=== PATIENT | male | born 1940 | race Caucasian/White ===

== ENCOUNTER 2017-05-04 14:00 | Inpatient (IN) | payer BC, MEDICARE ==
[2017-05-04] MEDS ORDERED: CLOPIDOGREL 75 MG TAB PO STA (14:04)
[2017-05-04] MEDS ORDERED: SODIUM CHLORIDE 0.9% 500 ML IV STA (14:04)
[2017-05-04] MEDS ORDERED: SODIUM CHLORIDE 0.9% 1,000 ML IV STA (14:04)
[2017-05-04] MEDS ORDERED: HYDROmorphone 0.5 MG/0.5 ML SYRINGE IVP STA (14:04)
--- NOTE | 2017-05-04 14:08 | ED ---
Chest Pain HPI - General Chief Complaint: Chest Pain Stated Complaint: STEMI Time Seen by Provider: 05/04/17 14:00 Source: EMS, RN notes reviewed Mode of arrival: EMS Limitations: no limitations - History of Present Illness Initial Comments: This is a 76-year-old male with a history of type 2 diabetes no prior history of heart disease who states he started developing chest pain about an hour ago prior to this. Been snowblowing for about 20 minutes at which time he had no chest pain shortness of breath. He did call 911 EMS responded he did get a full dose of aspirin his blood pressure however was marginally he did not receive nitroglycerin. Pain initially was very severe with time he arrived here was 8/10 in severity. He described it as heavy pressure-like pain. Reports his diaphoresis nausea vomiting. MD Complaint: chest pain - Related Data Allergies Allergy/AdvReac Type Severity Reaction Status Date / Time No Known Allergies Allergy Verified 05/04/17 14:05 Review of Systems ROS Statement: Those systems with pertinent positive or pertinent negative responses have been documented in the HPI. ROS Other: All systems not noted in ROS Statement are negative. EKG Findings - EKG Results: EKG: interpreted by [facility], sinus rhythm (Sinus rhythm rate 88 [place] interval 282 QRS 94 QT since QTC 336/[address] elevation in leads II, III, and F aVF with reciprocal depressions in aVL also elevations in leads V4 V5 V6.) Past Medical History Past Medical History: Unable to Obtain History of Any Multi-Drug Resistant Organisms: None Reported Past Surgical History: Unable to Obtain Past Psychological History: No Psychological Hx Reported Smoking Status: Never smoker Past Alcohol Use History: None Reported Past Drug Use History: None Reported General Exam - General Exam Comments Initial Comments: This is a well-developed well-nourished awake alert oriented 3 male Limitations: no limitations General appearance: alert, anxious, in distress Head exam: Present: atraumatic, normocephalic, normal inspection Eye exam: Present: normal appearance, PERRL, EOMI. Absent: scleral icterus, conjunctival injection, periorbital swelling ENT exam: Present: normal exam, mucous membranes moist Neck exam: Present: normal inspection. Absent: tenderness, meningismus, lymphadenopathy Respiratory exam: Present: normal lung sounds bilaterally. Absent: respiratory distress, wheezes, rales, rhonchi, stridor Cardiovascular Exam: Present: regular rate, normal rhythm, normal heart sounds. Absent: systolic murmur, diastolic murmur, rubs, gallop, clicks GI/Abdominal exam: Present: soft, normal bowel sounds. Absent: distended, tenderness, guarding, rebound, rigid Extremities exam: Present: normal inspection, full ROM, normal capillary refill. Absent: tenderness, pedal edema, joint swelling, calf tenderness Back exam: Present: normal inspection Neurological exam: Present: alert, oriented X3, CN II-XII intact Psychiatric exam: Present: normal affect, normal mood Skin exam: Present: warm, dry, intact, normal color. Absent: rash Course Vital Signs 05/04/17 05/04/17 05/04/17 14:01 14:11 14:12 Temperature 98.0 F Pulse Rate 86 75 Pulse Rate [ 75 [employer] ] Respiratory 20 20 Rate Blood Pressure 101/64 96/63 O2 Sat by Pulse 100 96 Oximetry 05/04/17 14:16 Temperature Pulse Rate 67 Pulse Rate [ [employer] Head ] Respiratory 20 Rate Blood Pressure 102/63 O2 Sat by Pulse 98 Oximetry - Reevaluation(s) Reevaluation #1: 05/04/17 14:09 Prior to the EMS arrival and did contact Dr. Georges who did refer me to Dr. Swann. I did discuss the initial findings with Dr. Swann was coming in to see the patient. A STEMI alert has been initiated Reevaluation #2: 05/04/17 14:20 Patient still had severe chest pain his blood pressure was marginal he was getting IV fluids. No change after 0.5 mg of Dilaudid IV push. [facility] is open patient is transported there. Dr. Rivera will be notified of the admission Chest Pain MDM - MDM I did review the x-ray no acute findings. Patient does continue to have chest pain. He will be going to the [facility]. I did discuss this with the patient's and some family members or present. Critical Care Time Critical Care Time: Yes Critical Care Time: 36 minutes of critical care time which includes monitoring the initial EMS report and discussed with paramedics upon arrival. Activation of the [facility] was discussed with Drs. Georges and Dr. Swann. Later discussed with Dr. Rivera. History physical lab orders and x-rays. Several reevaluation the patient to responsive therapy. Documentation and some initial orders. Disposition Clinical Impression: ST elevation myocardial infarction (STEMI), Chest pain, Hypotensive episode Disposition: ADMITTED IP TO THIS HOSP Condition: Critical Referrals: Oleksandr Rivera MD [Primary Care Provider] - 1-2 days
[2017-05-04] MEDS ORDERED: ATORVASTATIN 80 MG TAB PO STA (14:15)
[2017-05-04 14:17] LABS: Basophils # (A) 0.1 k/uL (0-0.2); Basophils % (A) 1 %; Eosinophils # (A) 0.1 k/uL (0-0.7); Eosinophils % (A) 1 %; HCT 46.9 % (39.0-53.0); HGB 15.7 gm/dL (13.0-17.5); Lymphocytes # (A) 2.3 k/uL (1.0-4.8); Lymphocytes % (A) 18 %; MCH 31.2 pg (25.0-35.0); MCHC 33.5 g/dL (31.0-37.0); MCV 93.3 fL (80.0-100.0); Mean Platelet Volume 7.3; Monocytes # (A) 0.6 k/uL (0-1.0); Monocytes % (A) 5 %; Neutrophils # (A) 9.5 k/uL (1.3-7.7); Neutrophils % (A) 73 %; Platelet Count 239 k/uL (150-450); RBC 5.02 m/uL (4.30-5.90); RDW 12.8 % (11.5-15.5)
[2017-05-04 14:31] LABS: Partial Thromboplastin Time 24.8 sec (22.0-30.0); Prothrombin Time 10.2 sec (9.0-12.0)
[2017-05-04] MEDS ORDERED: LIDOCAINE 2% INJ 20 MG/ML (20 ML MDV) ONE (14:32)
[2017-05-04] MEDS ORDERED: MIDAZOLAM 2 MG/2 ML VIAL ONE (14:32)
[2017-05-04] MEDS ORDERED: MIDAZOLAM 2 MG/2 ML VIAL IVP ONE (14:40)
[2017-05-04 14:42] LABS: ALT 22 U/L (21-72); AST 26 U/L (17-59); Albumin 4.4 g/dL (3.5-5.0); Alkaline Phosphatase 67 U/L (38-126); Anion Gap 18 mmol/L; Blood Urea Nitrogen 19 mg/dL (9-20); Calcium 10.2 mg/dL (8.4-10.2); Carbon Dioxide 18 mmol/L (22-30); Chloride 107 mmol/L (98-107); Glucose 143 mg/dL (74-99); Sodium 143 mmol/L (137-145); Total Bilirubin 0.6 mg/dL (0.2-1.3)
[2017-05-04] MEDS ORDERED: IV FLUID CONTINUATION 400 ML IV ONE (14:43)
[2017-05-04] MEDS ORDERED: LIDOCAINE 2% INJ 20 MG/ML SQ ONE (14:43)
[2017-05-04] MEDS ORDERED: IV FLUID CONTINUATION 900 ML IV ONE (14:43)
--- NOTE | 2017-05-04 14:43 | XR ---
EXAMINATION TYPE: XR chest 1V portable DATE OF EXAM: 05/04/2017 COMPARISON: NONE INDICATION: Chest pain TECHNIQUE: Single frontal view of the chest is obtained. FINDINGS: The heart size is normal. The pulmonary vasculature is normal. The lungs are clear. Some minimal scarring may be at the right apex on previous could be artifact. N o pneumothorax is evident. IMPRESSION: 1. No acute pulmonary process.
[2017-05-04 14:58] LABS: Creatine Kinase MB 3.4 ng/mL (0.0-2.4)
[2017-05-04 15:03] LABS: Troponin I 0.461 ng/mL (0.000-0.034)
[2017-05-04] MEDS ORDERED: BIVALIRUDIN BOLUS 250 MG/50 ML IV ONE (15:08)
[2017-05-04] MEDS ORDERED: BIVALIRUDIN 250 MG in SODIUM CHLORIDE 0.9% 35 ML IV ONE (15:11)
[2017-05-04] MEDS ORDERED: CLOPIDOGREL 75 MG TAB PO ONE (15:11)
[2017-05-04] MEDS: NITROGLYCERIN 1000MCG/10ML SYRINGE INTRACORON ONE ×2 (15:13→15:20)
[2017-05-04] MEDS ORDERED: IOHEXOL 350 MG/ML 125ML BOTTLE INJ ONE (15:29)
[2017-05-04] MEDS ORDERED: RX INFO: IV CONTRAST WAS GIVEN 1 EACH MISC MISCELLANE PRN (15:36)
[2017-05-04] MEDS ORDERED: NITROGLYCERIN SL TABS 0.4 MG TAB SUBLINGUAL PRN (15:36)
[2017-05-04] MEDS ORDERED: ATROPINE SULFATE 0.1 MG/ML 10ML SYRINGE IV PRN (15:36)
[2017-05-04] MEDS ORDERED: MAG HYDROX/AL HYDROX/SIMETH 30 ML CUP PO PRN (15:36)
[2017-05-04] MEDS ORDERED: ZOLPIDEM 5 MG TAB PO PRN (15:36)
--- NOTE | 2017-05-04 15:43 | P.CRDCN ---
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 The patient does have diabetes, hypertension, and dyslipidemia. He was in his usual state of health until earlier today when he started experiencing chest discomfort as a pressure across the chest without any radiation to the arm or neck or shoulders. He was having some shortness of breath. On the way to the emergency room the patient was found to be in acute inferior ST elevation myocardial infarction. He was taken emergently to the cardiac lab support tech where he underwent a heart catheterization and that revealed critical disease involving the mid right coronary artery with thrombus burden. The patient underwent successful stenting of the mid RCA using a drug-eluting stent with a good angiographic results and without any complication. The procedure was performed from the right groin. Beside that he was found to have mild to moderate disease involving the left circumflex and severe disease involving the proximal LAD. Beside that he underwent left ventriculography and that revealed mildly impaired left ventricular systolic function with EF between 45-50% was mid inferior wall hypokinesia. The patient is not aware of any prior cardiac history but he does have diabetes , hypertension, dyslipidemia. He does not smoke or drink alcohol. By the end of the procedure, the chest pain was decreased from 8/10-2/10 in intensity. Past Medical History Past Medical History: Unable to Obtain History of Any Multi-Drug Resistant Organisms: None Reported Past Surgical History: Unable to Obtain Past Psychological History: No Psychological Hx Reported Smoking Status: Never smoker Past Alcohol Use History: None Reported Past Drug Use History: None Reported Medications and Allergies Allergies Allergy/AdvReac Type Severity Reaction Status Date / Time No Known Allergies Allergy Verified 05/04/17 14:05 Physical Exam Vitals: Vital Signs Temp Pulse Pulse Resp BP Pulse Ox 05/04/17 14:29 97.7 F 69 20 99/60 96 05/04/17 14:16 67 20 102/63 98 05/04/17 14:12 75 20 96/63 96 05/04/17 14:11 75 05/04/17 14:01 98.0 F 86 20 101/64 100 Intake and Output 05/04/17 05/04/17 05/04/17 06:59 14:59 22:59 Intake Total 300 Balance 300 Intake: IV 300 Other: Weight 83.007 kg Patient Weight 05/05/17 06:59 Weight 83.007 kg - Constitutional General appearance: no acute distress - Respiratory Respiratory: bilateral: rales - Cardiovascular Rhythm: regular Heart sounds: normal: S1, S2 Results 05/04/17 14:09 05/04/17 14:09 Cardiac Enzymes 05/04/17 05/04/17 Range/Units 14:09 14:09 AST 26 (17-59) U/L CK-MB (CK-2) 3.4 H* (0.0-2.4) ng/mL Troponin I 0.461 H* (0.000-0.034) ng/mL Coagulation 05/04/17 Range/Units 14:09 PT 10.2 (9.0-12.0) sec APTT 24.8 (22.0-30.0) sec CBC 05/04/17 Range/Units 14:09 WBC 13.0 H (3.8-10.6) k/uL RBC 5.02 (4.30-5.90) m/uL Hgb 15.7 (13.0-17.5) gm/dL Hct 46.9 (39.0-53.0) % Plt Count 239 (150-450) k/uL Comprehensive Metabolic Panel 05/04/17 Range/Units 14:09 Sodium 143 (137-145) mmol/L Potassium 5.0 (3.5-5.1) mmol/L Chloride 107 (98-107) mmol/L Carbon Dioxide 18 L (22-30) mmol/L BUN 19 (9-20) mg/dL Creatinine 0.94 (0.66-1.25) mg/dL Glucose 143 H (74-99) mg/dL Calcium 10.2 (8.4-10.2) mg/dL AST 26 (17-59) U/L ALT 22 (21-72) U/L Alkaline Phosphatase 67 (38-126) U/L Total Protein 7.0 (6.3-8.2) g/dL Albumin 4.4 (3.5-5.0) g/dL Current Medications Generic Name Dose Route Start Last Admin Trade Name Freq PRN Reason Stop Dose Admin Sodium Chloride 1,000 mls @ 100 mls/hr 05/04/17 14:04 05/04/17 14:07 Saline 0.9% IV 05/05/17 00:03 100 mls/hr .Q10H STA Administration Intake and Output 05/04/17 05/04/17 05/04/17 06:59 14:59 22:59 Intake Total 300 Balance 300 Intake: IV 300 Other: Weight 83.007 kg Patient Weight 05/05/17 06:59 Weight 83.007 kg 05/04/17 14:09 05/04/17 14:09 Assessment and Plan Assessment: Assessment #[address] elevation myocardial infarction #2 status post stenting of the mid RCA using a drug-eluting stent #3 severe disease involving the proximal LAD #4 mildly impaired LV function #5 multiple risk factors for CAD including diabetes, hypertension, dyslipidemia Plan #1 dual antiplatelet therapy along with a statin #2 the patient was started also on metoprolol as well as lisinopril #3 obtain an echocardiogram was Doppler to assess the LV function #4 PCI of the LAD in the next few days to next few weeks #5 follow-up with the patient. Thank you for allowing us participate in his care and we'll continue following up with the patient.
[2017-05-04] MEDS ORDERED: SODIUM CHLORIDE 0.9% 1,000 ML IV SCH (15:45)
[2017-05-04] MEDS ORDERED: PNEUMOCOCCAL VACC-PNEUMOVAX 23 25 MCG/0.5 ML VIAL IM ONE (16:29)
[2017-05-04 17:08] LABS: Glucose,Whole Blood 137 mg/dL (75-99)
[2017-05-04] MEDS: INSULIN ASPART 100 UNIT/ML 1 ML 10 ML VIAL SQ SCH ×2 (17:32→21:00)
[2017-05-04] MEDS ORDERED: ACETAMINOPHEN TAB 500 MG TAB PO PRN (20:03)
[2017-05-04 20:59] LABS: Glucose,Whole Blood 112 mg/dL (75-99)
[2017-05-04] MEDS: METOPROLOL TARTRATE 25 MG TAB PO SCH (21:00)
--- NOTE | 2017-05-04 21:39 | CC ---
CARDIAC CATHETERIZATION REPORT DATE OF SERVICE: May 04, 2017 PERFORMING PHYSICIAN: Wilder Swann MD, english language arts teacher. PROCEDURE PERFORMED: 1. Selective right and left coronary angiogram. 2. Successful stenting of the mid RCA using 4.0 x 15 mm Xience ANDREIA with good angiographic results. 3. Left heart catheterization. 4. Left ventriculography. INDICATION: This is a pleasant 76-year-old gentleman who is known to have diabetes, hypertension, dyslipidemia, presented to the hospital complaining of chest discomfort. He was found to be in acute inferior ST-elevation myocardial infarction. An emergent heart catheterization was recommended. APPROACH: Right common femoral artery. COMPLICATION: None. LEVEL OF SEDATION: Moderate with sedation length of 50 minutes. PROCEDURE DESCRIPTION: After obtaining informed consent, the patient was brought to cardiac microbiology lab analyst. The right common femoral artery was cannulated using micropuncture technique and a micropuncture wire passed easily. Then I placed a 6-Luxembourgish sheath in the right common femoral artery. After that, I did selective right coronary angiogram using JR4 catheter which revealed a critical disease involving the mid RCA with thrombus burden. I did intervene on the RCA at that point. Subsequently I did selective left coronary angiogram using JL4 catheter. After that I did left heart catheterization and left ventriculography using 6-Luxembourgish pigtail catheter. The procedure was completed without any complication. SELECTIVE CORONARY ANGIOGRAM: 1. The RCA is a large caliber vessel. It is a dominant vessel. The proximal RCA is angiographically normal. The mid RCA just distal to the bifurcation of the acute marginal branch has a critical lesion in the range of 90% to 95% with thrombus burden and slow flow in the RCA. The RCA distally appeared to be angiographically normal. 2. The left main is a long left main and seems to be angiographically normal. It bifurcates into the left circumflex and left anterior descending artery. 3. The left circumflex is a large caliber vessel. It is a nondominant vessel. The proximal circ has mild disease only. The mid circ appeared to be angiographically normal and gives rise into an obtuse marginal branch which is a moderate caliber vessel with mild to moderate disease. The left circumflex continues after that as a small to medium caliber vessel in the AV groove. 4. The proximal LAD just distal to the bifurcation of a large diagonal branch has a long tubular lesion in the range of 70% to 80%. The first diagonal branch appeared to have mild disease only. The mid LAD and distal LAD appears to be angiographically normal. PCI OF THE RCA: Anticoagulation initiated using Angiomax. Subsequently I took JR4 guide and the RCA was engaged. A whisper wire was used to wire the RCA. Subsequently I did PTCA ballooning using two 5 mm balloon and then deployed I did deploy 4.0 x 15 mm Xience ANDREIA where the stent was positioned under fluoroscopy guidance and deployed under 14 atmospheres for 20 seconds with the following angiogram showing excellent angiographic results. The procedure was completed without any complication. HEMODYNAMICS: The left ventricular end-diastolic pressure was 12 to 16 mmHg. No gradient was identified across the aortic valve. LEFT VENTRICULOGRAPHY: Left ventriculography was performed in the MCNEILL projection using a power injection. The left ventricular systolic function is mildly impaired with EF between 45-50% with mid inferior hypokinesia. CONCLUSION: 1. Acute inferior ST-elevation myocardial infarction. 2. Critical disease involving the mid RCA with plaque rupture and thrombus formation. 3. Successful stenting of the mid RCA as described above. 4. Mild to moderate disease involving the left circumflex. 5. Severe disease involving the proximal LAD. POSTPROCEDURE MANAGEMENT: 1. Dual anti-platelet therapy. 2. High-dose statin. 3. HOWIE inhibitor and beta lamberto. 4. Obtain an echocardiogram with Doppler. 5. PCI of the LAD later on. MMODL / IJN: [id number] /
--- NOTE | 2017-05-04 21:42 | LTR ---
DATE OF SERVICE: May 04, 2017. Dear Yao: Mr. Martha German presented to the emergency room with chest discomfort and was found to be in acute inferior ST-elevation myocardial infarction. He subsequently underwent an emergent heart catheterization and was found to have a plaque rupture involving the mid RCA with a lesion about 99%. He underwent successful stenting of the RCA with good angiographic results and without any complication. Also, he was found to have severe disease involving the LAD which needed to be stented as well. I want to thank you for allowing me to participate in his care and please do not hesitate to call if you have any questions or concerns. Sincerely, MMFRENCHL / IJN: [id number] /
[2017-05-05 07:42] LABS: Glucose,Whole Blood 130 mg/dL (75-99)
[2017-05-05 07:55] LABS: Anion Gap 10 mmol/L; Blood Urea Nitrogen 14 mg/dL (9-20); Calcium 9.5 mg/dL (8.4-10.2); Carbon Dioxide 24 mmol/L (22-30); Chloride 107 mmol/L (98-107); Glucose 111 mg/dL (74-99); Magnesium 1.9 mg/dL (1.6-2.3); Phosphorus 3.3 mg/dL (2.5-4.5); Potassium 4.4 mmol/L (3.5-5.1); Sodium 141 mmol/L (137-145)
[2017-05-05] MEDS: ASPIRIN 325 MG TAB PO SCH (08:17)
[2017-05-05] MEDS: LISINOPRIL 10 MG TAB PO SCH (08:17)
[2017-05-05] MEDS: METOPROLOL TARTRATE 25 MG TAB PO SCH ×2 (08:18→22:16)
[2017-05-05] MEDS: INSULIN ASPART 100 UNIT/ML 1 ML 10 ML VIAL SQ SCH ×4 (08:19→22:14)
[2017-05-05 08:50] LABS: Basophils # (A) 0.1 k/uL (0-0.2); Basophils % (A) 1 %; Eosinophils # (A) 0.1 k/uL (0-0.7); Eosinophils % (A) 1 %; HCT 43.5 % (39.0-53.0); HGB 14.5 gm/dL (13.0-17.5); Lymphocytes # (A) 2.1 k/uL (1.0-4.8); Lymphocytes % (A) 16 %; MCH 31.6 pg (25.0-35.0); MCHC 33.4 g/dL (31.0-37.0); MCV 94.6 fL (80.0-100.0); Mean Platelet Volume 7.8; Monocytes % (A) 7 %; Neutrophils # (A) 9.8 k/uL (1.3-7.7); Neutrophils % (A) 74 %; Platelet Count 198 k/uL (150-450); RBC 4.59 m/uL (4.30-5.90); RDW 12.8 % (11.5-15.5); WBC 13.3 k/uL (3.8-10.6)
--- NOTE | 2017-05-05 10:02 | P.PN ---
Subjective Progress Note Date: 05/05/17 This is a 76-year-old gentleman with a history of hypertension who was admitted to the hospital with acute inferior wall HI. Patient had a cardiac catheterization and stent placement to the RCA by Dr. Mera. He is also found to have significant disease in the left anterior descending. He is feeling much better today. Denies any chest pain or shortness of breath. His groin is soft without any hematoma. Pedal pulses are preserved. Lungs are clear. Heart is regular. Patient is being moved to stepdown unit and increase activity as tolerated. Patient is on beta lamberto, HOWIE inhibitor R's and dual antiplatelet agents. His CBC looks normal. He is going to be having an echocardiogram today. We'll also get a couple of troponin values. Objective - Vital Signs Vital signs: Vital Signs Temp 97.8 F 05/05/17 08:00 Pulse 85 05/05/17 08:00 Resp 18 05/05/17 08:00 BP 140/82 05/05/17 08:00 Pulse Ox 96 05/05/17 08:00 Intake & Output 05/04/17 05/05/17 05/05/17 18:59 06:59 18:59 Intake Total 635 680 60 Output Total 400 575 80 Balance 235 105 -20 Weight 83 kg 84.2 kg Intake: IV 335 400 Sodium Chloride 0.9% 1, 400 000 ml @ 100 mls/hr IV . Q10H NICOLASA Rx#:[id number] Intake, IV Titration 300 100 Amount Sodium Chloride 0.9% 1, 300 100 000 ml @ 100 mls/hr IV . Q10H NIC[facility]ASA Rx#:[id number] Oral 180 60 Output: Urine 400 575 80 Other: Voiding Method Urinal Urinal # Voids 1 0 ABP, PAP, CO, CI - Last Documented Arterial Blood Pressure 144/71 - Exam GENERAL EXAM: Patient is alert and oriented and doesn't appear to be in any acute distress HEENT: Normocephalic. Normal reaction of pupils, equal size, normal range of extraocular motion. No erythema or exudates in the throat. NECK: No masses, no nuchal rigidity. CHEST: No chest wall deformity. LUNGS: Equal air entry with no crackles or wheeze. HEART: S1 and S2 normal with no audible mumurs or gallops. Regular rhythm, femorals equal on both sides.. ABDOMEN: No hepatosplenomegaly, normal bowel sounds, no guarding or rigidity. SKIN: No rashes CENTRAL NERVOUS SYSTEM: No focal deficits. EXTREMITIES: No cyanosis, clubbing or edema. PUNCTURE SITE: It is soft without any hematoma. - Labs CBC & Chem 7: 05/05/17 03:52 05/05/17 03:52 Labs: Abnormal Lab Results - Last 24 Hours (Table) 05/04/17 05/04/17 05/04/17 Range/Units 14:09 14:09 14:09 WBC 13.0 H (3.8-10.6) k/uL Neutrophils # 9.5 H (1.3-7.7) k/uL Carbon Dioxide 18 L (22-30) mmol/L Glucose 143 H (74-99) mg/dL POC Glucose (mg/dL) (75-99) mg/dL CK-MB (CK-2) 3.4 H* (0.0-2.4) ng/mL Troponin I 0.461 H* (0.000-0.034) ng/mL 05/04/17 05/04/17 05/05/17 Range/Units 17:07 20:57 03:52 WBC 13.3 H (3.8-10.6) k/uL Neutrophils # 9.8 H (1.3-7.7) k/uL Carbon Dioxide (22-30) mmol/L Glucose (74-99) mg/dL POC Glucose (mg/dL) 137 H 112 H (75-99) mg/dL CK-MB (CK-2) (0.0-2.4) ng/mL Troponin I (0.000-0.034) ng/mL 05/05/17 05/05/17 Range/Units 03:52 07:30 WBC (3.8-10.6) k/uL Neutrophils # (1.3-7.7) k/uL Carbon Dioxide (22-30) mmol/L Glucose 111 H (74-99) mg/dL POC Glucose (mg/dL) 130 H (75-99) mg/dL CK-MB (CK-2) (0.0-2.4) ng/mL Troponin I (0.000-0.034) ng/mL Assessment and Plan (1) Hypertension Current Visit: Yes Status: Acute Code(s): I10 - ESSENTIAL (PRIMARY) HYPERTENSION SNOMED Code(s): 90532408 (2) Hypotensive episode Current Visit: Yes Status: Acute Code(s): I95.9 - HYPOTENSION, UNSPECIFIED SNOMED Code(s): 12097764 (3) ST elevation myocardial infarction (STEMI) Current Visit: Yes Status: Acute Code(s): I21.3 - ST ELEVATION (STEMI) MYOCARDIAL INFARCTION OF [facility] SITE SNOMED Code(s): 336897262 Plan: Patient is critically stable. Denies any chest pain. Patient is being moved to telemetry unit. His activity as tolerated. Echo Cardigan today. Possible stenting of the LAD either before or after discharge
--- NOTE | 2017-05-05 10:04 | ECHOF ---
Referral Reason:ACS MEASUREMENTS -------- HEIGHT: 182.9 cm WEIGHT: 83.9 kg BP: 140/82 IVSd: 1.2 cm (0.6 - 1.1) LVIDd: 2.9 cm (3.9 - 5.3) LVPWd: 1.2 cm (0.6 - 1.1) IVSs: 1.9 cm LVIDs: 1.4 cm LVPWs: 1.6 cm Ao Diam: 3.3 cm (2.0 - 3.7) AV Cusp: 1.3 cm (1.5 - 2.6) LA Diam: 3.6 cm (2.7 - 3.8) MV EXCURSION: 18.742 mm (> 18.000) MV EF SLOPE: 80 mm/s (70 - 150) EPSS: 0.9 cm MV E Dontrell: 0.69 m/s MV DecT: 208 ms MV A Dontrell: 0.93 m/s MV E/A Ratio: 0.74 RAP: 5.00 mmHg RVSP: 25.25 mmHg FINDINGS -------- Sinus rhythm. This was a technically good study. The left ventricular size is normal. There is mild concentric left ventricular hypertrophy. Overa ll left ventricular systolic function is low-normal with, an EF between 50 - 55 %. Basal posterior LV wall motion is hypokinetic. Basal inferior LV wall motion is hypokinetic. Basal inferoseptal LV wall motion is hypokinetic. Mid inferior LV wall motion is hypokinetic. The right ventricle is normal in size and function. The left atrium is normal in size. The right atrium is normal in size. The aortic valve is trileaflet, and appears structurally normal. No aortic stenosis or regurgitation. The mitral valve leaflets are mildly thickened. Mild mitral regurgitation is present. Mild tricuspid regurgitation present. There is no evidence of pulmonary hypertension. The right v entricular systolic pressure, as measured by Doppler, is 25.25mmHg. There is no pulmonic regurgitation present. The aortic root size is normal. Normal inferior vena cava with normal inspiratory collapse consistent with estimated right atrial pre ssure of 5 mmHg. There is no pericardial effusion. CONCLUSIONS -------- 1. Sinus rhythm. 2. This was a technically good study. 3. The left ventricular size is normal. 4. There is mild concentric left ventricular hypertrophy. 5. Overall left ventricular systolic function is low-normal with, an EF between 50 - 55 %. 6. Basal posterior LV wall motion is hypokinetic. 7. Basal inferior LV wall motion is hypokinetic. 8. Basal inferoseptal LV wall motion is hypokinetic. 9. Mid inferior LV wall motion is hypokinetic. 10. The left atrium is normal in size. 11. The aortic valve is trileaflet, and appears structurally normal. No aortic stenosis or regurgitat ion. 12. The mitral valve leaflets are mildly thickened. 13. Mild mitral regurgitation is present. 14. Mild tricuspid regurgitation present. 15. There is no evidence of pulmonary hypertension. 16. There is no pulmonic regurgitation present. 17. The aortic root size is normal. 18. Normal inferior vena cava with normal inspiratory collapse consistent with estimated right atrial pressure of 5 mmHg. 19. There is no pericardial effusion. PRESS SETTER: Loretta Ellis RDCS
--- NOTE | 2017-05-05 12:17 | P.HPIM ---
History of Present Illness H&P Date: 05/05/17 Chief Complaint: Chest pain 76-year-old male who presented to the emergency room with a chief complaint of chest pain. 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 He states he went inside and sat down to rest for a little while and began to develop chest pressure. He denied shortness of breath. Denied nausea or vomiting. Denies dizziness or lightheadedness. He called EMS and was transported to the hospital for further evaluation. He did receive aspirin per EMS. He did not receive nitroglycerin per EMS secondary to borderline hypotension. The patient has a history of diabetes mellitus, hypertension, and hyperlipidemia. He is a nonsmoker. Chest x-ray: Negative for acute process. EKG: Sinus mechanism with ST elevation in leads II, III, and aVF. Elevation in V4, V5, and V6. Laboratory data: WBC 13.0. Hemoglobin 15.7. Platelet count 239. Sodium 143. Potassium 5.0. BUN 19. Creatinine 0.94. Glucose 143. Magnesium 2.0. Troponins 0.461 and 3.660 The patient was admitted to the hospital under the care of Dr. Rivera. Consultations were placed to cardiology. The patient underwent cardiac cath and a stent was placed to the RCA. The patient will require stenting to LAD in the near future. Echocardiogram was completed revealing mild concentric left ventricular hypertrophy, ejection fraction of 50-55%, hypokinesis of LV, mild mitral regurgitation, and mild tricuspid regurgitation. Review of Systems GENERAL: Patient denies fever. Denies chills. EYES: Denies blurred vision. Denies vision changes. Denies eye pain. EARS, NOSE, MOUTH, & THROAT: Denies headache. Denies sore throat. Denies ear pain. RESPIRATORY: Denies cough. Denies shortness of breath. Denies sputum production. Denies hemoptysis. CARDIOVASCULAR: Positive for chest pain and pressure, which has resolved. Denies palpitations. Denies arrhythmias. GASTROINTESTINAL: Denies abdominal pain. Denies diarrhea. Denies constipation. Denies nausea. Denies vomiting. Denies heartburn. Denies blood in the stool. GENITOURINARY: Denies urinary frequency. Denies burning. Denies dysuria. Denies cloudy urine. Denies blood in the urine. MUSCULOSKELETAL: Denies myalgias. Denies joint swelling. Denies decreased range of motion beyond patients baseline. INTEGUMENTARY: Denies pruitis. Denies rash. PSYCHIATRIC: Denies suicidal or homicial ideations. ENDOCRINE: Denies weight change. Denies polydipsia. Denies polyuria. HEMATOLOGIC: Denies bleeding disorders. Past Medical History Past Medical History: Diabetes Mellitus, Hypertension, Musculoskeletal Disorder Additional Past Medical History / Comment(s): Gout History of Any Multi-Drug Resistant Organisms: None Reported Past Surgical History: Adenoidectomy, Joint Replacement, Orthopedic Surgery Past Anesthesia/Blood Transfusion Reactions: No Reported Reaction Past Psychological History: No Psychological Hx Reported Smoking Status: Never smoker Past Alcohol Use History: None Reported Past Drug Use History: None Reported - Past Family History Father Family Medical History: Coronary Artery Disease (CAD) Medications and Allergies Home Medications Medication Instructions Recorded Confirmed Type Aspirin 325 mg PO DAILY PRN 05/04/17 05/04/17 History Colchicine [Colcrys] 0.6 mg PO DAILY 05/04/17 05/04/17 History amLODIPine BESYLATE/BENAZEPRIL 1 cap PO DAILY 05/04/17 05/04/17 History [amLODIPine BESYLATE/BENAZEPRIL 10-40 mg] metFORMIN HCL [Glucophage] 1,000 mg PO BID 05/04/17 05/04/17 History Allergies Allergy/AdvReac Type Severity Reaction Status Date / Time No Known Allergies Allergy Verified 05/04/17 14:05 Physical Exam Vitals: Vital Signs Temp Pulse Pulse Resp BP BP Pulse Ox 05/05/17 11:00 61 14 124/76 05/05/17 10:00 76 18 124/76 05/05/17 09:00 74 15 107/67 96 05/05/17 08:00 97.8 F 85 18 140/82 96 05/05/17 07:00 67 15 125/71 95 05/05/17 06:00 91 20 119/69 96 05/05/17 05:00 97.9 F 66 14 134/79 95 05/05/17 04:00 73 15 130/82 97 05/05/17 03:00 69 14 117/80 94 L 05/05/17 02:00 78 20 147/91 94 L 05/05/17 01:00 97.4 F L 74 12 128/79 97 05/05/17 00:00 84 21 129/81 96 05/04/17 23:00 80 16 129/81 96 05/04/17 22:00 68 18 112/69 98 05/04/17 21:00 96 18 145/76 97 05/04/17 20:00 97.8 F 96 16 122/68 96 05/04/17 18:55 91 18 116/70 96 05/04/17 18:52 89 17 116/70 95 05/04/17 18:00 92 17 114/66 96 05/04/17 17:45 97 20 123/77 97 05/04/17 17:30 93 17 129/83 98 05/04/17 17:15 72 18 123/70 98 05/04/17 17:00 93 20 115/68 98 05/04/17 16:45 97.9 F 82 19 119/78 98 05/04/17 14:29 97.7 F 69 20 99/60 96 05/04/17 14:16 67 20 102/63 98 05/04/17 14:12 75 20 96/63 96 05/04/17 14:11 75 05/04/17 14:01 98.0 F 86 20 101/64 100 Intake and Output 05/04/17 05/05/17 05/05/17 22:59 06:59 14:59 Intake Total 855 160 60 Output Total 975 80 Balance -120 160 -20 Intake: IV 335 100 Sodium Chloride 0.9% 1, 300 100 000 ml @ 100 mls/hr IV . Q10H NICOLASA Rx#:[id number] Intake, IV Titration 400 Amount Sodium Chloride 0.9% 1, 400 000 ml @ 100 mls/hr IV . Q10H NICOLASA Rx#:[id number] Oral 120 60 60 Output: Urine 975 80 Other: Voiding Method Urinal Urinal # Voids 1 1 # Bowel Movements 1 Weight 83 kg 84.2 kg GENERAL: This is a 76-year-old male in no apparent distress at the time of examination. Pleasant and cooperative. HEENT: Head is atraumatic, normocephalic. Pupils are equal, round, and reactive to light. Sclerae anicteric. Conjunctivae are clear. Mucus membranes of the mouth are moist. Neck is supple. RESPIRATORY: Clear to ausculation. No wheezes, rales, or rhonchi. No use of accessory muscles. Patient maintaining oxygen saturation greater than 92%. No chest wall tenderness is noted on palpation or with deep breathing. CARDIOVASCULAR: Regular rate and rhythm. S1 and S2 noted. No systolic or diastolic murmur auscultated. No JVD noted. No S3 or S4 noted. GASTROINTESTINAL: No distention noted. Abdomen soft and round. Normal active bowel sounds auscultated x 4 quadrants. No pain or tenderness noted upon palpation. INTEGUMENTARY: No cyanosis. No jaundice. No rashes noted. No cellulitis noted. EXTREMITIES: 2+ peripheral pulses. No evidence of peripheral edema. No calf tenderness noted. NEUROLOGIC: Cranial nerves II-XII intact. PSYCHIATRIC: Awake, alert, and oriented X 3. Appropriate affect. Intact judgement and insight. Results CBC & Chem 7: 05/05/17 03:52 05/05/17 03:52 Labs: Abnormal Lab Results - Last 24 Hours (Table) 05/04/17 05/04/17 05/04/17 Range/Units 14:09 14:09 14:09 WBC 13.0 H (3.8-10.6) k/uL Neutrophils # 9.5 H (1.3-7.7) k/uL Carbon Dioxide 18 L (22-30) mmol/L Glucose 143 H (74-99) mg/dL POC Glucose (mg/dL) (75-99) mg/dL CK-MB (CK-2) 3.4 H* (0.0-2.4) ng/mL Troponin I 0.461 H* (0.000-0.034) ng/mL 05/04/17 05/04/17 05/05/17 Range/Units 17:07 20:57 03:52 WBC 13.3 H (3.8-10.6) k/uL Neutrophils # 9.8 H (1.3-7.7) k/uL Carbon Dioxide (22-30) mmol/L Glucose (74-99) mg/dL POC Glucose (mg/dL) 137 H 112 H (75-99) mg/dL CK-MB (CK-2) (0.0-2.4) ng/mL Troponin I (0.000-0.034) ng/mL 05/05/17 05/05/17 05/05/17 Range/Units 03:52 07:30 10:15 WBC (3.8-10.6) k/uL Neutrophils # (1.3-7.7) k/uL Carbon Dioxide (22-30) mmol/L Glucose 111 H (74-99) mg/dL POC Glucose (mg/dL) 130 H (75-99) mg/dL CK-MB (CK-2) (0.0-2.4) ng/mL Troponin I 3.660 H* (0.000-0.034) ng/mL Thrombosis Risk Factor Assmnt - Choose All That Apply Any of the Below Risk Factors Present?: No Other Risk Factors: Yes Each Risk Factor Represents 3 Points: Age 75 years or older Other congenital or acquired thrombophilia - If yes, enter type in comment: No Thrombosis Risk Factor Assessment Total Risk Factor Score: 3 Thrombosis Risk Factor Assessment Level: Moderate Risk Assessment and Plan Plan: ASSESSMENT: ST-elevated myocardial infarction, present on admission, s/p cardiac catherization with stent placement to RCA with drug-eluting stent Severe disease involving the proximal LAD, will require stent placement Essential hypertension Diabetes mellitus, type II, hemoglobin A1c pending Dyslipidemia PLAN: Patient may transfer to selective care unit Cardiology on consult. Appreciate recommendations and input Await further input from cardiology regarding when stenting of LAD will be performed Continue aspirin, plavix, lisinopril, lopressor, and lipitor Await results of hemoglobin A1c Capillary blood glucose accu-checks AC/HS NovoLog sliding scale insulin coverage AC/HS Will hold metformin secondary to cardiac cath Monitor labs GI prophylaxis: Protonix 40 mg PO Daily DVT prophylaxis: ERVIN hose to bilateral lower extremities Monitor vital signs and address as appropriate Discharge planning: Patient to return home when stable Further recommendations pending patient's course Nurse practitioner note has been reviewed by physician. Signing provider agrees with the documented findings, assessment, and plan of care.
[2017-05-05 12:36] LABS: Glucose,Whole Blood 112 mg/dL (75-99)
[2017-05-05] MEDS: CLOPIDOGREL 75 MG TAB PO SCH (13:44)
[2017-05-05 14:58] VITALS: BMI 26.6
[2017-05-05 17:26] LABS: Hemoglobin A1C 5.4 % (4.0-6.0)
[2017-05-05 17:37] LABS: Glucose,Whole Blood 101 mg/dL (75-99)
[2017-05-05 22:12] LABS: Glucose,Whole Blood 127 mg/dL (75-99)
[2017-05-05] MEDS: ATORVASTATIN 80 MG TAB PO SCH (22:17)
[2017-05-06 06:31] LABS: Basophils # (A) 0.1 k/uL (0-0.2); Basophils % (A) 1 %; Eosinophils # (A) 0.2 k/uL (0-0.7); Eosinophils % (A) 2 %; HCT 48.2 % (39.0-53.0); Lymphocytes % (A) 15 %; MCH 30.6 pg (25.0-35.0); MCHC 31.2 g/dL (31.0-37.0); MCV 98.2 fL (80.0-100.0); Mean Platelet Volume 7.4; Monocytes # (A) 0.8 k/uL (0-1.0); Monocytes % (A) 6 %; Neutrophils # (A) 9.8 k/uL (1.3-7.7); Neutrophils % (A) 76 %; Platelet Count 203 k/uL (150-450); RBC 4.91 m/uL (4.30-5.90); RDW 12.8 % (11.5-15.5)
[2017-05-06] MEDS: INSULIN ASPART 100 UNIT/ML 1 ML 10 ML VIAL SQ SCH ×4 (06:31→20:51)
[2017-05-06 06:33] LABS: Glucose,Whole Blood 122 mg/dL (75-99)
[2017-05-06] MEDS: PANTOPRAZOLE 40 MG TABLET PO SCH (06:33)
[2017-05-06 06:51] LABS: ALT 34 U/L (21-72); AST 26 U/L (17-59); Albumin 4.4 g/dL (3.5-5.0); Alkaline Phosphatase 71 U/L (38-126); Anion Gap 14 mmol/L; Blood Urea Nitrogen 15 mg/dL (9-20); Calcium 10.2 mg/dL (8.4-10.2); Carbon Dioxide 24 mmol/L (22-30); Chloride 106 mmol/L (98-107); Glucose 123 mg/dL (74-99); Potassium 5.2 mmol/L (3.5-5.1); Sodium 144 mmol/L (137-145); Total Bilirubin 0.8 mg/dL (0.2-1.3); Total Protein 6.9 g/dL (6.3-8.2)
[2017-05-06] MEDS: METOPROLOL TARTRATE 25 MG TAB PO SCH ×2 (10:10→20:31)
[2017-05-06] MEDS: ASPIRIN 325 MG TAB PO SCH (10:10)
[2017-05-06] MEDS: LISINOPRIL 10 MG TAB PO SCH (10:10)
[2017-05-06] MEDS: CLOPIDOGREL 75 MG TAB PO SCH (10:10)
[2017-05-06 11:56] LABS: Glucose,Whole Blood 101 mg/dL (75-99)
--- NOTE | 2017-05-06 12:12 | P.PN ---
Subjective Progress Note Date: 05/06/17 76-year-old male who presented to the emergency room with a chief complaint of chest pain. Patient states he was [facility] and did not experience chest pain or pressure at that time. He states he went inside and sat down to rest for a little while and began to develop chest pressure. He denied shortness of breath. Denied nausea or vomiting. Denies dizziness or lightheadedness. He called EMS and was transported to the hospital for further evaluation. He did receive aspirin per EMS. He did not receive nitroglycerin per EMS secondary to borderline hypotension. The patient has a history of diabetes mellitus, hypertension, and hyperlipidemia. He is a nonsmoker. Chest x-ray: Negative for acute process. EKG: Sinus mechanism with ST elevation in leads II, III, and aVF. Elevation in V4, V5, and V6. Laboratory data: WBC 13.0. Hemoglobin 15.7. Platelet count 239. Sodium 143. Potassium 5.0. BUN 19. Creatinine 0.94. Glucose 143. Magnesium 2.0. Troponins 0.461 and 3.660 The patient was admitted to the hospital under the care of Dr. Rivera. Consultations were placed to cardiology. The patient underwent cardiac cath and a stent was placed to the RCA. The patient will require stenting to LAD in the near future. Echocardiogram was completed revealing mild concentric left ventricular hypertrophy, ejection fraction of 50-55%, hypokinesis of LV, mild mitral regurgitation, and mild tricuspid regurgitation. 05/06/2017 Patient awake and alert. Denies chest pain or pressure. Denies shortness of breath. Vital signs remain stable. K this morning is 5.2. Spoke with Dr. Georges who states he will speak with Dr. Swann regarding when the patient will require stenting of the LAD and determine if it will be completed this hospital admission or if patient will schedule it as an outpatient procedure. Objective - Vital Signs Vital signs: Vital Signs Temp 97.2 F L 05/06/17 07:58 Pulse 84 05/06/17 07:58 Resp 18 05/06/17 07:58 BP 136/74 05/06/17 07:58 Pulse Ox 98 05/06/17 07:58 Intake & Output 05/05/17 05/06/17 05/06/17 18:59 06:59 18:59 Intake Total 60 180 Output Total 80 Balance -20 180 Weight 84.2 kg 83.1 kg Intake: Oral 60 180 Output: Urine 80 Other: Voiding Method Urinal Toilet Urinal # Voids 1 2 1 # Bowel Movements 1 ABP, PAP, CO, CI - Last Documented Arterial Blood Pressure 144/71 - Exam GENERAL: This is a 76-year-old male in no apparent distress at the time of examination. Pleasant and cooperative. HEENT: Head is atraumatic, normocephalic. Pupils are equal, round, and reactive to light. Sclerae anicteric. Conjunctivae are clear. Mucus membranes of the mouth are moist. Neck is supple. RESPIRATORY: Clear to ausculation. No wheezes, rales, or rhonchi. No use of accessory muscles. Patient maintaining oxygen saturation greater than 92%. No chest wall tenderness is noted on palpation or with deep breathing. CARDIOVASCULAR: Regular rate and rhythm. S1 and S2 noted. No systolic or diastolic murmur auscultated. No JVD noted. No S3 or S4 noted. GASTROINTESTINAL: No distention noted. Abdomen soft and round. Normal active bowel sounds auscultated x 4 quadrants. No pain or tenderness noted upon palpation. INTEGUMENTARY: No cyanosis. No jaundice. No rashes noted. No cellulitis noted. EXTREMITIES: 2+ peripheral pulses. No evidence of peripheral edema. No calf tenderness noted. NEUROLOGIC: Cranial nerves II-XII intact. PSYCHIATRIC: Awake, alert, and oriented X 3. Appropriate affect. Intact judgement and insight. - Labs CBC & Chem 7: 05/06/17 06:01 05/06/17 06:01 Labs: Abnormal Lab Results - Last 24 Hours (Table) 05/05/17 05/05/17 05/05/17 Range/Units 10:15 12:35 17:02 WBC (3.8-10.6) k/uL Neutrophils # (1.3-7.7) k/uL Potassium (3.5-5.1) mmol/L Glucose (74-99) mg/dL POC Glucose (mg/dL) 112 H (75-99) mg/dL Troponin I 3.660 H* 2.700 H* (0.000-0.034) ng/mL 05/05/17 05/05/17 05/06/17 Range/Units 17:34 22:00 06:01 WBC 13.0 H (3.8-10.6) k/uL Neutrophils # 9.8 H (1.3-7.7) k/uL Potassium (3.5-5.1) mmol/L Glucose (74-99) mg/dL POC Glucose (mg/dL) 101 H 127 H (75-99) mg/dL Troponin I (0.000-0.034) ng/mL 05/06/17 05/06/17 Range/Units 06:01 06:31 WBC (3.8-10.6) k/uL Neutrophils # (1.3-7.7) k/uL Potassium 5.2 H (3.5-5.1) mmol/L Glucose 123 H (74-99) mg/dL POC Glucose (mg/dL) 122 H (75-99) mg/dL Troponin I (0.000-0.034) ng/mL Assessment and Plan Plan: ASSESSMENT: ST-elevated myocardial infarction, present on admission, s/p cardiac catherization with stent placement to RCA with drug-eluting stent Severe disease involving the proximal LAD, will require stent placement Essential hypertension Diabetes mellitus, type II, hemoglobin A1c 5.4% Dyslipidemia PLAN: Cardiology on consult. Appreciate recommendations and input Await further input from cardiology regarding when stenting of LAD will be performed Monitor potassium. Will repeat in AM. Continue aspirin, plavix, lisinopril, lopressor, and lipitor Capillary blood glucose accu-checks AC/HS NovoLog sliding scale insulin coverage AC/HS Will hold metformin secondary to cardiac cath Monitor labs GI prophylaxis: Protonix 40 mg PO Daily DVT prophylaxis: ERVIN hose to bilateral lower extremities Monitor vital signs and address as appropriate Discharge planning: Patient to return home when stable Further recommendations pending patient's course Nurse practitioner note has been reviewed by physician. Signing provider agrees with the documented findings, assessment, and plan of care.
--- NOTE | 2017-05-06 15:15 | P.PN ---
Subjective Progress Note Date: 05/06/17 Principal diagnosis: Inferior ST elevation [place] This is a pleasant 76-year-old gentleman with history of diabetes, hypertension, hyperlipidemia who presented to the hospital with an inferior ST elevation myocardial infarction. He was taken emergently to the cardiac catheterization lab where he underwent a cardiac catheterization which revealed critical disease involving the mid RCA with thrombus burden. He underwent successful stenting of the mid RCA using a drug-eluting stent. Procedure was performed in the right groin. Patient was also found to have mild to moderate disease involving the left circumflex and severe disease in the proximal LAD. Left ventriculography revealed mildly impaired left ventricular systolic function with an ejection fraction of 45-50%. Patient was seen and examined this morning, denies any chest pain, he's been up ambulating without any difficulty. No arrhythmias noted on the monitor. Objective - Vital Signs Vital signs: Vital Signs Temp 98.0 F 05/06/17 11:34 Pulse 90 05/06/17 12:00 Resp 16 05/06/17 12:00 BP 133/77 05/06/17 11:34 Pulse Ox 98 05/06/17 11:34 Intake & Output 05/05/17 05/06/17 05/06/17 18:59 06:59 18:59 Intake Total 60 420 Output Total 80 Balance -20 420 Weight 84.2 kg 83.1 kg Intake: Oral 60 420 Output: Urine 80 Other: Voiding Method Urinal Toilet Toilet Urinal # Voids 1 2 1 # Bowel Movements 1 ABP, PAP, CO, CI - Last Documented Arterial Blood Pressure 144/71 - Exam PHYSICAL EXAMINATION: HEENT: Head is atraumatic, normocephalic. Pupils equal, round. Neck is supple. There is no elevated jugular venous pressure. HEART EXAMINATION: Heart S1, S2 normal. No murmur or gallop heard. CHEST EXAMINATION: Lungs are clear to auscultation and precussion. No chest wall tenderness is noted on palpation or with deep breathing. ABDOMEN: Soft, nontender. Bowel sounds are heard. No organomegaly noted. EXTREMITIES: 2+ peripheral pulses with no evidence of peripheral edema and no calf tenderness noted. NEUROLOGIC patient is awake, alert and oriented -3. . - Labs CBC & Chem 7: 05/06/17 06:01 05/06/17 06:01 Labs: Abnormal Lab Results - Last 24 Hours (Table) 05/05/17 05/05/17 05/05/17 Range/Units 17:02 17:34 22:00 WBC (3.8-10.6) k/uL Neutrophils # (1.3-7.7) k/uL Potassium (3.5-5.1) mmol/L Glucose (74-99) mg/dL POC Glucose (mg/dL) 101 H 127 H (75-99) mg/dL Troponin I 2.700 H* (0.000-0.034) ng/mL 05/06/17 05/06/17 05/06/17 Range/Units 06:01 06:01 06:31 WBC 13.0 H (3.8-10.6) k/uL Neutrophils # 9.8 H (1.3-7.7) k/uL Potassium 5.2 H (3.5-5.1) mmol/L Glucose 123 H (74-99) mg/dL POC Glucose (mg/dL) 122 H (75-99) mg/dL Troponin I (0.000-0.034) ng/mL 05/06/17 Range/Units 11:52 WBC (3.8-10.6) k/uL Neutrophils # (1.3-7.7) k/uL Potassium (3.5-5.1) mmol/L Glucose (74-99) mg/dL POC Glucose (mg/dL) 101 H (75-99) mg/dL Troponin I (0.000-0.034) ng/mL Assessment and Plan Plan: Assessment and plan #[address] elevation myocardial infarction status post stenting of the RCA. Patient was also found to have a moderate disease in the circumflex and severe disease in the LAD #2 hypertension #3 diabetes #4 hyperlipidemia Plan Patient has been encouraged to be up ambulating in the hallway today. Plan for possible discharge home in 24 hours if stable. Patient will be brought back electively for intervention of the LAD. DNP note has been reviewed, I agree with a documented findings and plan of care. Patient was seen and examined.
[2017-05-06 16:54] LABS: Glucose,Whole Blood 140 mg/dL (75-99)
[2017-05-06] MEDS: ATORVASTATIN 80 MG TAB PO SCH (20:31)
[2017-05-06 20:46] LABS: Glucose,Whole Blood 146 mg/dL (75-99)
[2017-05-07 05:57] VITALS: RESP 16
[2017-05-07 05:57] LABS: Glucose,Whole Blood 109 mg/dL (75-99)
[2017-05-07] MEDS: PANTOPRAZOLE 40 MG TABLET PO SCH (05:59)
[2017-05-07] MEDS: INSULIN ASPART 100 UNIT/ML 1 ML 10 ML VIAL SQ SCH (06:08)
[2017-05-07 06:31] LABS: Basophils # (A) 0.1 k/uL (0-0.2); Basophils % (A) 1 %; Eosinophils # (A) 0.2 k/uL (0-0.7); Eosinophils % (A) 2 %; HCT 45.2 % (39.0-53.0); HGB 15.1 gm/dL (13.0-17.5); Lymphocytes % (A) 18 %; MCH 31.2 pg (25.0-35.0); MCHC 33.4 g/dL (31.0-37.0); MCV 93.6 fL (80.0-100.0); Mean Platelet Volume 7.6; Monocytes # (A) 0.8 k/uL (0-1.0); Monocytes % (A) 7 %; Neutrophils # (A) 7.9 k/uL (1.3-7.7); Neutrophils % (A) 71 %; Platelet Count 202 k/uL (150-450); RBC 4.83 m/uL (4.30-5.90); RDW 12.8 % (11.5-15.5); WBC 11.2 k/uL (3.8-10.6)
[2017-05-07 06:54] LABS: ALT 30 U/L (21-72); AST 18 U/L (17-59); Alkaline Phosphatase 74 U/L (38-126); Anion Gap 12 mmol/L; Blood Urea Nitrogen 15 mg/dL (9-20); Calcium 9.8 mg/dL (8.4-10.2); Carbon Dioxide 25 mmol/L (22-30); Chloride 104 mmol/L (98-107); Glucose 111 mg/dL (74-99); Potassium 4.4 mmol/L (3.5-5.1); Sodium 141 mmol/L (137-145); Total Bilirubin 1.1 mg/dL (0.2-1.3); Total Protein 6.6 g/dL (6.3-8.2)
[2017-05-07 07:41] VITALS: TEMP 98.2
[2017-05-07] MEDS: LISINOPRIL 10 MG TAB PO SCH (08:24)
[2017-05-07] MEDS: CLOPIDOGREL 75 MG TAB PO SCH (08:24)
[2017-05-07] MEDS: ASPIRIN 325 MG TAB PO SCH (08:25)
[2017-05-07] MEDS: METOPROLOL TARTRATE 25 MG TAB PO SCH (08:25)
--- NOTE | 2017-05-07 08:57 | P.PN ---
Subjective Progress Note Date: 05/07/17 Principal diagnosis: Inferior ST elevation [place] This is a pleasant 76-year-old gentleman with history of diabetes, hypertension, hyperlipidemia who presented to the hospital with an inferior ST elevation myocardial infarction. He was taken emergently to the cardiac catheterization lab where he underwent a cardiac catheterization which revealed critical disease involving the mid RCA with thrombus burden. He underwent successful stenting of the mid RCA using a drug-eluting stent. Procedure was performed in the right groin. Patient was also found to have mild to moderate disease involving the left circumflex and severe disease in the proximal LAD. Left ventriculography revealed mildly impaired left ventricular systolic function with an ejection fraction of 45-50%. Patient was seen and examined this morning, denies any chest pain, he's been up ambulating without any difficulty. No arrhythmias noted on the monitor. 05/07/2017 Patient seen and examined this morning, denies any chest pain or difficulty in breathing, he's been up ambulating without any difficulty. Hemodynamically stable. Objective - Vital Signs Vital signs: Vital Signs Temp 98.2 F 05/07/17 07:39 Pulse 78 05/07/17 07:39 Resp 16 05/07/17 07:39 BP 139/75 05/07/17 07:39 Pulse Ox 97 05/07/17 07:39 Intake & Output 05/06/17 05/07/17 05/07/17 18:59 06:59 18:59 Intake Total 656 40 240 Balance 656 40 240 Weight 83.6 kg Intake: IV 40 0.9 40 Oral 656 240 Other: Voiding Method Toilet # Voids 1 1 ABP, PAP, CO, CI - Last Documented Arterial Blood Pressure 144/71 - Exam PHYSICAL EXAMINATION: HEENT: Head is atraumatic, normocephalic. Pupils equal, round. Neck is supple. There is no elevated jugular venous pressure. HEART EXAMINATION: Heart S1, S2 normal. No murmur or gallop heard. CHEST EXAMINATION: Lungs are clear to auscultation and precussion. No chest wall tenderness is noted on palpation or with deep breathing. ABDOMEN: Soft, nontender. Bowel sounds are heard. No organomegaly noted. EXTREMITIES: 2+ peripheral pulses with no evidence of peripheral edema and no calf tenderness noted. NEUROLOGIC patient is awake, alert and oriented -3. . - Labs CBC & Chem 7: 05/07/17 06:08 05/07/17 06:08 Labs: Abnormal Lab Results - Last 24 Hours (Table) 05/06/17 05/06/17 05/06/17 Range/Units 11:52 16:38 20:44 WBC (3.8-10.6) k/uL Neutrophils # (1.3-7.7) k/uL Glucose (74-99) mg/dL POC Glucose (mg/dL) 101 H 140 H 146 H (75-99) mg/dL 05/07/17 05/07/17 05/07/17 Range/Units 05:56 06:08 06:08 WBC 11.2 H (3.8-10.6) k/uL Neutrophils # 7.9 H (1.3-7.7) k/uL Glucose 111 H (74-99) mg/dL POC Glucose (mg/dL) 109 H (75-99) mg/dL Assessment and Plan Plan: Assessment and plan #[address] elevation myocardial infarction status post stenting of the RCA. Patient was also found to have a moderate disease in the circumflex and severe disease in the LAD #2 hypertension #3 diabetes #4 hyperlipidemia Plan Patient has been encouraged to be up ambulating in the hallway today. He may be discharged home today. Follow-up with Dr. Mera in one week. Patient will be brought back electively for intervention of the LAD. DNP note has been reviewed, I agree with a documented findings and plan of care. Patient was seen and examined.
[2017-05-07 09:29] VITALS: BP 145/85; PULSE 97
--- NOTE | 2017-05-07 11:59 | P.DS ---
Providers Date of admission: 05/04/17 14:20 Expected date of discharge: 05/07/17 Attending physician: Oleksandr Rivera Consults: 05/04/17 15:36 Consult Physician Routine Consulting Provider: [facility] Consult Reason/Comments: Post Interventional patient Do you want consulting provider notified?: Already Contacted Primary care physician: Oleksandr [facility] Course: 76-year-old male who presented to the emergency room with a chief complaint of chest pain. Patient states he was outside [facility] and did not experience chest pain or pressure at that time. He states he went inside and sat down to rest for a little while and began to develop chest pressure. He denied shortness of breath. Denied nausea or vomiting. Denies dizziness or lightheadedness. He called EMS and was transported to the hospital for further evaluation. He did receive aspirin per EMS. He did not receive nitroglycerin per EMS secondary to borderline hypotension. The patient has a history of diabetes mellitus, hypertension, and hyperlipidemia. He is a nonsmoker. Chest x-ray: Negative for acute process. EKG: Sinus mechanism with ST elevation in leads II, III, and aVF. Elevation in V4, V5, and V6. Laboratory data: WBC 13.0. Hemoglobin 15.7. Platelet count 239. Sodium 143. Potassium 5.0. BUN 19. Creatinine 0.94. Glucose 143. Magnesium 2.0. Troponins 0.461 and 3.660 The patient was admitted to the hospital under the care of Dr. Rivera. Consultations were placed to cardiology. Echocardiogram was completed revealing mild concentric left ventricular hypertrophy, ejection fraction of 50-55%, hypokinesis of LV, mild mitral regurgitation, and mild tricuspid regurgitation. The patient underwent cardiac cath and a stent was placed to the RCA. Per cardiology, patient will be scheduled for outpatient cath for stent placement to the LAD. The patient was deemed stable for discharge. He is to follow up on an outpatient basis. DISCHARGE DIAGNOSIS: ST-elevated myocardial infarction, present on admission, s/p cardiac catherization with stent placement to RCA with drug-eluting stent Severe disease involving the proximal LAD, will require stent placement in the future on an outpatient basis Essential hypertension Diabetes mellitus, type II, hemoglobin A1c 5.4% Dyslipidemia Nurse practitioner note has been reviewed by physician. Signing provider agrees with the documented findings, assessment, and plan of care. Patient Condition at Discharge: Stable Plan - Discharge Summary Discharge Rx Participant: Yes New Discharge Prescriptions: New Atorvastatin [Lipitor] 80 mg PO HS #30 tab Clopidogrel [Plavix] 75 mg PO DAILY #30 tab Lisinopril [Zestril] 10 mg PO DAILY #30 tab Metoprolol Tartrate [Lopressor] 25 mg PO BID #60 tab Nitroglycerin Sl Tabs [Nitrostat] 0.4 mg SUBLINGUAL Q5M PRN #30 tab PRN Reason: Chest Pain Continue metFORMIN HCL [Glucophage] 1,000 mg PO BID Changed Aspirin 325 mg PO DAILY #30 tab Discontinued amLODIPine BESYLATE/BENAZEPRIL [amLODIPine BESYLATE/BENAZEPRIL 10-40 mg] 1 cap PO DAILY Colchicine [Colcrys] 0.6 mg PO DAILY Discharge Medication List metFORMIN HCL [Glucophage] 1,000 mg PO BID 05/04/17 [History] Aspirin 325 mg PO DAILY #30 tab 05/07/17 [Rx] Atorvastatin [Lipitor] 80 mg PO HS #30 tab 05/07/17 [Rx] Clopidogrel [Plavix] 75 mg PO DAILY #30 tab 05/07/17 [Rx] Lisinopril [Zestril] 10 mg PO DAILY #30 tab 05/07/17 [Rx] Metoprolol Tartrate [Lopressor] 25 mg PO BID #60 tab 05/07/17 [Rx] Nitroglycerin Sl Tabs [Nitrostat] 0.4 mg SUBLINGUAL Q5M PRN #30 tab 05/07/17 [Rx ] Follow up Appointment(s)/Referral(s): Wlider Swann MD [STAFF PHYSICIAN] - 05/13/17 3:45 pm (friday) Oleksandr Rivera MD [Primary Care Provider] - 05/14/17 9:00 am (friday) Patient Instructions/Handouts: *Surgery [facility] - After Heart Catheterization - Category Analyst Instructions, Left Heart Catheterization (DC) Discharge Disposition: HOME SELF-CARE
== END 2017-05-07 11:25 | disposition home or self-care (01) | DRG 247 ==
LOC: EC 14:00 → 6ICU 14:20 → 6SEL 05-05 22:14
PROVIDERS: ADMIT Family Medicine; ATTEND Family Medicine
PROC: B2111ZZ Fluoroscopy of Multiple Coronary Arteries using Low Osmolar Contrast (ICD-10-PCS; 2017-05-04)
PROC: B2151ZZ Fluoroscopy of Left Heart using Low Osmolar Contrast (ICD-10-PCS; 2017-05-04)
PROC: 3E0234Z Introduction of Serum, Toxoid and Vaccine into Muscle, Percutaneous Approach (ICD-10-PCS; 2017-05-04)
PROC: 027034Z Dilation of Coronary Artery, One Artery with Drug-eluting Intraluminal Device, Percutaneous Approach (ICD-10-PCS; principal; 2017-05-04 14:19)
PROC: 4A023N7 Measurement of Cardiac Sampling and Pressure, Left Heart, Percutaneous Approach (ICD-10-PCS; 2017-05-04 14:19)
DX: I21.19 ST elevation (STEMI) myocardial infarction involving other coronary artery of inferior wall (principal); I95.9 Hypotension, unspecified; I08.1 Rheumatic disorders of both mitral and tricuspid valves; E11.9 Type 2 diabetes mellitus without complications; E78.5 Hyperlipidemia, unspecified; I10 Essential (primary) hypertension; M10.9 Gout, unspecified; Z23 Encounter for immunization; Z79.82 Long term (current) use of aspirin; Z79.84 Long term (current) use of oral hypoglycemic drugs; Z79.899 Other long term (current) drug therapy; Z82.49 Family history of ischemic heart disease and other diseases of the circulatory system
CPT/HCPCS: 36415; 71045; 80048; 80053; 82550; 82553; 82565; 83036; 83735; 84100; 84484; 85025; 85610; 85730; 90732; 93005; 93306; 93458; 94760; 96374; 99291

== ENCOUNTER 2017-05-29 05:58 | Day surgery (SDC) | payer MEDICARE ==
[2017-05-27 11:14] VITALS: BMI 26.2
[2017-05-29] MEDS ORDERED: ASPIRIN 325 MG TAB PO STA (06:30)
[2017-05-29] MEDS ORDERED: ALPRAZolam 0.5 MG TAB PO PRN (06:30)
[2017-05-29] MEDS ORDERED: ATORVASTATIN 80 MG TAB PO STA (06:30)
[2017-05-29] MEDS ORDERED: SODIUM CHLORIDE 0.9% 1,000 ML in EMPTY BAG 1 BAG IV ONE (06:30)
[2017-05-29] MEDS ORDERED: ALPRAZolam 0.25 MG TAB PO PRN (06:30)
[2017-05-29] MEDS ORDERED: NITROGLYCERIN SL TABS 0.4 MG TAB SUBLINGUAL PRN ×3 (06:30→08:53)
[2017-05-29 07:02] LABS: Glucose,Whole Blood 158 mg/dL (75-99)
[2017-05-29] MEDS ORDERED: MIDAZOLAM 2 MG/2 ML VIAL IV ONE ×2 (07:53→08:10)
[2017-05-29] MEDS ORDERED: LIDOCAINE 2% INJ 20 MG/ML SQ ONE (08:01)
[2017-05-29] MEDS ORDERED: BIVALIRUDIN BOLUS 250 MG/50 ML IV ONE (08:03)
[2017-05-29] MEDS ORDERED: BIVALIRUDIN 250 MG in SODIUM CHLORIDE 0.9% 50 ML IV ONE (08:03)
[2017-05-29] MEDS: NITROGLYCERIN 1000MCG/10ML SYRINGE INTRACORON ONE ×2 (08:23→08:43)
[2017-05-29] MEDS ORDERED: CLOPIDOGREL 75 MG TAB PO ONE (08:46)
[2017-05-29] MEDS ORDERED: RX INFO: IV CONTRAST WAS GIVEN 1 EACH MISC MISCELLANE PRN (08:53)
[2017-05-29] MEDS ORDERED: ZOLPIDEM 5 MG TAB PO PRN (08:53)
[2017-05-29] MEDS ORDERED: ATROPINE SULFATE 0.1 MG/ML 10ML SYRINGE IV PRN (08:53)
[2017-05-29] MEDS ORDERED: MAG HYDROX/AL HYDROX/SIMETH 30 ML CUP PO PRN (08:53)
[2017-05-29] MEDS ORDERED: IOHEXOL 350 MG/ML 125ML BOTTLE INJ ONE (08:57)
[2017-05-29] MEDS ORDERED: SODIUM CHLORIDE 0.9% 1,000 ML IV SCH (09:00)
--- NOTE | 2017-05-29 09:20 | CC ---
CARDIAC CATHETERIZATION REPORT DATE OF SERVICE: 05/29/2017 PERFORMING PHYSICIAN: Wilder Swann MD, import/export administrator. PROCEDURE PERFORMED: 1. Selective right and left coronary angiogram. 2. Successful stenting of the mid LAD using 2.75 x 33 mm EluNIR drug-eluting stent with good angiographic results. INDICATION: This is a pleasant 76-year-old gentleman who presented to the hospital a few weeks ago with acute inferior ST-elevation myocardial infarction and underwent stenting of the RCA. He was brought today to undergo PCI of the LAD, which was found to be severely diseased on the previous heart catheterization. APPROACH: Right common femoral artery. COMPLICATION: None. LEVEL OF SEDATION: Moderate with sedation length of 55 minutes. PROCEDURE DESCRIPTION: After obtaining an informed consent, the patient was brought to cardiac laborer driver. The right common femoral artery was cannulated using micropuncture technique, the micropuncture wire passed easily, then I placed a 6-Amharic sheath in the right common femoral artery. After that, I did start anticoagulation using Angiomax. Subsequently I did intervene on the LAD, please see a separate paragraph for that. I did after that checked the RCA using JR4 catheter. The procedure was completed without any complication. SELECTIVE CORONARY ANGIOGRAM: 1. The RCA is a large caliber vessel and it is a dominant vessel. The proximal RCA appeared to be angiographically normal. The mid RCA appeared to be normal as well. The mid to distal RCA is stented and the stent is patent. The RCA distally is normal. It bifurcates into PDA and PLV branches both are angiographically normal. 2. The left main is angiographically normal. It bifurcates into the left circumflex and left anterior descending artery. 3. The left circumflex is a medium caliber vessel. It is a nondominant vessel. The proximal circ appeared to have mild disease only. The mid circ appeared to be angiographically normal and distally appeared to be angiographically normal. 4. The LAD; the proximal LAD appeared to be angiographically normal. The mid LAD right after the bifurcation of a large diagonal branch has a long tubular lesion in the range of 80% to 90%. The LAD distally appeared to be angiographically normal. The LAD gives rise into a large diagonal branch, which has mild ostial disease only. PCI OF THE LAD: Anticoagulation was initiated using Angiomax. Subsequently I took JL4 guide and the left main was engaged. The whisper wire was used to wire the LAD. After that I did balloon angioplasty using 2.0 x x 20 mm balloon. I tried to advance 2.75 x 33 mm EluNIR drug-eluting stent but the stent will not cross the lesion, so I had to pre- dilated again using 2.5 mm balloon and using a marian wire with run-through wire. With the marian wire I was able to advance the stent to the mid LAD where the stent was positioned under fluoroscopy guidance and deployed under 10 atmospheres for 20 seconds with the following angiogram showed good angiographic results. There was some pinch on the diagonal, but the disease appeared to be in only in the range of 50% with DEANDRA-3 flow in that diagonal. The procedure was completed without any complication. CONCLUSION: 1. Successful stenting of the mid left anterior descending artery using 2.75 x 33 mm EluNIR drug-eluting stent with good angiographic results. 2. Patent stent in the mid to distal right coronary artery. POSTPROCEDURE MANAGEMENT: Maximize medical treatment and follow up with the patient. MMODL / IJN: [id number] /
--- NOTE | 2017-05-29 09:20 | LTR ---
May 29, 2017 Re: Martha Rileyvicenta Dear Dr. Rivera: Mr. Martha German underwent successful stenting of the LAD with good angiographic results and without any complication. Thank you for allowing me to participate in his care. Please do not hesitate to call for questions or concerns. Sincerely, Wilder Swann MD MMFRENCHL / LUISITON: [id number] /
[2017-05-29 16:52] LABS: Glucose,Whole Blood 101 mg/dL (75-99)
[2017-05-29] MEDS: metFORMIN 500 MG TAB PO SCH (20:42)
[2017-05-29] MEDS: METOPROLOL TARTRATE 25 MG TAB PO SCH (20:47)
[2017-05-29 20:56] LABS: Glucose,Whole Blood 128 mg/dL (75-99)
[2017-05-30 06:01] LABS: Glucose,Whole Blood 120 mg/dL (75-99)
[2017-05-30] MEDS ORDERED: LISINOPRIL 10 MG TAB PO SCH (09:00)
[2017-05-30] MEDS ORDERED: CLOPIDOGREL 75 MG TAB PO SCH (09:00)
[2017-05-30] MEDS ORDERED: ASPIRIN 81 MG PO SCH (09:00)
--- NOTE | 2017-05-30 09:12 | DS ---
DISCHARGE SUMMARY DATE OF ADMISSION: 05/29/2017. DATE OF DISCHARGE: 05/30/2017. BRIEF HISTORY: This is a pleasant 76-year-old gentleman who is known to have coronary artery disease and prior stenting of the RCA in the setting of acute inferior ST-elevation myocardial infarction where at that point, he was found to have critical disease involving the LAD. He was brought to the hospital yesterday and underwent successful stenting of the LAD with good angiographic results and without any complication from a procedure that was performed from the right groin. The patient is going to be discharged home today on dual anti-platelet therapy as well as a statin. His vital signs are stable. He is asymptomatic. I will follow up with the patient in a week in the office. MMODL / IJN: [id number] /
[2017-05-30] MEDS: metFORMIN 500 MG TAB PO SCH (09:13)
[2017-05-30] MEDS: METOPROLOL TARTRATE 25 MG TAB PO SCH (09:13)
[2017-05-30 09:36] VITALS: BP 124/74; PULSE 94; RESP 16; TEMP 98.2
[2017-05-30] MEDS ORDERED: ATORVASTATIN 80 MG TAB PO SCH (21:00)
== END 2017-05-30 09:21 | disposition home or self-care (01) ==
LOC: CATHCVL 05:58 → 6SEL 08:50 → CATHCVL 05-30 09:21
PROVIDERS: ATTEND Internal Medicine Interventional Cardiology
DX: I25.110 Atherosclerotic heart disease of native coronary artery with unstable angina pectoris (principal); I10 Essential (primary) hypertension; E11.9 Type 2 diabetes mellitus without complications; E78.00 Pure hypercholesterolemia, unspecified; I25.2 Old myocardial infarction; Z95.5 Presence of coronary angioplasty implant and graft; Z79.02 Long term (current) use of antithrombotics/antiplatelets; Z79.899 Other long term (current) drug therapy; Z79.82 Long term (current) use of aspirin; Z79.84 Long term (current) use of oral hypoglycemic drugs
CPT/HCPCS: 93454; 82565; C9600; C1769 ×4; C1887 ×2; C1725 ×2; C1894; C1874; J2001; J2250; J0583; Q9967

== ENCOUNTER 2017-06-15 08:11 | Emergency (ER) | payer MEDICARE ==
[2017-06-15] MEDS ORDERED: SODIUM CHLORIDE 0.9% 500 ML IV STA (08:24)
--- NOTE | 2017-06-15 08:53 | ED ---
Weakness HPI - General Chief complaint: Weakness Stated complaint: Weakness, post heart cath month ago Time Seen by Provider: 06/15/17 08:24 Source: patient, RN notes reviewed Mode of arrival: ambulatory Limitations: no limitations - History of Present Illness Initial comments: This is a 76 show male presents emergency Department chief complaint of bilateral upper extremity weakness. Patient states she started having pain and weakness the right arm on Friday and now has progressed to both arms. Patient is concerned has he had a heart attack on 05/04/2017 had one stent placed then and then states that he has seconds stent placed on 05/29/2017. Patient denies any current chest pain or shortness of breath. He states he just has pain and weakness of the muscles to his arms. He states it stems from his shoulders and radiates down. Denies any discoloration denies any trauma. Patient denies headache, dizziness, lower extremity weakness. Denies nausea vomiting diarrhea constipation. Patient believes that this is related to his statin though he's been taken it for 6 weeks. - Related Data Home Medications Medication Instructions Recorded Confirmed metFORMIN HCL [Glucophage] 1,000 mg PO BID 05/04/17 06/15/17 Aspirin EC [Ecotrin Low Dose] 81 mg PO DAILY 06/15/17 06/15/17 Previous Rx's Medication Instructions Recorded Atorvastatin [Lipitor] 80 mg PO HS #30 tab 05/07/17 Clopidogrel [Plavix] 75 mg PO DAILY #30 tab 05/07/17 Lisinopril [Zestril] 10 mg PO DAILY #30 tab 05/07/17 Metoprolol Tartrate [Lopressor] 25 mg PO BID #60 tab 05/07/17 Nitroglycerin Sl Tabs [Nitrostat] 0.4 mg SUBLINGUAL Q5M PRN #30 tab 05/07/17 Allergies Allergy/AdvReac Type Severity Reaction Status Date / Time No Known Allergies Allergy Verified 06/15/17 08:58 Review of Systems ROS Statement: Those systems with pertinent positive or pertinent negative responses have been documented in the HPI. ROS Other: All systems not noted in ROS Statement are negative. Past Medical History Past Medical History: Diabetes Mellitus, Hypertension, Myocardial Infarction ([place] ), Musculoskeletal Disorder Additional Past Medical History / Comment(s): Gout, History of Any Multi-Drug Resistant Organisms: None Reported Past Surgical History: Adenoidectomy, Heart Catheterization With Stent, Joint Replacement, Orthopedic Surgery Additional Past Surgical History / Comment(s): Coronary stent placement. Past Anesthesia/Blood Transfusion Reactions: No Reported Reaction Past Psychological History: No Psychological Hx Reported Smoking Status: Never smoker Past Alcohol Use History: None Reported Past Drug Use History: None Reported - Past Family History Father Family Medical History: Coronary Artery Disease (CAD) General Exam Limitations: no limitations General appearance: alert, in no apparent distress Head exam: Present: atraumatic, normocephalic, normal inspection Eye exam: Present: normal appearance, PERRL, EOMI. Absent: scleral icterus, conjunctival injection, periorbital swelling ENT exam: Present: normal exam, normal oropharynx, mucous membranes moist Neck exam: Present: normal inspection, full ROM. Absent: tenderness, meningismus, lymphadenopathy Respiratory exam: Present: normal lung sounds bilaterally. Absent: respiratory distress, wheezes, rales, rhonchi, stridor Cardiovascular Exam: Present: regular rate, normal rhythm, normal heart sounds. Absent: systolic murmur, diastolic murmur, rubs, gallop, clicks GI/Abdominal exam: Present: soft, normal bowel sounds. Absent: distended, tenderness, guarding, rebound, rigid Extremities exam: Present: other (Bilateral upper extremities decreased range of motion secondary to pain equal medical record librarian strength equal radial pulses Refill less than 2 seconds lower extremity strength equal bilaterally full range of motion) Neurological exam: Present: alert, oriented X3, CN II-XII intact, reflexes normal, other (Finger to nose intact bilaterally without over shooting). Absent : motor sensory deficit Skin exam: Present: warm, dry, intact, normal color. Absent: rash Course Vital Signs 06/15/17 06/15/17 06/15/17 08:15 08:42 10:28 Temperature 97.2 F L 97.6 F 97.3 F L Pulse Rate 107 H 91 83 Respiratory 20 16 18 Rate Blood Pressure 147/82 147/93 134/81 O2 Sat by Pulse 97 96 95 Oximetry Medical Decision Making - Medical Decision Making 76-year-old male presented from chief complaint of bilateral arm pain, weakness the muscles. Patient did have mild lactic acidosis that he was hydrated. No signs of infection. There is no evidence of sepsis. Patient was evaluated by Dr. Valencia felt that he has possible bursitis. Patient will stop the Lipitor at this time will follow-up tomorrow in office with Dr. Rivera. Case was discussed with Dr. Rivera. - Lab Data Result diagrams: 06/15/17 09:04 06/15/17 09:04 Lab Results 06/15/17 06/15/17 06/15/17 Range/Units 09:04 09:04 09:04 WBC 13.7 H (3.8-10.6) k/uL RBC 4.68 (4.30-5.90) m/uL Hgb 14.1 (13.0-17.5) gm/dL Hct 42.4 (39.0-53.0) % MCV 90.6 (80.0-100.0) fL MCH 30.1 (25.0-35.0) pg MCHC 33.2 (31.0-37.0) g/dL RDW 13.1 (11.5-15.5) % Plt Count 203 (150-450) k/uL Neutrophils % 85 % Lymphocytes % 7 % Monocytes % 6 % Eosinophils % 0 % Basophils % 0 % Neutrophils # 11.7 H (1.3-7.7) k/uL Lymphocytes # 0.9 L (1.0-4.8) k/uL Monocytes # 0.9 (0-1.0) k/uL Eosinophils # 0.0 (0-0.7) k/uL Basophils # 0.0 (0-0.2) k/uL PT (9.0-12.0) sec INR (<1.2) APTT (22.0-30.0) sec Sodium 143 (137-145) mmol/L Potassium 4.2 (3.5-5.1) mmol/L Chloride 107 (98-107) mmol/L Carbon Dioxide 20 L (22-30) mmol/L Anion Gap 16 mmol/L BUN 14 (9-20) mg/dL Creatinine 0.67 (0.66-1.25) mg/dL Est GFR (CKD-EPI)AfAm >90 (>60 ml/min/1.73 sqM) Est GFR (CKD-EPI)NonAf >90 (>60 ml/min/1.73 sqM) Glucose 140 H (74-99) mg/dL Lactic Ac Sepsis Rflx Plasma Lactic Acid Idris (0.7-2.0) mmol/L Calcium 9.6 (8.4-10.2) mg/dL Magnesium 1.8 (1.6-2.3) mg/dL Total Bilirubin 1.0 (0.2-1.3) mg/dL AST 17 (17-59) U/L ALT 30 (21-72) U/L Alkaline Phosphatase 74 (38-126) U/L Total Creatine Kinase 98 (55-170) U/L CK-MB (CK-2) 2.6 H* (0.0-2.4) ng/mL CK-MB (CK-2) Rel Index 2.7 Troponin I <0.012 (0.000-0.034) ng/mL Total Protein 6.5 (6.3-8.2) g/dL Albumin 4.0 (3.5-5.0) g/dL Urine Color Urine Appearance (Clear) Urine pH (5.0-8.0) Ur Specific [place] (1.001-1.035) Urine Protein (Negative) Urine Glucose (UA) (Negative) Urine Ketones (Negative) Urine Blood (Negative) Urine Nitrite (Negative) Urine Bilirubin (Negative) Urine Urobilinogen (<2.0) mg/dL Ur Leukocyte Esterase (Negative) 06/15/17 06/15/17 06/15/17 Range/Units 09:04 09:04 09:18 WBC (3.8-10.6) k/uL RBC (4.30-5.90) m/uL Hgb (13.0-17.5) gm/dL Hct (39.0-53.0) % MCV (80.0-100.0) fL MCH (25.0-35.0) pg MCHC (31.0-37.0) g/dL RDW (11.5-15.5) % Plt Count (150-450) k/uL Neutrophils % % Lymphocytes % % Monocytes % % Eosinophils % % Basophils % % Neutrophils # (1.3-7.7) k/uL Lymphocytes # (1.0-4.8) k/uL Monocytes # (0-1.0) k/uL Eosinophils # (0-0.7) k/uL Basophils # (0-0.2) k/uL PT 10.3 (9.0-12.0) sec INR 1.1 (<1.2) APTT 24.9 (22.0-30.0) sec Sodium (137-145) mmol/L Potassium (3.5-5.1) mmol/L Chloride (98-107) mmol/L Carbon Dioxide (22-30) mmol/L Anion Gap mmol/L BUN (9-20) mg/dL Creatinine (0.66-1.25) mg/dL Est GFR (CKD-EPI)AfAm (>60 ml/min/1.73 sqM) Est GFR (CKD-EPI)NonAf (>60 ml/min/1.73 sqM) Glucose (74-99) mg/dL Lactic Ac Sepsis Rflx Plasma Lactic Acid Idris 2.7 H* (0.7-2.0) mmol/L Calcium (8.4-10.2) mg/dL Magnesium (1.6-2.3) mg/dL Total Bilirubin (0.2-1.3) mg/dL AST (17-59) U/L ALT (21-72) U/L Alkaline Phosphatase (38-126) U/L Total Creatine Kinase (55-170) U/L CK-MB (CK-2) (0.0-2.4) ng/mL CK-MB (CK-2) Rel Index Troponin I (0.000-0.034) ng/mL Total Protein (6.3-8.2) g/dL Albumin (3.5-5.0) g/dL Urine Color Yellow Urine Appearance Clear (Clear) Urine pH 5.5 (5.0-8.0) Ur Specific [place] 1.019 (1.001-1.035) Urine Protein Trace H (Negative) Urine Glucose (UA) Negative (Negative) Urine Ketones Trace H (Negative) Urine Blood Negative (Negative) Urine Nitrite Negative (Negative) Urine Bilirubin Negative (Negative) Urine Urobilinogen <2.0 (<2.0) mg/dL Ur Leukocyte Esterase Negative (Negative) 06/15/17 Range/Units 09:30 WBC (3.8-10.6) k/uL RBC (4.30-5.90) m/uL Hgb (13.0-17.5) gm/dL Hct (39.0-53.0) % MCV (80.0-100.0) fL MCH (25.0-35.0) pg MCHC (31.0-37.0) g/dL RDW (11.5-15.5) % Plt Count (150-450) k/uL Neutrophils % % Lymphocytes % % Monocytes % % Eosinophils % % Basophils % % Neutrophils # (1.3-7.7) k/uL Lymphocytes # (1.0-4.8) k/uL Monocytes # (0-1.0) k/uL Eosinophils # (0-0.7) k/uL Basophils # (0-0.2) k/uL PT (9.0-12.0) sec INR (<1.2) APTT (22.0-30.0) sec Sodium (137-145) mmol/L Potassium (3.5-5.1) mmol/L Chloride (98-107) mmol/L Carbon Dioxide (22-30) mmol/L Anion Gap mmol/L BUN (9-20) mg/dL Creatinine (0.66-1.25) mg/dL Est GFR (CKD-EPI)AfAm (>60 ml/min/1.73 sqM) Est GFR (CKD-EPI)NonAf (>60 ml/min/1.73 sqM) Glucose (74-99) mg/dL Lactic Ac Sepsis Rflx Y Plasma Lactic Acid Idris (0.7-2.0) mmol/L Calcium (8.4-10.2) mg/dL Magnesium (1.6-2.3) mg/dL Total Bilirubin (0.2-1.3) mg/dL AST (17-59) U/L ALT (21-72) U/L Alkaline Phosphatase (38-126) U/L Total Creatine Kinase (55-170) U/L CK-MB (CK-2) (0.0-2.4) ng/mL CK-MB (CK-2) Rel Index Troponin I (0.000-0.034) ng/mL Total Protein (6.3-8.2) g/dL Albumin (3.5-5.0) g/dL Urine Color Urine Appearance (Clear) Urine pH (5.0-8.0) Ur Specific [place] (1.001-1.035) Urine Protein (Negative) Urine Glucose (UA) (Negative) Urine Ketones (Negative) Urine Blood (Negative) Urine Nitrite (Negative) Urine Bilirubin (Negative) Urine Urobilinogen (<2.0) mg/dL Ur Leukocyte Esterase (Negative) Disposition Clinical Impression: Bilateral arm pain, Bursitis Disposition: HOME SELF-CARE Condition: Stable Instructions: Musculoskeletal Pain (ED) Additional Instructions: Discontinue your Lipitor at this time.Please return to the Emergency Department if symptoms worsen or any other concerns. Referrals: Oleksandr Rivera MD [Primary Care Provider] - 1-2 days Time of Disposition: 13:08
[2017-06-15 09:29] LABS: ALT 30 U/L (21-72); AST 17 U/L (17-59); Alkaline Phosphatase 74 U/L (38-126); Anion Gap 16 mmol/L; Basophils % (A) 0 %; Blood Urea Nitrogen 14 mg/dL (9-20); Calcium 9.6 mg/dL (8.4-10.2); Carbon Dioxide 20 mmol/L (22-30); Chloride 107 mmol/L (98-107); Eosinophils % (A) 0 %; Glucose 140 mg/dL (74-99); HCT 42.4 % (39.0-53.0); HGB 14.1 gm/dL (13.0-17.5); INR 1.1 (<1.2); Lymphocytes # (A) 0.9 k/uL (1.0-4.8); Lymphocytes % (A) 7 %; MCH 30.1 pg (25.0-35.0); MCHC 33.2 g/dL (31.0-37.0); MCV 90.6 fL (80.0-100.0); Magnesium 1.8 mg/dL (1.6-2.3); Mean Platelet Volume 7.8; Monocytes # (A) 0.9 k/uL (0-1.0); Monocytes % (A) 6 %; Neutrophils # (A) 11.7 k/uL (1.3-7.7); Neutrophils % (A) 85 %; Partial Thromboplastin Time 24.9 sec (22.0-30.0); Platelet Count 203 k/uL (150-450); Potassium 4.2 mmol/L (3.5-5.1); Prothrombin Time 10.3 sec (9.0-12.0); RBC 4.68 m/uL (4.30-5.90); RDW 13.1 % (11.5-15.5); Sodium 143 mmol/L (137-145); Total Protein 6.5 g/dL (6.3-8.2); WBC 13.7 k/uL (3.8-10.6)
[2017-06-15] MEDS ORDERED: SODIUM CHLORIDE 0.9% 1,000 ML IV ONE (09:30)
[2017-06-15 09:32] LABS: Appearance,Urine Clear (Clear); Bilirubin,Urine Negative (Negative); Blood,Urine Negative (Negative); Color,Urine Yellow; Glucose,Urine (UA) Negative (Negative); Ketones,Urine Trace (Negative); Leukocyte Esterase,Urine Negative (Negative); Nitrite,Urine Negative (Negative); PH, Urine 5.5 (5.0-8.0); Protein,Urine Trace (Negative); Specific Gravity,Urine 1.019 (1.001-1.035); Urobilinogen,Urine <2.0 mg/dL (<2.0)
[2017-06-15 09:42] LABS: Creatine Kinase 98 U/L (55-170)
--- NOTE | 2017-06-15 09:43 | XR ---
EXAMINATION TYPE: XR chest 2V DATE OF EXAM: 06/15/2017 HISTORY: Weakness. REFERENCE: Previous study dated 05/04/2017. FINDINGS: the lungs appear clear. Pleural space are clear. The heart is not enlarged.. IMPRESSION: NO ACTIVE INTRATHORACIC DISEASE.
[2017-06-15 09:55] LABS: Troponin I <0.012 ng/mL (0.000-0.034)
[2017-06-15 09:56] LABS: Creatine Kinase MB 2.6 ng/mL (0.0-2.4)
[2017-06-15 10:29] VITALS: RESP 18; TEMP 97.3
[2017-06-15 13:39] VITALS: BP 139/79; PULSE 77
== END 2017-06-15 13:39 | disposition home or self-care (01) ==
LOC: EC 08:11
DX: M71.9 Bursopathy, unspecified (principal); M79.601 Pain in right arm; M79.602 Pain in left arm; E87.2 Acidosis; E11.9 Type 2 diabetes mellitus without complications; I25.2 Old myocardial infarction; Z95.5 Presence of coronary angioplasty implant and graft; Z79.82 Long term (current) use of aspirin; Z79.84 Long term (current) use of oral hypoglycemic drugs
CPT/HCPCS: 36415; 71046; 80053; 81003; 82550; 82553; 83605; 83735; 84484; 85025; 85610; 85730; 93005; 96360; 99285

== ENCOUNTER 2018-05-02 18:19 | Observation (INO) | payer MEDICARE ==
[2018-05-02] MEDS ORDERED: SODIUM CHLORIDE 0.9% 1,000 ML IV STA (18:27)
--- NOTE | 2018-05-02 19:09 | ED ---
Chest Pain HPI - General Chief Complaint: Chest Pain Stated Complaint: CHEST PAIN Time Seen by Provider: 05/02/18 18:27 Source: patient, RN notes reviewed, old records reviewed Mode of arrival: ambulatory Limitations: no limitations - History of Present Illness MD Complaint: chest pain -: hour(s) Onset: during rest Pain Location: left chest Pain Radiation: LUE Severity: moderate Severity scale (1-10): 5 Quality: tightness, heaviness Consistency: constant Improves With: nothing Worsens With: nothing Anginal Symptoms: diaphoresis, dyspnea Other Symptoms: other (none) Treatments Prior to Arrival: none - Related Data Home Medications Medication Instructions Recorded Confirmed metFORMIN HCL [Glucophage] 1,000 mg PO BID 05/04/17 05/02/18 Aspirin EC [Ecotrin Low Dose] 81 mg PO DAILY 06/15/17 05/02/18 Metoprolol Tartrate [Lopressor] 12.5 mg PO BID 05/02/18 05/02/18 amLODIPine BESYLATE/BENAZEPRIL 1 cap PO DAILY 05/02/18 05/02/18 [Lotrel 10-40 MG] Previous Rx's Medication Instructions Recorded Clopidogrel [Plavix] 75 mg PO DAILY #30 tab 05/07/17 Nitroglycerin Sl Tabs [Nitrostat] 0.4 mg SUBLINGUAL Q5M PRN #30 tab 05/07/17 Allergies Allergy/AdvReac Type Severity Reaction Status Date / Time atorvastatin [From Lipitor] AdvReac MUSCLE/JOINT Verified 05/02/18 18:34 PAIN Review of Systems ROS Statement: Those systems with pertinent positive or pertinent negative responses have been documented in the HPI. ROS Other: All systems not noted in ROS Statement are negative. EKG Findings - EKG Comments: EKG Findings:: EKG shows normal sinus rhythm rate of 95, DC 164, QRS 86, QTc 4: 30 Past Medical History Past Medical History: Diabetes Mellitus, Hypertension, Myocardial Infarction ([place] ), Musculoskeletal Disorder Additional Past Medical History / Comment(s): Gout, History of Any Multi-Drug Resistant Organisms: None Reported Past Surgical History: Adenoidectomy, Heart Catheterization With Stent, Joint Replacement, Orthopedic Surgery Additional Past Surgical History / Comment(s): Coronary stent placement. Past Anesthesia/Blood Transfusion Reactions: No Reported Reaction Past Psychological History: No Psychological Hx Reported Smoking Status: Never smoker Past Alcohol Use History: None Reported Past Drug Use History: None Reported - Past Family History Father Family Medical History: Coronary Artery Disease (CAD) General Exam Limitations: no limitations General appearance: alert, in no apparent distress Head exam: Present: atraumatic, normocephalic, normal inspection Eye exam: Present: normal appearance, PERRL, EOMI. Absent: scleral icterus, conjunctival injection, periorbital swelling ENT exam: Present: normal exam, mucous membranes moist Neck exam: Present: normal inspection. Absent: tenderness, meningismus, lymphadenopathy Respiratory exam: Present: normal lung sounds bilaterally. Absent: respiratory distress, wheezes, rales, rhonchi, stridor Cardiovascular Exam: Present: regular rate, normal rhythm, normal heart sounds. Absent: systolic murmur, diastolic murmur, rubs, gallop, clicks GI/Abdominal exam: Present: soft, normal bowel sounds. Absent: distended, tenderness, guarding, rebound, rigid Extremities exam: Present: normal inspection, full ROM, normal capillary refill. Absent: tenderness, pedal edema, joint swelling, calf tenderness Back exam: Present: normal inspection Neurological exam: Present: alert, oriented X3, CN II-XII intact Psychiatric exam: Present: normal affect, normal mood Skin exam: Present: warm, dry, intact, normal color. Absent: rash Course Vital Signs 05/02/18 18:23 Temperature 98.0 F Pulse Rate 112 H Respiratory 20 Rate Blood Pressure 143/82 O2 Sat by Pulse 99 Oximetry - Reevaluation(s) Reevaluation #1: 05/02/18 19:50 Medical record is reviewed Reevaluation #2: 05/02/18 19:50 Patient still remains a chest pain Reevaluation #3: 05/02/18 19:50 Study CXR is negative for acute disaease Chest Pain MDM - MDM 77 male the ER with left-sided chest pain typical chest pain will admit for cardiac observation Critical Care Time Critical Care Time: Yes Total Critical Care Time: 31 Disposition Clinical Impression: Chest pain Disposition: ADMITTED IP TO THIS [facility] Condition: Undetermined Instructions (If sedation given, give patient instructions): Chest Pain (ED) Is patient prescribed a controlled substance at d/c from ED?: No Referrals: Oleksandr Rivera MD [Primary Care Provider] - 1-2 days
[2018-05-02 19:10] LABS: Basophils # (A) 0.1 k/uL (0-0.2); Basophils % (A) 1 %; Eosinophils # (A) 0.4 k/uL (0-0.7); Eosinophils % (A) 4 %; HCT 46.3 % (39.0-53.0); HGB 15.6 gm/dL (13.0-17.5); Lymphocytes % (A) 19 %; MCHC 33.7 g/dL (31.0-37.0); MCV 91.9 fL (80.0-100.0); Mean Platelet Volume 7.5; Monocytes # (A) 0.7 k/uL (0-1.0); Monocytes % (A) 6 %; Neutrophils # (A) 7.2 k/uL (1.3-7.7); Neutrophils % (A) 67 %; Platelet Count 221 k/uL (150-450); RBC 5.03 m/uL (4.30-5.90); RDW 13.4 % (11.5-15.5); WBC 10.7 k/uL (3.8-10.6)
--- NOTE | 2018-05-02 19:15 | XR ---
EXAMINATION TYPE: XR chest 2V DATE OF EXAM: 05/02/2018 COMPARISON: 06/15/2017 HISTORY: Left-sided chest pain and pressure. History of myocardial infarct. TECHNIQUE: Frontal and lateral views of the chest are obtained. FINDINGS: There is no focal air space opacity, pleural effusion, or pneumothorax seen. The cardiac silhouette size is within normal limits. The osseous structures are intact. Moderate multilevel deg enerative change of the spine are again noted. IMPRESSION: No acute cardiopulmonary process.
[2018-05-02 19:20] LABS: Creatine Kinase 135 U/L (55-170)
[2018-05-02 19:23] LABS: ALT 28 U/L (21-72); AST 23 U/L (17-59); Albumin 4.7 g/dL (3.5-5.0); Alkaline Phosphatase 78 U/L (38-126); Anion Gap 12 mmol/L; Blood Urea Nitrogen 21 mg/dL (9-20); Calcium 10.4 mg/dL (8.4-10.2); Carbon Dioxide 20 mmol/L (22-30); Chloride 108 mmol/L (98-107); Glucose 126 mg/dL (74-99); Lipase 323 U/L (23-300); Magnesium 1.8 mg/dL (1.6-2.3); Potassium 4.8 mmol/L (3.5-5.1); Sodium 140 mmol/L (137-145); Total Bilirubin 0.8 mg/dL (0.2-1.3); Total Protein 7.3 g/dL (6.3-8.2)
[2018-05-02 19:26] LABS: Partial Thromboplastin Time 27.7 sec (22.0-30.0); Prothrombin Time 10.5 sec (9.0-12.0)
[2018-05-02 19:33] LABS: Creatine Kinase MB 4.6 ng/mL (0.0-2.4); Troponin I <0.012 ng/mL (0.000-0.034)
[2018-05-02] MEDS ORDERED: HEPARIN SODIUM,PORCINE 5,000 UNIT/ML 1 ML VIAL IV ONE (19:51)
[2018-05-02] MEDS ORDERED: NITROGLYCERIN SL TABS 0.4 MG TAB SUBLINGUAL PRN (19:51)
[2018-05-02] MEDS ORDERED: HEPARIN SODIUM,PORCINE 5,000 UNIT/ML 1 ML VIAL IV PRN (19:51)
[2018-05-02] MEDS ORDERED: HEPARIN SOD,PORK IN 0.45% NACL 25,000 UNIT in 0.45% NACL 1 250ML.BAG IV SCH (20:00)
[2018-05-02 22:12] LABS: Glucose,Whole Blood 142 mg/dL (75-99)
[2018-05-02] MEDS: metFORMIN 500 MG TAB PO SCH (23:11)
[2018-05-02] MEDS: METOPROLOL TARTRATE 12.5 MG TAB PO SCH (23:11)
[2018-05-03 00:24] LABS: Creatine Kinase 115 U/L (55-170)
[2018-05-03 00:37] LABS: Creatine Kinase MB 3.7 ng/mL (0.0-2.4); Troponin I <0.012 ng/mL (0.000-0.034)
[2018-05-03 03:25] VITALS: RESP 18
[2018-05-03 03:36] LABS: Glucose,Whole Blood 101 mg/dL (75-99)
[2018-05-03 06:41] LABS: Glucose,Whole Blood 106 mg/dL (75-99)
[2018-05-03 07:04] LABS: Mean Platelet Volume 6.7; Platelet Count 215 k/uL (150-450)
[2018-05-03 07:26] LABS: Cholesterol 152 mg/dL (<200); HDL Cholesterol 25 mg/dL (40-60); LDL Cholesterol,Calculated 73 mg/dL (0-99); Triglycerides 270 mg/dL (<150)
[2018-05-03 07:31] LABS: Creatine Kinase 107 U/L (55-170)
[2018-05-03 07:43] LABS: Creatine Kinase MB 2.9 ng/mL (0.0-2.4); Troponin I <0.012 ng/mL (0.000-0.034)
[2018-05-03] MEDS ORDERED: ASPIRIN 325 MG TAB PO SCH (09:00)
[2018-05-03] MEDS ORDERED: amLODIPine 10 MG TAB PO SCH (09:00)
[2018-05-03] MEDS ORDERED: ASPIRIN 81 MG PO SCH (09:00)
[2018-05-03] MEDS ORDERED: CLOPIDOGREL 75 MG TAB PO SCH (09:00)
[2018-05-03] MEDS ORDERED: LISINOPRIL 20 MG TAB PO SCH (09:00)
[2018-05-03] MEDS: METOPROLOL TARTRATE 12.5 MG TAB PO SCH (09:08)
[2018-05-03] MEDS: metFORMIN 500 MG TAB PO SCH (09:09)
--- NOTE | 2018-05-03 09:15 | CONS ---
CONSULTATION ATTENDING PHYSICIAN: Dr. Rivera. HISTORY OF PRESENT ILLNESS: Mr. German is a 77-year-old male who presented to the emergency room with symptoms of chest discomfort after coughing. He is followed by Dr. Swann on a regular basis, presented in April of 2017 with evidence of acute inferior myocardial infarction. At that time, underwent emergent cardiac catheterization and was found to have subtotally occluded right coronary artery. Underwent successful stenting of that vessel. At the same time, he was noted to have significant disease in the LAD and underwent stenting of that vessel in May. He has underwent stress test with Dr. Swann in March of this year and was told there was no evidence of significant abnormalities. Yesterday, he was coughing and had chest discomfort left-sided, worse with coughing. He is pain free at the time of my evaluation. His breathing is stable. He denies any palpitation. No syncope. No PND, orthopnea, or peripheral edema. Coronary risk factors are remarkable for hypertension, hyperlipidemia and diabetes mellitus. MEDICATION: At home include aspirin, Plavix 75 mg daily, Lipitor 12-1/2 mg twice a day, amlodipine, benazepril 10-40 mg daily, and metformin 1 gram twice a day. He is not on a statin. Apparently, he had significant myalgia. REVIEW OF SYSTEMS: Respiratory system: He has no recent fever. He has no wheezing. He had a cough. GI system: No recent GI bleed. No peptic ulcer disease. system: No dysuria or hematuria. Nervous system: No stroke or seizure. PHYSICAL EXAMINATION: 77-year-old male, alert, oriented, in no apparent distress. Blood pressure 124/70 with a heart rate in the 80s. HEAD: Normocephalic. Eyes: Sclerae anicteric. Neck: Good carotid upstroke. No bruit. No jugular venous distention. LUNGS: Clear to auscultation. HEART: Regular rate and rhythm, S1, S2. No S3. No rub. ABDOMEN: Soft, nontender. Positive bowel sounds. No organomegaly. EXTREMITIES: No edema. Intact distal pulses. LAB DATA: BUN and creatinine 21 and 0.89. Potassium 4.8. Hemoglobin 15.6. Troponin less than 0.012 for 3 samples. Cholesterol of 152, LDL of 73. EKG revealed a sinus mechanism. Normal axis and intervals. No acute changes. Chest x-ray shows no acute infiltrate. IMPRESSION: 1. Chest discomfort, musculoskeletal in etiology related to the cough. 2. History of coronary artery disease stable. 3. Hypertension. 4. Diabetes mellitus. RECOMMENDATION: From the cardiac standpoint, the patient should be able to be discharged home today and followed as an outpatient with Dr. Swann. He has underwent a myocardial perfusion imaging recently that showed no evidence of inducible ischemia. Thank you for this consult. We will follow with you. MMODL / IJN: [id number] /
[2018-05-03 11:38] LABS: Glucose,Whole Blood 105 mg/dL (75-99)
[2018-05-03 12:13] VITALS: BP 112/69; PULSE 75; TEMP 97.8
--- NOTE | 2018-05-03 12:31 | P.HPIM ---
History of Present Illness H&P Date: 05/03/18 Chief Complaint: Chest discomfort with cough Patient presented to emergency room with chest discomfort after coughing. He sees Dr. Rivera in the office, and follows with Dr. Mera at [facility] on a regular basis. April 2017 patient had evidence of acute MYOCARDIAL INFARCTION AT THAT TIME UNDERWENT EMERGENCY CARDIAC CATH AND FOUND TO HAVE SOME TOTALLY OCCLUDED RIGHT CORONARY ARTERY, AFTER SUCCESSFUL STENTING OF THE VESSEL HE ALSO UNDERWENT STENTING OF THE LAD IN MAY PATIENT RECENTLY UNDERWENT STRESS TEST WITH DR. MERA IN MARCH YESTERDAY PATIENT HAD A COUGH EPISODE WHICH RESULTED IN LEFT-SIDED PAIN WITH COUGHING, NO OTHER RADIATION OF THE PAIN DOWN THE ARMS NO OTHER PALPITATIONS NO SYNCOPE NOR ORTHOPNEA AND NO EDEMA Review of Systems Constitutional: Reports as per HPI Cardiovascular: Reports chest pain (Specifically with cough) Respiratory: Reports cough Gastrointestinal: Reports as per HPI Genitourinary: Reports as per HPI Musculoskeletal: Reports as per HPI Integumentary: Reports as per HPI Neurological: Reports as per HPI Psychiatric: Reports as per HPI (Patient specifically said to me emphatically that he wished to go home) Past Medical History Past Medical History: Diabetes Mellitus, Hypertension Additional Past Medical History / Comment(s): Gout, stents x2 2018. History of Any Multi-Drug Resistant Organisms: None Reported Past Surgical History: Adenoidectomy, Heart Catheterization With Stent, Joint Replacement, Orthopedic Surgery, Tonsillectomy Additional Past Surgical History / Comment(s): Coronary stent placement 2018. Past Anesthesia/Blood Transfusion Reactions: No Reported Reaction Date of Last Stent Placement:: 2017 Past Psychological History: No Psychological Hx Reported Smoking Status: Never smoker Past Alcohol Use History: None Reported Past Drug Use History: None Reported - Past Family History Father History Unknown: Yes Family Medical History: Coronary Artery Disease (CAD) Medications and Allergies Home Medications Medication Instructions Recorded Confirmed Type metFORMIN HCL [Glucophage] 1,000 mg PO BID 05/04/17 05/02/18 History Clopidogrel [Plavix] 75 mg PO DAILY #30 tab 05/07/17 05/02/18 Rx Nitroglycerin Sl Tabs [Nitrostat] 0.4 mg SUBLINGUAL Q5M PRN #30 tab 05/07/1712/10 Rx Aspirin EC [Ecotrin Low Dose] 81 mg PO DAILY 06/15/17 05/02/18 History Metoprolol Tartrate [Lopressor] 12.5 mg PO BID 05/02/18 05/02/18 History amLODIPine BESYLATE/BENAZEPRIL 1 cap PO DAILY 05/02/18 05/02/18 History [Lotrel 10-40 MG] Allergies Allergy/AdvReac Type Severity Reaction Status Date / Time atorvastatin [From Lipitor] AdvReac MUSCLE/JOINT Verified 05/02/18 21:49 PAIN Physical Exam Osteopathic Statement: *. No significant issues noted on an osteopathic structural exam other than those noted in the History and Physical/Consult. Vitals: Vital Signs Temp Pulse Pulse Resp BP BP Pulse Ox 05/03/18 12:00 97.8 F 75 18 112/69 98 05/03/18 08:00 98.1 F 90 18 125/75 96 05/03/18 03:43 98.2 F 83 18 141/83 96 05/03/18 03:19 18 05/03/18 03:18 84 16 05/02/18 23:53 98.5 F 84 16 117/72 98 05/02/18 22:30 88 05/02/18 21:24 97.5 F L 90 16 144/74 97 05/02/18 20:54 89 18 127/80 97 05/02/18 20:02 17 05/02/18 18:23 98.0 F 112 H 20 143/82 99 Intake and Output 05/02/18 05/03/18 05/03/18 22:59 06:59 14:59 Other: # Voids 1 1 Weight 90.718 kg General: [Patient awake, alert and oriented times 3. Patient in no acute distress.] HEENT: [PERRL. EOMI. No pharyngeal erythema or exudate.] Neck: [No adenopathy.] Cardiac: [Heart regular in rate and rhythm. No S3. No S4. No clicks, rubs. No murmur.] Lungs: [Clear to auscultation bilaterally.] Abdomen: [No mass. No organomegaly. Bowel sounds presnt and normoactive in all 4 quadrants.] Extremes: [No edema no cyanosis no claudication normal pulses] : Normal male genitalia Musculoskeletal: [No joint erythema, edema or tenderness.] Skin: [No rash.] Neurologic: [No lateralizing deficits. CN II - XII grossly intact.] Lymphatic: [No adenopathy.] Results CBC & Chem 7: 05/03/18 06:36 05/02/18 18:42 Labs: Abnormal Lab Results - Last 24 Hours (Table) 05/02/18 05/02/18 05/02/18 Range/Units 18:42 18:42 18:42 WBC 10.7 H (3.8-10.6) k/uL APTT (22.0-30.0) sec Chloride 108 H (98-107) mmol/L Carbon Dioxide 20 L (22-30) mmol/L BUN 21 H (9-20) mg/dL Glucose 126 H (74-99) mg/dL POC Glucose (mg/dL) (75-99) mg/dL Calcium 10.4 H (8.4-10.2) mg/dL CK-MB (CK-2) 4.6 H (0.0-2.4) ng/mL Triglycerides (<150) mg/dL HDL Cholesterol (40-60) mg/dL Lipase 323 H (23-300) U/L 05/02/18 05/02/18 05/03/18 Range/Units 22:05 23:41 03:01 WBC (3.8-10.6) k/uL APTT 46.2 H (22.0-30.0) sec Chloride (98-107) mmol/L Carbon Dioxide (22-30) mmol/L BUN (9-20) mg/dL Glucose (74-99) mg/dL POC Glucose (mg/dL) 142 H (75-99) mg/dL Calcium (8.4-10.2) mg/dL CK-MB (CK-2) 3.7 H (0.0-2.4) ng/mL Triglycerides (<150) mg/dL HDL Cholesterol (40-60) mg/dL Lipase (23-300) U/L 05/03/18 05/03/18 05/03/18 Range/Units 03:25 06:36 06:36 WBC (3.8-10.6) k/uL APTT (22.0-30.0) sec Chloride (98-107) mmol/L Carbon Dioxide (22-30) mmol/L BUN (9-20) mg/dL Glucose (74-99) mg/dL POC Glucose (mg/dL) 101 H (75-99) mg/dL Calcium (8.4-10.2) mg/dL CK-MB (CK-2) 2.9 H (0.0-2.4) ng/mL Triglycerides 270 H (<150) mg/dL HDL Cholesterol 25 L (40-60) mg/dL Lipase (23-300) U/L 05/03/18 05/03/18 Range/Units 06:40 11:36 WBC (3.8-10.6) k/uL APTT (22.0-30.0) sec Chloride (98-107) mmol/L Carbon Dioxide (22-30) mmol/L BUN (9-20) mg/dL Glucose (74-99) mg/dL POC Glucose (mg/dL) 106 H 105 H (75-99) mg/dL Calcium (8.4-10.2) mg/dL CK-MB (CK-2) (0.0-2.4) ng/mL Triglycerides (<150) mg/dL HDL Cholesterol (40-60) mg/dL Lipase (23-300) U/L Thrombosis Risk Factor Assmnt - Choose All That Apply Other Risk Factors: Yes Each Risk Factor Represents 3 Points: Age 75 years or older Other congenital or acquired thrombophilia - If yes, enter type in comment: No Thrombosis Risk Factor Assessment Total Risk Factor Score: 3 Thrombosis Risk Factor Assessment Level: Moderate Risk Assessment and Plan (1) Chest pain Current Visit: Yes Status: Acute Code(s): R07.9 - CHEST PAIN, UNSPECIFIED SNOMED Code(s): 43186682 Plan: Patient's first set of enzymes including troponins were completely normal Patient states chest pressure discomfort comes only with cough cardiology consult was asked for and performed, by Dr. Andrzej Og [facility] patient was determined to not have acute coronary syndrome at this time Labs chest x-ray were reviewed patient wished emphatically to go home will discharge patient home and have him follow-up in the morning with either Dr. Rivera or myself Time with Patient: Greater than 30
--- NOTE | 2018-05-03 12:35 | P.DS ---
Providers Date of admission: 05/02/18 19:51 Expected date of discharge: 05/03/18 Attending physician: Oleksandr Rivera Consults: 05/02/18 19:51 Consult Physician Urgent Consulting Provider: Wilder Swann Consult Reason/Comments: cp Do you want consulting provider notified?: Yes Primary care physician: Oleksandr Rivera - Discharge Diagnosis(es) (1) Chest pain General: Awake alert oriented 3 out moderate cough resolving HEENT: [PERRL. EOMI. No pharyngeal erythema or exudate.] Neck: [No adenopathy.] Cardiac: [Heart regular in rate and rhythm. No S3. No S4. No clicks, rubs. No murmur.] Lungs: [Clear to auscultation bilaterally.] Abdomen: [No mass. No organomegaly. Bowel sounds presnt and normoactive in all 4 quadrants.] Extremes: [No edema no cyanosis no claudication normal pulses] : [] Musculoskeletal: [No joint erythema, edema or tenderness.] Skin: [No rash.] Neurologic: [No lateralizing deficits. CN II - XII grossly intact.] Lymphatic: [No adenopathy.] Patient was evaluated by Dr. Og in the observation unit Labs were reviewed cardiac enzymes and troponins were unremarkable Patient was told by the headlight assembler after reviewing his stress test from March and examining patient that if determined by his primary care doctor that he go home today Patient wishes to emphatically go home and states that he will follow up on Friday with Dr. Rivera Current Visit: Yes Status: Acute Patient Condition at Discharge: Stable Plan - Discharge Summary Discharge Rx Participant: Yes New Discharge Prescriptions: No Action metFORMIN HCL [Glucophage] 1,000 mg PO BID Clopidogrel [Plavix] 75 mg PO DAILY #30 tab Nitroglycerin Sl Tabs [Nitrostat] 0.4 mg SUBLINGUAL Q5M PRN #30 tab PRN Reason: Chest Pain Aspirin EC [Ecotrin Low Dose] 81 mg PO DAILY Metoprolol Tartrate [Lopressor] 12.5 mg PO BID amLODIPine BESYLATE/BENAZEPRIL [Lotrel 10-40 MG] 1 cap PO DAILY Discharge Medication List metFORMIN HCL [Glucophage] 1,000 mg PO BID 05/04/17 [History] Clopidogrel [Plavix] 75 mg PO DAILY #30 tab 05/07/17 [Rx] Nitroglycerin Sl Tabs [Nitrostat] 0.4 mg SUBLINGUAL Q5M PRN #30 tab 05/07/17 [Rx ] Aspirin EC [Ecotrin Low Dose] 81 mg PO DAILY 06/15/17 [History] Metoprolol Tartrate [Lopressor] 12.5 mg PO BID 05/02/18 [History] amLODIPine BESYLATE/BENAZEPRIL [Lotrel 10-40 MG] 1 cap PO DAILY 05/02/18 [ History] Follow up Appointment(s)/Referral(s): Oleksandr Rivera MD [Primary Care Provider] - 1-2 days Patient Instructions/Handouts: Chest Pain (ED)
[2018-05-04 10:41] LABS: Hemoglobin A1C 5.6 % (4.0-6.0)
== END 2018-05-03 12:55 | disposition home or self-care (01) ==
LOC: EC 18:19 → 1SOBS 19:51
PROVIDERS: ADMIT Family Medicine; ATTEND Family Medicine
DX: R07.89 Other chest pain (principal); R05 Cough; R61 Generalized hyperhidrosis; R06.00 Dyspnea, unspecified; I25.10 Atherosclerotic heart disease of native coronary artery without angina pectoris; I10 Essential (primary) hypertension; E11.9 Type 2 diabetes mellitus without complications; M10.9 Gout, unspecified; E78.5 Hyperlipidemia, unspecified; M62.9 Disorder of muscle, unspecified; Z79.82 Long term (current) use of aspirin; Z79.84 Long term (current) use of oral hypoglycemic drugs; Z79.02 Long term (current) use of antithrombotics/antiplatelets; Z79.899 Other long term (current) drug therapy; Z88.8 Allergy status to other drugs, medicaments and biological substances; I25.2 Old myocardial infarction; Z95.5 Presence of coronary angioplasty implant and graft; Z96.60 Presence of unspecified orthopedic joint implant; Z82.49 Family history of ischemic heart disease and other diseases of the circulatory system
CPT/HCPCS: 96366 ×2; 96376; 96361; 96365; 99291; 36415; 93005; 83880; 80061; 80053; 82550 ×2; 82553 ×2; 83690; 83735; 84484 ×2; 85025; 85049; 85610; 85730 ×2; 83036; 71046; G0378 ×2; J1644 ×2

== ENCOUNTER → 2018-07-24 | Outpatient (CLI) | payer MEDICARE ==
[2018-07-24 09:41] LABS: Basophils # (A) 0.1 k/uL (0-0.2); Basophils % (A) 1 %; Eosinophils # (A) 0.2 k/uL (0-0.7); Eosinophils % (A) 2 %; HCT 45.5 % (39.0-53.0); Lymphocytes # (A) 1.4 k/uL (1.0-4.8); Lymphocytes % (A) 15 %; MCH 30.8 pg (25.0-35.0); MCV 93.4 fL (80.0-100.0); Mean Platelet Volume 7.1; Monocytes # (A) 0.4 k/uL (0-1.0); Monocytes % (A) 5 %; Neutrophils # (A) 6.8 k/uL (1.3-7.7); Neutrophils % (A) 76 %; Platelet Count 290 k/uL (150-450); RBC 4.87 m/uL (4.30-5.90); RDW 13.8 % (11.5-15.5)
[2018-07-24 16:23] LABS: Albumin 4.7 g/dL (3.80-4.90); Albumin/Globulin Ratio 2.61 (1.60-3.17); Anion Gap 9.7 mmol/L (4.00-12.00); Calcium 9.9 mg/dL (8.7-10.3); Carbon Dioxide 23.3 mmol/L (21.6-31.8); Globulin 1.8 g/dL (1.6-3.3); LDL Cholesterol,Calculated 109.8 mg/dL (0.0-131.0); Potassium 5.2 mmol/L (3.5-5.5); Total Bilirubin 0.6 mg/dL (0.3-1.2); Total Protein 6.5 g/dL (6.2-8.2); VLDL Calculation 43.2 mg/dL (5.00-40.00)
[2018-07-24 16:30] LABS: T4, Free (Free Thyroxine) 1.3 ng/dL (0.80-1.80)
[2018-07-24 18:27] LABS: Hemoglobin A1C 5.7 % (4.0-6.0)
== END ==
LOC: LABWHC1 08:34
PROVIDERS: ATTEND Family Medicine
DX: Z00.00 Encounter for general adult medical examination without abnormal findings (principal); E11.9 Type 2 diabetes mellitus without complications; E78.5 Hyperlipidemia, unspecified; I10 Essential (primary) hypertension; M10.9 Gout, unspecified; Z12.12 Encounter for screening for malignant neoplasm of rectum; Z12.5 Encounter for screening for malignant neoplasm of prostate
CPT/HCPCS: 36415; 80053; 80061; 83036; 84153; 84439; 84443; 85025

== ENCOUNTER 2019-03-30 14:53 | Emergency (ER) | payer MEDICARE ==
--- NOTE | 2019-03-30 15:15 | ED ---
General Adult HPI - General Source: patient Mode of arrival: ambulatory Limitations: no limitations <Alber Perry - Last Filed: 03/30/19 15:13> <Gladis Estrada - Last Filed: 03/31/19 18:51> - General Stated complaint: Coughing up stomach bile Time Seen by Provider: 03/30/19 15:13 - History of Present Illness Initial comments: This a 78-year-old male presents emergency Department chief complaint of intermittent upper abdominal pain, vomiting of bile. Patient states he gets coughing. Patient denies any current chest pain or shortness breath. Denies fevers or chills. Patient's current pain is 4/10. Patient denies any change in bowel habits. Patient states his symptoms seem to come and go they do worsen with eating. (Alber Perry) Patient is a 70-year-old male presenting to emergency Department with complaints of cough 1 week. Patient states he feels like he needs to cough up bile from his stomach. Patient denies any chest pain, shortness breath, stomach pain, nausea, vomiting, abdominal pain. He denies any fever, chills. Patient states he noticed that he feels like the coughing worsens about an hour after he eats something. He has no other complaints at this time. Has been having regular bowel movements. Upon arrival to the ER, his vital signs are stable. (Gladis Estrada) - Related Data Home Medications Medication Instructions Recorded Confirmed metFORMIN HCL [Glucophage] 1,000 mg PO BID 05/04/17 05/02/18 Aspirin EC [Ecotrin Low Dose] 81 mg PO DAILY 06/15/17 05/02/18 Metoprolol Tartrate [Lopressor] 12.5 mg PO BID 05/02/18 05/02/18 amLODIPine BESYLATE/BENAZEPRIL 1 cap PO DAILY 05/02/18 05/02/18 [Lotrel 10-40 MG] Previous Rx's Medication Instructions Recorded Clopidogrel [Plavix] 75 mg PO DAILY #30 tab 05/07/17 Nitroglycerin Sl Tabs [Nitrostat] 0.4 mg SUBLINGUAL Q5M PRN #30 tab 05/07/17 Allergies Allergy/AdvReac Type Severity Reaction Status Date / Time atorvastatin [From Lipitor] AdvReac MUSCLE/JOINT Verified 03/30/19 15:16 PAIN Review of Systems ROS Other: All systems not noted in ROS Statement are negative. <Alber Perry - Last Filed: 03/30/19 15:13> ROS Other: All systems not noted in ROS Statement are negative. <NatalieGladis L - Last Filed: 03/31/19 18:51> ROS Statement: Those systems with pertinent positive or pertinent negative responses have been documented in the HPI. Past Medical History Past Medical History: Diabetes Mellitus, Hypertension, Myocardial Infarction ([place]), Musculoskeletal Disorder Additional Past Medical History / Comment(s): Gout, History of Any Multi-Drug Resistant Organisms: None Reported Past Surgical History: Adenoidectomy, Heart Catheterization With Stent, Joint Replacement, Orthopedic Surgery Additional Past Surgical History / Comment(s): Coronary stent placement. Past Anesthesia/Blood Transfusion Reactions: No Reported Reaction Date of Last Stent Placement:: 2017 Past Psychological History: No Psychological Hx Reported Smoking Status: Never smoker Past Alcohol Use History: None Reported Past Drug Use History: None Reported - Past Family History Father History Unknown: Yes Family Medical History: Coronary Artery Disease (CAD) <Alber Perry - Last Filed: 03/30/19 15:13> General Exam <Regina Estradadeep Naik - Last Filed: 03/31/19 18:51> - General Exam Comments Initial Comments: GENERAL: Well-appearing, well-nourished and in no acute distress. HEAD: Atraumatic, normocephalic. EYES: Pupils equal round and reactive to light, extraocular movements intact, sclera anicteric, conjunctiva are normal. ENT: TMs normal, nares patent, oropharynx clear without exudates. Moist mucous membranes. NECK: Normal range of motion, supple without lymphadenopathy or JVD. LUNGS: Breath sounds clear to auscultation bilaterally and equal. No wheezes rales or rhonchi. No pain with palpation of the chest. HEART: Regular rate and rhythm without murmurs, rubs or gallops. ABDOMEN: Soft, nontender, normoactive bowel sounds. No guarding, no rebound. No masses appreciated. : Deferred EXTREMITIES: Normal range of motion, no pitting or edema. No clubbing or cyanosis. NEUROLOGICAL: Cranial nerves II through XII grossly intact. Normal speech, normal gait. PSYCH: Normal mood, normal affect. SKIN: Warm, Dry, normal turgor, no rashes or lesions noted. (Gladis Estrada) Course Vital Signs 03/30/19 03/30/19 03/30/19 15:13 15:53 18:10 Temperature 97.7 F 98.4 F Pulse Rate 118 H 94 76 Respiratory 16 18 18 Rate Blood Pressure 140/85 138/85 O2 Sat by Pulse 98 97 98 Oximetry Medical Decision Making - Lab Data Result diagrams: 03/30/19 15:50 03/30/19 15:50 <Gladis Estrada - Last Filed: 03/31/19 18:51> - Medical Decision Making Patient is a 78-year-old male presenting with coughing x 1 week. Vitals are normal today. Lab work shows no acute abnormalities. Urine is normal. Chest x-ray shows no acute abnormalities. Patient continues to be symptom free here. Vitals remained stable. I discussed these findings with the patient. I discussed with patient this could be viral in nature from the coughing and recommended a cough suppressant. I recommended further follow-up with his PCP. Patient is agreement with this plan of care. Patient stable for discharge at this time. Case discussed with Dr. Silva. (Gladis Estrada) - Lab Data Lab Results 03/30/19 03/30/19 03/30/19 Range/Units 15:30 15:50 15:50 WBC 11.0 H (3.8-10.6) k/uL RBC 4.80 (4.30-5.90) m/uL Hgb 15.2 (13.0-17.5) gm/dL Hct 45.2 (39.0-53.0) % MCV 94.0 (80.0-100.0) fL MCH 31.5 (25.0-35.0) pg MCHC 33.5 (31.0-37.0) g/dL RDW 12.7 (11.5-15.5) % Plt Count 294 (150-450) k/uL Neutrophils % 80 % Lymphocytes % 12 % Monocytes % 5 % Eosinophils % 1 % Basophils % 1 % Neutrophils # 8.8 H (1.3-7.7) k/uL Lymphocytes # 1.3 (1.0-4.8) k/uL Monocytes # 0.6 (0-1.0) k/uL Eosinophils # 0.1 (0-0.7) k/uL Basophils # 0.1 (0-0.2) k/uL Sodium 142 (137-145) mmol/L Potassium 5.1 (3.5-5.1) mmol/L Chloride 108 H (98-107) mmol/L Carbon Dioxide 21 L (22-30) mmol/L Anion Gap 13 mmol/L BUN 16 (9-20) mg/dL Creatinine 0.95 (0.66-1.25) mg/dL Est GFR (CKD-EPI)AfAm 89 (>60 ml/min/1.73 sqM) Est GFR (CKD-EPI)NonAf 77 (>60 ml/min/1.73 sqM) Glucose 134 H (74-99) mg/dL Calcium 10.2 (8.4-10.2) mg/dL Total Bilirubin 0.9 (0.2-1.3) mg/dL AST 30 (17-59) U/L ALT 16 (4-49) U/L Alkaline Phosphatase 93 (38-126) U/L Total Protein 7.8 (6.3-8.2) g/dL Albumin 4.8 (3.5-5.0) g/dL Urine Color Yellow Urine Appearance Clear (Clear) Urine pH 5.5 (5.0-8.0) Ur Specific [place] 1.027 (1.001-1.035) Urine Protein Trace H (Negative) Urine Glucose (UA) Negative (Negative) Urine Ketones 1+ H (Negative) Urine Blood Negative (Negative) Urine Nitrite Negative (Negative) Urine Bilirubin Negative (Negative) Urine Urobilinogen <2.0 (<2.0) mg/dL Ur Leukocyte Esterase Negative (Negative) Disposition <Alber Perry - Last Filed: 03/30/19 15:13> Is patient prescribed a controlled substance at d/c from ED?: No <Gladis Estrada - Last Filed: 03/31/19 18:51> Clinical Impression: Cough Disposition: HOME SELF-CARE Condition: Stable Instructions (If sedation given, give patient instructions): Acute Cough (ED) Additional Instructions: Please return to the Emergency Department if symptoms worsen or any other concerns. Follow-up with PCP if symptoms persist. Trial of Delsym for cough. Referrals: Oleksandr Rivera MD [Primary Care Provider] - 1-2 days
[2019-03-30 15:53] VITALS: RESP 18
[2019-03-30 16:18] LABS: Appearance,Urine Clear (Clear); Bilirubin,Urine Negative (Negative); Blood,Urine Negative (Negative); Color,Urine Yellow; Glucose,Urine (UA) Negative (Negative); Ketones,Urine 1+ (Negative); Leukocyte Esterase,Urine Negative (Negative); Nitrite,Urine Negative (Negative); PH, Urine 5.5 (5.0-8.0); Protein,Urine Trace (Negative); Specific Gravity,Urine 1.027 (1.001-1.035); Urobilinogen,Urine <2.0 mg/dL (<2.0)
--- NOTE | 2019-03-30 16:18 | XR ---
EXAMINATION TYPE: XR chest 2V DATE OF EXAM: 03/30/2019 COMPARISON: 05/02/2018 INDICATION: Cough TECHNIQUE: Frontal and lateral views of the chest are obtained. FINDINGS: The heart size is normal. The pulmonary vasculature is normal. The lungs are clear. IMPRESSION: 1. No acute pulmonary process.
[2019-03-30 16:24] LABS: Albumin 4.8 g/dL (3.5-5.0); Calcium 10.2 mg/dL (8.4-10.2); Potassium 5.1 mmol/L (3.5-5.1); Total Bilirubin 0.9 mg/dL (0.2-1.3); Total Protein 7.8 g/dL (6.3-8.2)
[2019-03-30 16:43] LABS: Basophils # (A) 0.1 k/uL (0-0.2); Basophils % (A) 1 %; Eosinophils # (A) 0.1 k/uL (0-0.7); Eosinophils % (A) 1 %; HCT 45.2 % (39.0-53.0); HGB 15.2 gm/dL (13.0-17.5); Lymphocytes # (A) 1.3 k/uL (1.0-4.8); Lymphocytes % (A) 12 %; MCH 31.5 pg (25.0-35.0); MCHC 33.5 g/dL (31.0-37.0); Mean Platelet Volume 8.4; Monocytes # (A) 0.6 k/uL (0-1.0); Monocytes % (A) 5 %; Neutrophils # (A) 8.8 k/uL (1.3-7.7); Neutrophils % (A) 80 %; Platelet Count 294 k/uL (150-450); RDW 12.7 % (11.5-15.5)
[2019-03-30 18:16] VITALS: BP 138/85; PULSE 76; TEMP 98.4
== END 2019-03-30 18:10 | disposition home or self-care (01) ==
LOC: EC 14:53
DX: R05 Cough (principal); R10.10 Upper abdominal pain, unspecified; R11.10 Vomiting, unspecified; E11.9 Type 2 diabetes mellitus without complications; I10 Essential (primary) hypertension; I25.2 Old myocardial infarction; Z79.84 Long term (current) use of oral hypoglycemic drugs; Z79.82 Long term (current) use of aspirin; Z79.899 Other long term (current) drug therapy; Z88.8 Allergy status to other drugs, medicaments and biological substances; Z95.5 Presence of coronary angioplasty implant and graft
CPT/HCPCS: 36415; 71046; 80053; 81003; 85025; 99284

== ENCOUNTER 2019-12-27 18:12 | Inpatient (IN) | payer MEDICARE ==
[2019-12-27] MEDS ORDERED: PANTOPRAZOLE 40 MG/10 ML VIAL IVP STA (18:47)
[2019-12-27] MEDS ORDERED: MORPHINE SULFATE 2 MG/ML SYRINGE IVP STA (18:47)
[2019-12-27] MEDS ORDERED: SODIUM CHLORIDE 0.9% 500 ML 500 ML IV STA (18:47)
--- NOTE | 2019-12-27 18:50 | ED ---
General Adult HPI - General Chief complaint: Abdominal Pain Stated complaint: Abd issues Time Seen by Provider: 12/27/19 18:42 Source: patient, RN notes reviewed, old records reviewed Mode of arrival: wheelchair Limitations: no limitations - History of Present Illness Initial comments: 79-year-old male presenting for evaluation of epigastric and left upper quadrant abdominal pain. Patient states this pain is worse after he eats. He has history of coronary artery disease with his 2 this pain is not similar to previous episodes of chest pain. He is denying any current chest pain. He does report some abdominal distention and bloating. He states he had a normal bowel movement followed by diarrhea yesterday. He has been passing gas. No vomiting. Denies melanotic stool. - Related Data Home Medications Medication Instructions Recorded Confirmed metFORMIN HCL [Glucophage] 1,000 mg PO BID 05/04/17 05/02/18 Aspirin EC [Ecotrin Low Dose] 81 mg PO DAILY 06/15/17 05/02/18 Metoprolol Tartrate [Lopressor] 12.5 mg PO BID 05/02/18 05/02/18 amLODIPine BESYLATE/BENAZEPRIL 1 cap PO DAILY 05/02/18 05/02/18 [Lotrel 10-40 MG] Previous Rx's Medication Instructions Recorded Clopidogrel [Plavix] 75 mg PO DAILY #30 tab 05/07/17 Nitroglycerin Sl Tabs [Nitrostat] 0.4 mg SUBLINGUAL Q5M PRN #30 tab 05/07/17 Allergies Allergy/AdvReac Type Severity Reaction Status Date / Time atorvastatin [From Lipitor] AdvReac MUSCLE/JOINT Verified 12/27/19 18:31 PAIN Review of Systems ROS Statement: Those systems with pertinent positive or pertinent negative responses have been documented in the HPI. ROS Other: All systems not noted in ROS Statement are negative. Past Medical History Past Medical History: Diabetes Mellitus, Hypertension, Myocardial Infarction ([place]), Musculoskeletal Disorder Additional Past Medical History / Comment(s): Gout, History of Any Multi-Drug Resistant Organisms: None Reported Past Surgical History: Adenoidectomy, Heart Catheterization With Stent, Joint Replacement, Orthopedic Surgery Additional Past Surgical History / Comment(s): Coronary stent placement. Past Anesthesia/Blood Transfusion Reactions: No Reported Reaction Date of Last Stent Placement:: 2017 Past Psychological History: No Psychological Hx Reported Smoking Status: Never smoker Past Alcohol Use History: None Reported Past Drug Use History: None Reported - Past Family History Father History Unknown: Yes Family Medical History: Coronary Artery Disease (CAD) General Exam Limitations: no limitations General appearance: alert, in no apparent distress Head exam: Present: atraumatic, normocephalic Eye exam: Present: normal appearance, PERRL ENT exam: Present: normal exam Neck exam: Present: normal inspection. Absent: tenderness, meningismus Respiratory exam: Present: normal lung sounds bilaterally. Absent: respiratory distress, wheezes, rales Cardiovascular Exam: Present: regular rate, normal rhythm GI/Abdominal exam: Present: soft, distended, tenderness (Epigastric and left upper quadrant tenderness to palpation). Absent: guarding, rebound Extremities exam: Present: normal inspection, normal capillary refill. Absent: pedal edema, calf tenderness Neurological exam: Present: alert, oriented X3, CN II-XII intact. Absent: motor sensory deficit Psychiatric exam: Present: normal affect, normal mood Skin exam: Present: warm, dry, intact. Absent: cyanosis, diaphoretic Course Vital Signs 12/27/19 18:28 Temperature 98.2 F Pulse Rate 95 Respiratory 20 Rate Blood Pressure 142/82 O2 Sat by Pulse 100 Oximetry EKG Findings - EKG Comments: EKG Findings:: EKG: Sinus rhythm with PAC, rate of 89, [place] interval 188, QRS duration 78, QTC 420, no ST segment elevation Medical Decision Making - Medical Decision Making 79-year-old male with epigastric and left upper quadrant abdominal pain. Patient does have focal tenderness, he is somewhat distended. He states he had a bowel movement with diarrhea yesterday and believes he has been passing gas today. His had some mild nausea, no significant vomiting. He was concerned also about his heart being the cause of his pain although this was different from previous episodes of chest pain. His EKG is sinus rhythm without ST segment elevation. Chest x-rays negative for acute cardiopulmonary disease. He has mild leukocytosis. He has a CO2 of 18 lactic acid of 3.2 which treated with IV hydration. Abdominal x-ray showing ileus versus enteritis. Given the distention and did perform CT which is currently pending. Case discussed with Dr. Oconnor who will admit for symptom control. General surgery will be placed o n consult Diagnosis: Abdominal pain, distention, ileus, dehydration and lactic acidosis. - Lab Data Result diagrams: 10/05/20 18:57 12/27/19 18:57 Lab Results 12/27/19 12/27/19 12/27/19 Range/Units 18:57 18:57 18:57 WBC 11.2 H (3.8-10.6) k/uL RBC 4.72 (4.30-5.90) m/uL Hgb 14.5 (13.0-17.5) gm/dL Hct 43.5 (39.0-53.0) % MCV 92.3 (80.0-100.0) fL MCH 30.7 (25.0-35.0) pg MCHC 33.3 (31.0-37.0) g/dL RDW 13.0 (11.5-15.5) % Plt Count 262 (150-450) k/uL Neutrophils % 78 % Lymphocytes % 13 % Monocytes % 6 % Eosinophils % 1 % Basophils % 0 % Neutrophils # 8.7 H (1.3-7.7) k/uL Lymphocytes # 1.5 (1.0-4.8) k/uL Monocytes # 0.6 (0-1.0) k/uL Eosinophils # 0.1 (0-0.7) k/uL Basophils # 0.1 (0-0.2) k/uL PT 9.9 (9.0-12.0) sec INR 1.0 (<1.2) APTT 26.6 (22.0-30.0) sec Sodium 139 (137-145) mmol/L Potassium 4.1 (3.5-5.1) mmol/L Chloride 109 H (98-107) mmol/L Carbon Dioxide 18 L (22-30) mmol/L Anion Gap 12 mmol/L BUN 15 (9-20) mg/dL Creatinine 0.96 (0.66-1.25) mg/dL Est GFR (CKD-EPI)AfAm 87 (>60 ml/min/1.73 sqM) Est GFR (CKD-EPI)NonAf 75 (>60 ml/min/1.73 sqM) Glucose 156 H (74-99) mg/dL Plasma Lactic Acid Idris (0.7-2.0) mmol/L Calcium 10.1 (8.4-10.2) mg/dL Total Bilirubin 0.5 (0.2-1.3) mg/dL AST 21 (17-59) U/L ALT 15 (4-49) U/L Alkaline Phosphatase 89 (38-126) U/L Troponin I (0.000-0.034) ng/mL Total Protein 6.7 (6.3-8.2) g/dL Albumin 4.3 (3.5-5.0) g/dL Amylase 113 H (30-110) U/L Lipase 226 (23-300) U/L 12/27/19 12/27/19 Range/Units 18:57 18:57 WBC (3.8-10.6) k/uL RBC (4.30-5.90) m/uL Hgb (13.0-17.5) gm/dL Hct (39.0-53.0) % MCV (80.0-100.0) fL MCH (25.0-35.0) pg MCHC (31.0-37.0) g/dL RDW (11.5-15.5) % Plt Count (150-450) k/uL Neutrophils % % Lymphocytes % % Monocytes % % Eosinophils % % Basophils % % Neutrophils # (1.3-7.7) k/uL Lymphocytes # (1.0-4.8) k/uL Monocytes # (0-1.0) k/uL Eosinophils # (0-0.7) k/uL Basophils # (0-0.2) k/uL PT (9.0-12.0) sec INR (<1.2) APTT (22.0-30.0) sec Sodium (137-145) mmol/L Potassium (3.5-5.1) mmol/L Chloride (98-107) mmol/L Carbon Dioxide (22-30) mmol/L Anion Gap mmol/L BUN (9-20) mg/dL Creatinine (0.66-1.25) mg/dL Est GFR (CKD-EPI)AfAm (>60 ml/min/1.73 sqM) Est GFR (CKD-EPI)NonAf (>60 ml/min/1.73 sqM) Glucose (74-99) mg/dL Plasma Lactic Acid Idris 3.2 H* (0.7-2.0) mmol/L Calcium (8.4-10.2) mg/dL Total Bilirubin (0.2-1.3) mg/dL AST (17-59) U/L ALT (4-49) U/L Alkaline Phosphatase (38-126) U/L Troponin I <0.012 (0.000-0.034) ng/mL Total Protein (6.3-8.2) g/dL Albumin (3.5-5.0) g/dL Amylase (30-110) U/L Lipase (23-300) U/L Disposition Clinical Impression: Abdominal pain, Ileus, Dehydration Disposition: ADMITTED IP TO THIS HOSP Condition: Stable Is patient prescribed a controlled substance at d/c from ED?: No Referrals: Oleksandr Rivera MD [Primary Care Provider] - 1-2 days Decision to Admit Reason: Admit from EC Decision Date: 12/27/19 Decision Time: 20:46
[2019-12-27 19:07] LABS: Basophils # (A) 0.1 k/uL (0-0.2); Basophils % (A) 0 %; Eosinophils # (A) 0.1 k/uL (0-0.7); Eosinophils % (A) 1 %; HCT 43.5 % (39.0-53.0); HGB 14.5 gm/dL (13.0-17.5); Lymphocytes # (A) 1.5 k/uL (1.0-4.8); Lymphocytes % (A) 13 %; MCH 30.7 pg (25.0-35.0); MCHC 33.3 g/dL (31.0-37.0); MCV 92.3 fL (80.0-100.0); Mean Platelet Volume 7.4; Monocytes # (A) 0.6 k/uL (0-1.0); Monocytes % (A) 6 %; Neutrophils # (A) 8.7 k/uL (1.3-7.7); Neutrophils % (A) 78 %; Platelet Count 262 k/uL (150-450); RBC 4.72 m/uL (4.30-5.90); WBC 11.2 k/uL (3.8-10.6)
[2019-12-27 19:18] LABS: Albumin 4.3 g/dL (3.5-5.0); Calcium 10.1 mg/dL (8.4-10.2); Partial Thromboplastin Time 26.6 sec (22.0-30.0); Potassium 4.1 mmol/L (3.5-5.1); Prothrombin Time 9.9 sec (9.0-12.0); Total Bilirubin 0.5 mg/dL (0.2-1.3); Total Protein 6.7 g/dL (6.3-8.2)
--- NOTE | 2019-12-27 19:55 | XR ---
EXAMINATION TYPE: XR chest 2V, XR KUB DATE OF EXAM: 12/27/2019 COMPARISON: Prior chest x-ray 03/30/2019 HISTORY: Shortness of breath and epigastric pain TECHNIQUE: Frontal and lateral views of the chest are obtained. Frontal KUB and 2 images FINDINGS: There is no focal air space opacity, pleural effusion, or pneumothorax seen. The cardiac silhouette size is within normal limits. The osseous structures are intact. Is increased AP diamete r of the chest with flattening the hemidiaphragms suggesting underlying COPD. KUB shows a spinal curvature. No pneumoperitoneum. Scattered air-fluid levels are present without bow el distention. Degenerative disc changes in the visualized spine. No evident pathologic calcification . IMPRESSION: No acute cardiopulmonary process. There may be an underlying enteritis, ileus, follow-up as indicated.
[2019-12-27] MEDS ORDERED: SODIUM CHLORIDE 0.9% 500 ML 500 ML IV ONE (20:05)
[2019-12-27] MEDS ORDERED: NALOXONE 0.4 MG/ML 1 ML VIAL IV PRN (20:41)
[2019-12-27] MEDS ORDERED: ONDANSETRON 4 MG/2 ML VIAL IVP PRN (20:41)
[2019-12-27] MEDS ORDERED: ACETAMINOPHEN TAB 325 MG TAB PO PRN (20:41)
[2019-12-27] MEDS: SODIUM CHLORIDE 0.9% 1,000 ML IV SCH (21:05)
--- NOTE | 2019-12-27 21:06 | CT ---
EXAMINATION TYPE: CT abdomen pelvis wo con DATE OF EXAM: 12/27/2019 COMPARISON: KUB same day HISTORY: Periumbilical pain and distention. CT DLP: 785 mGycm Automated exposure control for dose reduction was used. TECHNIQUE: Helical acquisition of images from the lung bases through the pelvis. FINDINGS: Lack of intravenous contrast could compromise sensitivity of the exam. LUNG BASES: No significant abnormality is appreciated. AORTA: No significant abnormality is appreciated. LIVER/GB: The liver is enlarged. There are some dependent high density foci within the gallbladder co nsistent with stones.There is low-attenuation of the liver. PANCREAS: No significant abnormality is seen. SPLEEN: No significant abnormality is seen. ADRENALS: No significant abnormality is seen. KIDNEYS: Bilateral nonobstructive renal calculi are present. There is a large exophytic cyst associat ed with the left kidney measuring 7 cm. Parapelvic cysts associated with the left kidney. REPRODUCTIVE ORGANS: Prostate is enlarged and shows associated calcification, there is an inferior i mpression on the urinary bladder. URINARY BLADDER: Some dependent high density foci consistent with bladder stones. BOWEL: No significant abnormality is seen. No evident appendicitis. FREE AIR: No Free Air is visible. ASCITES: None visible. PELVIC ADENOPATHY: None visualized. RETROPERITONEAL ADENOPATHY: No Retroperitoneal Adenopathy visible. OSSEOUS STRUCTURES: Degenerative disc change, facet arthropathy visualized spine. IMPRESSION: BILATERAL NEPHROLITHIASIS. BLADDER STONES. CHOLELITHIASIS. NONCONTRAST EXAM. HEPATOMEGALY. POSSIBLE H EPATIC STEATOSIS. ADDITIONAL FINDINGS ABOVE.
[2019-12-28 06:10] LABS: Basophils # (A) 0.1 k/uL (0-0.2); Basophils % (A) 1 %; Eosinophils # (A) 0.1 k/uL (0-0.7); Eosinophils % (A) 1 %; HCT 41.6 % (39.0-53.0); HGB 13.8 gm/dL (13.0-17.5); Lymphocytes # (A) 1.5 k/uL (1.0-4.8); Lymphocytes % (A) 18 %; MCH 31.9 pg (25.0-35.0); MCHC 33.3 g/dL (31.0-37.0); MCV 95.7 fL (80.0-100.0); Mean Platelet Volume 8.2; Monocytes # (A) 0.6 k/uL (0-1.0); Monocytes % (A) 7 %; Neutrophils # (A) 6.3 k/uL (1.3-7.7); Neutrophils % (A) 72 %; Platelet Count 195 k/uL (150-450); RBC 4.34 m/uL (4.30-5.90); RDW 12.6 % (11.5-15.5); WBC 8.8 k/uL (3.8-10.6)
[2019-12-28] MEDS: PANTOPRAZOLE 40 MG/10 ML VIAL IV SCH (07:44)
[2019-12-28 09:27] LABS: African American GFR (CKD) 93.8 (60.0-200.0); Albumin/Globulin Ratio 2.11 (1.60-3.17); Anion Gap 10.7 mmol/L (4.00-12.00); BUN/Creat Ratio 14.44 Ratio (12.00-20.00); Carbon Dioxide 21.3 mmol/L (21.6-31.8); Globulin 1.9 g/dL (1.6-3.3); Non-African American GFR(CKD) 80.9 (60.0-200.0); Potassium 4.2 mmol/L (3.5-5.5); Total Bilirubin 0.7 mg/dL (0.2-1.2); Total Protein 5.9 g/dL (6.2-8.2)
[2019-12-28 12:25] LABS: Glucose,Whole Blood 110 mg/dL (75-99)
--- NOTE | 2019-12-28 13:46 | P.HPIM ---
History of Present Illness H&P Date: 12/28/19 Chief Complaint: Abdominal pain This is a pleasant 79-year-old gentleman with history of diabetes mellitus, hypertension, CAD, CA, cardiac stents 2, gout, muscle skeletal disorder and multiple other medical issues presented to the ER with complaints of left upper quadrant abdominal pain worsens after eating with accompanying bloating, denies heartburn. Reports constipation 2 days with no nausea, no vomiting. Denies rectal bleeding. Denies chest pain, palpitations or increasing shortness of breath. Chest x-ray reporting no acute cardiopulmonary process, possible u nderlying enteritis, ileus. KUB reported no acute cardiopulmonary process, possible underlying enteritis, ileus. CT abdomen and pelvis reporting bilateral nephrolithiasis, bladder stones, cholelithiasis, hepatomegaly, possible hepatic steatosis. GI reporting sinus rhythm with PACs. Afebrile, vital signs stable, maintaining O2 sats in the high 90s on room air. Mildly elevated WBC of 11.2 on admission, resolved, otherwise hematology unremarkable. Coagulation within normal limits. Chemistry reporting chloride 109, carbon dioxide 21.3, BUN 15, creatinine 0.96, currently 13/0.9. Glucose 156 on admission. Lactic acid 3.2 on admission and received IV fluids, with lactic acid down to 1.1. T bili, LFTs within normal limits. Troponins negative 3. Amylase mildly elevated at 113, lipase normal 226. Surgery consulted. Review of Systems ROS Statement: Those systems with pertinent positive or pertinent negative responses have been documented in the HPI. ROS Other: All systems not noted in ROS Statement are negative. Past Medical History Past Medical History: Diabetes Mellitus, Hypertension, Myocardial Infarction ([place]), Musculoskeletal Disorder Additional Past Medical History / Comment(s): Gout with one flareup Last Myocardial Infarction Date:: 2017 History of Any Multi-Drug Resistant Organisms: None Reported Past Surgical History: Adenoidectomy, Heart Catheterization With Stent, Joint Replacement, Orthopedic Surgery Additional Past Surgical History / Comment(s): Coronary stent placement; knee replaced left side Past Anesthesia/Blood Transfusion Reactions: No Reported Reaction Date of Last Stent Placement:: 2017 Past Psychological History: No Psychological Hx Reported Smoking Status: Never smoker Past Alcohol Use History: None Reported Past Drug Use History: None Reported - Past Family History Father History Unknown: Yes Family Medical History: Coronary Artery Disease (CAD) Additional Family Medical History / Comment(s): of lung CA, was smoker Mother Family Medical History: Dementia Additional Family Medical History / Comment(s): lived to Medications and Allergies Home Medications Medication Instructions Recorded Confirmed Type metFORMIN HCL [Glucophage] 1,000 mg PO BID 05/04/17 12/27/19 History Aspirin EC [Ecotrin Low Dose] 81 mg PO DAILY 06/15/17 12/27/19 History amLODIPine BESYLATE/BENAZEPRIL 1 cap PO DAILY 05/02/18 12/27/19 History [Lotrel 10-40 MG] Allergies Allergy/AdvReac Type Severity Reaction Status Date / Time atorvastatin [From Lipitor] AdvReac MUSCLE/JOINT Verified 12/27/19 21:19 PAIN Physical Exam Vitals: Vital Signs Temp Pulse Pulse Resp BP BP Pulse Ox 12/28/19 05:09 97.9 F 65 18 135/83 95 12/28/19 00:00 18 12/27/19 23:00 97.6 F 78 16 157/83 98 12/27/19 21:49 97.5 F L 72 18 137/76 96 12/27/19 20:00 69 17 127/66 98 12/27/19 18:28 98.2 F 95 20 142/82 100 Intake and Output 12/27/19 12/28/19 12/28/19 22:59 06:59 14:59 Intake Total 75 Balance 75 Intake: Intake, IV Titration 75 Amount Sodium Chloride 0.9% 1, 75 000 ml @ 75 mls/hr IV . [id number] Rx[facility][id number] Other: Voiding Method Toilet # Voids 2 # Bowel Movements 0 Weight 82.1 kg PHYSICAL EXAM: VITAL SIGNS: As above GENERAL: Sitting up in bed, no acute distress HEENT: Conjunctivae normal. eyes normal. NECK: No JVD. No thyroid enlargement. No LNs CARDIOVASCULAR: S1, S2 regular.No murmur RESPIRATION: Breath sounds diminished in the bases. No rhonchi or crackles. No bronchial breathing. ABDOMEN: Soft, distended, yet. Diffuse midepigastric and right upper quadrant tenderness. No guarding. no masses palpable. No ascites, No hepatosplenomegaly.Bowel sounds heard. LEGS: No edema. no swelling PSYCHIATRY: Alert and oriented X3, mood and affect normal. NERVOUS SYSTEM: Cranial N 2-12 grossly normal. Moves all 4 limbs. No focal deficits. Strength and sensation grossly intact.. Skin: Warm and dry, no rash Lymphatic system. No LN neck axilla. Results CBC & Chem 7: 12/28/19 05:31 12/28/19 05:31 Labs: Abnormal Lab Results - Last 24 Hours (Table) 12/27/19 12/27/19 12/27/19 Range/Units 18:57 18:57 18:57 WBC 11.2 H (3.8-10.6) k/uL Neutrophils # 8.7 H (1.3-7.7) k/uL Chloride 109 H (98-107) mmol/L Carbon Dioxide 18 L (22-30) mmol/L Glucose 156 H (74-99) mg/dL Plasma Lactic Acid Idris 3.2 H* (0.7-2.0) mmol/L Amylase 113 H (30-110) U/L Thrombosis Risk Factor Assmnt - Choose All That Apply Any of the Below Risk Factors Present?: Yes Each Factor Represents 1 point: Obesity (BMI >25) Other Risk Factors: Yes Each Risk Factor Represents 3 Points: Age 75 years or older Thrombosis Risk Factor Assessment Total Risk Factor Score: 4 Thrombosis Risk Factor Assessment Level: Moderate Risk Assessment and Plan Assessment: Abdominal pain, ileus, possible enteritis, cholelithiasis Dehydration Lactic acidosis Bilateral nephrolithiasis, large exophytic cyst of left kidney measuring 7 cm. Bladder stones Enlarged prostate, PSA ordered cholelithiasis Hepatomegaly Possible hepatic steatosis Diabetes mellitus Hypertension CAD, history of CA with cardiac stents in 2017. Plan: Continue on current medication regime ,monitoring and symptomatic treatment. Gentle IV fluid hydration, PPI. CT reporting enlarged prostate ,PSA ordered. Home meds reviewed, currently placed on hold. Evaluated by surgery, recommending laparoscopic cholecystectomy. Cardiology consulted for surgical clearance given patient's significant cardiac history. The impression and plan of care has been dictated as directed. : I performed a history and examination of this patient, discussed the same with the dictator. I agree with the dictator's note ,documented as a scribe. Any additional findings or plans will be noted.
[2019-12-28] MEDS: INSULIN ASPART (NovoLOG) 100 UNIT/ML VIAL SQ SCH ×2 (13:53→18:21)
[2019-12-28] MEDS: SODIUM CHLORIDE 0.9% 1,000 ML IV SCH (14:09)
--- NOTE | 2019-12-28 14:14 | P.GSCN ---
History of Present Illness Consult date: 12/28/19 History of present illness: CHIEF COMPLAINT: Abdominal pain HISTORY OF PRESENT ILLNESS: This is a 79-year-old male with a known history of diabetes mellitus, hypertensi on, CAD with cardiac stents 2 and myocardial infarction. Patient presents to the emergency room with complaints of epigastric abdominal pain and right upper quadrant abdominal pain. He reports the pain is worse after eating and is accompanied with bloating. He denies any nausea or vomiting. He does report having bowel movements. Denies any fever, chills or sweats. He had computed tomography scan of the abdomen and pelvis showing bilateral nephrolithiasis. Bladder stones. Cholelithiasis. Surgical consult was placed for abdominal pain. Patient was seen and examined with Dr. Centeno PAST MEDICAL HISTORY: See list. PAST SURGICAL HISTORY: See list. MEDICATIONS: See list. ALLERGIES: See list. SOCIAL HISTORY: No illicit drug use. REVIEW OF SYSTEMS: CONSTITUTIONAL: Denies fever or chills. HEENT: Denies blurred vision, vision changes, or eye pain. Denies hemoptysis CARDIOVASCULAR: Denies chest pain or pressure. RESPIRATORY: No shortness of breath. GASTROINTESTINAL: See HPI for pertinent findings HEMATOLOGIC: Denies bleeding disorders. GENITOURINARY: Denies any blood in urine or increased urinary frequency. SKIN: Denies pruitis. Denies rash. PHYSICAL EXAM: VITAL SIGNS: Reviewed GENERAL: Well-developed in no acute distress. HEENT: No sclera icterus. Extraocular movements grossly intact. Moist buccal mucosa. Head is atraumatic, normocephalic. No nasal drainage. ABDOMEN: Soft. Nondistended evidence of umbilical hernia and tenderness with palpation of the right upper quadrant NEUROLOGIC: Alert and oriented. Cranial nerves II through XII grossly intact. LABORATORY DATA: WBC 11.2 down to 8.8 hemoglobin 13.8 Lactic acid 3.2 down to 1.1 Lipase 126 amylase 113 AST 16 and ALT 16 IMAGING: Computed tomography scan abdomen and pelvis bilateral nephrolithiasis. Bladder stones. Cholelithiasis. KUB x-ray showing no acute pulmonary process. There may be an underlying enteritis, ileus. ASSESSMENT: 1. Right upper quadrant abdominal pain and pain after eating. Computed tomography scan of the abdomen showing cholelithiasis 2. History of myocardial infarction with coronary artery disease and cardiac stents 3. History of diabetes mellitus type 2 PLAN: -Patient is scheduled for laparoscopic cholecystectomy with Dr. Centeno tomorrow -Nothing by mouth after midnight -Agree with cardiology consult for surgical clearance Thank you for this consultation Physician Accounting Officer note has been reviewed by physician. Signing provider agrees with the documented findings, assessment, and plan of care. Past Medical History Past Medical History: Diabetes Mellitus, Hypertension, Myocardial Infarction ([place]), Musculoskeletal Disorder Additional Past Medical History / Comment(s): Gout with one flareup Last Myocardial Infarction Date:: 2017 History of Any Multi-Drug Resistant Organisms: None Reported Past Surgical History: Adenoidectomy, Heart Catheterization With Stent, Joint Replacement, Orthopedic Surgery Additional Past Surgical History / Comment(s): Coronary stent placement; knee replaced left side Past Anesthesia/Blood Transfusion Reactions: No Reported Reaction Date of Last Stent Placement:: 2017 Past Psychological History: No Psychological Hx Reported Smoking Status: Never smoker Past Alcohol Use History: None Reported Past Drug Use History: None Reported - Past Family History Father History Unknown: Yes Family Medical History: Coronary Artery Disease (CAD) Additional Family Medical History / Comment(s): of lung CA, was smoker Mother Family Medical History: Dementia Additional Family Medical History / Comment(s): lived to Medications and Allergies Home Medications Medication Instructions Recorded Confirmed Type metFORMIN HCL [Glucophage] 1,000 mg PO BID 05/04/17 12/27/19 History Aspirin EC [Ecotrin Low Dose] 81 mg PO DAILY 06/15/17 12/27/19 History amLODIPine BESYLATE/BENAZEPRIL 1 cap PO DAILY 05/02/18 12/27/19 History [Lotrel 10-40 MG] Allergies Allergy/AdvReac Type Severity Reaction Status Date / Time atorvastatin [From Lipitor] AdvReac MUSCLE/JOINT Verified 12/27/19 21:19 PAIN Surgical - Exam Vital Signs Temp Pulse Resp BP Pulse Ox 98.2 F 95 20 142/82 100 12/27/19 18:28 12/27/19 18:28 12/27/19 18:28 12/27/19 18:28 12/27/19 18:28 Results - Labs 12/28/19 05:31 12/28/19 05:31 Abnormal Lab Results - Last 24 Hours (Table) 12/27/19 12/27/19 12/27/19 Range/Units 18:57 18:57 18:57 WBC 11.2 H (3.8-10.6) k/uL Neutrophils # 8.7 H (1.3-7.7) k/uL Chloride 109 H (98-107) mmol/L Carbon Dioxide 18 L (22-30) mmol/L Glucose 156 H (74-99) mg/dL POC Glucose (mg/dL) (75-99) mg/dL Plasma Lactic Acid Idris 3.2 H* (0.7-2.0) mmol/L Total Protein (6.2-8.2) g/dL Amylase 113 H (30-110) U/L 12/28/19 12/28/19 Range/Units 05:31 12:24 WBC (3.8-10.6) k/uL Neutrophils # (1.3-7.7) k/uL Chloride (98-107) mmol/L Carbon Dioxide 21.3 L (22-30) mmol/L Glucose (74-99) mg/dL POC Glucose (mg/dL) 110 H (75-99) mg/dL Plasma Lactic Acid Idris (0.7-2.0) mmol/L Total Protein 5.9 L (6.2-8.2) g/dL Amylase (30-110) U/L Diabetes panel 12/27/19 12/28/19 Range/Units 18:57 05:31 Sodium 139 141 (137-145) mmol/L Potassium 4.1 4.2 (3.5-5.1) mmol/L Chloride 109 H 109 (98-107) mmol/L Carbon Dioxide 18 L 21.3 L (22-30) mmol/L BUN 15 13.0 (9-20) mg/dL Creatinine 0.96 0.9 (0.66-1.25) mg/dL Glucose 156 H 103 (74-99) mg/dL Calcium 10.1 9.0 (8.4-10.2) mg/dL AST 21 16 (17-59) U/L ALT 15 16 (4-49) U/L Alkaline Phosphatase 89 78 (38-126) U/L Total Protein 6.7 5.9 L (6.3-8.2) g/dL Albumin 4.3 4.00 (3.5-5.0) g/dL Calcium panel 12/27/19 12/28/19 Range/Units 18:57 05:31 Calcium 10.1 9.0 (8.4-10.2) mg/dL Albumin 4.3 4.00 (3.5-5.0) g/dL Pituitary panel 12/27/19 12/28/19 Range/Units 18:57 05:31 Sodium 139 141 (137-145) mmol/L Potassium 4.1 4.2 (3.5-5.1) mmol/L Chloride 109 H 109 (98-107) mmol/L Carbon Dioxide 18 L 21.3 L (22-30) mmol/L BUN 15 13.0 (9-20) mg/dL Creatinine 0.96 0.9 (0.66-1.25) mg/dL Glucose 156 H 103 (74-99) mg/dL Calcium 10.1 9.0 (8.4-10.2) mg/dL Adrenal panel 12/27/19 12/28/19 Range/Units 18:57 05:31 Sodium 139 141 (137-145) mmol/L Potassium 4.1 4.2 (3.5-5.1) mmol/L Chloride 109 H 109 (98-107) mmol/L Carbon Dioxide 18 L 21.3 L (22-30) mmol/L BUN 15 13.0 (9-20) mg/dL Creatinine 0.96 0.9 (0.66-1.25) mg/dL Glucose 156 H 103 (74-99) mg/dL Calcium 10.1 9.0 (8.4-10.2) mg/dL Total Bilirubin 0.5 0.7 (0.2-1.3) mg/dL AST 21 16 (17-59) U/L ALT 15 16 (4-49) U/L Alkaline Phosphatase 89 78 (38-126) U/L Total Protein 6.7 5.9 L (6.3-8.2) g/dL Albumin 4.3 4.00 (3.5-5.0) g/dL
[2019-12-28] MEDS ORDERED: METOPROLOL SUCCINATE (ER) 25 MG TAB.ER.24H PO SCH (14:30)
--- NOTE | 2019-12-28 15:12 | P.CRDCN ---
History of Present Illness Consult date: 12/28/19 Reason for Consult (text): Preop clearance Chief complaint: Abdominal pain History of present illness: This is a pleasant 79-year-old gentleman with documented history of hypertension, diabetes, hyperlipidemia, coronary artery disease, he presented with a myocardial infarction in 2018, underwent RCA stenting with subsequent LAD stenting at that time. He follows with Dr. Mera in the office. [facility] well at [facility], he has not been experiencing any chest discomfort and is breathing overall has been stable. He presented to the hospital on this admission with symptoms of epigastric and left upper quadrant abdominal pain which seemed to be significantly worse after eating. His initial chest x-ray did not show any acute process, KUB showed possible underlying enteritis, ileus. He had a CT of the abdomen and pelvis performed which revealed cholelithiasis, he was seen by the surgeons and is scheduled to undergo laparoscopic cholecystectomy tomorrow. Cardiology consultation was requested for preop clearance. His EKG on presentation here showed normal sinus rhythm with occasional PAC, no acute changes noted. The patient is not currently on a statin as he had a severe anaphylactic reaction to statin in the past. It is also noted that the patient does not take a beta lamberto, he is unsure why but states that he had a severe rash from a medication that slowed his heart rate down. We will get the office records to review this, if the patient does not have any ALLERGIES to beta lamberto, we will start him on metoprolol sesame 25 mg daily. We will also obtain an echocardiogram with Doppler study, he did however have one done in August of this year which revealed a normal left ventricular systolic function most recent stress test was performed in March 2018, nondiagnostic electrocardiogram stress testing and response to Kisha scan, no evidence of any reversible ischemia at that time. Past Medical History Past Medical History: Diabetes Mellitus, Hypertension, Myocardial Infarction (NC), Musculoskeletal Disorder Additional Past Medical History / Comment(s): Gout with one flareup Last Myocardial Infarction Date:: 2017 History of Any Multi-Drug Resistant Organisms: None Reported Past Surgical History: Adenoidectomy, Heart Catheterization With Stent, Joint Replacement, Orthopedic Surgery Additional Past Surgical History / Comment(s): Coronary stent placement; knee replaced left side Past Anesthesia/Blood Transfusion Reactions: No Reported Reaction Date of Last Stent Placement:: 2017 Past Psychological History: No Psychological Hx Reported Smoking Status: Never smoker Past Alcohol Use History: None Reported Past Drug Use History: None Reported - Past Family History Father History Unknown: Yes Family Medical History: Coronary Artery Disease (CAD) Additional Family Medical History / Comment(s): of lung CA, was smoker Mother Family Medical History: Dementia Additional Family Medical History / Comment(s): lived to Medications and Allergies Home Medications Medication Instructions Recorded Confirmed Type metFORMIN HCL [Glucophage] 1,000 mg PO BID 05/04/17 12/27/19 History Aspirin EC [Ecotrin Low Dose] 81 mg PO DAILY 06/15/17 12/27/19 History amLODIPine BESYLATE/BENAZEPRIL 1 cap PO DAILY 05/02/18 12/27/19 History [Lotrel 10-40 MG] Allergies Allergy/AdvReac Type Severity Reaction Status Date / Time atorvastatin [From Lipitor] AdvReac MUSCLE/JOINT Verified 12/27/19 21:19 PAIN Physical Exam Vitals: Vital Signs Temp Pulse Pulse Resp BP BP Pulse Ox 12/28/19 11:15 97.6 F 73 20 145/83 99 12/28/19 05:09 97.9 F 65 18 135/83 95 12/28/19 00:00 18 12/27/19 23:00 97.6 F 78 16 157/83 98 12/27/19 21:49 97.5 F L 72 18 137/76 96 12/27/19 20:00 69 17 127/66 98 12/27/19 18:28 98.2 F 95 20 142/82 100 Intake and Output 12/28/19 12/28/19 12/28/19 06:59 14:59 22:59 Other: Voiding Method Toilet Toilet # Voids 2 2 # Bowel Movements 0 PHYSICAL EXAMINATION: GENERAL: 89-year-old gentleman in no acute distress at the time of my examination HEENT: Head is atraumatic, normocephalic. Pupils equal, round. Sclera anicteric. Conjunctiva are clear. Mucous membranes of the mouth are moist. Neck is supple. There is no elevated jugular venous pressure. No carotid bru it is heard. HEART EXAMINATION: Heart S1 and S2 normal, no murmur or gallop is heard CHEST EXAMINATION: Lungs are clear to auscultation and precussion. No chest wall tenderness is noted on palpation or with deep breathing. ABDOMEN: Soft, mild generalized tenderness nontender. Bowel sounds are heard. No organomegaly noted. EXTREMITIES: 2+ peripheral pulses with no evidence of peripheral edema and no calf tenderness noted. NEUROLOGIC patient is awake, alert and oriented 3 . Results 12/28/19 05:31 12/28/19 05:31 Cardiac Enzymes 12/27/19 12/27/19 12/28/19 Range/Units 18:57 18:57 00:48 AST 21 (17-59) U/L Troponin I <0.012 <0.012 (0.000-0.034) ng/mL 12/28/19 12/28/19 Range/Units 05:31 05:31 AST 16 (17-59) U/L Troponin I <0.012 (0.000-0.034) ng/mL Coagulation 12/27/19 Range/Units 18:57 PT 9.9 (9.0-12.0) sec APTT 26.6 (22.0-30.0) sec CBC 12/27/19 12/28/19 Range/Units 18:57 05:31 WBC 11.2 H 8.8 (3.8-10.6) k/uL RBC 4.72 4.34 (4.30-5.90) m/uL Hgb 14.5 13.8 (13.0-17.5) gm/dL Hct 43.5 41.6 (39.0-53.0) % Plt Count 262 195 (150-450) k/uL Comprehensive Metabolic Panel 12/27/19 12/28/19 Range/Units 18:57 05:31 Sodium 139 141 (137-145) mmol/L Potassium 4.1 4.2 (3.5-5.1) mmol/L Chloride 109 H 109 (98-107) mmol/L Carbon Dioxide 18 L 21.3 L (22-30) mmol/L BUN 15 13.0 (9-20) mg/dL Creatinine 0.96 0.9 (0.66-1.25) mg/dL Glucose 156 H 103 (74-99) mg/dL Calcium 10.1 9.0 (8.4-10.2) mg/dL AST 21 16 (17-59) U/L ALT 15 16 (4-49) U/L Alkaline Phosphatase 89 78 (38-126) U/L Total Protein 6.7 5.9 L (6.3-8.2) g/dL Albumin 4.3 4.00 (3.5-5.0) g/dL Current Medications Generic Name Dose Route Start Last Admin Trade Name Freq PRN Reason Stop Dose Admin Acetaminophen 650 mg 12/27/19 20:41 Acetaminophen Tab 325 Mg Tab PO Q6HR PRN Mild Pain or Fever > 100.5 Hydromorphone HCl 0.5 mg 12/27/19 20:41 Hydromorphone 0.5 Mg/0.5 Ml Syringe IVP Q3HR PRN Moderate Pain Sodium Chloride 1,000 mls @ 75 mls/hr 12/27/19 20:15 12/28/19 14:09 Saline 0.9% IV 75 mls/hr .[id number] NICOLASA Administration Insulin Aspart 0 unit 12/28/19 12:30 12/28/19 13:53 Insulin Aspart (Novolog) 100 Unit/Ml Vial SQ Not Given ACHS NICOLASA Protocol Metoprolol Succinate 25 mg 12/28/19 14:30 Metoprolol Succinate (Er) 25 Mg Tab.Er.24h PO DAILY NICOLASA Naloxone HCl 0.2 mg 12/27/19 20:41 Naloxone 0.4 Mg/Ml 1 Ml Vial IV Q2M PRN Opioid Reversal Ondansetron HCl 4 mg 12/27/19 20:41 Ondansetron 4 Mg/2 Ml Vial IVP Q8HR PRN Nausea And Vomiting Pantoprazole Sodium 40 mg 12/28/19 09:00 12/28/19 07:44 Pantoprazole 40 Mg/10 Ml Vial IV 40 mg DAILY NICOLASA Administration Intake and Output 12/28/19 12/28/19 12/28/19 06:59 14:59 22:59 Other: Voiding Method Toilet Toilet # Voids 2 2 # Bowel Movements 0 12/28/19 05:31 12/28/19 05:31 EKG Interpretations (text) EKG shows a normal sinus rhythm with occasional PACs, no acute changes noted. Assessment and Plan Plan: Assessment and plan #1 right upper quadrant abdominal pain, CT of the abdomen revealed cholelithiasis, patient is tentatively scheduled tomorrow to undergo laparoscopic cholecystectomy #2 history of myocardial infarction in 2018 with stenting of the RCA and subsequently LAD stenting #3 diabetes #4 hypertension #5 hyperlipidemia, patient had a severe anaphylactic reaction to Lipitor in the past Plan We will obtain an echocardiogram with Doppler study, his most recent echo in August showed a normal LV function. Patients most recent stress test was performed in March 2018 which was negative for any reversible ischemia. Patient denies any recent chest discomfort or difficulty in breathing. He does state that he had an ALLERGIC reaction to a medication used to slow the heart down, he is unsure if that was a beta lamberto. We will check with the office notes to see what medication that was, if patient does not have an ALLERGY we would recommend being put on metoprolol succinate 25 mg daily today and daily, we would also give the patient a dose before surgery. From cardiology's perspective, patient may undergo laparoscopic cholecystectomy tomorrow understanding that he is at moderate risk. We will continue to follow along with you. DNP note has been reviewed, I agree with a documented findings and plan of care. Patient was seen and examined.
[2019-12-28 16:52] LABS: Glucose,Whole Blood 90 mg/dL (75-99)
[2019-12-28 20:24] LABS: Glucose,Whole Blood 113 mg/dL (75-99)
[2019-12-29] MEDS: SODIUM CHLORIDE 0.9% 1,000 ML IV SCH ×2 (01:24→12:27)
[2019-12-29] MEDS: INSULIN ASPART (NovoLOG) 100 UNIT/ML VIAL SQ SCH ×5 (01:24→21:21)
[2019-12-29 07:20] LABS: Glucose,Whole Blood 103 mg/dL (75-99)
[2019-12-29] MEDS: PANTOPRAZOLE 40 MG/10 ML VIAL IV SCH (08:42)
--- NOTE | 2019-12-29 09:40 | P.PN ---
Subjective Progress Note Date: 12/29/19 Principal diagnosis: Coronary artery disease/preop cardiac assessment This is a pleasant 79-year-old gentleman with coronary artery disease as well as diabetes and hypertension and dyslipidemia who presented to the hospital with right upper quadrant discomfort and underwent computed tomography scan of the abdomen which revealed gallstone. The patient was seen by the surgical team He was seen today December 282019. He is asymptomatic from a cardiovascular standpoint of view. No chest pain or chest discomfort or shortness of breath. He is hemodynamically stable. From a cardiovascular standpoint of view, the patient can proceed with the wall bladder surgery. We'll continue following up with him. We'll continue the current medical regimen. Objective - Vital Signs Vital signs: Vital Signs Temp 97.8 F 12/29/19 05:00 Pulse 72 12/29/19 05:00 Resp 18 12/29/19 05:00 BP 156/75 12/29/19 05:00 Pulse Ox 98 12/29/19 05:00 Intake & Output 12/28/19 12/29/19 12/29/19 18:59 06:59 18:59 Intake Total 225 Output Total 4 Balance 221 Intake: Intake, IV Titration 225 Amount Sodium Chloride 0.9% 1, 225 000 ml @ 75 mls/hr IV . [id number] NICOLASA Rx#:[id number] Output: Urine 4 Other: Voiding Method Toilet Toilet # Voids 2 2 - Constitutional General appearance: Present: no acute distress - Respiratory Respiratory: bilateral: CTA - Cardiovascular Rhythm: regular Heart sounds: normal: S1, S2 - Labs CBC & Chem 7: 12/28/19 05:31 12/28/19 05:31 Labs: Abnormal Lab Results - Last 24 Hours (Table) 12/28/19 12/28/19 12/29/19 Range/Units 12:24 20:23 07:19 POC Glucose (mg/dL) 110 H 113 H 103 H (75-99) mg/dL Assessment and Plan Assessment: Assessment #1 gallbladder disease causing abdominal discomfort #2 coronary artery disease #3 multiple comorbid conditions Plan #1 continue the current medical regimen #2 the patient can proceed with the surgery #3 follow-up with the patient
[2019-12-29] MEDS ORDERED: IV FLUID CONTINUATION 900 ML IV ONE (11:04)
[2019-12-29 11:18] LABS: Glucose,Whole Blood 109 mg/dL (75-99)
[2019-12-29] MEDS ORDERED: HEPARIN SODIUM,PORCINE 5,000 UNIT/ML 1 ML VIAL ONE (11:40)
[2019-12-29] MEDS ORDERED: ONDANSETRON 4 MG/2 ML VIAL IVP ONE (11:46)
[2019-12-29] MEDS ORDERED: DEXAMETHASONE SOD PHOSPHATE 10 MG/ML 1 ML VIAL IV ONE (11:48)
--- NOTE | 2019-12-29 12:09 | P.PN ---
Subjective Progress Note Date: 12/29/19 This is a pleasant 79-year-old gentleman with history of diabetes mellitus, hypertension, CAD, PR, cardiac stents 2, gout, muscle skeletal disorder and multiple other medical issues presented to the ER with complaints of left upper quadrant abdominal pain worsens after eating with accompanying bloating, denies heartburn. Reports constipation 2 days with no nausea, no vomiting. Denies rectal bleeding. Denies chest pain, palpitations or increasing shortness of breath. Chest x-ray reporting no acute cardiopulmonary process, possible underlying enteritis, ileus. KUB reported no acute cardiopulmonary process, possible underlying enteritis, ileus. CT abdomen and pelvis reporting bilateral nephrolithiasis, bladder stones, cholelithiasis, hepatomegaly, possible hepatic steatosis. GI reporting sinus rhythm with PACs. Afebrile, vital signs stable, maintaining O2 sats in the high 90s on room air. Mildly elevated WBC of 11.2 on admission, resolved, otherwise hematology unremarkable. Coagulation within normal limits. Chemistry reporting chloride 109, carbon dioxide 21.3, BUN 15, creatinine 0.96, currently 13/0.9. Glucose 156 on admission. Lactic acid 3.2 on admission and received IV fluids, with lactic acid down to 1.1. T bili, LFTs within normal limits. Troponins negative 3. Amylase mildly elevated at 113, lipase normal 226. Surgery consulted. 12/29/2019 patient discussed being ALLERGIC to a rate slowing drug. Dr. Oconnor, PCP verified via office records, the patient indeed is ALLERGIC to beta blockers-added to"listed ALLERGY".NPO, scheduled for laparoscopic cholecystec loulou this morning. Denies chest pain, palpitations or shortness of breath. Afebrile. Objective - Vital Signs Vital signs: Vital Signs Temp 98.3 F 12/29/19 11:11 Pulse 71 12/29/19 11:11 Resp 18 12/29/19 11:11 BP 162/78 12/29/19 11:11 Pulse Ox 98 12/29/19 11:11 Intake & Output 12/28/19 12/29/19 12/29/19 18:59 06:59 18:59 Intake Total 225 Output Total 4 Balance 221 Intake: Intake, IV Titration 225 Amount Sodium Chloride 0.9% 1, 225 000 ml @ 75 mls/hr IV . [id number] [facility] Rx#:[id number] Output: Urine 4 Other: Voiding Method Toilet Toilet # Voids 2 2 - Exam PHYSICAL EXAM: VITAL SIGNS: As above GENERAL: Alert and oriented 3, Sitting up at side of bed, no acute distress HEENT: Conjunctivae normal. eyes normal. Oral mucosa dry NECK: No JVD. No thyroid enlargement. No LNs CARDIOVASCULAR: S1, S2 regular.No murmur RESPIRATION: Breath sounds diminished in the bases. No rhonchi , crackles or wheezing. ABDOMEN: Soft, nondistended, Diffuse midepigastric and right upper quadrant tenderness. No guarding. no masses palpable. Positive bowel sounds. LEGS: No edema. no swelling NERVOUS SYSTEM: Cranial N 2-12 grossly normal. Moves all 4 limbs. No focal deficits. Strength and sensation grossly intact.. Skin: Warm and dry, no rash - Labs CBC & Chem 7: 12/28/19 05:31 12/28/19 05:31 Labs: Abnormal Lab Results - Last 24 Hours (Table) 12/28/19 12/28/19 12/29/19 Range/Units 12:24 20:23 07:19 POC Glucose (mg/dL) 110 H 113 H 103 H (75-99) mg/dL 12/29/19 Range/Units 11:17 POC Glucose (mg/dL) 109 H (75-99) mg/dL Assessment and Plan Assessment: Abdominal pain, ileus, possible enteritis, cholelithiasis Dehydration Lactic acidosis Bilateral nephrolithiasis, large exophytic cyst of left kidney measuring 7 cm. Bladder stones Enlarged prostate, PSA ordered cholelithiasis Hepatomegaly Possible hepatic steatosis Diabetes mellitus Hypertension CAD, history of PR with cardiac stents in 2017. Plan: Continue on current medication regime ,monitoring and symptomatic treatment. Continue on gentle IV fluid hydration, PPI.NPO for upcoming cholecystectomy. Discharge planning in progress for potentially later today, more likely tomorrow, pending surgical clearance. The impression and plan of care has been dictated as directed. : I performed a history and examination of this patient, discussed the same with the dictator. I agree with the dictator's note ,documented as a scribe. Any additional findings or plans will be noted.
[2019-12-29] MEDS ORDERED: GLYCOPYRROLATE 0.2 MG/ML 2 ML VIAL ONE (12:19)
[2019-12-29] MEDS ORDERED: ROCURONIUM 10 MG/ML (10 ML VIAL) IV ONE (12:19)
[2019-12-29] MEDS ORDERED: SUCCINYLCHOLINE CHLORIDE 100 MG/5 ML SYR IV ONE (12:19)
[2019-12-29] MEDS ORDERED: HYDROmorphone (PF) 1 MG/ML ONE (12:19)
[2019-12-29] MEDS ORDERED: fentaNYL (PF) 50 MCG/ML 2 ML AMP ONE (12:19)
[2019-12-29] MEDS ORDERED: NEOSTIGMINE 1 MG/ML 10 ML VIAL ONE (12:19)
[2019-12-29] MEDS ORDERED: LIDOCAINE 1% INJ 10MG/ML (20 ML MDV) ONE (12:19)
[2019-12-29] MEDS ORDERED: PROPOFOL 10 MG/ML 20 ML VIAL IV ONE (12:19)
[2019-12-29] MEDS ORDERED: HEPARIN SODIUM,PORCINE 5,000 UNIT/ML 1 ML VIAL SQ ONE (12:22)
[2019-12-29] MEDS ORDERED: SODIUM CHLORIDE 0.9% 50 ML with ceFAZolin 2,000 MG IV ONE ×2 (12:24)
[2019-12-29] MEDS ORDERED: BUPIVACAINE (PF) 0.25% 30 ML VIAL SQ ONE (12:56)
--- NOTE | 2019-12-29 13:16 | P.OP ---
Date of Procedure: 12/29/19 Preoperative Diagnosis: Cholelithiasis Cholecystitis Postoperative Diagnosis: Cholelithiasis Cholecystitis Procedure(s) Performed: Laparoscopic cholecystectomy Anesthesia: PAT Surgeon: Neeraj Centeno Estimated Blood Loss (ml): 5 Pathology: other (Gallbladder) Condition: stable Disposition: PACU Description of Procedure: The patient was placed on the operating table. The patient received a general endotracheal tube anesthesia. The patients abdomen was prepped and draped in the usual sterile fashion. Through an infraumbilical stab incision, the fascia of the anterior abdominal wall was grasped with a pair of Kochers and then the Veress needle was placed in the peritoneal cavity. Position of the Veress needle was confirmed with positive drop test. The abdomen was then insufflated. After adequate insufflation, the 10 mm trocar was placed in the peritoneal cavity. Following this the laparoscope was placed in the peritoneal cavity. The patient was placed in the head-up, right side up position and then a 5 mm trocar was placed in the right lateral and right subcostal position under direct visualization. A 8 mm trocar was placed in the epigastric position. The gallbladder was grasped in the fundus and infundibulum. Traction on the gallbladder was placed in the lateral and the cephalad positions. The triangle of Calot was visualized.. The cystic duct was bluntly dissected until the union of the cystic duct and common bile duct wa s seen. A critical view of safety was achieved. The cystic duct was then divided and sealed with the Harmonic scissors. A PDS Endoloop was then placed throughout the cystic duct stump. The cystic artery divided and sealed with the Harmonic scissors. The gallbladder was then removed from the liver bed using Harmonic scissors. The gallbladder was then extracted through the epigastric port site. Operative field was checked for any bleeding spots and Harmonic scissors was used to coagulate the liver bed. The abdomen was irrigated. The trocars were removed. The skin was closed using interrupted 3-0 Vicryl suture. Dermabond dressing were applied. The patient tolerated the procedure well.
[2019-12-29] MEDS: HYDROmorphone 0.5 MG/0.5 ML SYRINGE IVP PRN ×2 (13:30→13:36)
[2019-12-29] MEDS ORDERED: LACTATED RINGERS 1,000 ML IV ONE ×2 (13:43)
[2019-12-29 13:46] LABS: Glucose,Whole Blood 115 mg/dL (75-99)
[2019-12-29] MEDS: TAMSULOSIN 0.4 MG CAP.ER.24H PO SCH (16:16)
[2019-12-29 17:21] LABS: Glucose,Whole Blood 145 mg/dL (75-99)
--- NOTE | 2019-12-29 19:08 | ECHOF ---
Referral Reason:preop clearance MEASUREMENTS -------- HEIGHT: 177.8 cm WEIGHT: 82.1 kg BP: 145/83 RVIDd: 3.6 cm (< 3.3) IVSd: 1.2 cm (0.6 - 1.1) LVIDd: 3.2 cm (3.9 - 5.3) LVPWd: 1.2 cm (0.6 - 1.1) IVSs: 1.4 cm LVIDs: 2.3 cm LVPWs: 1.8 cm LA Diam: 2.7 cm (2.7 - 3.8) LAESV Index (A-L): 29.60 ml/m Ao Diam: 3.2 cm (2.0 - 3.7) AV Cusp: 2.0 cm (1.5 - 2.6) MV EXCURSION: 10.072 mm (> 18.000) MV EF SLOPE: 88 mm/s (70 - 150) EPSS: 1.0 cm MV E Dontrell: 0.89 m/s MV DecT: 251 ms MV A Dontrell: 1.04 m/s MV E/A Ratio: 0.86 FINDINGS -------- Sinus rhythm. This was a technically good study. The left ventricular size is normal. There is borderline concentric left ventricular hypertrophy. Overall left ventricular systolic function is normal with, an EF between 60 - 65 %. The right ventricle is mildly enlarged. LA is midly dilated 29-33ml/m2. The right atrium is normal in size. Interatrial and interventricular septum intact. The aortic valve is trileaflet and appears structurally normal. The mitral valve is normal. Mild tricuspid regurgitation present. Right ventricular systolic pressure is normal at < 35 mmHg. The pulmonic valve was not well visualized. The aortic root size is normal. IVC Not well visulized. There is no pericardial effusion. CONCLUSIONS -------- 1. The left ventricular size is normal. 2. There is borderline concentric left ventricular hypertrophy. 3. Overall left ventricular systolic function is normal with, an EF between 60 - 65 %. 4. The right ventricle is mildly enlarged. 5. LA is midly dilated 29-33ml/m2. 6. Mild tricuspid regurgitation present. 7. There is no pericardial effusion. [employer]: JETT Jamil
[2019-12-29 20:51] LABS: Glucose,Whole Blood 198 mg/dL (75-99)
[2019-12-30] MEDS ORDERED: TAMSULOSIN 0.4 MG CAP.ER.24H PO STA (00:15)
[2019-12-30] MEDS: SODIUM CHLORIDE 0.9% 1,000 ML IV SCH ×2 (03:24→16:05)
[2019-12-30 06:07] LABS: Basophils % (A) 0 %; Eosinophils % (A) 0 %; HCT 43.9 % (39.0-53.0); HGB 14.3 gm/dL (13.0-17.5); Lymphocytes # (A) 0.8 k/uL (1.0-4.8); Lymphocytes % (A) 6 %; MCH 30.6 pg (25.0-35.0); MCHC 32.6 g/dL (31.0-37.0); MCV 93.9 fL (80.0-100.0); Mean Platelet Volume 7.6; Monocytes # (A) 0.7 k/uL (0-1.0); Monocytes % (A) 5 %; Neutrophils % (A) 88 %; Platelet Count 228 k/uL (150-450); RBC 4.67 m/uL (4.30-5.90); RDW 12.7 % (11.5-15.5); WBC 13.6 k/uL (3.8-10.6)
[2019-12-30 07:09] LABS: Glucose,Whole Blood 131 mg/dL (75-99)
[2019-12-30] MEDS: INSULIN ASPART (NovoLOG) 100 UNIT/ML VIAL SQ SCH ×2 (07:34→12:08)
[2019-12-30] MEDS: TAMSULOSIN 0.4 MG CAP.ER.24H PO SCH (08:35)
[2019-12-30] MEDS: PANTOPRAZOLE 40 MG/10 ML VIAL IV SCH (08:36)
[2019-12-30] MEDS ORDERED: lisinopriL 20 MG TAB PO SCH (09:00)
[2019-12-30] MEDS ORDERED: amLODIPine 10 MG TAB PO SCH (09:00)
[2019-12-30 09:47] LABS: African American GFR (CKD) 82.6 (60.0-200.0); Albumin 4.1 g/dL (3.80-4.90); Albumin/Globulin Ratio 2.41 (1.60-3.17); Calcium 9.2 mg/dL (8.7-10.3); Globulin 1.7 g/dL (1.6-3.3); Non-African American GFR(CKD) 71.3 (60.0-200.0); Potassium 4.4 mmol/L (3.5-5.5); Total Bilirubin 0.6 mg/dL (0.3-1.2); Total Protein 5.8 g/dL (6.2-8.2)
[2019-12-30 11:26] LABS: Glucose,Whole Blood 117 mg/dL (75-99)
[2019-12-30 12:22] VITALS: BP 134/79; PULSE 82; RESP 16; TEMP 97.7
--- NOTE | 2019-12-30 13:01 | P.PN ---
Subjective Progress Note Date: 12/30/19 Principal diagnosis: Coronary artery disease/preop cardiac assessment This is a pleasant 79-year-old gentleman with coronary artery disease as well as diabetes and hypertension and dyslipidemia who presented to the hospital with right upper quadrant discomfort and underwent computed tomography scan of the abdomen which revealed gallstone. The patient was seen by the surgical team the patient was seen today December 292019. He underwent cholecystectomy yesterday. Otherwise clinically and from a cardiovascular standpoint of view, he is stable. On examination he is slightly tachycardicbut he is ALLERGIC to beta lamberto. Objective - Vital Signs Vital signs: Vital Signs Temp 97.7 F 12/30/19 12:22 Pulse 82 12/30/19 12:22 Resp 16 12/30/19 12:22 BP 134/79 12/30/19 12:22 Pulse Ox 100 12/30/19 12:22 Intake & Output 12/29/19 12/30/19 12/30/19 18:59 06:59 18:59 Intake Total 1000 360 Output Total 10 2702 Balance 990 -2702 360 Weight 82.1 kg Intake: IV 1000 Oral 360 Output: Urine 2050 Straight 2050 Post Void Residual 652 Estimated Blood Loss 10 Other: Voiding Method Urinal Indwelling Catheter # Voids 3 - Constitutional General appearance: Present: no acute distress - Respiratory Respiratory: bilateral: CTA - Cardiovascular Rhythm: regular Heart sounds: normal: S1, S2 - Labs CBC & Chem 7: 12/30/19 05:21 12/30/19 05:21 Labs: Abnormal Lab Results - Last 24 Hours (Table) 12/27/19 12/29/19 12/29/19 Range/Units 18:57 13:45 17:20 WBC (3.8-10.6) k/uL Neutrophils # (1.3-7.7) k/uL Lymphocytes # (1.0-4.8) k/uL Glucose (70-110) mg/dL POC Glucose (mg/dL) 115 H 145 H (75-99) mg/dL Total Protein (6.2-8.2) g/dL Total PSA 5.4 H (<=4.0) ng/mL 12/29/19 12/30/19 12/30/19 Range/Units 20:49 05:21 05:21 WBC 13.6 H (3.8-10.6) k/uL Neutrophils # 12.0 H (1.3-7.7) k/uL Lymphocytes # 0.8 L (1.0-4.8) k/uL Glucose 124 H (70-110) mg/dL POC Glucose (mg/dL) 198 H (75-99) mg/dL Total Protein 5.8 L (6.2-8.2) g/dL Total PSA (<=4.0) ng/mL 12/30/19 12/30/19 Range/Units 07:08 11:24 WBC (3.8-10.6) k/uL Neutrophils # (1.3-7.7) k/uL Lymphocytes # (1.0-4.8) k/uL Glucose (70-110) mg/dL POC Glucose (mg/dL) 131 H 117 H (75-99) mg/dL Total Protein (6.2-8.2) g/dL Total PSA (<=4.0) ng/mL Assessment and Plan Assessment: Assessment #1 gallbladder disease causing abdominal discomfort #2 coronary artery disease #3 multiple comorbid conditions Plan #1 Continue the current medical regimen #2 possible discharge in the next 12-24 hour
--- NOTE | 2019-12-30 13:43 | P.DS ---
Providers Date of admission: 12/27/19 20:41 Expected date of discharge: 12/30/19 Attending physician: Tristan Oconnor Consults: 12/27/19 20:41 Consult Physician Routine Consulting Provider: Neeraj Centeno Consult Reason/Comments: Ab pain, ileus Do you want consulting provider notified?: Yes 12/28/19 13:32 Consult Physician Routine Consulting Provider: Wilder Swann Consult Reason/Comments: cardiology clearance Do you want consulting provider notified?: Yes Primary care physician: [facility] Course: Patient was admitted to the emergency room with mid epigastric abdominal pain, constipation, known past history of coronary artery disease Troponins were negative, patient also complained of nausea, and pain specifically after eating he was cleared from a Cardiologic point of view, consultation with general surgery Computed tomography scan of abdomen and pelvis demonstrated bilateral nonobstructing renal calculi as well as multiple gallstones Patient also had incidentally large prostate Decision was made to clear patient medically from a Cardiologic point of view and then to proceed forward with laparoscopic cholecystectomy per Dr. Neeraj Centeno Patient did undergo laparoscopic cholecystectomy However in the postoperative phase he did develop obstruction of the prostatic urethra secondary to prostatic enlargement and inflammation probably secondary to the introduction of the Newton catheter during the operative phase General: [Patient awake, alert and oriented times 3. Patient in no acute distress.] HEENT: [PERRL. EOMI. No pharyngeal erythema or exudate.] Neck: [No adenopathy.] Cardiac: [Heart regular in rate and rhythm. No S3. No S4. No clicks, rubs. No murmur.] Lungs: [Clear to auscultation bilaterally.] Abdomen: [No mass. No organomegaly. Bowel sounds presnt and normoactive in all 4 quadrants.] Extremes: [No edema no cyanosis no claudication normal pulses] : [] Musculoskeletal: [No joint erythema, edema or tenderness.] Skin: [No rash.] Neurologic: [No lateralizing deficits. CN II - XII grossly intact.] Lymphatic: [No adenopathy.] Patient Condition at Discharge: Stable Plan - Discharge Summary New Discharge Prescriptions: New Tamsulosin HCl [Flomax] 0.4 mg PO AC-SUPPER #20 capsule No Action metFORMIN HCL [Glucophage] 1,000 mg PO BID Aspirin EC [Ecotrin Low Dose] 81 mg PO DAILY amLODIPine BESYLATE/BENAZEPRIL [Lotrel 10-40 MG] 1 cap PO DAILY Discharge Medication List metFORMIN HCL [Glucophage] 1,000 mg PO BID 05/04/17 [History] Aspirin EC [Ecotrin Low Dose] 81 mg PO DAILY 06/15/17 [History] amLODIPine BESYLATE/BENAZEPRIL [Lotrel 10-40 MG] 1 cap PO DAILY 05/02/18 [History] Tamsulosin HCl [Flomax] 0.4 mg PO AC-SUPPER #20 capsule 12/30/19 [Rx] Follow up Appointment(s)/Referral(s): Oleksandr Rivera MD [Primary Care Provider] - 1-2 days Patient Instructions/Handouts: *Surgery [facility] - ([facility]) Laparoscopic Cholecystectomy, Type 2 Diabetes in Adults: New Diagnosis (DC) Activity/Diet/Wound Care/Special Instructions: Being discharged home with Newton catheter will remove an outpatient setting Discharge Disposition: HOME SELF-CARE
--- NOTE | 2019-12-30 13:55 | P.PN ---
Subjective Progress Note Date: 12/30/19 CHIEF COMPLAINT: Right upper quadrant abdominal pain HISTORY OF PRESENT ILLNESS: Patient is status post lap scopic cholecystectomy. He is tolerating diet. Denies any nausea or vomiting. Denies any abdominal pain. He is passing gas. He had urinary retention and required Newton catheter to be placed. He is afebrile PHYSICAL EXAM: VITAL SIGNS: Reviewed. GENERAL: Well-developed in no acute distress. HEENT: No sclera icterus. Extraocular movements grossly intact. Moist buccal mucosa. Head is atraumatic, normocephalic. ABDOMEN: Soft. Nondistended. Nontender. Incision sites clean dry and intact NEUROLOGIC: Alert and oriented. Cranial nerves II through XII grossly intact. ASSESSMENT: 1. Cholecystitis and cholelithiasis status post laparoscopic cholecystectomy PLAN: -Patient is surgical stable for discharge -Patient to follow-up with Dr. 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 Signing provider agrees with the documented findings, assessment, and plan of care. Objective - Vital Signs Vital signs: Vital Signs Temp 97.7 F 12/30/19 12:22 Pulse 82 12/30/19 12:22 Resp 16 12/30/19 12:22 BP 134/79 12/30/19 12:22 Pulse Ox 100 12/30/19 12:22 Intake & Output 12/29/19 12/30/19 12/30/19 18:59 06:59 18:59 Intake Total 1000 360 Output Total 10 2702 Balance 990 -2702 360 Weight 82.1 kg Intake: IV 1000 Oral 360 Output: Urine 2050 Straight 2050 Post Void Residual 652 Estimated Blood Loss 10 Other: Voiding Method Urinal Indwelling Catheter # Voids 3 - Labs CBC & Chem 7: 12/30/19 05:21 12/30/19 05:21 Labs: Abnormal Lab Results - Last 24 Hours (Table) 12/27/19 12/29/19 12/29/19 Range/Units 18:57 17:20 20:49 WBC (3.8-10.6) k/uL Neutrophils # (1.3-7.7) k/uL Lymphocytes # (1.0-4.8) k/uL Glucose (70-110) mg/dL POC Glucose (mg/dL) 145 H 198 H (75-99) mg/dL Total Protein (6.2-8.2) g/dL Total PSA 5.4 H (<=4.0) ng/mL 12/30/19 12/30/19 12/30/19 Range/Units 05:21 05:21 07:08 WBC 13.6 H (3.8-10.6) k/uL Neutrophils # 12.0 H (1.3-7.7) k/uL Lymphocytes # 0.8 L (1.0-4.8) k/uL Glucose 124 H (70-110) mg/dL POC Glucose (mg/dL) 131 H (75-99) mg/dL Total Protein 5.8 L (6.2-8.2) g/dL Total PSA (<=4.0) ng/mL 12/30/19 Range/Units 11:24 WBC (3.8-10.6) k/uL Neutrophils # (1.3-7.7) k/uL Lymphocytes # (1.0-4.8) k/uL Glucose (70-110) mg/dL POC Glucose (mg/dL) 117 H (75-99) mg/dL Total Protein (6.2-8.2) g/dL Total PSA (<=4.0) ng/mL
[2019-12-31] MEDS ORDERED: PANTOPRAZOLE 40 MG TABLET PO SCH (07:30)
== END 2019-12-30 16:53 | disposition home or self-care (01) | DRG 418 ==
LOC: EC 18:12 → 6NMEDSUR 20:41
PROVIDERS: ADMIT Family Medicine; ATTEND Family Medicine
PROC: 0FT44ZZ Resection of Gallbladder, Percutaneous Endoscopic Approach (ICD-10-PCS; principal; 2019-12-29 12:41)
DX: K80.10 Calculus of gallbladder with chronic cholecystitis without obstruction (principal); E87.2 Acidosis; K56.7 Ileus, unspecified; E78.5 Hyperlipidemia, unspecified; E86.0 Dehydration; I10 Essential (primary) hypertension; I25.10 Atherosclerotic heart disease of native coronary artery without angina pectoris; R33.8 Other retention of urine; N40.1 Benign prostatic hyperplasia with lower urinary tract symptoms; M10.9 Gout, unspecified; E11.9 Type 2 diabetes mellitus without complications; N20.0 Calculus of kidney; N21.0 Calculus in bladder; R16.0 Hepatomegaly, not elsewhere classified; N28.1 Cyst of kidney, acquired; Z96.652 Presence of left artificial knee joint; Z79.84 Long term (current) use of oral hypoglycemic drugs; Z79.82 Long term (current) use of aspirin; Z79.02 Long term (current) use of antithrombotics/antiplatelets; Z88.8 Allergy status to other drugs, medicaments and biological substances; I25.2 Old myocardial infarction; Z95.5 Presence of coronary angioplasty implant and graft; Z90.89 Acquired absence of other organs; Z98.890 Other specified postprocedural states; Z82.49 Family history of ischemic heart disease and other diseases of the circulatory system; Z80.1 Family history of malignant neoplasm of trachea, bronchus and lung; Z81.8 Family history of other mental and behavioral disorders; Z87.892 Personal history of anaphylaxis
CPT/HCPCS: 36415; 71046; 74018; 74176; 80053; 82150; 83605; 83690; 84153; 84154; 84484; 85025; 85610; 85730; 88304; 93005; 93306; 96361; 96374; 99285

== ENCOUNTER 2020-05-31 10:23 | Emergency (ER) | payer MEDICARE ==
[2020-05-31 10:30] VITALS: RESP 18
--- NOTE | 2020-05-31 12:16 | ED ---
Weakness HPI - General Chief complaint: Weakness Stated complaint: weakness Time Seen by Provider: 05/31/20 10:25 Source: patient, family Mode of arrival: wheelchair Limitations: no limitations - History of Present Illness Initial comments: is a 79-year-old male with past history of diabetes, hypertension, MS who presents emergency Department with reported weakness. Patient states he's had weakness for the past week and a half. Admits to a nonproductive cough. No shortness of breath or chest pain. He admits that his has not been feeling well. No additional sick contacts. Denies fevers. Admits to decreased appetite. No diarrhea. No black or tarry stools. Denies change in his urination. Admits that on Friday he fell in the shower when he was attempting to dry himself off because he felt so weak. Denies unilateral weakness. Patient did sustain a skin tear to the left elbow. Denies any painful range of motion. No abdominal pain. 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 - Related Data Home Medications Medication Instructions Recorded Confirmed metFORMIN HCL [Glucophage] 1,000 mg PO BID 05/04/17 05/31/20 Aspirin EC [Ecotrin Low Dose] 81 mg PO DAILY 06/15/17 05/31/20 Acetaminophen Tab [Tylenol] 325 mg PO Q4H PRN 05/31/20 05/31/20 Tamsulosin HCl [Flomax] 0.4 mg PO DAILY 05/31/20 05/31/20 Previous Rx's Medication Instructions Recorded Ascorbic Acid [Vitamin C] 1,000 mg PO DAILY tab 06/06/20 Benzocaine/Menthol Lozeng [Cepacol 1 each MUCOUS MEM Q4HR PRN lozenge 06/06/20 lozenge] Cholecalciferol [Vitamin D3 (25 50 mcg PO DAILY tablet 06/06/20 Mcg = 1000 Iu)] INSULIN LISPRO (HumaLOG) [humaLOG] 0 unit SQ ACHS #1 vial 06/06/20 Pantoprazole [Protonix] 40 mg PO AC-BRKFST tablet. 06/06/20 Sodium Bicarbonate Tab 650 mg PO BID tab 06/06/20 Zinc Sulfate [Orazinc] 220 mg PO DAILY cap 06/06/20 amLODIPine [Norvasc] 10 mg PO DAILY tab 06/06/20 dexAMETHasone [Hexadrol] 6 mg PO DAILY 4 Days #4 tab 06/06/20 lisinopriL [Zestril] 10 mg PO DAILY tab 06/06/20 Allergies Allergy/AdvReac Type Severity Reaction Status Date / Time Beta-Blockers Allergy Rash/Hives Verified 05/31/20 13:21 (Beta-Adrenergic Bloc atorvastatin [From Lipitor] AdvReac MUSCLE/JOINT Verified 05/31/20 13:21 PAIN Review of Systems ROS Statement: Those systems with pertinent positive or pertinent negative responses have been documented in the HPI. ROS Other: All systems not noted in ROS Statement are negative. Past Medical History Past Medical History: Diabetes Mellitus, Hypertension, Myocardial Infarction (MS), Musculoskeletal Disorder, Prostate Disorder Additional Past Medical History / Comment(s): Gout with one flareup, enlarged prostate Last Myocardial Infarction Date:: 2017 History of Any Multi-Drug Resistant Organisms: None Reported Past Surgical History: Adenoidectomy, Cholecystectomy, Heart Catheterization With Stent, Joint Replacement, Orthopedic Surgery Additional Past Surgical History / Comment(s): Coronary stent placement; knee replaced left side Past Anesthesia/Blood Transfusion Reactions: No Reported Reaction Date of Last Stent Placement:: 2017 Past Psychological History: No Psychological Hx Reported Smoking Status: Never smoker Past Alcohol Use History: None Reported Past Drug Use History: None Reported - Past Family History Father History Unknown: Yes Family Medical History: Coronary Artery Disease (CAD) Additional Family Medical History / Comment(s): of lung CA, was smoker Mother Family Medical History: Dementia Additional Family Medical History / Comment(s): lived to General Exam Limitations: no limitations General appearance: alert, in no apparent distress Head exam: Present: atraumatic, normocephalic, normal inspection Eye exam: Present: normal appearance, PERRL, EOMI. Absent: scleral icterus, conjunctival injection, periorbital swelling ENT exam: Present: normal exam, mucous membranes moist Neck exam: Present: normal inspection. Absent: tenderness, meningismus, lymphadenopathy Respiratory exam: Present: normal lung sounds bilaterally. Absent: respiratory distress, wheezes, rales, rhonchi, stridor Cardiovascular Exam: Present: regular rate, normal rhythm, normal heart sounds. Absent: systolic murmur, diastolic murmur, rubs, gallop, clicks GI/Abdominal exam: Present: soft, normal bowel sounds. Absent: distended, tenderness, guarding, rebound, rigid Extremities exam: Present: normal inspection, full ROM, normal capillary refill. Absent: tenderness, pedal edema, joint swelling, calf tenderness Back exam: Present: normal inspection Neurological exam: Present: alert, oriented X3, CN II-XII intact Psychiatric exam: Present: normal affect, normal mood Skin exam: Present: warm, dry, normal color, other (partially healing skin tear left elbow). Absent: rash Course Vital Signs 05/31/20 05/31/20 05/31/20 10:24 13:42 15:00 Temperature 98.7 F 100.8 F H Pulse Rate 101 H 92 92 Respiratory 18 18 18 Rate Blood Pressure 120/70 126/76 137/70 O2 Sat by Pulse 93 L 98 94 L Oximetry EKG Findings - EKG Comments: EKG Findings:: EKG demonstrates normal sinus rhythm with a ventricular rate of 92. [place] interval 178. QRS 78. QTC 403. Baseline artifact. No acute ST segment elevations Medical Decision Making - Medical Decision Making Upon arrival patient is placed into room 2. A thorough history and physical exam was performed. 12-lead EKG is performed. IV is established. Patient was given a liter bolus of normal saline. Laboratory studies are conducted and patient went for chest x-ray. Laboratory studies reviewed demonstrate a d-dimer of 0.66. Age-adjusted this is appropriate. CK elevated at 1127. Covid detected. Chest x-ray does demonstrate new bilateral multifocal mid to lower lung opacity is strongly suspicious for Covid. X-ray of the left elbow fails to demonstrate any acute fractures. I did discuss the results with the patient. I recommended admission due to patients visible weakness however patient adament he wants to go home. at bedside okay with his decision. I did instruct him to quarentine. No signs of respiratory distress from the patient. No hypoxia. I did instruct him that he may benefit from Bamlanivimab. Risks and benefits also patient he does agree to infusion. Patient will be observed for one hour and then discharged home. Instructed to follow up with his primary care doctor in 2-4 days. Return to the emergency room for any worsening symptoms - Lab Data Result diagrams: 05/31/20 12:44 05/31/20 12:44 Lab Results 05/31/20 05/31/20 05/31/20 Range/Units 12:20 12:34 12:44 WBC 6.6 (3.8-10.6) k/uL RBC 4.63 (4.30-5.90) m/uL Hgb 14.5 (13.0-17.5) gm/dL Hct 42.6 (39.0-53.0) % MCV 92.0 (80.0-100.0) fL MCH 31.3 (25.0-35.0) pg MCHC 34.1 (31.0-37.0) g/dL RDW 13.3 (11.5-15.5) % Plt Count 140 L (150-450) k/uL MPV 8.1 Neutrophils % 80 % Lymphocytes % 13 % Monocytes % 5 % Eosinophils % 0 % Basophils % 0 % Neutrophils # 5.3 (1.3-7.7) k/uL Lymphocytes # 0.8 L (1.0-4.8) k/uL Monocytes # 0.3 (0-1.0) k/uL Eosinophils # 0.0 (0-0.7) k/uL Basophils # 0.0 (0-0.2) k/uL PT (9.0-12.0) sec INR (<1.2) APTT (22.0-30.0) sec D-Dimer (<0.60) mg/L FEU Sodium (137-145) mmol/L Potassium (3.5-5.1) mmol/L Chloride (98-107) mmol/L Carbon Dioxide (22-30) mmol/L Anion Gap mmol/L BUN (9-20) mg/dL Creatinine (0.66-1.25) mg/dL Est GFR (CKD-EPI)AfAm (>60 ml/min/1.73 sqM) Est GFR (CKD-EPI)NonAf (>60 ml/min/1.73 sqM) Glucose (74-99) mg/dL Plasma Lactic Acid Idris (0.7-2.0) mmol/L Calcium (8.4-10.2) mg/dL Magnesium (1.6-2.3) mg/dL Total Bilirubin (0.2-1.3) mg/dL AST (17-59) U/L ALT (4-49) U/L Alkaline Phosphatase (38-126) U/L Creatine Kinase (55-170) U/L Troponin I (0.000-0.034) ng/mL NT-Pro-B Natriuret Pep pg/mL Total Protein (6.3-8.2) g/dL Albumin (3.5-5.0) g/dL TSH (0.465-4.680) mIU/L Urine Color Yellow Urine Appearance Clear (Clear) Urine pH 5.5 (5.0-8.0) Ur Specific [place] 1.024 (1.001-1.035) Urine Protein 1+ H (Negative) Urine Glucose (UA) Negative (Negative) Urine Ketones 1+ H (Negative) Urine Blood Trace H (Negative) Urine Nitrite Negative (Negative) Urine Bilirubin Negative (Negative) Urine Urobilinogen <2.0 (<2.0) mg/dL Ur Leukocyte Esterase Negative (Negative) Urine RBC 1 (0-5) /hpf Urine WBC 2 (0-5) /hpf Ur Squamous Epith Cells <1 (0-4) /hpf Urine Mucus Occasional H (None) /hpf Coronavirus (PCR) Detected A (Not Detectd) 05/31/20 05/31/20 05/31/20 Range/Units 12:44 12:44 12:44 WBC (3.8-10.6) k/uL RBC (4.30-5.90) m/uL Hgb (13.0-17.5) gm/dL Hct (39.0-53.0) % MCV (80.0-100.0) fL MCH (25.0-35.0) pg MCHC (31.0-37.0) g/dL RDW (11.5-15.5) % Plt Count (150-450) k/uL MPV Neutrophils % % Lymphocytes % % Monocytes % % Eosinophils % % Basophils % % Neutrophils # (1.3-7.7) k/uL Lymphocytes # (1.0-4.8) k/uL Monocytes # (0-1.0) k/uL Eosinophils # (0-0.7) k/uL Basophils # (0-0.2) k/uL PT 10.0 (9.0-12.0) sec INR 0.9 (<1.2) APTT 27.6 (22.0-30.0) sec D-Dimer 0.66 H (<0.60) mg/L FEU Sodium 138 (137-145) mmol/L Potassium 4.5 (3.5-5.1) mmol/L Chloride 104 (98-107) mmol/L Carbon Dioxide 19 L (22-30) mmol/L Anion Gap 15 mmol/L BUN 33 H (9-20) mg/dL Creatinine 1.04 (0.66-1.25) mg/dL Est GFR (CKD-EPI)AfAm 79 (>60 ml/min/1.73 sqM) Est GFR (CKD-EPI)NonAf 68 (>60 ml/min/1.73 sqM) Glucose 107 H (74-99) mg/dL Plasma Lactic Acid Idris 2.0 (0.7-2.0) mmol/L Calcium 9.3 (8.4-10.2) mg/dL Magnesium 2.2 (1.6-2.3) mg/dL Total Bilirubin 0.7 (0.2-1.3) mg/dL AST 63 H (17-59) U/L ALT 36 (4-49) U/L Alkaline Phosphatase 79 (38-126) U/L Creatine Kinase 1127 H* (55-170) U/L Troponin I (0.000-0.034) ng/mL NT-Pro-B Natriuret Pep pg/mL Total Protein 7.0 (6.3-8.2) g/dL Albumin 4.2 (3.5-5.0) g/dL TSH 1.050 (0.465-4.680) mIU/L Urine Color Urine Appearance (Clear) Urine pH (5.0-8.0) Ur Specific [place] (1.001-1.035) Urine Protein (Negative) Urine Glucose (UA) (Negative) Urine Ketones (Negative) Urine Blood (Negative) Urine Nitrite (Negative) Urine Bilirubin (Negative) Urine Urobilinogen (<2.0) mg/dL Ur Leukocyte Esterase (Negative) Urine RBC (0-5) /hpf Urine WBC (0-5) /hpf Ur Squamous Epith Cells (0-4) /hpf Urine Mucus (None) /hpf Coronavirus (PCR) (Not Detectd) 05/31/20 05/31/20 Range/Units 12:44 12:44 WBC (3.8-10.6) k/uL RBC (4.30-5.90) m/uL Hgb (13.0-17.5) gm/dL Hct (39.0-53.0) % MCV (80.0-100.0) fL MCH (25.0-35.0) pg MCHC (31.0-37.0) g/dL RDW (11.5-15.5) % Plt Count (150-450) k/uL MPV Neutrophils % % Lymphocytes % % Monocytes % % Eosinophils % % Basophils % % Neutrophils # (1.3-7.7) k/uL Lymphocytes # (1.0-4.8) k/uL Monocytes # (0-1.0) k/uL Eosinophils # (0-0.7) k/uL Basophils # (0-0.2) k/uL PT (9.0-12.0) sec INR (<1.2) APTT (22.0-30.0) sec D-Dimer (<0.60) mg/L FEU Sodium (137-145) mmol/L Potassium (3.5-5.1) mmol/L Chloride (98-107) mmol/L Carbon Dioxide (22-30) mmol/L Anion Gap mmol/L BUN (9-20) mg/dL Creatinine (0.66-1.25) mg/dL Est GFR (CKD-EPI)AfAm (>60 ml/min/1.73 sqM) Est GFR (CKD-EPI)NonAf (>60 ml/min/1.73 sqM) Glucose (74-99) mg/dL Plasma Lactic Acid Idris (0.7-2.0) mmol/L Calcium (8.4-10.2) mg/dL Magnesium (1.6-2.3) mg/dL Total Bilirubin (0.2-1.3) mg/dL AST (17-59) U/L ALT (4-49) U/L Alkaline Phosphatase (38-126) U/L Creatine Kinase (55-170) U/L Troponin I 0.015 (0.000-0.034) ng/mL NT-Pro-B Natriuret Pep 76 pg/mL Total Protein (6.3-8.2) g/dL Albumin (3.5-5.0) g/dL TSH (0.465-4.680) mIU/L Urine Color Urine Appearance (Clear) Urine pH (5.0-8.0) Ur Specific [place] (1.001-1.035) Urine Protein (Negative) Urine Glucose (UA) (Negative) Urine Ketones (Negative) Urine Blood (Negative) Urine Nitrite (Negative) Urine Bilirubin (Negative) Urine Urobilinogen (<2.0) mg/dL Ur Leukocyte Esterase (Negative) Urine RBC (0-5) /hpf Urine WBC (0-5) /hpf Ur Squamous Epith Cells (0-4) /hpf Urine Mucus (None) /hpf Coronavirus (PCR) (Not Detectd) Disposition Clinical Impression: Generalized weakness, COVID-19, Fall, Dehydration Disposition: HOME SELF-CARE Condition: Stable Instructions (If sedation given, give patient instructions): Coronavirus Disease 2019 (COVID-19) Additional Instructions: Please follow up with your PCP in 2-4 days. Return to the ED for any new or worsening symptoms. Is patient prescribed a controlled substance at d/c from ED?: No Referrals: Oleksandr Rivera MD [Primary Care Provider] - 1-2 days Time of Disposition: 14:15
[2020-05-31 13:02] LABS: Basophils % (A) 0 %; Eosinophils % (A) 0 %; HCT 42.6 % (39.0-53.0); HGB 14.5 gm/dL (13.0-17.5); Lymphocytes # (A) 0.8 k/uL (1.0-4.8); Lymphocytes % (A) 13 %; MCH 31.3 pg (25.0-35.0); MCHC 34.1 g/dL (31.0-37.0); Mean Platelet Volume 8.1; Monocytes # (A) 0.3 k/uL (0-1.0); Monocytes % (A) 5 %; Neutrophils # (A) 5.3 k/uL (1.3-7.7); Neutrophils % (A) 80 %; Platelet Count 140 k/uL (150-450); RBC 4.63 m/uL (4.30-5.90); RDW 13.3 % (11.5-15.5); WBC 6.6 k/uL (3.8-10.6)
[2020-05-31 13:06] LABS: Appearance,Urine Clear (Clear); Bilirubin,Urine Negative (Negative); Blood,Urine Trace (Negative); Color,Urine Yellow; Glucose,Urine (UA) Negative (Negative); Ketones,Urine 1+ (Negative); Leukocyte Esterase,Urine Negative (Negative); Mucus,Urine Occasional /hpf; Nitrite,Urine Negative (Negative); PH, Urine 5.5 (5.0-8.0); Protein,Urine 1+ (Negative); RBC,Urine 1 /hpf (0-5); Specific Gravity,Urine 1.024 (1.001-1.035); Squamous Epithelial Cell,Urine <1 /hpf (0-4); Urobilinogen,Urine <2.0 mg/dL (<2.0); WBC,Urine 2 /hpf (0-5)
[2020-05-31 13:12] LABS: Albumin 4.2 g/dL (3.5-5.0); Calcium 9.3 mg/dL (8.4-10.2); Magnesium 2.2 mg/dL (1.6-2.3); Potassium 4.5 mmol/L (3.5-5.1); Total Bilirubin 0.7 mg/dL (0.2-1.3)
[2020-05-31 13:22] LABS: INR 0.9 (<1.2); Partial Thromboplastin Time 27.6 sec (22.0-30.0)
[2020-05-31 13:44] VITALS: PULSE 92
[2020-05-31 13:46] LABS: D-Dimer 0.66 mg/L FEU (<0.60)
--- NOTE | 2020-05-31 13:54 | XR ---
EXAMINATION TYPE: XR elbow complete LT DATE OF EXAM: 05/31/2020 CLINICAL HISTORY: Fall injury with pain TECHNIQUE: Frontal, lateral and oblique images of the left elbow are obtained. COMPARISON: None FINDINGS: Suboptimal lateral positioning There is no acute fracture/dislocation evident in the left e lbow. [id number] spur from the medial epicondyle distal humerus . [id number] spur from the anterior and posterior lip of the olecranon. No abnormal fat pad signs are clearly seen. The ove rlying soft tissue appears unremarkable. IMPRESSION: There is no acute fracture or dislocation in the t elbow.
--- NOTE | 2020-05-31 13:56 | XR ---
EXAMINATION TYPE: XR chest 2V DATE OF EXAM: 05/31/2020 COMPARISON: Chest x-ray December 27, 2019 HISTORY: Weakness and cough. TECHNIQUE: Frontal and lateral views of the chest are obtained. FINDINGS: There aren't new multifocal opacities in the mid to lower lungs greatest in the periphery. No pleural effusion or pneumothorax seen bilaterally. The cardiac silhouette size is stable and wit hin normal limits. Multilevel spurring in the spine redemonstrated. IMPRESSION: New Bilateral multifocal mid to lower lung predominantly peripheral acute opacities stro ngly suspicious for covid-19 infection.
[2020-05-31] MEDS ORDERED: SODIUM CHLORIDE 0.9% 1,000 ML IV ONE (14:02)
[2020-05-31] MEDS ORDERED: BAMLANIVIMAB 700 MG in SODIUM CHLORIDE 0.9% 50 ML IVPB ONE (15:00)
[2020-05-31 15:19] VITALS: BP 137/70; TEMP 100.8
[2020-05-31] MEDS ORDERED: ACETAMINOPHEN TAB 325 MG TAB PO STA (15:28)
== END 2020-05-31 17:03 | disposition home or self-care (01) ==
LOC: EC 10:23
DX: U07.1 COVID-19 (principal); S51.012A Laceration without foreign body of left elbow, initial encounter; E86.0 Dehydration; E11.9 Type 2 diabetes mellitus without complications; N40.0 Benign prostatic hyperplasia without lower urinary tract symptoms; R91.8 Other nonspecific abnormal finding of lung field; R74.8 Abnormal levels of other serum enzymes; I25.2 Old myocardial infarction; Z79.84 Long term (current) use of oral hypoglycemic drugs; Z79.899 Other long term (current) drug therapy; Z79.82 Long term (current) use of aspirin; Z88.8 Allergy status to other drugs, medicaments and biological substances; Z96.652 Presence of left artificial knee joint; W18.2XXA Fall in (into) shower or empty bathtub, initial encounter; Y93.E1 Activity, personal bathing and showering
CPT/HCPCS: 36415; 93005; 85379; 83880; 80053; 84443; 82550; 83605; 83735; 84484; 85025; 85610; 85730; 81001; 87635; 73080; 71046; 99285; 96365; Q0239

== ENCOUNTER 2020-05-31 20:24 | Inpatient (IN) | payer MEDICARE ==
[2020-05-31] MEDS ORDERED: ACETAMINOPHEN TAB 500 MG TAB PO STA (20:36)
[2020-05-31] MEDS: SODIUM CHLORIDE 0.9% 1,000 ML IV SCH (20:59)
[2020-05-31 21:07] LABS: ALT 36 U/L (4-49); AST 86 U/L (17-59); African American GFR (CKD) >90 (>60 ml/min/1.73 sqM); Albumin 3.2 g/dL (3.5-5.0); Alkaline Phosphatase 47 U/L (38-126); Anion Gap 12 mmol/L; Blood Urea Nitrogen 30 mg/dL (9-20); Calcium 8.4 mg/dL (8.4-10.2); Carbon Dioxide 15 mmol/L (22-30); Chloride 110 mmol/L (98-107); Glucose 116 mg/dL (74-99); Non-African American GFR(CKD) 83 (>60 ml/min/1.73 sqM); Potassium 4.7 mmol/L (3.5-5.1); Sodium 137 mmol/L (137-145); Total Bilirubin 0.9 mg/dL (0.2-1.3); Total Protein 5.8 g/dL (6.3-8.2)
[2020-05-31 21:09] LABS: Appearance,Urine Clear (Clear); Bilirubin,Urine Negative (Negative); Blood,Urine Moderate (Negative); Color,Urine Yellow; Glucose,Urine (UA) Negative (Negative); Ketones,Urine 1+ (Negative); Leukocyte Esterase,Urine Negative (Negative); Mucus,Urine Rare /hpf; Nitrite,Urine Negative (Negative); PH, Urine 5.5 (5.0-8.0); Protein,Urine 1+ (Negative); RBC,Urine 1 /hpf (0-5); Specific Gravity,Urine 1.022 (1.001-1.035); Squamous Epithelial Cell,Urine <1 /hpf (0-4); Urobilinogen,Urine <2.0 mg/dL (<2.0); WBC,Urine 2 /hpf (0-5)
[2020-05-31 21:11] LABS: Partial Thromboplastin Time 26.8 sec (22.0-30.0); Prothrombin Time 10.3 sec (9.0-12.0)
[2020-05-31 21:17] LABS: Creatine Kinase 2695 U/L (55-170)
[2020-05-31 21:19] LABS: Basophils % (A) 0 %; Eosinophils % (A) 0 %; HCT 38.5 % (39.0-53.0); HGB 13.3 gm/dL (13.0-17.5); Lymphocytes # (A) 0.4 k/uL (1.0-4.8); Lymphocytes % (A) 5 %; MCH 31.5 pg (25.0-35.0); MCHC 34.6 g/dL (31.0-37.0); MCV 91.1 fL (80.0-100.0); Mean Platelet Volume 7.9; Monocytes # (A) 0.2 k/uL (0-1.0); Monocytes % (A) 3 %; Neutrophils # (A) 6.8 k/uL (1.3-7.7); Neutrophils % (A) 91 %; Platelet Count 115 k/uL (150-450); RBC 4.22 m/uL (4.30-5.90); RDW 12.5 % (11.5-15.5); WBC 7.5 k/uL (3.8-10.6)
[2020-05-31] MEDS ORDERED: SODIUM CHLORIDE 0.9% 1,000 ML IV ONE (21:21)
--- NOTE | 2020-05-31 21:22 | ED ---
General Adult HPI - General Chief complaint: Recheck/Abnormal Lab/Rx Stated complaint: SOB/Covid+ Time Seen by Provider: 05/31/20 20:27 Source: patient, EMS, RN notes reviewed Mode of arrival: EMS Limitations: no limitations - History of Present Illness Initial comments: This a 79-year-old male presents emergency Department with chief complaint of increased weakness. Patient was seen here earlier today diagnosed with CoVID. Patient states she's been sick for proximal 9 or 10 days. Patient states that he feels increasingly weak. He states he's had some mild shortness of breath. Patient's had multiple recent falls he had a fall is morning felt again when he went home. EMS and fire department arrived found to have a pulse ox in the 70s. Patient was given 2 L of oxygen symptoms greatly improved. Patient has no new injuries from this fall. No head injury no loss conscious. - Related Data Home Medications Medication Instructions Recorded Confirmed metFORMIN HCL [Glucophage] 1,000 mg PO BID 05/04/17 05/31/20 Aspirin EC [Ecotrin Low Dose] 81 mg PO DAILY 06/15/17 05/31/20 amLODIPine BESYLATE/BENAZEPRIL 1 cap PO DAILY 05/02/18 05/31/20 [Lotrel 10-40 MG] Acetaminophen Tab [Tylenol] 325 mg PO Q4H PRN 05/31/20 05/31/20 Tamsulosin HCl [Flomax] 0.4 mg PO DAILY 05/31/20 05/31/20 Allergies Allergy/AdvReac Type Severity Reaction Status Date / Time Beta-Blockers Allergy Rash/Hives Verified 05/31/20 13:21 (Beta-Adrenergic Bloc atorvastatin [From Lipitor] AdvReac MUSCLE/JOINT Verified 05/31/20 13:21 PAIN Review of Systems ROS Statement: Those systems with pertinent positive or pertinent negative responses have been documented in the HPI. ROS Other: All systems not noted in ROS Statement are negative. Past Medical History Past Medical History: Diabetes Mellitus, Hypertension, Myocardial Infarction (MD), Musculoskeletal Disorder, Prostate Disorder Additional Past Medical History / Comment(s): Gout with one flareup, enlarged prostate Last Myocardial Infarction Date:: 2017 History of Any Multi-Drug Resistant Organisms: None Reported Past Surgical History: Adenoidectomy, Cholecystectomy, Heart Catheterization With Stent, Joint Replacement, Orthopedic Surgery Additional Past Surgical History / Comment(s): Coronary stent placement; knee replaced left side Past Anesthesia/Blood Transfusion Reactions: No Reported Reaction Date of Last Stent Placement:: 2017 Past Psychological History: No Psychological Hx Reported Smoking Status: Never smoker Past Alcohol Use History: None Reported Past Drug Use History: None Reported - Past Family History Father History Unknown: Yes Family Medical History: Coronary Artery Disease (CAD) Additional Family Medical History / Comment(s): of lung CA, was smoker Mother Family Medical History: Dementia Additional Family Medical History / Comment(s): lived to General Exam Limitations: no limitations General appearance: alert, in no apparent distress Head exam: Present: atraumatic, normocephalic, normal inspection Eye exam: Present: normal appearance, PERRL, EOMI. Absent: scleral icterus, conjunctival injection, periorbital swelling ENT exam: Present: normal exam, normal oropharynx, mucous membranes moist, TM's normal bilaterally Neck exam: Present: normal inspection. Absent: tenderness, meningismus, lymphadenopathy Respiratory exam: Present: decreased breath sounds. Absent: normal lung sounds bilaterally, respiratory distress, wheezes, rales, rhonchi, stridor Cardiovascular Exam: Present: normal rhythm, tachycardia, normal heart sounds. Absent: regular rate, systolic murmur, diastolic murmur, rubs, gallop, clicks GI/Abdominal exam: Present: soft, normal bowel sounds. Absent: distended, tenderness, guarding, rebound, rigid Extremities exam: Present: normal inspection, full ROM, normal capillary refill. Absent: tenderness, pedal edema, joint swelling, calf tenderness Neurological exam: Present: alert, oriented X3 Skin exam: Present: warm, dry, intact, normal color. Absent: rash Course Vital Signs 05/31/20 20:28 Temperature 100.5 F H Pulse Rate 109 H Respiratory 24 Rate Blood Pressure 136/76 O2 Sat by Pulse 91 L Oximetry Medical Decision Making - Medical Decision Making 79-year-old male presents emergency from for increased weakness multiple falls. Patient was found have covid earlier today. Patient's home and worsen. Patient has hypoxia, elevating CK for multiple falls. Patient will be admitted for IV fluid hydration for rhabdomyolysis, infection treatment for Covid - Lab Data Result diagrams: 05/31/20 20:43 05/31/20 20:43 Lab Results 05/31/20 05/31/20 05/31/20 Range/Units 20:43 20:43 20:43 WBC 7.5 (3.8-10.6) k/uL RBC 4.22 L (4.30-5.90) m/uL Hgb 13.3 (13.0-17.5) gm/dL Hct 38.5 L (39.0-53.0) % MCV 91.1 (80.0-100.0) fL MCH 31.5 (25.0-35.0) pg MCHC 34.6 (31.0-37.0) g/dL RDW 12.5 (11.5-15.5) % Plt Count 115 L (150-450) k/uL MPV 7.9 Neutrophils % 91 % Lymphocytes % 5 % Monocytes % 3 % Eosinophils % 0 % Basophils % 0 % Neutrophils # 6.8 (1.3-7.7) k/uL Lymphocytes # 0.4 L (1.0-4.8) k/uL Monocytes # 0.2 (0-1.0) k/uL Eosinophils # 0.0 (0-0.7) k/uL Basophils # 0.0 (0-0.2) k/uL PT 10.3 (9.0-12.0) sec INR 1.0 (<1.2) APTT 26.8 (22.0-30.0) sec Sodium 137 (137-145) mmol/L Potassium 4.7 (3.5-5.1) mmol/L Chloride 110 H (98-107) mmol/L Carbon Dioxide 15 L (22-30) mmol/L Anion Gap 12 mmol/L BUN 30 H (9-20) mg/dL Creatinine 0.86 (0.66-1.25) mg/dL Est GFR (CKD-EPI)AfAm >90 (>60 ml/min/1.73 sqM) Est GFR (CKD-EPI)NonAf 83 (>60 ml/min/1.73 sqM) Glucose 116 H (74-99) mg/dL Calcium 8.4 (8.4-10.2) mg/dL Magnesium 2.0 (1.6-2.3) mg/dL Total Bilirubin 0.9 (0.2-1.3) mg/dL AST 86 H (17-59) U/L ALT 36 (4-49) U/L Alkaline Phosphatase 47 (38-126) U/L Creatine Kinase 2695 H* (55-170) U/L Total Protein 5.8 L (6.3-8.2) g/dL Albumin 3.2 L (3.5-5.0) g/dL Urine Color Urine Appearance (Clear) Urine pH (5.0-8.0) Ur Specific [place] (1.001-1.035) Urine Protein (Negative) Urine Glucose (UA) (Negative) Urine Ketones (Negative) Urine Blood (Negative) Urine Nitrite (Negative) Urine Bilirubin (Negative) Urine Urobilinogen (<2.0) mg/dL Ur Leukocyte Esterase (Negative) Urine RBC (0-5) /hpf Urine WBC (0-5) /hpf Ur Squamous Epith Cells (0-4) /hpf Urine Mucus (None) /hpf 05/31/20 Range/Units 20:43 WBC (3.8-10.6) k/uL RBC (4.30-5.90) m/uL Hgb (13.0-17.5) gm/dL Hct (39.0-53.0) % MCV (80.0-100.0) fL MCH (25.0-35.0) pg MCHC (31.0-37.0) g/dL RDW (11.5-15.5) % Plt Count (150-450) k/uL MPV Neutrophils % % Lymphocytes % % Monocytes % % Eosinophils % % Basophils % % Neutrophils # (1.3-7.7) k/uL Lymphocytes # (1.0-4.8) k/uL Monocytes # (0-1.0) k/uL Eosinophils # (0-0.7) k/uL Basophils # (0-0.2) k/uL PT (9.0-12.0) sec INR (<1.2) APTT (22.0-30.0) sec Sodium (137-145) mmol/L Potassium (3.5-5.1) mmol/L Chloride (98-107) mmol/L Carbon Dioxide (22-30) mmol/L Anion Gap mmol/L BUN (9-20) mg/dL Creatinine (0.66-1.25) mg/dL Est GFR (CKD-EPI)AfAm (>60 ml/min/1.73 sqM) Est GFR (CKD-EPI)NonAf (>60 ml/min/1.73 sqM) Glucose (74-99) mg/dL Calcium (8.4-10.2) mg/dL Magnesium (1.6-2.3) mg/dL Total Bilirubin (0.2-1.3) mg/dL AST (17-59) U/L ALT (4-49) U/L Alkaline Phosphatase (38-126) U/L Creatine Kinase (55-170) U/L Total Protein (6.3-8.2) g/dL Albumin (3.5-5.0) g/dL Urine Color Yellow Urine Appearance Clear (Clear) Urine pH 5.5 (5.0-8.0) Ur Specific [place] 1.022 (1.001-1.035) Urine Protein 1+ H (Negative) Urine Glucose (UA) Negative (Negative) Urine Ketones 1+ H (Negative) Urine Blood Moderate H (Negative) Urine Nitrite Negative (Negative) Urine Bilirubin Negative (Negative) Urine Urobilinogen <2.0 (<2.0) mg/dL Ur Leukocyte Esterase Negative (Negative) Urine RBC 1 (0-5) /hpf Urine WBC 2 (0-5) /hpf Ur Squamous Epith Cells <1 (0-4) /hpf Urine Mucus Rare H (None) /hpf Disposition Clinical Impression: COVID-19, Multiple falls, Generalized weakness, Dehydration, Rhabdomyolysis Disposition: ADMITTED IP TO THIS [facility] Condition: Fair Referrals: Oleksandr Rivera MD [Primary Care Provider] - 1-2 days
[2020-05-31] MEDS ORDERED: DEXAMETHASONE SOD PHOSPHATE 10 MG/ML 1 ML VIAL IV STA (21:53)
[2020-05-31] MEDS ORDERED: ONDANSETRON 4 MG/2 ML VIAL IVP PRN (21:54)
[2020-05-31] MEDS ORDERED: NALOXONE 0.4 MG/ML 1 ML VIAL IV PRN (21:54)
[2020-05-31] MEDS ORDERED: ACETAMINOPHEN TAB 325 MG TAB PO PRN (21:54)
[2020-05-31] MEDS: ZINC SULFATE 220 MG CAP PO SCH (23:45)
[2020-06-01 08:21] LABS: Glucose,Whole Blood 161 mg/dL (75-99)
[2020-06-01] MEDS: ASPIRIN 81 MG PO SCH (08:52)
[2020-06-01] MEDS: metFORMIN 500 MG TAB PO SCH ×2 (08:52→20:58)
[2020-06-01] MEDS: ZINC SULFATE 220 MG CAP PO SCH (08:53)
[2020-06-01] MEDS: TAMSULOSIN 0.4 MG CAP.ER.24H PO SCH (08:53)
[2020-06-01] MEDS: INSULIN ASPART (NovoLOG) 100 UNIT/ML VIAL SQ SCH ×4 (08:53→20:58)
[2020-06-01] MEDS: amLODIPine 10 MG TAB PO SCH (08:53)
[2020-06-01] MEDS: lisinopriL 20 MG TAB PO SCH (08:53)
[2020-06-01] MEDS: SODIUM CHLORIDE 0.9% 1,000 ML IV SCH ×2 (08:54→20:58)
[2020-06-01] MEDS ORDERED: PANTOPRAZOLE 40 MG/10 ML VIAL IVP SCH (10:30)
[2020-06-01 11:08] LABS: HCT 39.7 % (39.0-53.0); HGB 13.3 gm/dL (13.0-17.5); MCH 30.9 pg (25.0-35.0); MCHC 33.6 g/dL (31.0-37.0); Mean Platelet Volume 7.9; Platelet Count 127 k/uL (150-450); RBC 4.31 m/uL (4.30-5.90); RDW 13.1 % (11.5-15.5); WBC 11.2 k/uL (3.8-10.6)
[2020-06-01 11:16] LABS: African American GFR (CKD) >90 (>60 ml/min/1.73 sqM); Anion Gap 12 mmol/L; Blood Urea Nitrogen 20 mg/dL (9-20); Calcium 8.5 mg/dL (8.4-10.2); Carbon Dioxide 17 mmol/L (22-30); Chloride 111 mmol/L (98-107); Glucose 108 mg/dL (74-99); LDH 1722 U/L (313-618); Non-African American GFR(CKD) 84 (>60 ml/min/1.73 sqM); Potassium 4.3 mmol/L (3.5-5.1); Sodium 140 mmol/L (137-145)
[2020-06-01] MEDS: ENOXAPARIN 40 MG/0.4 ML SYRINGE SQ SCH (11:27)
[2020-06-01] MEDS: ASCORBIC ACID 500 MG TAB PO SCH (11:28)
[2020-06-01] MEDS: dexAMETHasone 2 MG TAB PO SCH (11:28)
[2020-06-01] MEDS: CHOLECALCIFEROL 25 MCG (1000 IU) TABLET PO SCH (11:28)
[2020-06-01 11:47] LABS: Glucose,Whole Blood 94 mg/dL (75-99)
[2020-06-01 11:53] LABS: Creatine Kinase 5359 U/L (55-170)
[2020-06-01 11:54] LABS: C Reactive Protein 161.6 mg/L (<10.0)
--- NOTE | 2020-06-01 12:01 | XR ---
EXAMINATION TYPE: XR chest 1V portable DATE OF EXAM: 06/01/2020 COMPARISON: 05/31/2020 HISTORY: Shortness of breath TECHNIQUE: Single frontal view of the chest is obtained. FINDINGS: There is patchy perihilar and right upper lobe area of infiltrate with more subsegmental c onsolidation signal in the medial margin the right lower lobe. Soft tissue fullness in the left parat enmanuel region could be related to patient rotation. Adenopathy excluded. No pneumothorax. Underlying COPD suspected. Heart size normal. IMPRESSION: 1. Persistent patchy bilateral areas of infiltrate. 2. Soft tissue fullness in the left paratracheal region for which follow-up chest x-ray is recommende d as discussed above.
--- NOTE | 2020-06-01 14:56 | P.CNPUL ---
History of Present Illness Consult date: 06/01/20 Reason for consult: dyspnea, pneumonia Chief complaint: Weakness. History of present illness: This is a 79-year-old white male with history of multiple medical problems including hypertension, diabetes, patient presented yesterday to the ER twice. The first time he presented earlier and he was complaining of weakness, his weakness has been going on for about a week and a half. And he also complained of nonproductive cough. He had no shortness of breath, no chest pain, patient had decreased appetite, no diarrhea, no nausea, no vomiting. Patient had positive PCR for abreu virus. Hence he received monoclonal antibody in the ER, and he was discharged home. Patient came back later complaining of worsening symptoms. And his PCR was repeated again, came back positive. Patient was found to have abnormal chest x-ray suggestive of bilateral infiltrates. He was also noted to have elevated CPK at 5359, slightly elevated d-dimer of 0.97, elevated inflammatory markers with LDH of 1722, and C-reactive protein of 162. Considering the worsening status, and considering the patient required now oxygen at 5 L/m to maintain O2 saturation of 91%, patient was admitted, and this consult was initiated. We saw the patient on consultation, and I recommended that we continue Decadron, Lovenox, and recommended the usual cold mid 19 cocktails. Also recommended hydration of the patient, for his elevated CPK, considering the patient has been sick for over a week and a half, patient does not qualify for remdesivir Review of Systems Constitutional: Weakness fatigue and low-grade fever. HEENT: Negative. Pulmonary: Cough, nonproductive, and some shortness of breath. Cardiac: Negative. GI: Negative except for poor appetite and poor oral intake. No diarrhea. Genitourinary: Negative. Musculoskeletal: Weakness and fatigue. Neurologic: No headache or blurred vision or dizziness. Psychiatric: Negative. Skin: Negative. Hematologic: Negative. Past Medical History Past Medical History: Diabetes Mellitus, Hypertension, Myocardial Infarction (CA), Musculoskeletal Disorder, Prostate Disorder Additional Past Medical History / Comment(s): Gout with one flareup, enlarged prostate Last Myocardial Infarction Date:: 2017 History of Any Multi-Drug Resistant Organisms: None Reported Past Surgical History: Adenoidectomy, Cholecystectomy, Heart Catheterization With Stent, Joint Replacement, Orthopedic Surgery Additional Past Surgical History / Comment(s): Coronary stent placement; knee replaced left side Past Anesthesia/Blood Transfusion Reactions: No Reported Reaction Date of Last Stent Placement:: 2017 Past Psychological History: No Psychological Hx Reported Smoking Status: Never smoker Past Alcohol Use History: None Reported Past Drug Use History: None Reported - Past Family History Father History Unknown: Yes Family Medical History: Coronary Artery Disease (CAD) Additional Family Medical History / Comment(s): of lung CA, was smoker Mother Family Medical History: Dementia Additional Family Medical History / Comment(s): lived to Medications and Allergies Home Medications Medication Instructions Recorded Confirmed Type metFORMIN HCL [Glucophage] 1,000 mg PO BID 05/04/17 05/31/20 History Aspirin EC [Ecotrin Low Dose] 81 mg PO DAILY 06/15/17 05/31/20 History amLODIPine BESYLATE/BENAZEPRIL 1 cap PO DAILY 05/02/18 05/31/20 History [Lotrel 10-40 MG] Acetaminophen Tab [Tylenol] 325 mg PO Q4H PRN 05/31/20 05/31/20 History Tamsulosin HCl [Flomax] 0.4 mg PO DAILY 05/31/20 05/31/20 History Allergies Allergy/AdvReac Type Severity Reaction Status Date / Time Beta-Blockers Allergy Rash/Hives Verified 05/31/20 13:21 (Beta-Adrenergic Bloc atorvastatin [From Lipitor] AdvReac MUSCLE/JOINT Verified 05/31/20 13:21 PAIN Physical Exam Vitals: Vital Signs Temp Pulse Pulse Resp BP BP Pulse Ox 06/01/20 08:13 97.6 F 90 18 130/76 91 L 06/01/20 07:07 99.2 F 75 24 132/81 90 L 06/01/20 06:00 81 24 120/69 91 L 06/01/20 03:00 75 22 116/59 91 L 06/01/20 02:00 79 22 106/62 88 L 06/01/20 01:00 78 22 127/68 89 L 06/01/20 00:00 76 22 112/60 90 L 05/31/20 23:00 77 22 123/64 90 L 05/31/20 20:28 100.5 F H 109 H 24 136/76 91 L Intake and Output 05/31/20 06/01/20 06/01/20 22:59 06:59 14:59 Intake Total 800 Balance 800 Intake: IV 800 Sodium Chloride 0.9% 1, 800 000 ml @ 100 mls/hr IV . Q10H [facility] Rx#:[id number] Other: Weight 83.915 kg 83.915 kg Physical Exam: Revealed 79-year-old white male not in great historian, on 5 L nasal cannula, in no distress. Head: Atraumatic, normocephalic. HEENT:[Neck is supple.] [No neck masses.] [No thyromegaly.] [No JVD.] Chest: [Clear throughout, records and rhonchi at the bases.] Cardiac Exam: [Normal S1 and S2, no S3 gallop, 2/6 systolic murmur thought the precordium. Abdomen: [Soft, nontender, no megaly, no rebound, no guarding, normal bowel sounds.] Extremities: [No clubbing, no edema, no cyanosis.] Neurological Exam: Alert and oriented 2, no gross focal neurologic deficits. Psychiatric: Normal mood affect, slightly confused mental status and not a great historian. Results - Laboratory Findings CBC and BMP: 06/01/20 10:45 06/01/20 10:45 PT/INR, D-dimer PT 10.3 sec (9.0-12.0) 05/31/20 20:43 INR 1.0 (<1.2) 05/31/20 20:43 D-Dimer 0.97 mg/L FEU (<0.60) H 06/01/20 10:45 Abnormal lab findings: Abnormal Labs 05/31/20 05/31/20 05/31/20 20:43 20:43 20:43 WBC RBC 4.22 L Hct 38.5 L Plt Count 115 L Lymphocytes # 0.4 L D-Dimer Chloride 110 H Carbon Dioxide 15 L BUN 30 H Glucose 116 H POC Glucose (mg/dL) AST 86 H Lactate Dehydrogenase Creatine Kinase 2695 H* C-Reactive Protein Total Protein 5.8 L Albumin 3.2 L Urine Protein 1+ H Urine Ketones 1+ H Urine Blood Moderate H Urine Mucus Rare H Coronavirus (PCR) 06/01/20 06/01/20 06/01/20 08:19 10:45 10:45 WBC 11.2 H RBC Hct Plt Count 127 L Lymphocytes # D-Dimer Chloride 111 H Carbon Dioxide 17 L BUN Glucose 108 H POC Glucose (mg/dL) 161 H AST Lactate Dehydrogenase 1722 H Creatine Kinase 5359 H* C-Reactive Protein 161.6 H Total Protein Albumin Urine Protein Urine Ketones Urine Blood Urine Mucus Coronavirus (PCR) 06/01/20 06/01/20 10:45 12:40 WBC RBC Hct Plt Count Lymphocytes # D-Dimer 0.97 H Chloride Carbon Dioxide BUN Glucose POC Glucose (mg/dL) AST Lactate Dehydrogenase Creatine Kinase C-Reactive Protein Total Protein Albumin Urine Protein Urine Ketones Urine Blood Urine Mucus Coronavirus (PCR) Detected A - Diagnostic Findings Chest x-ray: image reviewed (Chest x-ray showed patchy bilateral areas of infiltrate, and slight fullness in the left hilum) Assessment and Plan Assessment: Impression: Acute hypoxic respiratory failure secondary to covid 19 pneumonitis. Acute rhabdomyolysis most likely secondary to frequent falls Type 2 diabetes Benign essential hypertension History of enlarged prostate/benign prostatic hypertrophy History of coronary artery disease and previous myocardial infarction, previous stenting of RCA and subsequently LAD stenting. History of degenerative joint disease. Recommendation: Continue the Covid 19 cocktail. Patient is out of the window for remdesivir treatment. Continue hydration for his acute rhabdomyolysis Neurology to see for frequent falls. Monitor inflammatory markers and CPK on a daily basis. Resume home meds. We'll continue to follow closely. Time with Patient: Greater than 30
[2020-06-01 16:54] LABS: Glucose,Whole Blood 151 mg/dL (75-99)
--- NOTE | 2020-06-01 18:24 | P.HPIM ---
History of Present Illness H&P Date: 06/01/20 Chief Complaint: Increased weakness, falls, shortness of breath This is a pleasant 79-year-old gentleman with history of diabetes mellitus, hypertension, CAD, [place], cardiac stents 2, gout, muscle skeletal disorder and multiple other medical issues presented to the ER with complaints of Increased weakness, multiple falls, mild shortness of breath and multiple other medical issues. Most recent fall yesterday morning, required assistance from EMS/Fire Department. Patient initially presented to the ER twice, tested positive for coronal virus, received monoclonal antibody and discharged home. Returned with worsening symptoms . Denies syncope or head trauma. Denies chest pain, palpitations. Denies nausea vomiting or diarrhea. Febrile on admission, 100.5, WBC WNL, hemoglobin 13.3, platelets 1:15, INR 1 .sodium 137, potassium 4.7, chloride 110, CO2 15, BUN 30, creatinine 0.86, glucose 116, magnesium 2 . T bili and LFTs normal with the exception of mildly elevated AST at 86 .creatinine kinase elevated, 2695, albumin low 3.2 .UA reporting when up, 1+ ketones 1+ protein, specific gravity 1.022. Chest x-ray reporting persistent patchy bilateral areas of infiltrate, soft tissue fullness in the left paratracheal region, possible adenopathy. On admission patient was 91% on room air, now requiring 5 L nasal cannula and maintaining O2 sats in the low 90s. Received Decadron IV push in the ER and pulmonary consulted. Review of Systems ROS Statement: Those systems with pertinent positive or pertinent negative responses have been documented in the HPI. ROS Other: All systems not noted in ROS Statement are negative. Past Medical History Past Medical History: Diabetes Mellitus, Hypertension, Myocardial Infarction ([place]), Musculoskeletal Disorder, Prostate Disorder Additional Past Medical History / Comment(s): Gout with one flareup, enlarged prostate Last Myocardial Infarction Date:: 2017 History of Any Multi-Drug Resistant Organisms: None Reported Past Surgical History: Adenoidectomy, Cholecystectomy, Heart Catheterization With Stent, Joint Replacement, Orthopedic Surgery Additional Past Surgical History / Comment(s): Coronary stent placement; knee replaced left side Past Anesthesia/Blood Transfusion Reactions: No Reported Reaction Date of Last Stent Placement:: 2017 Past Psychological History: No Psychological Hx Reported Smoking Status: Never smoker Past Alcohol Use History: None Reported Past Drug Use History: None Reported - Past Family History Father History Unknown: Yes Family Medical History: Coronary Artery Disease (CAD) Additional Family Medical History / Comment(s): of lung CA, was smoker Mother Family Medical History: Dementia Additional Family Medical History / Comment(s): lived to Medications and Allergies Home Medications Medication Instructions Recorded Confirmed Type metFORMIN HCL [Glucophage] 1,000 mg PO BID 05/04/17 05/31/20 History Aspirin EC [Ecotrin Low Dose] 81 mg PO DAILY 06/15/17 05/31/20 History amLODIPine BESYLATE/BENAZEPRIL 1 cap PO DAILY 05/02/18 05/31/20 History [Lotrel 10-40 MG] Acetaminophen Tab [Tylenol] 325 mg PO Q4H PRN 05/31/20 05/31/20 History Tamsulosin HCl [Flomax] 0.4 mg PO DAILY 05/31/20 05/31/20 History Allergies Allergy/AdvReac Type Severity Reaction Status Date / Time Beta-Blockers Allergy Rash/Hives Verified 05/31/20 13:21 (Beta-Adrenergic Bloc atorvastatin [From Lipitor] AdvReac MUSCLE/JOINT Verified 05/31/20 13:21 PAIN Physical Exam Vitals: Vital Signs Temp Pulse Pulse Resp BP BP Pulse Ox 06/01/20 08:13 97.6 F 90 18 130/76 91 L 06/01/20 07:07 99.2 F 75 24 132/81 90 L 06/01/20 06:00 81 24 120/69 91 L 06/01/20 03:00 75 22 116/59 91 L 06/01/20 02:00 79 22 106/62 88 L 06/01/20 01:00 78 22 127/68 89 L 06/01/20 00:00 76 22 112/60 90 L 05/31/20 23:00 77 22 123/64 90 L 05/31/20 20:28 100.5 F H 109 H 24 136/76 91 L Intake and Output 05/31/20 06/01/20 06/01/20 22:59 06:59 14:59 Other: Weight 83.915 kg PHYSICAL EXAM: VITAL SIGNS: As above GENERAL: Sitting up in bed, no acute distress, mild confusion HEENT: Conjunctivae normal. eyes normal. NECK: No JVD. No thyroid enlargement. No LNs CARDIOVASCULAR: S1, S2 regular. Systolic murmur RESPIRATION: Breath sounds diminished in the bases. rhonchi or crackles. No bronchial breathing. ABDOMEN: Obese,Soft,distended, nontender. No guarding. no masses palpable. No ascites, No hepatosplenomegaly.Bowel sounds heard. LEGS: No edema. no swelling PSYCHIATRY: Alert and oriented X2, mood and affect normal. NERVOUS SYSTEM: Cranial N 2-12 grossly normal. Moves all 4 limbs. No gross focal deficits. Strength and sensation grossly intact.. Skin: Warm and dry, no rash Lymphatic system. No LN neck axilla. Results CBC & Chem 7: 06/01/20 10:45 06/01/20 10:45 Labs: Abnormal Lab Results - Last 24 Hours (Table) 05/31/20 05/31/20 05/31/20 Range/Units 20:43 20:43 20:43 RBC 4.22 L (4.30-5.90) m/uL Hct 38.5 L (39.0-53.0) % Plt Count 115 L (150-450) k/uL Lymphocytes # 0.4 L (1.0-4.8) k/uL Chloride 110 H (98-107) mmol/L Carbon Dioxide 15 L (22-30) mmol/L BUN 30 H (9-20) mg/dL Glucose 116 H (74-99) mg/dL POC Glucose (mg/dL) (75-99) mg/dL AST 86 H (17-59) U/L Creatine Kinase 2695 H* (55-170) U/L Total Protein 5.8 L (6.3-8.2) g/dL Albumin 3.2 L (3.5-5.0) g/dL Urine Protein 1+ H (Negative) Urine Ketones 1+ H (Negative) Urine Blood Moderate H (Negative) Urine Mucus Rare H (None) /hpf 06/01/20 Range/Units 08:19 RBC (4.30-5.90) m/uL Hct (39.0-53.0) % Plt Count (150-450) k/uL Lymphocytes # (1.0-4.8) k/uL Chloride (98-107) mmol/L Carbon Dioxide (22-30) mmol/L BUN (9-20) mg/dL Glucose (74-99) mg/dL POC Glucose (mg/dL) 161 H (75-99) mg/dL AST (17-59) U/L Creatine Kinase (55-170) U/L Total Protein (6.3-8.2) g/dL Albumin (3.5-5.0) g/dL Urine Protein (Negative) Urine Ketones (Negative) Urine Blood (Negative) Urine Mucus (None) /hpf Assessment and Plan Assessment: Acute Covid 19 pneumonitis Acute hypoxic respiratory failure secondary to the above Acute Rhabdomyolysis probably secondary to multiple falls, stat EKG and troponins ordered. Generalized weakness secondary to the above Dehydration Degenerative joint disease History of Bilateral nephrolithiasis, large exophytic cyst of left kidney measuring 7 cm. History of Bladder stones History of Enlarged prostate History of Hepatomegaly with possible hepatic steatosis Diabetes mellitus II Hypertension CAD, history of [place] with cardiac stents in 2017. Plan: Continue on current medication regime ,monitoring and symptomatic treatment. IV fluid hydration, Decadron, zinc, vitamin C, vitamin D ordered. Protonix for GI prophylaxis. Pulmonary consult in place, recommendations pending. Close monitoring of renal function, CK with repeat labs ordered for a.m. PT/OT consulted secondary to reported multiple falls, weakness. Possible subacute rehab at discharge. Worsening CK up to 5359, nephrology consulted. 24-hour urine for CPK and myoglobin ordered. EKG/troponins ordered. Neurology consulted regarding multiple falls. The impression and plan of care has been dictated as directed. : I performed a history and examination of this patient, discussed the same with the dictator. I agree with the dictator's note ,documented as a scribe. Any additional findings or plans will be noted.
[2020-06-01 20:46] LABS: Glucose,Whole Blood 174 mg/dL (75-99)
[2020-06-02 06:52] LABS: Basophils % (A) 0 %; Eosinophils % (A) 0 %; HCT 41.5 % (39.0-53.0); HGB 14.1 gm/dL (13.0-17.5); Lymphocytes # (A) 0.7 k/uL (1.0-4.8); Lymphocytes % (A) 9 %; MCH 31.3 pg (25.0-35.0); MCHC 33.9 g/dL (31.0-37.0); MCV 92.4 fL (80.0-100.0); Mean Platelet Volume 8.1; Monocytes # (A) 0.4 k/uL (0-1.0); Monocytes % (A) 5 %; Neutrophils # (A) 6.9 k/uL (1.3-7.7); Neutrophils % (A) 85 %; Platelet Count 147 k/uL (150-450); RBC 4.49 m/uL (4.30-5.90); RDW 12.6 % (11.5-15.5); WBC 8.1 k/uL (3.8-10.6)
[2020-06-02 06:52] LABS: Glucose,Whole Blood 130 mg/dL (75-99)
[2020-06-02] MEDS: INSULIN ASPART (NovoLOG) 100 UNIT/ML VIAL SQ SCH ×4 (07:03→20:45)
[2020-06-02 07:13] LABS: African American GFR (CKD) >90 (>60 ml/min/1.73 sqM); Anion Gap 9 mmol/L; Blood Urea Nitrogen 19 mg/dL (9-20); Calcium 8.3 mg/dL (8.4-10.2); Carbon Dioxide 18 mmol/L (22-30); Chloride 111 mmol/L (98-107); Glucose 117 mg/dL (74-99); Non-African American GFR(CKD) 83 (>60 ml/min/1.73 sqM); Potassium 4.4 mmol/L (3.5-5.1); Sodium 138 mmol/L (137-145)
[2020-06-02] MEDS: PANTOPRAZOLE 40 MG TABLET PO SCH (07:35)
[2020-06-02] MEDS: TAMSULOSIN 0.4 MG CAP.ER.24H PO SCH (07:35)
[2020-06-02] MEDS: lisinopriL 20 MG TAB PO SCH (07:35)
[2020-06-02] MEDS: dexAMETHasone 2 MG TAB PO SCH (07:35)
[2020-06-02] MEDS: metFORMIN 500 MG TAB PO SCH ×2 (07:35→20:45)
[2020-06-02] MEDS: ZINC SULFATE 220 MG CAP PO SCH (07:35)
[2020-06-02] MEDS: amLODIPine 10 MG TAB PO SCH (07:35)
[2020-06-02] MEDS: ASPIRIN 81 MG PO SCH (07:35)
[2020-06-02] MEDS: CHOLECALCIFEROL 25 MCG (1000 IU) TABLET PO SCH (07:35)
[2020-06-02] MEDS: ASCORBIC ACID 500 MG TAB PO SCH (07:36)
[2020-06-02] MEDS: SODIUM CHLORIDE 0.9% 1,000 ML IV SCH (07:36)
[2020-06-02] MEDS: ENOXAPARIN 40 MG/0.4 ML SYRINGE SQ SCH (07:36)
[2020-06-02 07:39] LABS: Creatine Kinase 3137 U/L (55-170)
[2020-06-02 11:31] LABS: Glucose,Whole Blood 124 mg/dL (75-99)
--- NOTE | 2020-06-02 12:19 | P.CNNES ---
History of Present Illness Consult date: 06/02/20 Requesting physician: Mariah Garza Reason for Consult: Multiple falls History of Present Illness: Patient is a 79-year-old male came to the hospital on 05/31/2020 at 10:24 PM by ambulance for increased weakness. Patient has been feeling sick for about 9-10 days prior to arrival. Patient has mentioned that he feels increasingly weak in the legs. Patient had mild shortness of breath. Patient had multiple recent f alls. When EMS arrived, his pulse ox was 70s. Patient was given 2 L of oxygen and the symptoms greatly improved. Patient states that he fell 2 days in a row. Each time same situation, that he went to the bathroom, got up, lost balance and dropped down to the floor. He did not bump his head. He did not pass out. Patient states that he does not use any assistive device, but for last few days he has been using his mother's walker. He denies any numbness or tingling in the legs, denies any neck or back pain. He just feels legs are weak. Patient denies any history of falls prior to these 2 falls. He has diabetes or last 4-5 years. He lives with his , for 55 years. Patient denies any tobacco or alcohol use. Denies any focal symptoms, denies any diplopia. Vital signs on arrival blood pressure 136/76, pulse rate 109, temperature 100.5. Blood test shows normal CBC, PT/PTT, Chem-7, CPK was elevated 2695, AST 86, ALT normal 36. UA negative. Ellsworth virus positive. Patient CPK went up to 5359, where his most recent level is 3137. Troponin negative. Patient's last hemoglobin A1c 5.7 on 07/24/2018. TSH is normal 1.050 patient's last 2-D echo from 12/28/2019 shows normal left ventricular size, borderline concentric LVH, EF is 60-65%. Left atrium is mildly dilated. Review of Systems As mentioned above in HPI. Denies any loss of vision, double vision, hoarseness, sore throat, dysphagia. He does have some shortness of breath. Pat ient is hard of hearing. Denies any abdominal pain nausea vomiting diarrhea. Denies any chest pain. Patient has some fever only on arrival, but now is afebrile. No rash. Past Medical History Past Medical History: Diabetes Mellitus, Hypertension, Myocardial Infarction (MS), Musculoskeletal Disorder, Prostate Disorder Additional Past Medical History / Comment(s): Gout with one flareup, enlarged prostate Last Myocardial Infarction Date:: 2017 History of Any Multi-Drug Resistant Organisms: None Reported Past Surgical History: Adenoidectomy, Cholecystectomy, Heart Catheterization With Stent, Joint Replacement, Orthopedic Surgery Additional Past Surgical History / Comment(s): Coronary stent placement; knee replaced left side Past Anesthesia/Blood Transfusion Reactions: No Reported Reaction Date of Last Stent Placement:: 2017 Past Psychological History: No Psychological Hx Reported Smoking Status: Never smoker Past Alcohol Use History: None Reported Past Drug Use History: None Reported - Past Family History Father History Unknown: Yes Family Medical History: Coronary Artery Disease (CAD) Additional Family Medical History / Comment(s): of lung CA, was smoker Mother Family Medical History: Dementia Additional Family Medical History / Comment(s): lived to Medications and Allergies Home Medications Medication Instructions Recorded Confirmed Type metFORMIN HCL [Glucophage] 1,000 mg PO BID 05/04/17 05/31/20 History Aspirin EC [Ecotrin Low Dose] 81 mg PO DAILY 06/15/17 05/31/20 History Acetaminophen Tab [Tylenol] 325 mg PO Q4H PRN 05/31/20 05/31/20 History Tamsulosin HCl [Flomax] 0.4 mg PO DAILY 05/31/20 05/31/20 History Ascorbic Acid [Vitamin C] 1,000 mg PO DAILY tab 06/06/20 Rx Benzocaine/Menthol Lozeng [Cepacol 1 each MUCOUS MEM Q4HR PRN lozenge 06/06/20 Rx lozenge] Cholecalciferol [Vitamin D3 (25 50 mcg PO DAILY tablet 06/06/20 Rx Mcg = 1000 Iu)] INSULIN LISPRO (HumaLOG) [humaLOG] 0 unit SQ ACHS #1 vial 06/06/20 Rx Pantoprazole [Protonix] 40 mg PO AC-BRKFST tablet.dr 06/06/20 Rx Sodium Bicarbonate Tab 650 mg PO BID tab 06/06/20 Rx Zinc Sulfate [Orazinc] 220 mg PO DAILY cap 06/06/20 Rx amLODIPine [Norvasc] 10 mg PO DAILY tab 06/06/20 Rx dexAMETHasone [Hexadrol] 6 mg PO DAILY 4 Days #4 tab 06/06/20 Rx lisinopriL [Zestril] 10 mg PO DAILY tab 06/06/20 Rx Allergies Allergy/AdvReac Type Severity Reaction Status Date / Time Beta-Blockers Allergy Rash/Hives Verified 05/31/20 13:21 (Beta-Adrenergic Bloc atorvastatin [From Lipitor] AdvReac MUSCLE/JOINT Verified 05/31/20 13:21 PAIN Physical Examination - Vital Signs Vital Signs: Vital Signs Temp Pulse Resp BP Pulse Ox 06/02/20 05:25 97.7 F 76 123/71 92 L 06/02/20 02:41 97.7 F 80 128/67 92 L 06/01/20 22:39 98.0 F 72 119/71 90 L 06/01/20 17:55 99 F 79 18 122/73 90 L 06/01/20 14:33 97.7 F 78 17 113/69 91 L Intake and Output 06/01/20 06/02/20 06/02/20 22:59 06:59 14:59 Output Total 300 Balance -300 Output: Urine 300 Other: Voiding Method Urinal Urinal # Bowel Movements 1 On examination patient is an elderly male, very pleasant, in no acute distress. Patient is alert and awake, fairly well oriented. Speech and language functions are normal. Attention, concentration and fund of knowledge is adequate. On cranial nerve examination pupils are round and reacting to light, visual worrell are full, extraocular muscles are intact with no nystagmus. Face is symmetric, tongue protrudes the midline. Palatal elevation and sensation normal, hearing is moderately decreased, shoulder shrug normal, facial sensation is normal. On muscle strength testing the strength is completely normal in both arms and legs distally and proximally except hip flexion which is 4 to 4- on the right and 5-on the left. He has slight atrophy of the right more than left contraceptives. However his knee extension are normal. Patient is very high arched feet and slight hammertoes. Reflexes are 1 in the upper limbs, 2+ at the knees, 1+ ankles and plantars are upgoing bilaterally. Sensory to t ouch is equal. No ataxia for [id number] testing, tone and bulk of muscles normal. Gait deferred. On general exam she there is no obvious bruit S1 is audible, prominence of nontender. Peripheral pulses present. No edema. No rash. Results - Laboratory Findings CBC and BMP: 06/06/20 05:39 06/06/20 05:39 Abnormal Lab Findings: Abnormal Labs 05/31/20 05/31/20 05/31/20 20:43 20:43 20:43 WBC RBC 4.22 L Hct 38.5 L Plt Count 115 L Lymphocytes # 0.4 L D-Dimer Chloride 110 H Carbon Dioxide 15 L BUN 30 H Glucose 116 H POC Glucose (mg/dL) Calcium AST 86 H Lactate Dehydrogenase Creatine Kinase 2695 H* C-Reactive Protein Total Protein 5.8 L Albumin 3.2 L Procalcitonin Urine Protein 1+ H Urine Ketones 1+ H Urine Blood Moderate H Urine Mucus Rare H Coronavirus (PCR) 06/01/20 06/01/20 06/01/20 08:19 10:45 10:45 WBC 11.2 H RBC Hct Plt Count 127 L Lymphocytes # D-Dimer Chloride 111 H Carbon Dioxide 17 L BUN Glucose 108 H POC Glucose (mg/dL) 161 H Calcium AST Lactate Dehydrogenase 1722 H Creatine Kinase 5359 H* C-Reactive Protein 161.6 H Total Protein Albumin Procalcitonin Urine Protein Urine Ketones Urine Blood Urine Mucus Coronavirus (PCR) 06/01/20 06/01/20 06/01/20 10:45 10:45 12:40 WBC RBC Hct Plt Count Lymphocytes # D-Dimer 0.97 H Chloride Carbon Dioxide BUN Glucose POC Glucose (mg/dL) Calcium AST Lactate Dehydrogenase Creatine Kinase C-Reactive Protein Total Protein Albumin Procalcitonin 3.66 H Urine Protein Urine Ketones Urine Blood Urine Mucus Coronavirus (PCR) Detected A 06/01/20 06/01/20 06/02/20 16:51 20:44 06:07 WBC RBC Hct Plt Count 147 L Lymphocytes # 0.7 L D-Dimer Chloride Carbon Dioxide BUN Glucose POC Glucose (mg/dL) 151 H 174 H Calcium AST Lactate Dehydrogenase Creatine Kinase C-Reactive Protein Total Protein Albumin Procalcitonin Urine Protein Urine Ketones Urine Blood Urine Mucus Coronavirus (PCR) 06/02/20 06/02/20 06:07 06:49 WBC RBC Hct Plt Count Lymphocytes # D-Dimer Chloride 111 H Carbon Dioxide 18 L BUN Glucose 117 H POC Glucose (mg/dL) 130 H Calcium 8.3 L AST Lactate Dehydrogenase Creatine Kinase 3137 H* C-Reactive Protein Total Protein Albumin Procalcitonin Urine Protein Urine Ketones Urine Blood Urine Mucus Coronavirus (PCR) Assessment and Plan Assessment: * 79-year-old male, recently has Covid infection, has been feeling generalized weakness particularly in the legs, with couple falls in the last few days. Otherwise he has not had any falls prior to these. Patient's examination revealed mild weakness of the right hip flexion, which could be mechanical. Otherwise the strength is normal elsewhere including knees and ankles. Suspect generalized weakness from recent acute Covid infection leading to falls. * High arched feet and hammertoes, which also runs in the family. Possible some hereditary component. * Rhabdomyolysis, possibly from fall. Right hip weakness, which could be mechanical. * Diabetes, controlled Plan: * We will check blood tests including B12, folate, MMA, B6, RPR, and follow-up on hemoglobin A1c to assess for diabetes. * Follow CPK trend. * May need EMG and nerve conduction study of right (and left) lower extremity as outpatient, but patient completely declined. * Hopefully his strength will improve after he gets over the Covid infection. May need PT OT. May need short-term rehab. Addendum 06/15/2020: Patient's blood tests reviewed. B12 is normal 486, methylmalonic acid is normal 0.24. Folic acid > 24.0, vitamin B6 is low 4 (5-50). RPR nonreactive. Hemoglobin A1c 6.3. CPK is further coming down, 1415. Called patient's home, and spoke to his about low B6. She states that patient has an appointment with his primary doctor this afternoon. She will relay information to his physician for prescription of B6 50 mg.
--- NOTE | 2020-06-02 14:09 | P.PN ---
Subjective Progress Note Date: 06/02/20 This is a pleasant 79-year-old gentleman with history of diabetes mellitus, hypertension, CAD, ND, cardiac stents 2, gout, muscle skeletal disorder and multiple other medical issues presented to the ER with complaints of Increased weakness, multiple falls, mild shortness of breath and multiple other medical issues. Most recent fall yesterday morning, required assistance from EMS/Fire Department. Patient initially presented to the ER twice, tested positive for coronal virus, received monoclonal antibody and discharged home. Returned with worsening symptoms . Denies syncope or head trauma. Denies chest pain, palpitations. Denies nausea vomiting or diarrhea. Febrile on admission, 100.5, WBC WNL, hemoglobin 13.3, platelets 1:15, INR 1 .sodium 137, potassium 4.7, chloride 110, CO2 15, BUN 30, creatinine 0.86, glucose 116, magnesium 2 . T bili and LFTs normal with the exception of mildly elevated AST at 86 .creatinine kinase elevated, 2695, albumin low 3.2 .UA reporting when up, 1+ ketones 1+ protein, specific gravity 1.022. Chest x-ray reporting persistent patchy bilateral areas of infiltrate, soft tissue fullness in the left paratracheal region, possible adenopathy. On admission patient was 91% on room air, now requiring 5 L nasal cannula and maintaining O2 sats in the low 90s. Received Decadron IV push in the ER and pulmonary consulted. 06/02/2020 maintained on Covid 19 cocktail, status post BAM. Blood sugars controlled. Feels better today. Denies lightheadedness dizziness or focal deficits. Denies headache. Denies chest pain, palpitations or shortness of breath. Denies diarrhea. Continues on IV fluid hydration with improvement in CK, 3137. Creatinine remaines stable at 0.84. 24-hour urine in progress for both CPK and myoglobin. Troponin is negative 2.Afebrile, normal WBC. Evaluated by PT, recommending home with home care at discharge. Evaluated by e urology with recommendations noted and appreciated. Objective - Vital Signs Vital signs: Vital Signs Temp 97.7 F 06/02/20 09:59 Pulse 87 06/02/20 09:59 Resp 18 06/02/20 09:59 BP 116/65 06/02/20 09:59 Pulse Ox 96 06/02/20 09:59 Intake & Output 06/01/20 06/02/20 06/02/20 18:59 06:59 18:59 Intake Total 800 Output Total 300 Balance 800 -300 Weight 83.915 kg Intake: IV 800 Sodium Chloride 0.9% 1, 800 000 ml @ 100 mls/hr IV . Q10H [facility] Rx#:[id number] Output: Urine 300 Other: Voiding Method Urinal Urinal # Bowel Movements 1 - Exam PHYSICAL EXAM: VITAL SIGNS: As above GENERAL:Alert and oriented 3, Sitting up in chair, no acute distress. HEENT: Conjunctivae normal. eyes normal. Oral mucosa moist NECK: No JVD. No thyroid enlargement. CARDIOVASCULAR: S1, S2 regular. Systolic murmur. RESPIRATION: Breath sounds diminished in the bases. rhonchi or crackles. ABDOMEN: Obese,Soft,distended, nontender. No guarding. no masses palpable. Positive Bowel sounds. LEGS: No edema. no swelling. NERVOUS SYSTEM: Cranial N 2-12 grossly normal.No gross focal deficits. Moves all 4 extremities with generalized weakness. Strength and sensation grossly intact. Skin: Warm and dry, no rash. - Labs CBC & Chem 7: 06/02/20 06:07 06/02/20 06:07 Labs: Abnormal Lab Results - Last 24 Hours (Table) 06/01/20 06/01/20 06/01/20 Range/Units 10:45 10:45 10:45 WBC 11.2 H (3.8-10.6) k/uL Plt Count 127 L (150-450) k/uL Lymphocytes # (1.0-4.8) k/uL D-Dimer 0.97 H (<0.60) mg/L FEU Chloride 111 H (98-107) mmol/L Carbon Dioxide 17 L (22-30) mmol/L Glucose 108 H (74-99) mg/dL POC Glucose (mg/dL) (75-99) mg/dL Calcium (8.4-10.2) mg/dL Lactate Dehydrogenase 1722 H (313-618) U/L Creatine Kinase 5359 H* (55-170) U/L C-Reactive Protein 161.6 H (<10.0) mg/L Procalcitonin (0.02-0.09) ng/mL Coronavirus (PCR) (Not Detectd) 06/01/20 06/01/20 06/01/20 Range/Units 10:45 12:40 16:51 WBC (3.8-10.6) k/uL Plt Count (150-450) k/uL Lymphocytes # (1.0-4.8) k/uL D-Dimer (<0.60) mg/L FEU Chloride (98-107) mmol/L Carbon Dioxide (22-30) mmol/L Glucose (74-99) mg/dL POC Glucose (mg/dL) 151 H (75-99) mg/dL Calcium (8.4-10.2) mg/dL Lactate Dehydrogenase (313-618) U/L Creatine Kinase (55-170) U/L C-Reactive Protein (<10.0) mg/L Procalcitonin 3.66 H (0.02-0.09) ng/mL Coronavirus (PCR) Detected A (Not Detectd) 06/01/20 06/02/20 06/02/20 Range/Units 20:44 06:07 06:07 WBC (3.8-10.6) k/uL Plt Count 147 L (150-450) k/uL Lymphocytes # 0.7 L (1.0-4.8) k/uL D-Dimer (<0.60) mg/L FEU Chloride 111 H (98-107) mmol/L Carbon Dioxide 18 L (22-30) mmol/L Glucose 117 H (74-99) mg/dL POC Glucose (mg/dL) 174 H (75-99) mg/dL Calcium 8.3 L (8.4-10.2) mg/dL Lactate Dehydrogenase (313-618) U/L Creatine Kinase 3137 H* (55-170) U/L C-Reactive Protein (<10.0) mg/L Procalcitonin (0.02-0.09) ng/mL Coronavirus (PCR) (Not Detectd) 06/02/20 Range/Units 06:49 WBC (3.8-10.6) k/uL Plt Count (150-450) k/uL Lymphocytes # (1.0-4.8) k/uL D-Dimer (<0.60) mg/L FEU Chloride (98-107) mmol/L Carbon Dioxide (22-30) mmol/L Glucose (74-99) mg/dL POC Glucose (mg/dL) 130 H (75-99) mg/dL Calcium (8.4-10.2) mg/dL Lactate Dehydrogenase (313-618) U/L Creatine Kinase (55-170) U/L C-Reactive Protein (<10.0) mg/L Procalcitonin (0.02-0.09) ng/mL Coronavirus (PCR) (Not Detectd) Assessment and Plan Assessment: Acute Covid 19 pneumonitis Acute hypoxic respiratory failure secondary to the above Acute Rhabdomyolysis probably secondary to multiple falls, stat EKG and troponins ordered. Generalized weakness secondary to the above Dehydration Degenerative joint disease History of Bilateral nephrolithiasis, large exophytic cyst of left kidney measuring 7 cm. History of Bladder stones History of Enlarged prostate History of Hepatomegaly with possible hepatic steatosis Diabetes mellitus II Hypertension CAD, history of ND with cardiac stents in 2017. Plan: Continue on current medication regime ,monitoring and symptomatic luis atment. Continue with IV fluid hydration, Covid cocktail. 24-hour urine in progress for CPK and myoglobin .Close monitoring of renal function, CK with repeat labs ordered for a.m. The impression and plan of care has been dictated as directed. .: I performed a history and examination of this patient, discussed the same with the dictator. I agree with the dictator's note ,documented as a scribe. Any additional findings or plans will be noted.
--- NOTE | 2020-06-02 14:38 | P.PN ---
Subjective Progress Note Date: 06/02/20 Principal diagnosis: Acute hypoxic respiratory failure secondary to color 19 pneumonitis This is a 79-year-old white male with history of multiple medical problems including hypertension, diabetes, patient presented yesterday to the ER twice. The first time he presented earlier and he was complaining of weakness, his weakness has been going on for about a week and a half. And he also complained of nonproductive cough. He had no shortness of breath, no chest pain, patient had decreased appetite, no diarrhea, no nausea, no vomiting. Patient had positive PCR for abreu virus. Hence he received monoclonal antibody in the ER, and he was discharged home. Patient came back later complaining of worsening symptoms. And his PCR was repeated again, came back positive. Patient was found to have abnormal chest x-ray suggestive of bilateral infiltrates. He was also noted to have elevated CPK at 5359, slightly elevated d-dimer of 0.97, elevated inflammatory markers with LDH of 1722, and C-reactive protein of 162. Considering the worsening status, and considering the patient required now oxygen at 5 L/m to maintain O2 saturation of 91%, patient was admitted, and this consult was initiated. We saw the patient on consultation, and I recommended that we continue Decadron, Lovenox, and recommended the usual cold mid 19 cocktails. Also recommended hydration of the patient, for his elevated CPK, considering the patient has been sick for over a week and a half, patient does not qualify for remdesivir The patient is seen today 06/02/2020 in follow-up on the regular medical floor. He is currently resting comfortably in bed. Awake and alert in no acute distress. He is on 6 L nasal cannula maintaining O2 saturation in the 90s. He is still dyspneic on minimal exertion. Nonproductive cough. White count 8.1. Hemoglobin 14.1. Platelet count 147. Lymphocytes 0.7. Sodium 138. Potassium 4.4. Creatinine 0.84. Creatinine kinase 2137. Objective - Vital Signs Vital signs: Vital Signs Temp 97.5 F L 06/02/20 13:25 Pulse 83 06/02/20 13:25 Resp 20 06/02/20 13:25 BP 118/71 06/02/20 13:25 Pulse Ox 96 06/02/20 13:25 Intake & Output 06/01/20 06/02/2021 18:59 06:59 18:59 Intake Total 800 Output Total 300 200 Balance 800 -300 -200 Weight 83.915 kg Intake: IV 800 Sodium Chloride 0.9% 1, 800 000 ml @ 100 mls/hr IV . Q10H [facility] Rx#:[id number] Output: Urine 300 200 Other: Voiding Method Urinal Urinal # Bowel Movements 1 - Exam GENERAL EXAM: Alert, pleasant 79-year-old gentleman, on 6 L nasal cannula, comfortable in no apparent distress. HEAD: Normocephalic. EYES: Normal reaction of pupils, equal size. NOSE: Clear with pink turbinates. THROAT: No erythema or exudates. NECK: No masses, no JVD. CHEST: No chest wall deformity. LUNGS: Equal air entry with wheezing or crackles, scattered rhonchi. CVS: S1 and S2 normal with no audible murmur, regular rhythm. ABDOMEN: No hepatosplenomegaly, normal bowel sounds, no guarding or rigidity. SPINE: No scoliosis or deformity SKIN: No rashes CENTRAL NERVOUS SYSTEM: No focal deficits, tone is normal in all 4 extremities. EXTREMITIES: There is no peripheral edema. No clubbing, no cyanosis. Peripheral pulses are intact. - Labs CBC & Chem 7: 06/02/20 06:07 06/02/20 06:07 Labs: Abnormal Lab Results - Last 24 Hours (Table) 06/01/20 06/01/20 06/01/20 Range/Units 10:45 16:51 20:44 Plt Count (150-450) k/uL Lymphocytes # (1.0-4.8) k/uL Chloride (98-107) mmol/L Carbon Dioxide (22-30) mmol/L Glucose (74-99) mg/dL POC Glucose (mg/dL) 151 H 174 H (75-99) mg/dL Calcium (8.4-10.2) mg/dL Creatine Kinase (55-170) U/L Procalcitonin 3.66 H (0.02-0.09) ng/mL 06/02/20 06/02/20 06/02/20 Range/Units 06:07 06:07 06:49 Plt Count 147 L (150-450) k/uL Lymphocytes # 0.7 L (1.0-4.8) k/uL Chloride 111 H (98-107) mmol/L Carbon Dioxide 18 L (22-30) mmol/L Glucose 117 H (74-99) mg/dL POC Glucose (mg/dL) 130 H (75-99) mg/dL Calcium 8.3 L (8.4-10.2) mg/dL Creatine Kinase 3137 H* (55-170) U/L Procalcitonin (0.02-0.09) ng/mL 06/02/20 Range/Units 11:28 Plt Count (150-450) k/uL Lymphocytes # (1.0-4.8) k/uL Chloride (98-107) mmol/L Carbon Dioxide (22-30) mmol/L Glucose (74-99) mg/dL POC Glucose (mg/dL) 124 H (75-99) mg/dL Calcium (8.4-10.2) mg/dL Creatine Kinase (55-170) U/L Procalcitonin (0.02-0.09) ng/mL Assessment and Plan Assessment: 1 Acute hypoxic respiratory failure secondary to covid 19 pneumonitis. Outside the window for Remdesivir 2 Acute rhabdomyolysis most likely secondary to frequent falls 3 Type 2 diabetes 4 Benign essential hypertension 5 History of enlarged prostate/benign prostatic hypertrophy 6 History of coronary artery disease and previous myocardial infarction, previous stenting of RCA and subsequently LAD stenting. 7 History of degenerative joint disease. Plan: The patient was seen and evaluated by Dr. Mcclendon We will continue the current treatment plan Continue dexamethasone, Lovenox, vitamin supplement Follow up chest x-ray in a.m. We will continue to follow and make further recommendations based on her clinical status I, the cosigning physician, performed a history & physical examination of the patient. Lungs sounds basilar crackles, scattered rhonchi. Maintaining good O2 saturations in the 90s on the chest liters per minute per nasal cannula. I discussed the assessment and plan of care with my nurse practitioner, Angelina Rocha. I attest to the above note as dictated by her.
[2020-06-02] MEDS: LACTATED RINGERS 1,000 ML IV SCH (16:53)
[2020-06-02 17:06] LABS: Glucose,Whole Blood 151 mg/dL (75-99)
[2020-06-02] MEDS: BENZOCAINE/MENTHOL LOZENG 1 EACH LOZENGE MUCOUS MEM PRN (17:24)
[2020-06-02 18:25] LABS: Creatinine 24 Hour,Urine 1007.1 mg/24hr (1000.0-2000.0)
[2020-06-02 18:33] LABS: Folate, Serum >24.0 ng/mL
--- NOTE | 2020-06-02 18:37 | CONS ---
CONSULTATION REASON FOR CONSULT: Rhabdomyolysis. HISTORY OF PRESENT ILLNESS: Patient is a 79-year-old male who was admitted to the hospital with complaints of increased weakness. He was also short of breath. He was found to have COVID-19 pneumonia. Chest x-ray shows persistent bilateral patchy infiltrates. Patient's PCR for coronavirus was positive and his creatine kinase was 2695 on admission. It did go up to 5359 and now down to 3137. Patient was not on statins at home prior to admission. TSH level done this admission was not elevated. It is difficult to obtain detailed history from the patient. I am not sure if he had a history of fall prior to admission. Serum creatinine is 0.8 mg/dL, and it has been at 0.8 since admission. PAST MEDICAL HISTORY: Significant for type 2 diabetes, hypertension, [place], BPH, gout. PAST SURGICAL HISTORY: Adenoidectomy, cholecystectomy, cardiac catheterization, coronary stent placement, left knee arthroplasty. SOCIAL HISTORY: Negative for smoking, drug abuse or alcohol abuse. MEDICATIONS: Medications prior to admission included Glucophage, aspirin, Lotrel, Tylenol, Flomax. ALLERGIES: ALLERGIES include BETA BLOCKERS, which cause rash and hives, and LIPITOR, which causes muscle and joint pains. REVIEW OF SYSTEMS: As per HPI. Other systems negative. PHYSICAL EXAMINATION: Patient is comfortable, awake. He is not in any acute distress. Blood pressure is 116/65, heart rate 87 per minute. He is afebrile. Examination shows no evidence of edema, lower extremities. [employer] exam grossly intact. Patient is moving all 4 extremities. LABS: Sodium 138, potassium 4.4, chloride 111. CO2 is 18, BUN 19, creatinine 0.8. CK 3137. ASSESSMENT: 1. Rhabdomyolysis, currently improving. It is mild. No obvious history of fall, and patient was not on any statins prior to admission. I will continue with IV fluids. TSH was also not elevated. Currently his GFR is fairly well preserved. 2. COVID-19 pneumonia, maintained on steroids. 3. Benign prostatic hypertrophy, currently on Flomax. 4. Type 2 diabetes, maintained on Glucophage. 5. Hypertension, currently maintained on HOWIE inhibitors. Blood pressure is slightly on the lower side. 6. Mild metabolic acidosis, currently improving. PLAN: Add oral sodium bicarb. May continue with the IV fluids. Change to Ringer lactate. I will decrease the dose of lisinopril, as blood pressure is on the lower side and there is increased risk of ATN with underlying COVID-19 infection. Thank you for this consultation. Will continue to follow the patient with you during his hospitalization. KASI / IJN: [id number] /
[2020-06-02 20:36] LABS: Glucose,Whole Blood 197 mg/dL (75-99)
[2020-06-02] MEDS: SODIUM BICARBONATE TAB 650 MG TAB PO SCH (20:41)
[2020-06-03] MEDS: BENZOCAINE/MENTHOL LOZENG 1 EACH LOZENGE MUCOUS MEM PRN ×3 (01:29→20:32)
[2020-06-03] MEDS: LACTATED RINGERS 1,000 ML IV SCH ×2 (05:11→20:32)
[2020-06-03 07:16] LABS: Basophils % (A) 0 %; Eosinophils % (A) 0 %; HCT 40.1 % (39.0-53.0); HGB 13.5 gm/dL (13.0-17.5); Lymphocytes # (A) 0.7 k/uL (1.0-4.8); Lymphocytes % (A) 8 %; MCH 30.8 pg (25.0-35.0); MCHC 33.6 g/dL (31.0-37.0); MCV 91.6 fL (80.0-100.0); Mean Platelet Volume 8.1; Monocytes # (A) 0.5 k/uL (0-1.0); Monocytes % (A) 5 %; Neutrophils % (A) 86 %; Platelet Count 184 k/uL (150-450); RBC 4.37 m/uL (4.30-5.90); RDW 13.2 % (11.5-15.5); WBC 9.3 k/uL (3.8-10.6)
[2020-06-03 07:20] LABS: Glucose,Whole Blood 111 mg/dL (75-99)
--- NOTE | 2020-06-03 07:25 | XR ---
EXAMINATION TYPE: XR chest 1V portable DATE OF EXAM: 06/03/2020 COMPARISON: 06/02/2020 HISTORY: Covid TECHNIQUE: Single frontal view of the chest is obtained. FINDINGS: There is a moderate partially consolidative opacity in the right mid and upper lung zone wh ich was seen previously and is stable. The left lung remains essentially clear. There is no pneumothorax or pleural effusion. Heart size is normal and the pulmonary vasculature is n ot congested. The osseous structures are intact. IMPRESSION: Right lung infiltrate essentially unchanged compared to the prior study. The left lung remains clear.
[2020-06-03 07:30] LABS: Potassium 4.3 mmol/L (3.5-5.1)
[2020-06-03 07:34] LABS: African American GFR (CKD) >90 (>60 ml/min/1.73 sqM); Anion Gap 8 mmol/L; Blood Urea Nitrogen 23 mg/dL (9-20); C Reactive Protein 26.1 mg/L (<10.0); Calcium 8.9 mg/dL (8.4-10.2); Carbon Dioxide 21 mmol/L (22-30); Chloride 111 mmol/L (98-107); Glucose 107 mg/dL (74-99); LDH 1161 U/L (313-618); Non-African American GFR(CKD) 87 (>60 ml/min/1.73 sqM); Sodium 140 mmol/L (137-145)
[2020-06-03 07:38] LABS: Creatine Kinase 1415 U/L (55-170)
[2020-06-03] MEDS: INSULIN ASPART (NovoLOG) 100 UNIT/ML VIAL SQ SCH ×4 (07:44→20:32)
[2020-06-03] MEDS: SODIUM BICARBONATE TAB 650 MG TAB PO SCH ×2 (08:34→20:32)
[2020-06-03] MEDS: PANTOPRAZOLE 40 MG TABLET PO SCH (08:35)
[2020-06-03] MEDS: ASCORBIC ACID 500 MG TAB PO SCH (08:35)
[2020-06-03] MEDS: amLODIPine 10 MG TAB PO SCH (08:35)
[2020-06-03] MEDS: ZINC SULFATE 220 MG CAP PO SCH (08:35)
[2020-06-03] MEDS: lisinopriL 10 MG TAB PO SCH (08:35)
[2020-06-03] MEDS: CHOLECALCIFEROL 25 MCG (1000 IU) TABLET PO SCH (08:35)
[2020-06-03] MEDS: metFORMIN 500 MG TAB PO SCH ×2 (08:35→20:34)
[2020-06-03] MEDS: dexAMETHasone 2 MG TAB PO SCH (08:35)
[2020-06-03] MEDS: TAMSULOSIN 0.4 MG CAP.ER.24H PO SCH (08:35)
[2020-06-03] MEDS: ASPIRIN 81 MG PO SCH (08:35)
[2020-06-03] MEDS: ENOXAPARIN 40 MG/0.4 ML SYRINGE SQ SCH (08:36)
--- NOTE | 2020-06-03 08:50 | P.PN ---
Subjective Progress Note Date: 06/03/20 Principal diagnosis: This 79-year-old male followed up because of elevated CK, on admission it was 1127, peaked at 5359 on 06/01/2020 the day after and now as of this morning is down to 1415 He was admitted with shortness of breath and has coded positive pneumonia. Initially he was in the ER twice and had been treated with monoclonal antibody and discharged home but came back because of worsening symptoms Although there is some history noted of musculoskeletal disorder and patient is denying any such. Denies any muscle weakness or tenderness but he says his generalized weakness from his age. Has had history of multiple falls. Patient says he has good appetite no nausea vomiting. He is on nasal cannula oxygen comfortable at rest. His past history significant for diabetes heart disease prostatism cardiac catheterization Objective - Vital Signs Vital signs: Vital Signs Temp 98 F 06/03/20 05:40 Pulse 91 06/03/20 05:40 Resp 22 06/03/20 05:40 BP 141/76 06/03/20 05:40 Pulse Ox 93 L 06/03/20 05:40 Intake & Output 06/02/20 06/03/20 06/03/20 18:59 06:59 18:59 Intake Total 200 Output Total 800 Balance -800 200 Intake: Oral 200 Output: Urine 800 Other: Voiding Method Urinal Urinal # Voids 4 # Bowel Movements 1 Patient was spoken to from the doorway as he has scored positive. Seems to be comfortable on nasal cannula - Labs CBC & Chem 7: 06/03/20 06:28 06/03/20 06:28 Labs: Abnormal Lab Results - Last 24 Hours (Table) 06/02/20 06/02/20 06/02/20 Range/Units 06:07 11:28 17:04 Neutrophils # (1.3-7.7) k/uL Lymphocytes # (1.0-4.8) k/uL D-Dimer (<0.60) mg/L FEU Chloride (98-107) mmol/L Carbon Dioxide (22-30) mmol/L BUN (9-20) mg/dL Glucose (74-99) mg/dL POC Glucose (mg/dL) 124 H 151 H (75-99) mg/dL Hemoglobin A1c 6.3 H (4.0-6.0) % Lactate Dehydrogenase (313-618) U/L Creatine Kinase (55-170) U/L C-Reactive Protein (<10.0) mg/L 06/02/20 06/03/20 06/03/20 Range/Units 20:29 06:28 06:28 Neutrophils # 8.0 H (1.3-7.7) k/uL Lymphocytes # 0.7 L (1.0-4.8) k/uL D-Dimer (<0.60) mg/L FEU Chloride 111 H (98-107) mmol/L Carbon Dioxide 21 L (22-30) mmol/L BUN 23 H (9-20) mg/dL Glucose 107 H (74-99) mg/dL POC Glucose (mg/dL) 197 H (75-99) mg/dL Hemoglobin A1c (4.0-6.0) % Lactate Dehydrogenase 1161 H (313-618) U/L Creatine Kinase 1415 H* (55-170) U/L C-Reactive Protein 26.1 H (<10.0) mg/L 06/03/20 06/03/20 Range/Units 06:28 07:15 Neutrophils # (1.3-7.7) k/uL Lymphocytes # (1.0-4.8) k/uL D-Dimer 0.68 H (<0.60) mg/L FEU Chloride (98-107) mmol/L Carbon Dioxide (22-30) mmol/L BUN (9-20) mg/dL Glucose (74-99) mg/dL POC Glucose (mg/dL) 111 H (75-99) mg/dL Hemoglobin A1c (4.0-6.0) % Lactate Dehydrogenase (313-618) U/L Creatine Kinase (55-170) U/L C-Reactive Protein (<10.0) mg/L Assessment and Plan Assessment: Impression 1. Rhabdomyolysis cause not very clear might have been from multiple falls that is in the history. Improving. 2. No evidence of acute kidney injury from the rhabdomyolysis. 3. Covid pneumonia stable on nasal cannula oxygen 4. History of being treated with monoclonal antibody for the covid19 pneumonia. 5. Mild degree of non-gap acidosis, bicarb is 21 gap is 8, etiology is possibly diarrhea Recommendation 1. Continue sodium bicarbonate. If his acidosis remains we will look for RTA. 2. We will check Ck again. Lab is reporting to [facility] as of CK 1 his total creatinine kinase which is normal at 107 and the creatinine kinase is reported as 1415 as discussed with lab and clarify this
--- NOTE | 2020-06-03 11:35 | P.PN ---
Subjective Progress Note Date: 06/03/20 Principal diagnosis: Covid 19 pneumonia diagnosed by PCR, rhabdomyolysis presumably caused by multiple falls secondary to weakness Patient is improving slowly, currently on 6 L nasal cannula, 24 hour urine completed nephrology consult was placed patient's CPK is improving slowly with judicious fluid resuscitation, patient is improving slowly condition still guarded we will reevaluate tomorrow consider rehab placement, this consideration can secondary to extreme weakness falls, patient's family has not been taking the pandemic virus problems seriously they are not social distancing nor are they following any PPE guidelines or using masks, placing Mr. Harvey at increased risk if he is sent home Objective - Vital Signs Vital signs: Vital Signs Temp 97.6 F 06/03/20 10:00 Pulse 93 06/03/20 10:00 Resp 22 06/03/20 10:00 BP 147/83 06/03/20 10:00 Pulse Ox 95 06/03/20 10:00 Intake & Output 06/02/20 06/03/20 06/03/20 18:59 06:59 18:59 Intake Total 200 Output Total 800 Balance -800 200 Intake: Oral 200 Output: Urine 800 Other: Voiding Method Urinal Urinal # Voids 4 # Bowel Movements 1 - Exam General: [Patient awake, alert and oriented times 3. Patient in no acute distress.] HEENT: [PERRL. EOMI. No pharyngeal erythema or exudate.] Neck: [No adenopathy.] Cardiac: [Heart regular in rate and rhythm. No S3. No S4. No clicks, rubs. No murmur.] Lungs: [Clear to auscultation bilaterally.] Abdomen: [No mass. No organomegaly. Bowel sounds presnt and normoactive in all 4 quadrants.] Extremes: [No edema no cyanosis no claudication normal pulses] : Normal male genitalia Musculoskeletal: [No joint erythema, edema or tenderness.] Skin: [No rash.] Neurologic: [No lateralizing deficits. CN II - XII grossly intact.] Lymphatic: [No adenopathy.] - Labs CBC & Chem 7: 06/03/20 06:28 06/03/20 06:28 Labs: Abnormal Lab Results - Last 24 Hours (Table) 06/02/20 06/02/20 06/02/20 Range/Units 06:07 11:28 17:04 Neutrophils # (1.3-7.7) k/uL Lymphocytes # (1.0-4.8) k/uL D-Dimer (<0.60) mg/L FEU Chloride (98-107) mmol/L Carbon Dioxide (22-30) mmol/L BUN (9-20) mg/dL Glucose (74-99) mg/dL POC Glucose (mg/dL) 124 H 151 H (75-99) mg/dL Hemoglobin A1c 6.3 H (4.0-6.0) % Lactate Dehydrogenase (313-618) U/L Creatine Kinase (55-170) U/L C-Reactive Protein (<10.0) mg/L 06/02/20 06/03/20 06/03/20 Range/Units 20:29 06:28 06:28 Neutrophils # 8.0 H (1.3-7.7) k/uL Lymphocytes # 0.7 L (1.0-4.8) k/uL D-Dimer (<0.60) mg/L FEU Chloride 111 H (98-107) mmol/L Carbon Dioxide 21 L (22-30) mmol/L BUN 23 H (9-20) mg/dL Glucose 107 H (74-99) mg/dL POC Glucose (mg/dL) 197 H (75-99) mg/dL Hemoglobin A1c (4.0-6.0) % Lactate Dehydrogenase 1161 H (313-618) U/L Creatine Kinase 1415 H* (55-170) U/L C-Reactive Protein 26.1 H (<10.0) mg/L 06/03/20 06/03/20 Range/Units 06:28 07:15 Neutrophils # (1.3-7.7) k/uL Lymphocytes # (1.0-4.8) k/uL D-Dimer 0.68 H (<0.60) mg/L FEU Chloride (98-107) mmol/L Carbon Dioxide (22-30) mmol/L BUN (9-20) mg/dL Glucose (74-99) mg/dL POC Glucose (mg/dL) 111 H (75-99) mg/dL Hemoglobin A1c (4.0-6.0) % Lactate Dehydrogenase (313-618) U/L Creatine Kinase (55-170) U/L C-Reactive Protein (<10.0) mg/L Assessment and Plan (1) COVID-19 Current Visit: Yes Status: Acute Code(s): U07.1 - COVID-19 SNOMED Code(s): 619479153 (2) Dehydration Current Visit: Yes Status: Acute Code(s): E86.0 - DEHYDRATION SNOMED Code(s): 10056971 (3) Generalized weakness Current Visit: Yes Status: Acute Code(s): R53.1 - WEAKNESS SNOMED Code(s): 26660605 (4) Multiple falls Current Visit: Yes Status: Acute Code(s): R29.6 - REPEATED FALLS SNOMED Code(s): 301065914 (5) Rhabdomyolysis Current Visit: Yes Status: Acute Code(s): M62.82 - RHABDOMYOLYSIS SNOMED Code(s): 403439842 (6) Hypertension Current Visit: No Status: Acute Code(s): I10 - ESSENTIAL (PRIMARY) HYPERTENSION SNOMED Code(s): 43837123 Plan: Continue aggressive supportive care Continue judicious fluid resuscitation for rhabdo Patient's respiratory status is stable Continue current supportive care for covid 19 Consider rehab placement for discharge Discussed with Atif yoo drug abuse social worker on 06/02/2020 Time with Patient: Greater than 30
[2020-06-03 11:55] LABS: Glucose,Whole Blood 166 mg/dL (75-99)
--- NOTE | 2020-06-03 12:45 | P.PN ---
Subjective Progress Note Date: 06/03/20 Principal diagnosis: Acute hypoxic respiratory failure secondary to color 19 pneumonitis This is a 79-year-old white male with history of multiple medical problems including hypertension, diabetes, patient presented yesterday to the ER twice. The first time he presented earlier and he was complaining of weakness, his weakness has been going on for about a week and a half. And he also complained of nonproductive cough. He had no shortness of breath, no chest pain, patient had decreased appetite, no diarrhea, no nausea, no vomiting. Patient had positive PCR for abreu virus. Hence he received monoclonal antibody in the ER, and he was discharged home. Patient came back later complaining of worsening symptoms. And his PCR was repeated again, came back positive. Patient was found to have abnormal chest x-ray suggestive of bilateral infiltrates. He was also noted to have elevated CPK at 5359, slightly elevated d-dimer of 0.97, elevated inflammatory markers with LDH of 1722, and C-reactive protein of 162. Considering the worsening status, and considering the patient required now oxygen at 5 L/m to maintain O2 saturation of 91%, patient was admitted, and this consult was initiated. We saw the patient on consultation, and I recommended that we continue Decadron, Lovenox, and recommended the usual cold mid 19 cocktails. Also recommended hydration of the patient, for his elevated CPK, considering the patient has been sick for over a week and a half, patient does not qualify for remdesivir The patient is seen today 06/02/2020 in follow-up on the regular medical floor. He is currently resting comfortably in bed. Awake and alert in no acute distress. He is on 6 L nasal cannula maintaining O2 saturation in the 90s. He is still dyspneic on minimal exertion. Nonproductive cough. White count 8.1. Hemoglobin 14.1. Platelet count 147. Lymphocytes 0.7. Sodium 138. Potassium 4.4. Creatinine 0.84. Creatinine kinase 2137. The patient is seen today 06/03/2020 up on the regular medical floor. He is currently sitting up in a chair at the bedside. Awake and alert in no acute distress. He is still on 6 L high flow nasal cannula to maintain O2 saturations in the mid 90s. Chest x-ray does show improvement. There is still some bilateral infiltrates right greater than left. Continues with crackles in the posterior bases. White count 9.3. Hemoglobin 13.5. Lymphocytes 0.7. D-dimer 0.68. Sodium 140. Potassium 4.3. Creatinine 0.77. LDH 1161. CK 1415. C- reactive protein 26.1. He remains on Lovenox, dexamethasone, vitamin supple ments. He was outside the window for Remdesivir. Objective - Vital Signs Vital signs: Vital Signs Temp 97.6 F 06/03/20 10:00 Pulse 93 06/03/20 10:00 Resp 22 06/03/20 10:00 BP 147/83 06/03/20 10:00 Pulse Ox 95 06/03/20 10:00 Intake & Output 06/02/20 06/03/20 06/03/20 18:59 06:59 18:59 Intake Total 200 Output Total 800 Balance -800 200 Intake: Oral 200 Output: Urine 800 Other: Voiding Method Urinal Urinal # Voids 4 # Bowel Movements 1 - Exam GENERAL EXAM: Alert, pleasant 79-year-old gentleman, on 6 L nasal cannula, comfortable in no apparent distress. HEAD: Normocephalic. EYES: Normal reaction of pupils, equal size. NOSE: Clear with pink turbinates. THROAT: No erythema or exudates. NECK: No masses, no JVD. CHEST: No chest wall deformity. LUNGS: Equal air entry with wheezing or crackles, scattered rhonchi. CVS: S1 and S2 normal with no audible murmur, regular rhythm. ABDOMEN: No hepatosplenomegaly, normal bowel sounds, no guarding or rigidity. SPINE: No scoliosis or deformity SKIN: No rashes CENTRAL NERVOUS SYSTEM: No focal deficits, tone is normal in all 4 extremities. EXTREMITIES: There is no peripheral edema. No clubbing, no cyanosis. Peripheral pulses are intact. - Labs CBC & Chem 7: 06/03/20 06:28 06/03/20 06:28 Labs: Abnormal Lab Results - Last 24 Hours (Table) 06/02/20 06/02/20 06/02/20 Range/Units 06:07 17:04 20:29 Neutrophils # (1.3-7.7) k/uL Lymphocytes # (1.0-4.8) k/uL D-Dimer (<0.60) mg/L FEU Chloride (98-107) mmol/L Carbon Dioxide (22-30) mmol/L BUN (9-20) mg/dL Glucose (74-99) mg/dL POC Glucose (mg/dL) 151 H 197 H (75-99) mg/dL Hemoglobin A1c 6.3 H (4.0-6.0) % Lactate Dehydrogenase (313-618) U/L Creatine Kinase (55-170) U/L C-Reactive Protein (<10.0) mg/L 06/03/20 06/03/20 06/03/20 Range/Units 06:28 06:28 06:28 Neutrophils # 8.0 H (1.3-7.7) k/uL Lymphocytes # 0.7 L (1.0-4.8) k/uL D-Dimer 0.68 H (<0.60) mg/L FEU Chloride 111 H (98-107) mmol/L Carbon Dioxide 21 L (22-30) mmol/L BUN 23 H (9-20) mg/dL Glucose 107 H (74-99) mg/dL POC Glucose (mg/dL) (75-99) mg/dL Hemoglobin A1c (4.0-6.0) % Lactate Dehydrogenase 1161 H (313-618) U/L Creatine Kinase 1415 H* (55-170) U/L C-Reactive Protein 26.1 H (<10.0) mg/L 06/03/20 06/03/20 Range/Units 07:15 11:50 Neutrophils # (1.3-7.7) k/uL Lymphocytes # (1.0-4.8) k/uL D-Dimer (<0.60) mg/L FEU Chloride (98-107) mmol/L Carbon Dioxide (22-30) mmol/L BUN (9-20) mg/dL Glucose (74-99) mg/dL POC Glucose (mg/dL) 111 H 166 H (75-99) mg/dL Hemoglobin A1c (4.0-6.0) % Lactate Dehydrogenase (313-618) U/L Creatine Kinase (55-170) U/L C-Reactive Protein (<10.0) mg/L Assessment and Plan Assessment: 1 Acute hypoxic respiratory failure secondary to covid 19 pneumonitis. Outside the window for Remdesivir 2 Acute rhabdomyolysis most likely secondary to frequent falls 3 Type 2 diabetes 4 Benign essential hypertension 5 History of enlarged prostate/benign prostatic hypertrophy 6 History of coronary artery disease and previous myocardial infarction, previous stenting of RCA and subsequently LAD stenting. 7 History of degenerative joint disease. Plan: The patient was seen and evaluated by Dr. Mcclendon Continue dexamethasone, Lovenox, vitamin supplement Titrate down the FiO2 as tolerated We will continue to follow I, the cosigning physician, performed a history & physical examination of the patient. Lungs sounds basilar crackles, scattered rhonchi. Maintaining good O2 saturations in the 90s on 6 liters per minute per nasal cannula. I discussed the assessment and plan of care with my nurse practitioner, Angelina Rocha. I attest to the above note as dictated by her.
[2020-06-03 17:08] LABS: Glucose,Whole Blood 214 mg/dL (75-99)
[2020-06-03 20:23] LABS: Glucose,Whole Blood 167 mg/dL (75-99)
[2020-06-04 07:00] LABS: Glucose,Whole Blood 101 mg/dL (75-99)
[2020-06-04] MEDS: INSULIN ASPART (NovoLOG) 100 UNIT/ML VIAL SQ SCH ×4 (07:22→20:22)
[2020-06-04] MEDS: dexAMETHasone 2 MG TAB PO SCH (07:53)
[2020-06-04] MEDS: SODIUM BICARBONATE TAB 650 MG TAB PO SCH ×2 (07:53→20:22)
[2020-06-04] MEDS: ASCORBIC ACID 500 MG TAB PO SCH (07:53)
[2020-06-04] MEDS: metFORMIN 500 MG TAB PO SCH ×2 (07:54→20:22)
[2020-06-04] MEDS: amLODIPine 10 MG TAB PO SCH (07:54)
[2020-06-04] MEDS: TAMSULOSIN 0.4 MG CAP.ER.24H PO SCH (07:54)
[2020-06-04] MEDS: LACTATED RINGERS 1,000 ML IV SCH ×2 (07:54→20:22)
[2020-06-04] MEDS: CHOLECALCIFEROL 25 MCG (1000 IU) TABLET PO SCH (07:54)
[2020-06-04] MEDS: ASPIRIN 81 MG PO SCH (07:54)
[2020-06-04] MEDS: lisinopriL 10 MG TAB PO SCH (07:54)
[2020-06-04] MEDS: PANTOPRAZOLE 40 MG TABLET PO SCH (07:54)
[2020-06-04] MEDS: ENOXAPARIN 40 MG/0.4 ML SYRINGE SQ SCH (07:55)
[2020-06-04] MEDS: ZINC SULFATE 220 MG CAP PO SCH (07:55)
[2020-06-04 11:27] LABS: Glucose,Whole Blood 135 mg/dL (75-99)
[2020-06-04 11:39] LABS: C Reactive Protein 1.2 mg/dL (0.0-0.8)
--- NOTE | 2020-06-04 11:49 | P.PN ---
Subjective Progress Note Date: 06/04/20 Principal diagnosis: Covid 19 infection, rhabdomyolysis, acute hypoxic respiratory failure secondary Covid Currently patient sitting up in in chair resting comfortably. He is on 4 L nasal cannula with oxygen saturations of 92% most recent set of vitals 97.7 oral temp pulse rate of 83, respiratory rate of 18, blood pressure 130/72. Patient remains on dexamethasone, Lovenox, Protonix and lactated Ringer's for IV fluid. Objective - Vital Signs Vital signs: Vital Signs Temp 97.7 F 06/04/20 10:00 Pulse 83 06/04/20 10:00 Resp 18 06/04/20 10:57 BP 130/72 06/04/20 10:00 Pulse Ox 92 L 06/04/20 10:57 Intake & Output 06/03/20 06/04/20 06/04/20 17:59 06:59 18:59 Intake Total Output Total Balance Intake: Oral Output: Urine Other: Voiding Method Urinal # Voids 4 # Bowel Movements 1 - Exam GENERAL: Well-appearing, well-nourished and in no acute distress on 4 L nasal cannula. HEAD: Atraumatic, normocephalic. EYES: Pupils equal round and reactive to light, extraocular movements intact, sclera anicteric, conjunctiva are normal. ENT:nares patent, oropharynx clear without exudates. Moist mucous membranes. NECK: Normal range of motion, supple without lymphadenopathy or JVD, no thyromeg marlena LUNGS: Breath sounds good air exchange bilaterally and no fine basilar crackles. No wheezes or rhonchi. HEART: Regular rate and rhythm without murmurs, rubs or gallops.S1S2 Normal ABDOMEN: Soft, nontender, normoactive bowel sounds. No guarding, no rebound. No masses appreciated. EXTREMITIES: Normal range of motion, no pitting or edema. No clubbing or cyanosis. NEUROLOGICAL: Cranial nerves II through XII grossly intact. Normal speech, normal gait. PSYCH: Normal mood, normal affect. SKIN: Warm, Dry, normal turgor, no rashes or lesions noted. - Labs CBC & Chem 7: 06/03/20 06:28 06/03/20 06:28 Labs: Abnormal Lab Results - Last 24 Hours (Table) 03/13/21 03/13/21 03/13/21 Range/Units 11:50 17:02 20:22 D-Dimer (<0.60) mg/L FEU POC Glucose (mg/dL) 166 H 214 H 167 H (75-99) mg/dL 06/04/20 06/04/20 Range/Units 05:44 06:58 D-Dimer 0.84 H (<0.60) mg/L FEU POC Glucose (mg/dL) 101 H (75-99) mg/dL Assessment and Plan (1) COVID-19 Current Visit: Yes Status: Acute Code(s): U07.1 - COVID-19 SNOMED Code(s): 325571492 (2) Dehydration Current Visit: Yes Status: Acute Code(s): E86.0 - DEHYDRATION SNOMED Code(s): 68034171 (3) Generalized weakness Current Visit: Yes Status: Acute Code(s): R53.1 - WEAKNESS SNOMED Code(s): 38114777 (4) Multiple falls Current Visit: Yes Status: Acute Code(s): R29.6 - REPEATED FALLS SNOMED Code(s): 554878059 (5) Rhabdomyolysis Current Visit: Yes Status: Acute Code(s): M62.82 - RHABDOMYOLYSIS SNOMED Code(s): 487625880 Plan: 1. Continue current medical regimen. 2. Continue on supportive supplemental oxygen maintain sats greater than 92%. 3. We'll consider possibility of rehab on discharge. 4. We'll continue to follow closely and reassess again tomorrow. Time with Patient: Greater than 30
--- NOTE | 2020-06-04 15:15 | P.PN ---
Subjective Progress Note Date: 06/04/20 Principal diagnosis: Acute hypoxic respiratory failure secondary to color 19 pneumonitis This is a 79-year-old white male with history of multiple medical problems including hypertension, diabetes, patient presented yesterday to the ER twice. The first time he presented earlier and he was complaining of weakness, his weakness has been going on for about a week and a half. And he also complained of nonproductive cough. He had no shortness of breath, no chest pain, patient had decreased appetite, no diarrhea, no nausea, no vomiting. Patient had positive PCR for abreu virus. Hence he received monoclonal antibody in the ER, and he was discharged home. Patient came back later complaining of worsening symptoms. And his PCR was repeated again, came back positive. Patient was found to have abnormal chest x-ray suggestive of bilateral infiltrates. He was also noted to have elevated CPK at 5359, slightly elevated d-dimer of 0.97, elevated inflammatory markers with LDH of 1722, and C-reactive protein of 162. Considering the worsening status, and considering the patient required now oxygen at 5 L/m to maintain O2 saturation of 91%, patient was admitted, and this consult was initiated. We saw the patient on consultation, and I recommended that we continue Decadron, Lovenox, and recommended the usual cold mid 19 cocktails. Also recommended hydration of the patient, for his elevated CPK, considering the patient has been sick for over a week and a half, patient does not qualify for remdesivir The patient is seen today 06/02/2020 in follow-up on the regular medical floor. He is currently resting comfortably in bed. Awake and alert in no acute distress. He is on 6 L nasal cannula maintaining O2 saturation in the 90s. He is still dyspneic on minimal exertion. Nonproductive cough. White count 8.1. Hemoglobin 14.1. Platelet count 147. Lymphocytes 0.7. Sodium 138. Potassium 4.4. Creatinine 0.84. Creatinine kinase 2137. The patient is seen today 06/03/2020 up on the regular medical floor. He is currently sitting up in a chair at the bedside. Awake and alert in no acute distress. He is still on 6 L high flow nasal cannula to maintain O2 saturations in the mid 90s. Chest x-ray does show improvement. There is still some bilateral infiltrates right greater than left. Continues with crackles in the posterior bases. White count 9.3. Hemoglobin 13.5. Lymphocytes 0.7. D-dimer 0.68. Sodium 140. Potassium 4.3. Creatinine 0.77. LDH 1161. CK 1415. C- reactive protein 26.1. He remains on Lovenox, dexamethasone, vitamin supple ments. He was outside the window for Remdesivir. The patient is seen today 06/04/2020 in follow-up on the regular medical floor. He is currently sitting in a chair at the bedside. Awake and alert in no acute distress. He is currently maintaining O2 saturations in the 90s on 4 L/m per nasal cannula. He is breathing better today compared to yesterday. A little more active. D-dimer 0.84. LDH 43. C-reactive protein 1.2. Blood glucose 135. He is continued on Lovenox, dexamethasone, vitamin supplements. He was outside the window for Remdesivir. Objective - Vital Signs Vital signs: Vital Signs Temp 97.6 F 06/04/20 13:57 Pulse 90 06/04/20 13:57 Resp 18 06/04/20 13:57 BP 116/72 06/04/20 13:57 Pulse Ox 97 06/04/20 13:57 Intake & Output 06/03/20 06/04/20 06/04/20 17:59 06:59 18:59 Intake Total Output Total Balance Intake: Oral Output: Urine Other: Voiding Method Urinal # Voids 4 # Bowel Movements 1 - Exam GENERAL EXAM: Alert, pleasant 79-year-old gentleman, on 4 L nasal cannula, comfortable in no apparent distress. HEAD: Normocephalic. EYES: Normal reaction of pupils, equal size. NOSE: Clear with pink turbinates. THROAT: No erythema or exudates. NECK: No masses, no JVD. CHEST: No chest wall deformity. LUNGS: Equal air entry with no wheezing or crackles, few scattered rhonchi. CVS: S1 and S2 normal with no audible murmur, regular rhythm. ABDOMEN: No hepatosplenomegaly, normal bowel sounds, no guarding or rigidity. SPINE: No scoliosis or deformity SKIN: No rashes CENTRAL NERVOUS SYSTEM: No focal deficits, tone is normal in all 4 extremities. EXTREMITIES: There is no peripheral edema. No clubbing, no cyanosis. Peripheral pulses are intact. - Labs CBC & Chem 7: 06/03/20 06:28 06/03/20 06:28 Labs: Abnormal Lab Results - Last 24 Hours (Table) 06/03/20 06/03/20 06/04/20 Range/Units 17:02 20:22 05:44 D-Dimer 0.84 H (<0.60) mg/L FEU POC Glucose (mg/dL) 214 H 167 H (75-99) mg/dL Lactate Dehydrogenase (120-246) U/L C-Reactive Protein (0.0-0.8) mg/dL 06/04/20 06/04/20 06/04/20 Range/Units 05:44 06:58 11:23 D-Dimer (<0.60) mg/L FEU POC Glucose (mg/dL) 101 H 135 H (75-99) mg/dL Lactate Dehydrogenase 403 H (120-246) U/L C-Reactive Protein 1.2 H (0.0-0.8) mg/dL Assessment and Plan Assessment: 1 Acute hypoxic respiratory failure secondary to covid 19 pneumonitis. Outside the window for Remdesivir 2 Acute rhabdomyolysis most likely secondary to frequent falls 3 Type 2 diabetes 4 Benign essential hypertension 5 History of enlarged prostate/benign prostatic hypertrophy 6 History of coronary artery disease and previous myocardial infarction, previous stenting of RCA and subsequently LAD stenting. 7 History of degenerative joint disease. Plan: The patient was seen and evaluated by Dr. Mcclendon Continue dexamethasone, Lovenox, vitamin supplement Titrate down the FiO2 as tolerated Follow-up chest x-ray in a.m. We will continue to follow I, the cosigning physician, performed a history & physical examination of the patient. Lungs sounds with few, scattered rhonchi. Maintaining good O2 saturations in the 90s on 4 liters per minute per nasal cannula. I discussed the assessment and plan of care with my nurse practitioner, Angelina Rocha. I attest to the above note as dictated by her.
[2020-06-04 16:24] LABS: Glucose,Whole Blood 223 mg/dL (75-99)
[2020-06-04] MEDS: BENZOCAINE/MENTHOL LOZENG 1 EACH LOZENGE MUCOUS MEM PRN (20:22)
[2020-06-04 20:38] LABS: Glucose,Whole Blood 202 mg/dL (75-99)
[2020-06-05] MEDS: BENZOCAINE/MENTHOL LOZENG 1 EACH LOZENGE MUCOUS MEM PRN ×2 (05:51→17:25)
[2020-06-05 06:48] LABS: Glucose,Whole Blood 120 mg/dL (75-99)
[2020-06-05] MEDS: INSULIN ASPART (NovoLOG) 100 UNIT/ML VIAL SQ SCH ×4 (07:48→20:11)
[2020-06-05] MEDS: ENOXAPARIN 40 MG/0.4 ML SYRINGE SQ SCH (07:54)
[2020-06-05] MEDS: SODIUM BICARBONATE TAB 650 MG TAB PO SCH ×2 (07:54→20:11)
[2020-06-05] MEDS: ASPIRIN 81 MG PO SCH (07:54)
[2020-06-05] MEDS: CHOLECALCIFEROL 25 MCG (1000 IU) TABLET PO SCH (07:54)
[2020-06-05] MEDS: lisinopriL 10 MG TAB PO SCH (07:54)
[2020-06-05] MEDS: PANTOPRAZOLE 40 MG TABLET PO SCH (07:54)
[2020-06-05] MEDS: TAMSULOSIN 0.4 MG CAP.ER.24H PO SCH (07:54)
[2020-06-05] MEDS: amLODIPine 10 MG TAB PO SCH (07:55)
[2020-06-05] MEDS: metFORMIN 500 MG TAB PO SCH ×2 (07:55→20:11)
[2020-06-05] MEDS: ZINC SULFATE 220 MG CAP PO SCH (07:55)
[2020-06-05] MEDS: dexAMETHasone 2 MG TAB PO SCH (07:55)
[2020-06-05] MEDS: ASCORBIC ACID 500 MG TAB PO SCH (07:55)
--- NOTE | 2020-06-05 08:30 | XR ---
EXAMINATION TYPE: XR chest 1V portable DATE OF EXAM: 06/05/2020 Comparison: 06/03/2020 Clinical History: 79-year-old male CoVID pneumonia Findings: Heart normal size. Mild elongation thoracic aorta. Patchy peripheral opacities persist, right greater than left. No pleural effusion. Impression: Patchy right greater than left peripheral opacities show no significant change.
[2020-06-05 10:43] LABS: Basophils # (A) 0.02 X 10*3/uL (0.00-0.10); Basophils % (A) 0.2 %; Eosinophils # (A) 0 X 10*3/uL (0.04-0.35); Eosinophils % (A) 0 %; HCT 39.4 % (39.6-50.0); HGB 13.5 g/dL (13.0-17.0); Lymphocytes # (A) 0.85 X 10*3/uL (0.90-5.00); Lymphocytes % (A) 7.2 %; MCH 31.2 pg (27.0-32.0); MCHC 34.3 g/dL (32.0-37.0); Mean Platelet Volume 11.1 fL (9.5-12.2); Monocytes # (A) 0.85 X 10*3/uL (0.20-1.00); Monocytes % (A) 7.2 %; Neutrophils % (A) 84.2 %; Platelet Count 236 X 10*3/uL (140-440); RBC 4.33 X 10*6/uL (4.40-5.60); RDW 12.7 % (11.5-14.5); WBC 11.86 X 10*3/uL (4.50-10.00)
[2020-06-05 11:31] LABS: Glucose,Whole Blood 168 mg/dL (75-99)
[2020-06-05] MEDS: LACTATED RINGERS 1,000 ML IV SCH ×2 (12:15→20:13)
--- NOTE | 2020-06-05 14:27 | P.PN ---
Subjective This is a pleasant 79-year-old gentleman with history of diabetes mellitus, hypertension, CAD, [place], cardiac stents 2, gout, muscle skeletal disorder and multiple other medical issues presented to the ER with complaints of Increased weakness, multiple falls, mild shortness of breath and multiple other medical issues. Most recent fall yesterday morning, required assistance from EMS/Fire Department. Patient initially presented to the ER twice, tested positive for coronal virus, received monoclonal antibody and discharged home. Returned with worsening symptoms . Denies syncope or head trauma. Denies chest pain, palpitations. Denies nausea vomiting or diarrhea. Febrile on admission, 100.5, WBC WNL, hemoglobin 13.3, platelets 1:15, INR 1 .sodium 137, potassium 4.7, chloride 110, CO2 15, BUN 30, creatinine 0.86, glucose 116, magnesium 2 . T bili and LFTs normal with the exception of mildly elevated AST at 86 .creatinine kinase elevated, 2695, albumin low 3.2 .UA reporting when up, 1+ ketones 1+ protein, specific gravity 1.022. Chest x-ray reporting persistent patchy bilateral areas of infiltrate, soft tissue fullness in the left paratracheal region, possible adenopathy. On admission patient was 91% on room air, now requiring 5 L nasal cannula and maintaining O2 sats in the low 90s. Received Decadron IV push in the ER and pulmonary consulted. 06/02/2020 maintained on Covid 19 cocktail, status post BAM. Blood sugars cont rolled. Feels better today. Denies lightheadedness dizziness or focal deficits. Denies headache. Denies chest pain, palpitations or shortness of breath. Denies diarrhea. Continues on IV fluid hydration with improvement in CK, 3137. Creatinine remaines stable at 0.84. 24-hour urine in progress for both CPK and myoglobin. Troponin is negative 2.Afebrile, normal WBC. Evaluated by PT, recommending home with home care at discharge. Evaluated by the urology with recommendations noted and appreciated. 06/05/2020: patient is doing better with his Covid infection. Samantha is afebrile. He is on Room air sio2 96%. DDIME is 1.07 glucose 168 this am. CXR shows patchy R> L opacities. HE states he feels beter and wasns to go home soon. He is usuing a walker to help ambulate. He denies any chest pain pressure or significant SOB. Objective - Vital Signs Vital signs: Vital Signs Temp 97.7 F 06/05/20 13:31 Pulse 85 06/05/20 13:31 Resp 18 06/05/20 13:31 BP 121/71 06/05/20 13:31 Pulse Ox 96 06/05/20 13:31 Intake & Output 06/04/20 06/05/20 06/05/20 18:59 06:59 18:59 Intake Total 100 Output Total 200 Balance -200 100 Intake: Oral 100 Output: Urine 200 Other: Voiding Method Urinal Urinal # Voids 4 # Bowel Movements 1 1 - Exam GENERAL: Well-appearing, well-nourished and in no acute distress on room iar now NECK: Normal range of motion, supple without lymphadenopathy or JVD, no thyromegaly LUNGS: Breath sounds good air exchange bilaterally and no fine basilar crackles. No wheezes or rhonchi. HEART: Regular rate and rhythm without murmurs, rubs or gallops.S1S2 Normal ABDOMEN: Soft, nontender, normoactive bowel sounds. No guarding, no rebound. No masses appreciated. EXTREMITIES: Normal range of motion, no pitting or edema. No clubbing or cyanosis. NEUROLOGICAL: Cranial nerves II through XII grossly intact. Normal speech, slow normal gait with walker. PSYCH: Normal mood, normal affect. SKIN: Warm, Dry, normal turgor, no rashes or lesions noted. - Labs CBC & Chem 7: 06/05/20 06:37 06/03/20 06:28 Labs: Abnormal Lab Results - Last 24 Hours (Table) 06/04/20 06/04/20 06/05/20 Range/Units 16:23 20:16 06:37 WBC (4.50-10.00) X 10*3/uL RBC (4.40-5.60) X 10*6/uL Hct (39.6-50.0) % Immature Gran # (0.00-0.04) X 10*3/uL Neutrophils # (1.80-7.70) X 10*3/uL Lymphocytes # (0.90-5.00) X 10*3/uL Eosinophils # (0.04-0.35) X 10*3/uL D-Dimer 1.07 H (<0.60) mg/L FEU POC Glucose (mg/dL) 223 H 202 H (75-99) mg/dL 06/05/20 06/05/20 06/05/20 Range/Units 06:37 06:47 11:29 WBC 11.86 H (4.50-10.00) X 10*3/uL RBC 4.33 L (4.40-5.60) X 10*6/uL Hct 39.4 L (39.6-50.0) % Immature Gran # 0.14 H (0.00-0.04) X 10*3/uL Neutrophils # 10.00 H (1.80-7.70) X 10*3/uL Lymphocytes # 0.85 L (0.90-5.00) X 10*3/uL Eosinophils # 0 L (0.04-0.35) X 10*3/uL D-Dimer (<0.60) mg/L FEU POC Glucose (mg/dL) 120 H 168 H (75-99) mg/dL Assessment and Plan (1) COVID-19 Current Visit: Yes Status: Acute Code(s): U07.1 - COVID-19 SNOMED Code(s): 513190110 (2) Dehydration Current Visit: Yes Status: Acute Code(s): E86.0 - DEHYDRATION SNOMED Code(s): 89432806 (3) Generalized weakness Current Visit: Yes Status: Acute Code(s): R53.1 - WEAKNESS SNOMED Code(s): 18027659 (4) Multiple falls Current Visit: Yes Status: Acute Code(s): R29.6 - REPEATED FALLS SNOMED Code(s): 712292799 (5) Rhabdomyolysis Current Visit: Yes Status: Acute Code(s): M62.82 - RHABDOMYOLYSIS SNOMED Code(s): 384016066 Plan: repeat labs in am continue Vitamins D,C, Zince, Dexamathasone reecheck in 24hrs for possible D/C to home, ECF
[2020-06-05 15:32] LABS: Albumin 3.9 g/dL (3.80-4.90); Albumin/Globulin Ratio 2.44 (1.60-3.17); Anion Gap 8.6 mmol/L (4.00-12.00); BUN/Creat Ratio 28.57 Ratio (12.00-20.00); C Reactive Protein 1.9 mg/dL (0.0-0.8); Calcium 9.3 mg/dL (8.7-10.3); Carbon Dioxide 27.4 mmol/L (21.6-31.8); Globulin 1.6 g/dL (1.6-3.3); Magnesium 1.4 mg/dL (1.5-2.4); Non-African American GFR(CKD) 89.8 (60.0-200.0); Potassium 4.3 mmol/L (3.5-5.5); Total Bilirubin 0.9 mg/dL (0.3-1.2); Total Protein 5.5 g/dL (6.2-8.2)
--- NOTE | 2020-06-05 16:07 | P.PN ---
Subjective Progress Note Date: 06/05/20 Principal diagnosis: Acute COVID 19 pneumonittis 81-year-old white female patient that came into the emergency department on 06/01/2020 with complaints of shortness of breath for 2 days prior to presentation. The patient's was positive for COVID 19. Patient denied any fever, denied any chest discomfort, no loss of taste or smell, no abdominal pain, nausea vomiting or diarrhea. Chronic medical conditions include history of A. fib on Xarelto, diabetes mellitus type 2, hypothyroidism, lifetime nonsmoker, permanent pacemaker implantation. Chest x-ray shows stable patchy interstitial infiltrates. On presentation patient was on room air however her oxygen demand has quickly increased up to 12 L of oxygen per minute, and subsequently up to 15 L less than 24 hours. She remains afebrile. Patient tested positive for COVID 19. White blood cell count is 11.6, hemoglobin is 14.5, d-dimer is 3.8, B1 is 29, creatinine is 1.16, ferritin is 1165, LDH is 1680, CRP is 165.5, pro calcitonin level is 0.42. Blood gas was completed yesterday showing pO2 59, pCO2 of 28, and pH of 7.44 and this was on 100% FiO2. CTA chest showed no evidence of pulmonary embolism, and fairly extensive bilateral confluent areas of groundglass opacities. There are some underlying changes that are chronic given bronchiectasis in the left upper lobe and to a lesser degree in the left lower lobe. There was some borderline sized mediastinal and right hilar lymph nodes that are possibly reactive. Patient was given a dose of IV Decadron in the emergency department, it has been switched over to IV Solu-Medrol 40 mg every 8 hours, she is on Xarelto, Pepcid, vitamins. This morning she was placed on BiPAP support with pressures of 12/5 and FiO2 of 60%. Her breathing is labored, today's chest x-ray shows multifocal patchy airspace disease. Patient was reevaluated today on 06/03/2020, patient remains in the ICU, she is feeling better, breathing a bit easier, although her chest x-ray continues to show bilateral interstitial infiltrates consistent with Covid 19 pneumonitis. Patient is now on airvo at 50 L and 80% FiO2, her O2 saturation is 92%. Patient is also on IV Solu-Medrol, she is on Xarelto, she did receive actemra yesterday, and she also received Lasix. Patient is out of the window for remdesivir, she also received 1 unit of convalescence plasma. Clinically the patient looks more comfortable today compared to yesterday, of course she is still requiring significant amount of oxygen, I feel we can potentially transfer the patient back to a regular medical floor with the same FiO2 settings. CBC is relatively normal. Renal profile is normal. LDH is 1543 and C-reactive protein is 64 The patient is seen today 06/04/2020 in follow-up on the regular medical floor. She is currently sitting up in a chair at the bedside. Awake and alert in no acute distress. She is still requiring airflow high flow oxygen at 60 L and 91% O2 saturation to maintain O2 saturations in the low 90s. She is breathing a bit easier today compared to yesterday. She denies any worsening shortness of breath, cough or congestion. She did receive Actemra. Received 1 unit of co nvalescence plasma. Remains on IV Solu-Medrol. Anticoagulated with Xarelto. Vitamin supplements. On 06/05/2020 patient seen in follow-up on the regular medical floor, he sitting up in a chair, he is breathing comfortably, he is on 6 L of oxygen pulse ox is 96%. No fever or chills, blood pressure is stable, looks comfortable, breathing comfortably, today's chest x-ray shows patchy right greater than left upper opacities with no significant change. Objective - Vital Signs Vital signs: Vital Signs Temp 97.7 F 06/05/20 13:31 Pulse 85 06/05/20 13:31 Resp 18 06/05/20 13:31 BP 121/71 06/05/20 13:31 Pulse Ox 96 06/05/20 13:31 Intake & Output 06/04/20 06/05/20 06/05/20 18:59 06:59 18:59 Intake Total 100 Output Total 200 Balance -200 100 Intake: Oral 100 Output: Urine 200 Other: Voiding Method Urinal Urinal # Voids 4 # Bowel Movements 1 1 - Exam GENERAL EXAM: Alert, very pleasant 79-year-old white female, on 6 L the pulse ox of 96% comfortable in no apparent distress. HEAD: Normocephalic/atraumatic. EYES: Normal reaction of pupils, equal size. Conjunctiva pink, sclera white. NOSE: Clear with pink turbinates. THROAT: No erythema or exudates. NECK: No masses, no JVD, no thyroid enlargement, no adenopathy. CHEST: No chest wall deformity. Symmetrical expansion. LUNGS: Equal air entry with no crackles, wheeze, rhonchi or dullness. CVS: Regular rate and rhythm, normal S1 and S2, no gallops, no murmurs, no rubs ABDOMEN: Soft, nontender. No hepatosplenomegaly, normal bowel sounds, no guarding or rigidity. EXTREMITIES: No clubbing, no edema, no cyanosis, 2+ pulses and upper and lower extremities. MUSCULOSKELETAL: Muscle strength and tone normal. SPINE: No scoliosis or deformity SKIN: No rashes CENTRAL NERVOUS SYSTEM: Alert and oriented -3. No focal deficits, tone is normal in all 4 extremities. PSYCHIATRIC: Alert and oriented -3. Appropriate affect. Intact judgment and insight. - Labs CBC & Chem 7: 06/05/20 06:37 06/05/20 06:37 Labs: Abnormal Lab Results - Last 24 Hours (Table) 06/04/20 06/04/20 06/05/20 Range/Units 16:23 20:16 06:37 WBC (4.50-10.00) X 10*3/uL RBC (4.40-5.60) X 10*6/uL Hct (39.6-50.0) % Immature Gran # (0.00-0.04) X 10*3/uL Neutrophils # (1.80-7.70) X 10*3/uL Lymphocytes # (0.90-5.00) X 10*3/uL Eosinophils # (0.04-0.35) X 10*3/uL D-Dimer 1.07 H (<0.60) mg/L FEU BUN/Creatinine Ratio (12.00-20.00) Ratio POC Glucose (mg/dL) 223 H 202 H (75-99) mg/dL Magnesium (1.5-2.4) mg/dL AST (14-35) U/L ALT (10-49) U/L Lactate Dehydrogenase (120-246) U/L C-Reactive Protein (0.0-0.8) mg/dL Total Protein (6.2-8.2) g/dL 06/05/20 06/05/20 06/05/20 Range/Units 06:37 06:37 06:47 WBC 11.86 H (4.50-10.00) X 10*3/uL RBC 4.33 L (4.40-5.60) X 10*6/uL Hct 39.4 L (39.6-50.0) % Immature Gran # 0.14 H (0.00-0.04) X 10*3/uL Neutrophils # 10.00 H (1.80-7.70) X 10*3/uL Lymphocytes # 0.85 L (0.90-5.00) X 10*3/uL Eosinophils # 0 L (0.04-0.35) X 10*3/uL D-Dimer (<0.60) mg/L FEU BUN/Creatinine Ratio 28.57 H (12.00-20.00) Ratio POC Glucose (mg/dL) 120 H (75-99) mg/dL Magnesium 1.4 L (1.5-2.4) mg/dL AST 46 H (14-35) U/L ALT 57 H (10-49) U/L Lactate Dehydrogenase 407 H (120-246) U/L C-Reactive Protein 1.9 H (0.0-0.8) mg/dL Total Protein 5.5 L (6.2-8.2) g/dL 06/05/20 Range/Units 11:29 WBC (4.50-10.00) X 10*3/uL RBC (4.40-5.60) X 10*6/uL Hct (39.6-50.0) % Immature Gran # (0.00-0.04) X 10*3/uL Neutrophils # (1.80-7.70) X 10*3/uL Lymphocytes # (0.90-5.00) X 10*3/uL Eosinophils # (0.04-0.35) X 10*3/uL D-Dimer (<0.60) mg/L FEU BUN/Creatinine Ratio (12.00-20.00) Ratio POC Glucose (mg/dL) 168 H (75-99) mg/dL Magnesium (1.5-2.4) mg/dL AST (14-35) U/L ALT (10-49) U/L Lactate Dehydrogenase (120-246) U/L C-Reactive Protein (0.0-0.8) mg/dL Total Protein (6.2-8.2) g/dL Assessment and Plan Plan: Assessment: #1. Acute hypoxic respiratory failure secondary to "19 pneumonitis, outside the window for undesignated #2. Acute rhabdomyolysis most likely secondary to frequent falls #3. Type 2 diabetes mellitus #4. Benign essential hypertension #5. History of enlarged prostate/benign prostatic hypertrophy #6. History of coronary artery disease and previous myocardial infarction, previous stenting of the RCA and subsequently LAD stenting #7. History of degenerative joint disease Plan: Continue Decadron continue Lovenox, continue vitamins, wean FiO2 to keep O2 sat at or above 90%, no fever or chills, inflammatory markers are improving, his d- dimer was noted, we'll continue to follow his clinical course and make further recommendations, still on too much oxygen to consider discharge, continue to follow I performed a history & physical examination of the patient and discussed their management with my nurse practitioner, Brenda Zuniga. I reviewed the nurse practitioner's note and agree with the documented findings and plan of care. Lung sounds are positive for diminished breath sounds.. The findings and the i mpression was discussed with the patient. I attest to the documentation by the nurse practitioner. Time with Patient: Less than 30
[2020-06-05 16:24] LABS: Glucose,Whole Blood 262 mg/dL (75-99)
[2020-06-05 20:10] LABS: Glucose,Whole Blood 216 mg/dL (75-99)
[2020-06-06 07:16] LABS: Glucose,Whole Blood 104 mg/dL (75-99)
[2020-06-06] MEDS: INSULIN ASPART (NovoLOG) 100 UNIT/ML VIAL SQ SCH ×2 (08:30→11:58)
[2020-06-06] MEDS: CHOLECALCIFEROL 25 MCG (1000 IU) TABLET PO SCH (08:43)
[2020-06-06] MEDS: amLODIPine 10 MG TAB PO SCH (08:43)
[2020-06-06] MEDS: lisinopriL 10 MG TAB PO SCH (08:43)
[2020-06-06] MEDS: ASPIRIN 81 MG PO SCH (08:43)
[2020-06-06] MEDS: ENOXAPARIN 40 MG/0.4 ML SYRINGE SQ SCH ×2 (08:43→08:44)
[2020-06-06] MEDS: ZINC SULFATE 220 MG CAP PO SCH (08:43)
[2020-06-06] MEDS: PANTOPRAZOLE 40 MG TABLET PO SCH (08:44)
[2020-06-06] MEDS: SODIUM BICARBONATE TAB 650 MG TAB PO SCH (08:44)
[2020-06-06] MEDS: dexAMETHasone 2 MG TAB PO SCH (08:44)
[2020-06-06] MEDS: metFORMIN 500 MG TAB PO SCH (08:44)
[2020-06-06] MEDS: ASCORBIC ACID 500 MG TAB PO SCH (08:44)
[2020-06-06] MEDS: TAMSULOSIN 0.4 MG CAP.ER.24H PO SCH (08:44)
[2020-06-06] MEDS: BENZOCAINE/MENTHOL LOZENG 1 EACH LOZENGE MUCOUS MEM PRN (10:22)
[2020-06-06 10:58] LABS: Basophils # (A) 0.04 X 10*3/uL (0.00-0.10); Basophils % (A) 0.3 %; Eosinophils # (A) 0.01 X 10*3/uL (0.04-0.35); Eosinophils % (A) 0.1 %; HCT 41.5 % (39.6-50.0); HGB 13.7 g/dL (13.0-17.0); Lymphocytes # (A) 1.25 X 10*3/uL (0.90-5.00); Lymphocytes % (A) 8.2 %; MCH 30.9 pg (27.0-32.0); MCV 93.7 fL (80.0-97.0); Mean Platelet Volume 11.5 fL (9.5-12.2); Monocytes # (A) 0.83 X 10*3/uL (0.20-1.00); Monocytes % (A) 5.4 %; Neutrophils # (A) 12.92 X 10*3/uL (1.80-7.70); Neutrophils % (A) 84.4 %; Platelet Count 302 X 10*3/uL (140-440); RBC 4.43 X 10*6/uL (4.40-5.60); RDW 12.9 % (11.5-14.5); WBC 15.29 X 10*3/uL (4.50-10.00)
[2020-06-06 11:17] LABS: Glucose,Whole Blood 134 mg/dL (75-99)
[2020-06-06 11:30] LABS: Anion Gap 12.2 mmol/L (4.00-12.00); BUN/Creat Ratio 28.57 Ratio (12.00-20.00); Calcium 9.6 mg/dL (8.7-10.3); Carbon Dioxide 24.8 mmol/L (21.6-31.8); Non-African American GFR(CKD) 89.8 (60.0-200.0); Potassium 4.4 mmol/L (3.5-5.5)
--- NOTE | 2020-06-06 11:52 | P.DS ---
Providers Date of admission: 05/31/20 21:59 Expected date of discharge: 06/06/20 Attending physician: Tristan Oconnor Consults: 05/31/20 21:54 Consult Physician Urgent Consulting Provider: Emilie Mcclendon Consult Reason/Comments: COVID Do you want consulting provider notified?: Yes 06/01/20 12:31 Consult Physician Routine Consulting Provider: Jama Artis Consult Reason/Comments: rhabdo Do you want consulting provider notified?: Yes 06/01/20 12:32 Consult Physician Routine Consulting Provider: Janet Benton Consult Reason/Comments: multiple falls Do you want consulting provider notified?: Yes Primary care physician: Oleksandr Rivera Hospital Course: Final Diagnoses: Acute Covid 19 pneumonitis Acute hypoxic respiratory failure secondary to the above Acute Rhabdomyolysis probably secondary to multiple falls, stat EKG and troponins ordered. Generalized weakness secondary to the above Dehydration Degenerative joint disease History of Bilateral nephrolithiasis, large exophytic cyst of left kidney measuring 7 cm. History of Bladder stones History of Enlarged prostate History of Hepatomegaly with possible hepatic steatosis Diabetes mellitus II Hypertension CAD, history of [place] with cardiac stents in 2017. Hospital course:This is a pleasant 79-year-old gentleman with history of diabetes mellitus, hypertension, CAD, [place], cardiac stents 2, gout, muscle skeletal disorder and multiple other medical issues presented to the ER with complaints of Increased weakness, multiple falls, mild shortness of breath and multiple other medical issues. Most recent fall yesterday morning, required assistance from EMS/Fire Department. Patient initially presented to the ER twice, tested positive for coronal virus, received monoclonal antibody and discharged home. Returned with worsening symptoms . Denies syncope or head trauma. Denies chest pain, palpitations. Denies nausea vomiting or diarrhea. Febrile on admission, 100.5, WBC WNL, hemoglobin 13.3, platelets 1:15, INR 1 .sodium 137, potassium 4.7, chloride 110, CO2 15, BUN 30, creatinine 0.86, glucose 116, magnesium 2 . T bili and LFTs normal with the exception of mildly elevated AST at 86 .creatinine kinase elevated, 2695, albumin low 3.2 .UA reporting when up, 1+ ketones 1+ protein, specific gravity 1.022. Chest x-ray reporting persistent patchy bilateral areas of infiltrate, soft tissue fullness in the left paratracheal region, possible adenopathy. On admission patient was 91% on room air, now requiring 5 L nasal cannula and maintaining O2 sats in the low 90s. Received Decadron IV push in the ER and pulmonary consulted. 06/02/2020 maintained on Covid 19 cocktail, status post BAM. Blood sugars controlled. Feels better today. Denies lightheadedness dizziness or focal deficits. Denies headache. Denies chest pain, palpitations or shortness of breath. Denies diarrhea. Continues on IV fluid hydration with improvement in CK, 3137. Creatinine remaines stable at 0.84. 24-hour urine in progress for both CPK and myoglobin. Troponin is negative 2.Afebrile, normal WBC. Evaluated by PT, recommending home with home care at discharge. Evaluated by the urology with recommendations noted and appreciated. 06/05/2020: patient is doing better with his Covid infection. HJe is afebrile. He is on Room air sio2 96%. DDIME is 1.07 glucose 168 this am. CXR shows patchy R> L opacities. HE states he feels beter and wasns to go home soon. He is usuing a walker to help ambulate. He denies any chest pain pressure or significant SOB. Significant clinical improvement. Cleared by pulmonary for discharge. Patient will be discharged today to [facility] subacute rehab. In a stable condition with guarded prognosis. The impression and plan of care has been dictated as directed. : I performed a history and examination of this patient, discussed the same with the dictator. I agree with the dictator's note ,documented as a scribe. Any additional findings or plans will be noted. Patient Condition at Discharge: Stable Plan - Discharge Summary Discharge Rx Participant: No New Discharge Prescriptions: New Benzocaine/Menthol Lozeng [Cepacol lozenge] 1 each MUCOUS MEM Q4HR PRN lozenge PRN Reason: Cough dexAMETHasone [Hexadrol] 6 mg PO DAILY 4 Days #4 tab INSULIN LISPRO (HumaLOG) [humaLOG] 0 unit SQ ACHS #1 vial amLODIPine [Norvasc] 10 mg PO DAILY tab Zinc Sulfate [Orazinc] 220 mg PO DAILY cap Pantoprazole [Protonix] 40 mg PO AC-BRKFST tablet. Sodium Bicarbonate Tab 650 mg PO BID tab Ascorbic Acid [Vitamin C] 1,000 mg PO DAILY tab Cholecalciferol [Vitamin D3 (25 Mcg = 1000 Iu)] 50 mcg PO DAILY tablet lisinopriL [Zestril] 10 mg PO DAILY tab Continue metFORMIN HCL [Glucophage] 1,000 mg PO BID Aspirin EC [Ecotrin Low Dose] 81 mg PO DAILY Tamsulosin HCl [Flomax] 0.4 mg PO DAILY Acetaminophen Tab [Tylenol] 325 mg PO Q4H PRN PRN Reason: Pain Discontinued amLODIPine BESYLATE/BENAZEPRIL [Lotrel 10-40 MG] 1 cap PO DAILY Discharge Medication List metFORMIN HCL [Glucophage] 1,000 mg PO BID 05/04/17 [History] Aspirin EC [Ecotrin Low Dose] 81 mg PO DAILY 06/15/17 [History] Acetaminophen Tab [Tylenol] 325 mg PO Q4H PRN 05/31/20 [History] Tamsulosin HCl [Flomax] 0.4 mg PO DAILY 05/31/20 [History] Ascorbic Acid [Vitamin C] 1,000 mg PO DAILY tab 06/06/20 [Rx] Benzocaine/Menthol Lozeng [Cepacol lozenge] 1 each MUCOUS MEM Q4HR PRN lozenge 06/06/20 [Rx] Cholecalciferol [Vitamin D3 (25 Mcg = 1000 Iu)] 50 mcg PO DAILY tablet 06/06/20 [Rx] INSULIN LISPRO (HumaLOG) [humaLOG] 0 unit SQ ACHS #1 vial 06/06/20 [Rx] Pantoprazole [Protonix] 40 mg PO AC-BRKFST tablet. 06/06/20 [Rx] Sodium Bicarbonate Tab 650 mg PO BID tab 06/06/20 [Rx] Zinc Sulfate [Orazinc] 220 mg PO DAILY cap 06/06/20 [Rx] amLODIPine [Norvasc] 10 mg PO DAILY tab 06/06/20 [Rx] dexAMETHasone [Hexadrol] 6 mg PO DAILY 4 Days #4 tab 06/06/20 [Rx] lisinopriL [Zestril] 10 mg PO DAILY tab 06/06/20 [Rx] Follow up Appointment(s)/Referral(s): [facility], [NON-STAFF] - As Needed Oleksandr Rivera MD [Primary Care Provider] - 3 Days Activity/Diet/Wound Care/Special Instructions: [place] CBC, BMP in 3 days 5 L nasal cannula O2
--- NOTE | 2020-06-06 13:27 | P.PN ---
Subjective Progress Note Date: 06/06/20 On seeing the patient for the first time and he was evaluated by Dr. Coy on 06/02/2020. Please review Dr. Coy's note for further neurological details. Since the patient has been the hospital he stated that he feeling much better strength is improving. Per the patient's nurse he's doing drastically better since he's been the hospital. Objective - Vital Signs Vital signs: Vital Signs Temp 97.8 F 06/06/20 10:00 Pulse 91 06/06/20 10:00 Resp 19 06/06/20 10:00 BP 128/76 06/06/20 10:00 Pulse Ox 91 L 06/06/20 10:00 Intake & Output 06/05/20 06/06/20 06/06/20 18:59 06:59 18:59 Intake Total 100 200 Output Total 7 Balance 100 -7 200 Intake: Oral 100 200 Output: Urine 7 Other: Voiding Method Urinal # Voids 3 # Bowel Movements 1 - Exam On examination patient is an elderly male, very pleasant, in no acute distress. Patient is alert and awake, fairly well oriented. Speech and language functions are normal. Attention, concentration and fund of knowledge is adequate. On cranial nerve examination pupils are round and reacting to light, visual worrell are full, extraocular muscles are intact with no nystagmus. Face is symmetric, tongue protrudes the midline. Palatal elevation and sensation normal, hearing is moderately decreased, shoulder shrug normal, facial sensation is normal. Gait deferred. On muscle strength testing the strength is completely normal in both arms and legs distally and proximally except hip flexion which is 4+ to 5- He has slight atrophy of the right more than left contraceptives. tone and bulk of muscles normal. However his knee extension are normal. Patient is very high arched feet and slight hammertoes. Sensory to touch is equal. No ataxia for [id number] testing Reflexes are 1 in the upper limbs, 2+ at the knees, 1+ ankles and plantars are upgoing bilaterally. - Labs CBC & Chem 7: 06/06/20 05:39 06/06/20 05:39 Labs: Abnormal Lab Results - Last 24 Hours (Table) 06/02/20 06/05/20 06/05/20 Range/Units 10:13 06:37 16:21 WBC (4.50-10.00) X 10*3/uL Immature Gran # (0.00-0.04) X 10*3/uL Neutrophils # (1.80-7.70) X 10*3/uL Eosinophils # (0.04-0.35) X 10*3/uL Anion Gap (4.00-12.00) mmol/L BUN/Creatinine Ratio 28.57 H (12.00-20.00) Ratio POC Glucose (mg/dL) 262 H (75-99) mg/dL Magnesium 1.4 L (1.5-2.4) mg/dL AST 46 H (14-35) U/L ALT 57 H (10-49) U/L Lactate Dehydrogenase 407 H (120-246) U/L C-Reactive Protein 1.9 H (0.0-0.8) mg/dL Total Protein 5.5 L (6.2-8.2) g/dL Vitamin B6 4 L (5-50) ug/L 06/05/20 06/06/20 06/06/20 Range/Units 20:07 05:39 05:39 WBC 15.29 H (4.50-10.00) X 10*3/uL Immature Gran # 0.24 H (0.00-0.04) X 10*3/uL Neutrophils # 12.92 H (1.80-7.70) X 10*3/uL Eosinophils # 0.01 L (0.04-0.35) X 10*3/uL Anion Gap 12.20 H (4.00-12.00) mmol/L BUN/Creatinine Ratio 28.57 H (12.00-20.00) Ratio POC Glucose (mg/dL) 216 H (75-99) mg/dL Magnesium (1.5-2.4) mg/dL AST (14-35) U/L ALT (10-49) U/L Lactate Dehydrogenase (120-246) U/L C-Reactive Protein (0.0-0.8) mg/dL Total Protein (6.2-8.2) g/dL Vitamin B6 (5-50) ug/L 06/06/20 06/06/20 Range/Units 07:15 11:15 WBC (4.50-10.00) X 10*3/uL Immature Gran # (0.00-0.04) X 10*3/uL Neutrophils # (1.80-7.70) X 10*3/uL Eosinophils # (0.04-0.35) X 10*3/uL Anion Gap (4.00-12.00) mmol/L BUN/Creatinine Ratio (12.00-20.00) Ratio POC Glucose (mg/dL) 104 H 134 H (75-99) mg/dL Magnesium (1.5-2.4) mg/dL AST (14-35) U/L ALT (10-49) U/L Lactate Dehydrogenase (120-246) U/L C-Reactive Protein (0.0-0.8) mg/dL Total Protein (6.2-8.2) g/dL Vitamin B6 (5-50) ug/L Assessment and Plan Assessment: 79-year-old male, recently has Covid infection, has been feeling generalized weakness particularly in the legs, with couple falls in the last few days. Otherwise he has not had any falls prior to these. Patient's examination revealed mild weakness of the right hip flexion, which could be mechanical. Otherwise the strength is normal elsewhere including knees and ankles. Suspect generalized weakness from recent acute Covid infection leading to falls. High arched feet and hammertoes, which also runs in the family. Possible some hereditary component. Rhabdomyolysis, possibly from fall. Right hip weakness, which could be mechanical. Plan: * Vitamin B12 is 486 which is normal, folate is more than 24 which is normal. Methylmalonic acid is 0.4 which is considered normal light. Hemoglobin A1c 6.63 which is abnormal and the conservator borderline diabetes. * Vitamin B6 is 4 which is considered borderline low (normal is 5-50). I started the patient on vitamin B6 50 mg daily. * CPK were trending down. * PT and OT are on board. * May need EMG and nerve conduction study of right (and left) lower extremity as outpatient, but patient completely declined. * I recommend the patient to follow-up with a neurologist within 2-3 weeks as an outpatient. No further neurological workup is needed at this time. Ayo Chairez MD Neuro-Hospitalist Time with Patient: Less than 30
[2020-06-06] MEDS ORDERED: PYRIDOXINE 50 MG TAB PO SCH (13:30)
--- NOTE | 2020-06-06 14:06 | P.PN ---
Subjective Progress Note Date: 06/06/20 Principal diagnosis: Acute COVID 19 pneumonittis 81-year-old white female patient that came into the emergency department on 06/01/2020 with complaints of shortness of breath for 2 days prior to presentation. The patient's was positive for COVID 19. Patient denied any fever, denied any chest discomfort, no loss of taste or smell, no abdominal pain, nausea vomiting or diarrhea. Chronic medical conditions include history of A. fib on Xarelto, diabetes mellitus type 2, hypothyroidism, lifetime nonsmoker, permanent pacemaker implantation. Chest x-ray shows stable patchy interstitial infiltrates. On presentation patient was on room air however her oxygen demand has quickly increased up to 12 L of oxygen per minute, and subsequently up to 15 L less than 24 hours. She remains afebrile. Patient tested positive for COVID 19. White blood cell count is 11.6, hemoglobin is 14.5, d-dimer is 3.8, B1 is 29, creatinine is 1.16, ferritin is 1165, LDH is 1680, CRP is 165.5, pro calcitonin level is 0.42. Blood gas was completed yesterday showing pO2 59, pCO2 of 28, and pH of 7.44 and this was on 100% FiO2. CTA chest showed no evidence of pulmonary embolism, and fairly extensive bilateral confluent areas of groundglass opacities. There are some underlying changes that are chronic given bronchiectasis in the left upper lobe and to a lesser degree in the left lower lobe. There was some borderline sized mediastinal and right hilar lymph nodes that are possibly reactive. Patient was given a dose of IV Decadron in the emergency department, it has been switched over to IV Solu-Medrol 40 mg every 8 hours, she is on Xarelto, Pepcid, vitamins. This morning she was placed on BiPAP support with pressures of 12/5 and FiO2 of 60%. Her breathing is labored, today's chest x-ray shows multifocal patchy airspace disease. Patient was reevaluated today on 06/03/2020, patient remains in the ICU, she is feeling better, breathing a bit easier, although her chest x-ray continues to show bilateral interstitial infiltrates consistent with Covid 19 pneumonitis. Patient is now on airvo at 50 L and 80% FiO2, her O2 saturation is 92%. Patient is also on IV Solu-Medrol, she is on Xarelto, she did receive actemra yesterday, and she also received Lasix. Patient is out of the window for remdesivir, she also received 1 unit of convalescence plasma. Clinically the patient looks more comfortable today compared to yesterday, of course she is still requiring significant amount of oxygen, I feel we can potentially transfer the patient back to a regular medical floor with the same FiO2 settings. CBC is relatively normal. Renal profile is normal. LDH is 1543 and C-reactive protein is 64 The patient is seen today 06/04/2020 in follow-up on the regular medical floor. She is currently sitting up in a chair at the bedside. Awake and alert in no acute distress. She is still requiring airflow high flow oxygen at 60 L and 91% O2 saturation to maintain O2 saturations in the low 90s. She is breathing a bit easier today compared to yesterday. She denies any worsening shortness of breath, cough or congestion. She did receive Actemra. Received 1 unit of co nvalescence plasma. Remains on IV Solu-Medrol. Anticoagulated with Xarelto. Vitamin supplements. On 06/05/2020 patient seen in follow-up on the regular medical floor, he sitting up in a chair, he is breathing comfortably, he is on 6 L of oxygen pulse ox is 96%. No fever or chills, blood pressure is stable, looks comfortable, breathing comfortably, today's chest x-ray shows patchy right greater than left upper opacities with no significant change. On 06/06/2000 patient seen in follow-up on medical floor, he remains on verapamil oxygen, currently down to 5 L, pulse ox is 91-94%, no worsening dyspnea, no fever or chills, blood pressure has been stable. No chest discomfort. No significant cough, last chest x-ray was done yesterday showing stable findings of bilateral opacities, right greater than left. Inflammatory markers have been improving. Today's labs have been noted. Objective - Vital Signs Vital signs: Vital Signs Temp 97.8 F 06/06/20 10:00 Pulse 91 06/06/20 10:00 Resp 19 06/06/20 10:00 BP 128/76 06/06/20 10:00 Pulse Ox 91 L 06/06/20 10:00 Intake & Output 0306/06/20 06/06/20 18:59 06:59 18:59 Intake Total 100 200 Output Total 7 Balance 100 -7 200 Intake: Oral 100 200 Output: Urine 7 Other: Voiding Method Urinal # Voids 3 # Bowel Movements 1 - Exam GENERAL EXAM: Alert, very pleasant 79-year-old white female, on 5 L the pulse ox of 94% comfortable in no apparent distress. HEAD: Normocephalic/atraumatic. EYES: Normal reaction of pupils, equal size. Conjunctiva pink, sclera white. NOSE: Clear with pink turbinates. THROAT: No erythema or exudates. NECK: No masses, no JVD, no thyroid enlargement, no adenopathy. CHEST: No chest wall deformity. Symmetrical expansion. LUNGS: Equal air entry with no crackles, wheeze, rhonchi or dullness. CVS: Regular rate and rhythm, normal S1 and S2, no gallops, no murmurs, no rubs ABDOMEN: Soft, nontender. No hepatosplenomegaly, normal bowel sounds, no guarding or rigidity. EXTREMITIES: No clubbing, no edema, no cyanosis, 2+ pulses and upper and lower extremities. MUSCULOSKELETAL: Muscle strength and tone normal. SPINE: No scoliosis or deformity SKIN: No rashes CENTRAL NERVOUS SYSTEM: Alert and oriented -3. No focal deficits, tone is normal in all 4 extremities. PSYCHIATRIC: Alert and oriented -3. Appropriate affect. Intact judgment and insight. - Labs CBC & Chem 7: 06/06/20 05:39 06/06/20 05:39 Labs: Abnormal Lab Results - Last 24 Hours (Table) 06/02/20 06/05/20 06/05/20 Range/Units 10:13 06:37 16:21 WBC (4.50-10.00) X 10*3/uL Immature Gran # (0.00-0.04) X 10*3/uL Neutrophils # (1.80-7.70) X 10*3/uL Eosinophils # (0.04-0.35) X 10*3/uL Anion Gap (4.00-12.00) mmol/L BUN/Creatinine Ratio 28.57 H (12.00-20.00) Ratio POC Glucose (mg/dL) 262 H (75-99) mg/dL Magnesium 1.4 L (1.5-2.4) mg/dL AST 46 H (14-35) U/L ALT 57 H (10-49) U/L Lactate Dehydrogenase 407 H (120-246) U/L C-Reactive Protein 1.9 H (0.0-0.8) mg/dL Total Protein 5.5 L (6.2-8.2) g/dL Vitamin B6 4 L (5-50) ug/L 06/05/20 06/06/20 06/06/20 Range/Units 20:07 05:39 05:39 WBC 15.29 H (4.50-10.00) X 10*3/uL Immature Gran # 0.24 H (0.00-0.04) X 10*3/uL Neutrophils # 12.92 H (1.80-7.70) X 10*3/uL Eosinophils # 0.01 L (0.04-0.35) X 10*3/uL Anion Gap 12.20 H (4.00-12.00) mmol/L BUN/Creatinine Ratio 28.57 H (12.00-20.00) Ratio POC Glucose (mg/dL) 216 H (75-99) mg/dL Magnesium (1.5-2.4) mg/dL AST (14-35) U/L ALT (10-49) U/L Lactate Dehydrogenase (120-246) U/L C-Reactive Protein (0.0-0.8) mg/dL Total Protein (6.2-8.2) g/dL Vitamin B6 (5-50) ug/L 06/06/20 06/06/20 Range/Units 07:15 11:15 WBC (4.50-10.00) X 10*3/uL Immature Gran # (0.00-0.04) X 10*3/uL Neutrophils # (1.80-7.70) X 10*3/uL Eosinophils # (0.04-0.35) X 10*3/uL Anion Gap (4.00-12.00) mmol/L BUN/Creatinine Ratio (12.00-20.00) Ratio POC Glucose (mg/dL) 104 H 134 H (75-99) mg/dL Magnesium (1.5-2.4) mg/dL AST (14-35) U/L ALT (10-49) U/L Lactate Dehydrogenase (120-246) U/L C-Reactive Protein (0.0-0.8) mg/dL Total Protein (6.2-8.2) g/dL Vitamin B6 (5-50) ug/L Assessment and Plan Plan: Assessment: #1. Acute hypoxic respiratory failure secondary to COVID 19 pneumonitis, outside the window for Remdesivir #2. Acute rhabdomyolysis most likely secondary to frequent falls, improved #3. Type 2 diabetes mellitus #4. Benign essential hypertension #5. History of enlarged prostate/benign prostatic hypertrophy #6. History of coronary artery disease and previous myocardial infarction, previous stenting of the RCA and subsequently LAD stenting #7. History of degenerative joint disease Plan: Continue current medical treatment, continue Decadron, vitamins, patient continues on IV fluids. Patient has been stable, no acute events, no worsening dyspnea. No fever or chills, discharge home is pending home oxygen, she can finish outpatient course of oral dexamethasone 6 mg daily I performed a history & physical examination of the patient and discussed their management with my nurse practitioner, Brenda Zuniga. I reviewed the nurse practitioner's note and agree with the documented findings and plan of care. Lung sounds are positive for diminished breath sounds.. The findings and the impression was discussed with the patient. I attest to the documentation by the nurse practitioner. Time with Patient: Less than 30
[2020-06-06 15:23] VITALS: BP 106/72; PULSE 95; RESP 16; TEMP 97.9
[2020-06-06 15:35] VITALS: BMI 26.5
[2020-06-06] MEDS: LACTATED RINGERS 1,000 ML IV SCH (15:43)
== END 2020-06-06 17:19 | DRG 177 ==
LOC: EC 20:24 → 4SSUR 21:59
PROVIDERS: ADMIT Family Medicine; ATTEND Family Medicine
DX: U07.1 COVID-19 (principal); J12.82 Pneumonia due to coronavirus disease 2019; J96.01 Acute respiratory failure with hypoxia; J47.0 Bronchiectasis with acute lower respiratory infection; E87.2 Acidosis; I48.91 Unspecified atrial fibrillation; M19.90 Unspecified osteoarthritis, unspecified site; T79.6XXA Traumatic ischemia of muscle, initial encounter; R29.6 Repeated falls; N40.0 Benign prostatic hyperplasia without lower urinary tract symptoms; E86.0 Dehydration; N28.1 Cyst of kidney, acquired; N20.0 Calculus of kidney; Z87.442 Personal history of urinary calculi; K76.0 Fatty (change of) liver, not elsewhere classified; M10.9 Gout, unspecified; I25.2 Old myocardial infarction; Q66.89 Other specified congenital deformities of feet; I25.10 Atherosclerotic heart disease of native coronary artery without angina pectoris; Z95.5 Presence of coronary angioplasty implant and graft; Z95.0 Presence of cardiac pacemaker; Z79.899 Other long term (current) drug therapy; E03.9 Hypothyroidism, unspecified; E11.9 Type 2 diabetes mellitus without complications; I10 Essential (primary) hypertension; Z79.01 Long term (current) use of anticoagulants; Z79.52 Long term (current) use of systemic steroids; Z79.82 Long term (current) use of aspirin; Z79.84 Long term (current) use of oral hypoglycemic drugs; Z80.1 Family history of malignant neoplasm of trachea, bronchus and lung; Z82.49 Family history of ischemic heart disease and other diseases of the circulatory system; Z91.81 History of falling; Z96.652 Presence of left artificial knee joint; Z90.49 Acquired absence of other specified parts of digestive tract
CPT/HCPCS: 36415; 71045; 71046; 80048; 80053; 81001; 81050; 82550; 82570; 82607; 82746; 83036; 83605; 83615; 83735; 83880; 83921; 84145; 84207; 84443; 84484; 85025; 85027; 85379; 85610; 85730; 86140; 86780; 87635; 93005; 94760; 96361; 96365; 96374; 99285

== ENCOUNTER 2020-06-21 17:45 | Inpatient (IN) | payer MEDICARE ==
[2020-06-21 18:58] LABS: Basophils # (A) 0.1 k/uL (0-0.2); Basophils % (A) 1 %; Eosinophils # (A) 0.1 k/uL (0-0.7); Eosinophils % (A) 1 %; HCT 42.9 % (39.0-53.0); HGB 14.6 gm/dL (13.0-17.5); Lymphocytes # (A) 0.6 k/uL (1.0-4.8); Lymphocytes % (A) 5 %; MCH 31.5 pg (25.0-35.0); MCHC 33.9 g/dL (31.0-37.0); MCV 92.8 fL (80.0-100.0); Mean Platelet Volume 7.7; Monocytes # (A) 0.6 k/uL (0-1.0); Monocytes % (A) 5 %; Neutrophils # (A) 10.2 k/uL (1.3-7.7); Neutrophils % (A) 87 %; Platelet Count 223 k/uL (150-450); RBC 4.62 m/uL (4.30-5.90); WBC 11.8 k/uL (3.8-10.6)
[2020-06-21 19:08] LABS: ALT 26 U/L (4-49); AST 25 U/L (17-59); African American GFR (CKD) >90 (>60 ml/min/1.73 sqM); Albumin 3.7 g/dL (3.5-5.0); Alkaline Phosphatase 122 U/L (38-126); Anion Gap 10 mmol/L; Blood Urea Nitrogen 13 mg/dL (9-20); Calcium 9.1 mg/dL (8.4-10.2); Carbon Dioxide 25 mmol/L (22-30); Chloride 101 mmol/L (98-107); Creatine Kinase 59 U/L (55-170); Glucose 178 mg/dL (74-99); Magnesium 1.8 mg/dL (1.6-2.3); Non-African American GFR(CKD) 78 (>60 ml/min/1.73 sqM); Potassium 4.9 mmol/L (3.5-5.1); Sodium 136 mmol/L (137-145); Total Bilirubin 0.8 mg/dL (0.2-1.3); Total Protein 6.9 g/dL (6.3-8.2)
[2020-06-21 19:20] LABS: D-Dimer 3.95 mg/L FEU (<0.60)
--- NOTE | 2020-06-21 19:24 | XR ---
EXAMINATION TYPE: XR chest 1V portable DATE OF EXAM: 06/21/2020 COMPARISON: 06/05/2020 HISTORY: Tachycardia. Weakness. TECHNIQUE: Tatianna view FINDINGS: There is airspace infiltrate and atelectasis right lower lobe. There is some elevation of t he right diaphragm. There is mild blunting right costophrenic angle. There is mild infiltrate left cindi ng base. No heart failure seen. There are chest leads. IMPRESSION: There is increasing bilateral pneumonia compared to old exam. No heart failure seen.
[2020-06-21] MEDS ORDERED: SODIUM CHLORIDE 0.9% 500 ML 500 ML IV ONE (19:56)
--- NOTE | 2020-06-21 21:03 | ED ---
Weakness HPI - General Chief complaint: Weakness Stated complaint: weakness Source: patient, EMS Mode of arrival: EMS Limitations: no limitations - History of Present Illness Initial comments: 79-year-old male with past nuchal history of diabetes, hypertension, [place] who presents emergency Department with generalized weakness. Patient was seen 2 weeks ago for similar complaints. He was diagnosed Covid discharged to rehab. Patient states he stated there 3 days before leaving stating that he hated it there. Patient reports that he has been home for approximately one week. He has not been doing any better at home. Reports to increased weakness. He did have a fall today. Reports to worsening shortness of breath. Denies chest pain. Reports increasing weaknesses his bilateral lower extremities. Denies any injuries from the fall. Denies any head trauma. No other alleviating, precipitating or modifying factors - Related Data Home Medications Medication Instructions Recorded Confirmed metFORMIN HCL [Glucophage] 1,000 mg PO BID 05/04/17 06/21/20 Aspirin EC [Ecotrin Low Dose] 81 mg PO DAILY 06/15/17 06/21/20 Multivitamins, Thera [Multivitamin 1 tab PO DAILY 06/21/20 06/21/20 (formulary)] amLODIPine BESYLATE/BENAZEPRIL 1 cap PO DAILY 06/21/20 06/21/20 [amLODIPine BESYLATE/BENAZEPRIL 10-40 MG] Allergies Allergy/AdvReac Type Severity Reaction Status Date / Time Beta-Blockers Allergy Rash/Hives Verified 05/31/20 13:21 (Beta-Adrenergic Bloc atorvastatin [From Lipitor] AdvReac MUSCLE/JOINT Verified 05/31/20 13:21 PAIN Review of Systems ROS Statement: Those systems with pertinent positive or pertinent negative responses have been documented in the HPI. ROS Other: All systems not noted in ROS Statement are negative. Past Medical History Past Medical History: Diabetes Mellitus, Hypertension, Myocardial Infarction ([place]), Musculoskeletal Disorder, Prostate Disorder Additional Past Medical History / Comment(s): Gout with one flareup, enlarged prostate Last Myocardial Infarction Date:: 2017 History of Any Multi-Drug Resistant Organisms: None Reported Past Surgical History: Adenoidectomy, Cholecystectomy, Heart Catheterization With Stent, Joint Replacement, Orthopedic Surgery Additional Past Surgical History / Comment(s): Coronary stent placement; knee replaced left side Past Anesthesia/Blood Transfusion Reactions: No Reported Reaction Date of Last Stent Placement:: 2018 Past Psychological History: No Psychological Hx Reported Smoking Status: Never smoker Past Alcohol Use History: None Reported Past Drug Use History: None Reported - Past Family History Father History Unknown: Yes Family Medical History: Coronary Artery Disease (CAD) Additional Family Medical History / Comment(s): of lung CA, was smoker Mother Family Medical History: Dementia Additional Family Medical History / Comment(s): lived to General Exam Limitations: no limitations General appearance: anxious, in distress Head exam: Present: atraumatic, normocephalic, normal inspection Eye exam: Present: normal appearance, PERRL, EOMI. Absent: scleral icterus, conjunctival injection, periorbital swelling ENT exam: Present: mucous membranes dry Respiratory exam: Present: accessory muscle use, decreased breath sounds Cardiovascular Exam: Present: normal rhythm, tachycardia GI/Abdominal exam: Present: soft, normal bowel sounds. Absent: distended, tenderness, guarding, rebound, rigid Neurological exam: Present: alert Psychiatric exam: Present: anxious Skin exam: Present: warm, dry, intact, normal color. Absent: rash Course Vital Signs 06/21/20 06/21/20 06/21/20 17:52 21:33 22:00 Temperature 99.4 F 99.0 F Pulse Rate 130 H 108 H Pulse Rate [ Right] Respiratory 20 18 20 Rate Blood Pressure 105/62 124/72 Blood Pressure [Left Arm] O2 Sat by Pulse 91 L 96 Oximetry 06/21/20 06/22/20 06/22/20 23:17 03:24 04:00 Temperature 99.0 F 99.3 F Pulse Rate 110 H 124 H 112 H Pulse Rate [ Right] Respiratory 18 20 18 Rate Blood Pressure 136/77 128/69 Blood Pressure [Left Arm] O2 Sat by Pulse 95 91 L Oximetry 06/22/20 06/22/20 06/22/20 07:52 16:30 18:15 Temperature 98.9 F 98.7 F Pulse Rate 93 84 103 H Pulse Rate [ Right] Respiratory 16 16 18 Rate Blood Pressure 122/69 127/83 117/70 Blood Pressure [Left Arm] O2 Sat by Pulse 98 96 98 Oximetry 06/22/20 06/22/20 06/22/20 19:00 22:00 23:06 Temperature 98.1 F Pulse Rate 87 Pulse Rate [ Right] Respiratory 17 20 Rate Blood Pressure 123/91 Blood Pressure [Left Arm] O2 Sat by Pulse 97 98 Oximetry 06/23/20 06/23/20 06/23/20 03:35 04:48 05:00 Temperature 99.2 F Pulse Rate 90 Pulse Rate [ Right] Respiratory 18 Rate Blood Pressure 138/74 Blood Pressure [Left Arm] O2 Sat by Pulse 90 L 92 L Oximetry 06/23/20 06/23/20 06/23/20 08:22 14:00 19:25 Temperature 98.9 F 100.7 F H 97.6 F Pulse Rate 94 Pulse Rate [ 98 105 H Right] Respiratory 18 20 19 Rate Blood Pressure 119/67 Blood Pressure 118/71 112/66 [Left Arm] O2 Sat by Pulse 98 95 92 L Oximetry 06/23/20 06/23/20 20:00 23:31 Temperature Pulse Rate Pulse Rate [ 103 H Right] Respiratory 18 Rate Blood Pressure Blood Pressure [Left Arm] O2 Sat by Pulse 93 L Oximetry EKG Findings - EKG Comments: EKG Findings:: EKG demonstrates sinus tachycardia with a ventricular rate of 127. MT interval is 182. QRS 74. QTC of 398. Some J-point elevation in inferior and lateral leads. No reciprocal depressions Medical Decision Making - Medical Decision Making Upon arrival patient is placed in room 22. There are history and physical exam is performed. 12-lead EKG demonstrates sinus tachycardia. Laboratory studies reveal a d-dimer 3.95. Lactic acid 3.2. Chest x-ray demonstrates increasing bilateral pneumonia compared to old. Because of the elevated d-dimer patient is sent for CT which demonstrates no evidence of PE. Discussed the patient's case with Dr. Oconnor who agreed to admit the patient. Patient will be covered for bacterial pneumonia. He is given a 500 bolus and started on 130 mL/h. Patient remained in stable condition awaiting a bed - Lab Data Result diagrams: 06/25/20 11:33 06/27/20 07:20 Lab Results 06/21/20 06/21/20 06/21/20 Range/Units 18:47 18:47 18:47 WBC 11.8 H (3.8-10.6) k/uL RBC 4.62 (4.30-5.90) m/uL Hgb 14.6 (13.0-17.5) gm/dL Hct 42.9 (39.0-53.0) % MCV 92.8 (80.0-100.0) fL MCH 31.5 (25.0-35.0) pg MCHC 33.9 (31.0-37.0) g/dL RDW 13.0 (11.5-15.5) % Plt Count 223 (150-450) k/uL MPV 7.7 Neutrophils % 87 % Lymphocytes % 5 % Monocytes % 5 % Eosinophils % 1 % Basophils % 1 % Neutrophils # 10.2 H (1.3-7.7) k/uL Lymphocytes # 0.6 L (1.0-4.8) k/uL Monocytes # 0.6 (0-1.0) k/uL Eosinophils # 0.1 (0-0.7) k/uL Basophils # 0.1 (0-0.2) k/uL PT 11.0 (9.0-12.0) sec INR 1.0 (<1.2) APTT 32.0 H (22.0-30.0) sec D-Dimer 3.95 H (<0.60) mg/L FEU Sodium 136 L (137-145) mmol/L Potassium 4.9 (3.5-5.1) mmol/L Chloride 101 (98-107) mmol/L Carbon Dioxide 25 (22-30) mmol/L Anion Gap 10 mmol/L BUN 13 (9-20) mg/dL Creatinine 0.93 (0.66-1.25) mg/dL Est GFR (CKD-EPI)AfAm >90 (>60 ml/min/1.73 sqM) Est GFR (CKD-EPI)NonAf 78 (>60 ml/min/1.73 sqM) Glucose 178 H (74-99) mg/dL Lactic Ac Sepsis Rflx Plasma Lactic Acid Idris (0.7-2.0) mmol/L Calcium 9.1 (8.4-10.2) mg/dL Magnesium 1.8 (1.6-2.3) mg/dL Total Bilirubin 0.8 (0.2-1.3) mg/dL AST 25 (17-59) U/L ALT 26 (4-49) U/L Alkaline Phosphatase 122 (38-126) U/L Creatine Kinase 59 (55-170) U/L Troponin I (0.000-0.034) ng/mL NT-Pro-B Natriuret Pep pg/mL Total Protein 6.9 (6.3-8.2) g/dL Albumin 3.7 (3.5-5.0) g/dL TSH 1.010 (0.465-4.680) mIU/L Urine Color Urine Appearance (Clear) Urine pH (5.0-8.0) Ur Specific Amity (1.001-1.035) Urine Protein (Negative) Urine Glucose (UA) (Negative) Urine Ketones (Negative) Urine Blood (Negative) Urine Nitrite (Negative) Urine Bilirubin (Negative) Urine Urobilinogen (<2.0) mg/dL Ur Leukocyte Esterase (Negative) 06/21/20 06/21/20 06/21/20 Range/Units 18:47 18:47 18:47 WBC (3.8-10.6) k/uL RBC (4.30-5.90) m/uL Hgb (13.0-17.5) gm/dL Hct (39.0-53.0) % MCV (80.0-100.0) fL MCH (25.0-35.0) pg MCHC (31.0-37.0) g/dL RDW (11.5-15.5) % Plt Count (150-450) k/uL MPV Neutrophils % % Lymphocytes % % Monocytes % % Eosinophils % % Basophils % % Neutrophils # (1.3-7.7) k/uL Lymphocytes # (1.0-4.8) k/uL Monocytes # (0-1.0) k/uL Eosinophils # (0-0.7) k/uL Basophils # (0-0.2) k/uL PT (9.0-12.0) sec INR (<1.2) APTT (22.0-30.0) sec D-Dimer (<0.60) mg/L FEU Sodium (137-145) mmol/L Potassium (3.5-5.1) mmol/L Chloride (98-107) mmol/L Carbon Dioxide (22-30) mmol/L Anion Gap mmol/L BUN (9-20) mg/dL Creatinine (0.66-1.25) mg/dL Est GFR (CKD-EPI)AfAm (>60 ml/min/1.73 sqM) Est GFR (CKD-EPI)NonAf (>60 ml/min/1.73 sqM) Glucose (74-99) mg/dL Lactic Ac Sepsis Rflx Plasma Lactic Acid Idris 3.2 H* (0.7-2.0) mmol/L Calcium (8.4-10.2) mg/dL Magnesium (1.6-2.3) mg/dL Total Bilirubin (0.2-1.3) mg/dL AST (17-59) U/L ALT (4-49) U/L Alkaline Phosphatase (38-126) U/L Creatine Kinase (55-170) U/L Troponin I <0.012 (0.000-0.034) ng/mL NT-Pro-B Natriuret Pep 251 pg/mL Total Protein (6.3-8.2) g/dL Albumin (3.5-5.0) g/dL TSH (0.465-4.680) mIU/L Urine Color Urine Appearance (Clear) Urine pH (5.0-8.0) Ur Specific Am[place] (1.001-1.035) Urine Protein (Negative) Urine Glucose (UA) (Negative) Urine Ketones (Negative) Urine Blood (Negative) Urine Nitrite (Negative) Urine Bilirubin (Negative) Urine Urobilinogen (<2.0) mg/dL Ur Leukocyte Esterase (Negative) 06/21/20 06/21/20 Range/Units 19:24 21:33 WBC (3.8-10.6) k/uL RBC (4.30-5.90) m/uL Hgb (13.0-17.5) gm/dL Hct (39.0-53.0) % MCV (80.0-100.0) fL MCH (25.0-35.0) pg MCHC (31.0-37.0) g/dL RDW (11.5-15.5) % Plt Count (150-450) k/uL MPV Neutrophils % % Lymphocytes % % Monocytes % % Eosinophils % % Basophils % % Neutrophils # (1.3-7.7) k/uL Lymphocytes # (1.0-4.8) k/uL Monocytes # (0-1.0) k/uL Eosinophils # (0-0.7) k/uL Basophils # (0-0.2) k/uL PT (9.0-12.0) sec INR (<1.2) APTT (22.0-30.0) sec D-Dimer (<0.60) mg/L FEU Sodium (137-145) mmol/L Potassium (3.5-5.1) mmol/L Chloride (98-107) mmol/L Carbon Dioxide (22-30) mmol/L Anion Gap mmol/L BUN (9-20) mg/dL Creatinine (0.66-1.25) mg/dL Est GFR (CKD-EPI)AfAm (>60 ml/min/1.73 sqM) Est GFR (CKD-EPI)NonAf (>60 ml/min/1.73 sqM) Glucose (74-99) mg/dL Lactic Ac Sepsis Rflx Y Plasma Lactic Acid Idris (0.7-2.0) mmol/L Calcium (8.4-10.2) mg/dL Magnesium (1.6-2.3) mg/dL Total Bilirubin (0.2-1.3) mg/dL AST (17-59) U/L ALT (4-49) U/L Alkaline Phosphatase (38-126) U/L Creatine Kinase (55-170) U/L Troponin I (0.000-0.034) ng/mL NT-Pro-B Natriuret Pep pg/mL Total Protein (6.3-8.2) g/dL Albumin (3.5-5.0) g/dL TSH (0.465-4.680) mIU/L Urine Color Yellow Urine Appearance Clear (Clear) Urine pH 7.5 (5.0-8.0) Ur Specific Amity 1.034 (1.001-1.035) Urine Protein Trace H (Negative) Urine Glucose (UA) Negative (Negative) Urine Ketones Negative (Negative) Urine Blood Negative (Negative) Urine Nitrite Negative (Negative) Urine Bilirubin Negative (Negative) Urine Urobilinogen 3.0 (<2.0) mg/dL Ur Leukocyte Esterase Negative (Negative) Disposition Clinical Impression: COVID-19, Generalized weakness, Dehydration, Multiple falls Disposition: ADMITTED IP TO [facility] Condition: Serious Is patient prescribed a controlled substance at d/c from ED?: No Decision to Admit Reason: Admit from EC Decision Date: 06/21/20 Decision Time: 22:00
--- NOTE | 2020-06-21 21:25 | CT ---
EXAMINATION TYPE: CT chest angio for PE DATE OF EXAM: 06/21/2020 COMPARISON: None HISTORY: Elevated d-dimer, Covid + CT DLP: 336.9 mGycm Automated exposure control for dose reduction was used. CONTRAST: Performed with IV Contrast, patient injected with 100 mL of Isovue 370. There are 3-D post processed images. There is patchy airspace infiltrate in both lungs and more severe on the right side. There is multipl e air bronchograms. Heart size is normal. There is no pericardial effusion. There is mild pleural thi ckening left posterior lung base. There are no hilar masses. There is no mediastinal adenopathy. Thoracic aorta is intact. There is no aneurysm or dissection. Ascending aorta measures 3.8 cm. There is normal contrast opacification of the pulmonary arteries. There are no filling defects. Thoracic spine is intact. There is no compression fracture. There is degenerative spurring throughout the thoracic spine. Sternum is intact. The upper abdominal soft tissues are intact. IMPRESSION: No evidence of pulmonary embolism. Bilateral airspace pneumonia that is worse on the right side.
[2020-06-21] MEDS ORDERED: cefTRIAXone IN SWFI 1,000 MG/10 ML SYRINGE IVP STA (21:34)
[2020-06-21 21:44] LABS: Appearance,Urine Clear (Clear); Bilirubin,Urine Negative (Negative); Blood,Urine Negative (Negative); Color,Urine Yellow; Glucose,Urine (UA) Negative (Negative); Ketones,Urine Negative (Negative); Leukocyte Esterase,Urine Negative (Negative); Nitrite,Urine Negative (Negative); PH, Urine 7.5 (5.0-8.0); Protein,Urine Trace (Negative); Specific Gravity,Urine 1.034 (1.001-1.035)
[2020-06-21] MEDS ORDERED: AZITHROMYCIN 500 MG in SODIUM CHLORIDE 0.9% 250 ML IVPB ONE (21:45)
[2020-06-21] MEDS ORDERED: NALOXONE 0.4 MG/ML 1 ML VIAL IV PRN (22:02)
[2020-06-21] MEDS: SODIUM CHLORIDE 0.9% 1,000 ML IV SCH (23:06)
[2020-06-22 08:22] LABS: Basophils # (A) 0.1 k/uL (0-0.2); Basophils % (A) 1 %; Eosinophils # (A) 0.1 k/uL (0-0.7); Eosinophils % (A) 1 %; HCT 37.8 % (39.0-53.0); HGB 12.5 gm/dL (13.0-17.5); Lymphocytes # (A) 0.8 k/uL (1.0-4.8); Lymphocytes % (A) 6 %; MCV 93.8 fL (80.0-100.0); Mean Platelet Volume 7.4; Monocytes # (A) 0.6 k/uL (0-1.0); Monocytes % (A) 5 %; Neutrophils % (A) 86 %; Platelet Count 175 k/uL (150-450); RBC 4.03 m/uL (4.30-5.90); WBC 12.9 k/uL (3.8-10.6)
[2020-06-22 08:34] LABS: African American GFR (CKD) >90 (>60 ml/min/1.73 sqM); Anion Gap 9 mmol/L; Blood Urea Nitrogen 11 mg/dL (9-20); Calcium 8.6 mg/dL (8.4-10.2); Carbon Dioxide 20 mmol/L (22-30); Chloride 103 mmol/L (98-107); Glucose 141 mg/dL (74-99); Non-African American GFR(CKD) 87 (>60 ml/min/1.73 sqM); Potassium 4.7 mmol/L (3.5-5.1); Sodium 132 mmol/L (137-145)
[2020-06-22] MEDS: MULTIVITAMINS, THERA 1 EACH TAB PO SCH (09:36)
[2020-06-22] MEDS: ASPIRIN 81 MG PO SCH (09:36)
[2020-06-22] MEDS: lisinopriL 20 MG TAB PO SCH (09:36)
[2020-06-22] MEDS: SODIUM CHLORIDE 0.9% 1,000 ML IV SCH ×2 (09:36→15:48)
[2020-06-22] MEDS: amLODIPine 10 MG TAB PO SCH (09:36)
[2020-06-22] MEDS ORDERED: ALBUTEROL HFA INHALER INHALATION PRN (11:43)
[2020-06-22] MEDS: ZINC SULFATE 220 MG CAP PO SCH (12:27)
[2020-06-22] MEDS: ASCORBIC ACID 500 MG TAB PO SCH (12:27)
[2020-06-22 12:28] LABS: Glucose,Whole Blood 159 mg/dL (75-99)
[2020-06-22] MEDS: PANTOPRAZOLE 40 MG/10 ML VIAL IVP SCH (12:28)
[2020-06-22] MEDS: CHOLECALCIFEROL 25 MCG (1000 IU) TABLET PO SCH (12:28)
[2020-06-22] MEDS: INSULIN ASPART (NovoLOG) 100 UNIT/ML VIAL SQ SCH ×3 (12:31→23:03)
--- NOTE | 2020-06-22 13:44 | P.CNPUL ---
History of Present Illness Consult date: 06/22/20 Requesting physician: Tristan Oconnor Jr Reason for consult: dyspnea, cough, hypoxemia, pneumonia, abnormal CXR/CT Chief complaint: Shortness of breath History of present illness: This is a 79-year-old male, who was seen in the emergency room, on June 21. The patient came in with complaints of weakness, and shortness of breath, and just not feeling well. He was in the hospital a couple weeks back, and seen in consultation by us right around June 01. At that time he was diagnosed as having COVID 19 pneumonia. The patient was apparently discharged on June 06 to rehabilitation. The patient apparently was home about a week or so prior to his most recent admission, and just has not been feeling well. He apparently fell because of weakness. He reports worsening shortness of breath. He does have a cough. Denies any phlegm production. No fever or chills. In the emergency department, he was getting saline at 130 mL an hour, and nasal cannula oxygen at 5 L. His most recent test here in the emergency room was negative. The patient has a history of diabetes mellitus, hypertension, myocardial infarction, BPH, and recent pneumonia secondary to coronavirus. His white count is 12.9, hemoglobin 12.5, hematocrit 37.8, platelet count 175,000. PT INR were normal. PTT was 32. D-dimer was 3.95. Sodium 132, potassium 4.7, chlorides 103, CO2 20, anion gap 9, BUN 11, creatinine 0.76. His urine testing was negative. His chest x-ray showed bilateral infiltrates, more right-sided than left-sided. Review of Systems REVIEW OF SYSTEMS: CONSTITUTIONAL: Weakness, fatigue, falling. NEUROLOGIC: Loss of balance. HEENT: [ Negative.] CARDIAC: [Negative.] PULMONARY: Shortness of breath with nonproductive cough. GI: Decreased oral intake. : [Negative.] RHEUMATOLOGIC: [ Negative.] IMMUNOLOGIC: [ Negative.] ENDOCRINE: [Negative. ] DERMATOLOGIC: [Negative.] Past Medical History Past Medical History: Diabetes Mellitus, Hypertension, Myocardial Infarction ([place]), Musculoskeletal Disorder, Prostate Disorder Additional Past Medical History / Comment(s): Gout with one flareup, enlarged prostate Last Myocardial Infarction Date:: 2017 History of Any Multi-Drug Resistant Organisms: None Reported Past Surgical History: Adenoidectomy, Cholecystectomy, Heart Catheterization With Stent, Joint Replacement, Orthopedic Surgery Additional Past Surgical History / Comment(s): Coronary stent placement; knee replaced left side Past Anesthesia/Blood Transfusion Reactions: No Reported Reaction Date of Last Stent Placement:: 2017 Past Psychological History: No Psychological Hx Reported Smoking Status: Never smoker Past Alcohol Use History: None Reported Past Drug Use History: None Reported - Past Family History Father History Unknown: Yes Family Medical History: Coronary Artery Disease (CAD) Additional Family Medical History / Comment(s): of lung CA, was smoker Mother Family Medical History: Dementia Additional Family Medical History / Comment(s): lived to Medications and Allergies Home Medications Medication Instructions Recorded Confirmed Type metFORMIN HCL [Glucophage] 1,000 mg PO BID 05/04/17 06/21/20 History Aspirin EC [Ecotrin Low Dose] 81 mg PO DAILY 06/15/17 06/21/20 History Multivitamins, Thera [Multivitamin 1 tab PO DAILY 06/21/20 06/21/20 History (formulary)] amLODIPine BESYLATE/BENAZEPRIL 1 cap PO DAILY 06/21/20 06/21/20 History [amLODIPine BESYLATE/BENAZEPRIL 10-40 MG] Allergies Allergy/AdvReac Type Severity Reaction Status Date / Time Beta-Blockers Allergy Rash/Hives Verified 05/31/20 13:21 (Beta-Adrenergic Bloc atorvastatin [From Lipitor] AdvReac MUSCLE/JOINT Verified 05/31/20 13:21 PAIN Physical Exam Osteopathic Statement: *. No significant issues noted on an osteopathic structural exam other than those noted in the History and Physical/Consult. Vitals: Vital Signs Temp Pulse Resp BP Pulse Ox 06/22/20 07:52 93 16 122/69 98 06/22/20 04:00 112 H 18 06/22/20 03:24 99.3 F 124 H 20 128/69 91 L 06/21/20 23:17 99.0 F 110 H 18 136/77 95 06/21/20 22:00 20 06/21/20 21:33 99.0 F 108 H 18 124/72 96 06/21/20 17:52 99.4 F 130 H 20 105/62 91 L Intake and Output 06/21/20 06/22/20 06/22/20 22:59 06:59 14:59 Other: Weight 82.554 kg No acute distress, oriented 3. Patient currently on 5 L nasal cannula. Saturations are 91%. HEENT examination is grossly unremarkable. Mucous membranes are moist. No oral lesions. Neck supple. Full range of motion. No adenopathy thyromegaly or neck vein distention. Cardiovascular examination reveals regular rhythm rate. S1-S2 normal. No S3 or S4. No discernible murmur noted. Heart sounds are distant. Heart rate 93 bpm. Lungs reveal coarse bilateral rhonchi and crackles. Rest sounds equal. No wheezes. Abdomen soft bowel sounds are heard. No masses or tenderness. Extremities are intact. No cyanosis clubbing or edema. Skin is without rash or lesion. Neurologic examination is brief but nonfocal. Results - Laboratory Findings CBC and BMP: 06/22/20 07:29 06/22/20 07:29 PT/INR, D-dimer PT 11.0 sec (9.0-12.0) 06/21/20 18:47 INR 1.0 (<1.2) 06/21/20 18:47 D-Dimer 3.95 mg/L FEU (<0.60) H 06/21/20 18:47 Abnormal lab findings: Abnormal Labs 06/21/20 06/21/20 06/21/20 18:47 18:47 18:47 WBC 11.8 H RBC Hgb Hct Neutrophils # 10.2 H Lymphocytes # 0.6 L APTT 32.0 H D-Dimer 3.95 H Sodium 136 L Carbon Dioxide Glucose 178 H POC Glucose (mg/dL) Plasma Lactic Acid Idris Urine Protein 06/21/20 06/21/20 06/22/20 18:47 21:33 07:29 WBC 12.9 H RBC 4.03 L Hgb 12.5 L Hct 37.8 L Neutrophils # 11.0 H Lymphocytes # 0.8 L APTT D-Dimer Sodium Carbon Dioxide Glucose POC Glucose (mg/dL) Plasma Lactic Acid Idris 3.2 H* Urine Protein Trace H 06/22/20 06/22/20 07:29 12:26 WBC RBC Hgb Hct Neutrophils # Lymphocytes # APTT D-Dimer Sodium 132 L Carbon Dioxide 20 L Glucose 141 H POC Glucose (mg/dL) 159 H Plasma Lactic Acid Idris Urine Protein - Diagnostic Findings Chest x-ray: image reviewed CT scan - chest: image reviewed Assessment and Plan Assessment: Acute hypoxemic respiratory failure with bilateral right greater than left infiltrates, either related to persistent/recurrent COVID 19 pneumonitis, or superimposed bacterial pneumonia. Recent admission between May 31 and June 06, for COVID 19 pneumonitis. No evidence of pulmonary embolism on CT angiogram. History of diabetes mellitus. History of hypertension. History of myocardial infarction. History of BPH. History of gout. History of CAD with previous stent placement. Plan: Plan dated 06/25/2020. The patient should get vitamin C, vitamin D3, and zinc. These may be protective. In addition, an albuterol inhaler would not be unreasonable. A pro-calcitonin level should be done. If the level is low, then standard antibiotics are probably contraindicated. In the meantime, we'll place him on an antibiotic empirically until a pro-calcitonin level is back. Probably no benefit for Decadron at this time. A d-dimer should be done if not already done. Additional recommendations and suggestions are forthcoming. Prognosis is guarded. Time with Patient: Greater than 30
[2020-06-22] MEDS: PIPERACILLIN-TAZOBACTAM 3.375 GM in SODIUM CHLORIDE 0.9% 100 ML IVPB SCH (15:45)
[2020-06-22] MEDS: COLCHICINE 0.6 MG EACH PO SCH (15:45)
[2020-06-22] MEDS: ALBUTEROL HFA INHALER INHALATION SCH ×3 (15:51→19:35)
--- NOTE | 2020-06-22 16:40 | P.HPIM ---
History of Present Illness H&P Date: 06/22/20 Chief Complaint: Generalized weakness, shortness of breath This is a pleasant 79-year-old gentleman with history of diabetes mellitus, hypertension, CAD, GA, cardiac stents 2, gout, muscle skeletal disorder and multiple other medical issues presented to the ER with complaints of Increased weakness, falls, shortness of breath,occasional nonproductive cough and multiple other medical issues. Patient was recently hospitalized for acute Covid 19 pneumonitis 06/01/2020 through 06/06/2020, and discharged to subacute rehab.,where he refused to stay after 2-3 days and proceeded home. He now presents with similar presentation. Coronavirus not detected. D-dimer 3.95, CTA reported no evidence of PE .Denies chest pain, palpitations. EKG reporting sinus tachycardia T-max 99.4, WBC 12.9. Hemoglobin 12.5, platelets 175, sodium 132, potassium 4.7, BUN 11, creatinine 0.76. Lactic acid 3.2 on admission, received gentle IV fluid hydration currently down to 1.6. Chest x-ray reporting increasing bilateral pneumonia compared to prior exam. UA negative. Currently requiring 5 L nasal cannula O2 to maintain O2 sats in the 90s. Review of Systems ROS Statement: Those systems with pertinent positive or pertinent negative responses have been documented in the HPI. ROS Other: All systems not noted in ROS Statement are negative. Past Medical History Past Medical History: Diabetes Mellitus, Hypertension, Myocardial Infarction (GA), Musculoskeletal Disorder, Prostate Disorder Additional Past Medical History / Comment(s): Gout with one flareup, enlarged prostate Last Myocardial Infarction Date:: 2017 History of Any Multi-Drug Resistant Organisms: None Reported Past Surgical History: Adenoidectomy, Cholecystectomy, Heart Catheterization With Stent, Joint Replacement, Orthopedic Surgery Additional Past Surgical History / Comment(s): Coronary stent placement; knee replaced left side Past Anesthesia/Blood Transfusion Reactions: No Reported Reaction Date of Last Stent Placement:: 2017 Past Psychological History: No Psychological Hx Reported Smoking Status: Never smoker Past Alcohol Use History: None Reported Past Drug Use History: None Reported - Past Family History Father History Unknown: Yes Family Medical History: Coronary Artery Disease (CAD) Additional Family Medical History / Comment(s): of lung CA, was smoker Mother Family Medical History: Dementia Additional Family Medical History / Comment(s): lived to 93 Medications and Allergies Home Medications Medication Instructions Recorded Confirmed Type metFORMIN HCL [Glucophage] 1,000 mg PO BID 05/04/17 06/21/20 History Aspirin EC [Ecotrin Low Dose] 81 mg PO DAILY 06/15/17 06/21/20 History Multivitamins, Thera [Multivitamin 1 tab PO DAILY 06/21/20 06/21/20 History (formulary)] amLODIPine BESYLATE/BENAZEPRIL 1 cap PO DAILY 06/21/20 06/21/20 History [amLODIPine BESYLATE/BENAZEPRIL 10-40 MG] Allergies Allergy/AdvReac Type Severity Reaction Status Date / Time Beta-Blockers Allergy Rash/Hives Verified 05/31/20 13:21 (Beta-Adrenergic Bloc atorvastatin [From Lipitor] AdvReac MUSCLE/JOINT Verified 05/31/20 13:21 PAIN Physical Exam Vitals: Vital Signs Temp Pulse Resp BP Pulse Ox 06/22/20 07:52 93 16 122/69 98 06/22/20 04:00 112 H 18 06/22/20 03:24 99.3 F 124 H 20 128/69 91 L 06/21/20 23:17 99.0 F 110 H 18 136/77 95 06/21/20 22:00 20 06/21/20 21:33 99.0 F 108 H 18 124/72 96 06/21/20 17:52 99.4 F 130 H 20 105/62 91 L Intake and Output 06/21/20 06/22/20 06/22/20 22:59 06:59 14:59 Other: Weight 82.554 kg PHYSICAL EXAM: VITAL SIGNS: As above GENERAL: Sitting up in stretcher, no acute distress HEENT: Conjunctivae normal. eyes normal. NECK: No JVD. No thyroid enlargement. No LNs CARDIOVASCULAR: S1, S2 regular. Systolic murmur RESPIRATION: Breath sounds diminished in the bases. Bilateral rhonchi and crackles. No bronchial breathing. ABDOMEN: Obese,Soft,distended, nontender. No guarding. no masses palpable. No ascites, No hepatosplenomegaly.Bowel sounds heard. LEGS: No edema. no swelling PSYCHIATRY: Alert and oriented X3, mood and affect normal. NERVOUS SYSTEM: Cranial N 2-12 grossly normal. Moves all 4 limbs. No gross focal deficits. Strength and sensation grossly intact.. Skin: Warm and dry, no rash Lymphatic system. No LN neck axilla. Results CBC & Chem 7: 06/22/20 07:29 06/22/20 07:29 Labs: Abnormal Lab Results - Last 24 Hours (Table) 06/21/20 06/21/20 06/21/20 Range/Units 18:47 18:47 18:47 WBC 11.8 H (3.8-10.6) k/uL RBC (4.30-5.90) m/uL Hgb (13.0-17.5) gm/dL Hct (39.0-53.0) % Neutrophils # 10.2 H (1.3-7.7) k/uL Lymphocytes # 0.6 L (1.0-4.8) k/uL APTT 32.0 H (22.0-30.0) sec D-Dimer 3.95 H (<0.60) mg/L FEU Sodium 136 L (137-145) mmol/L Carbon Dioxide (22-30) mmol/L Glucose 178 H (74-99) mg/dL Plasma Lactic Acid Idris (0.7-2.0) mmol/L Urine Protein (Negative) 06/21/20 06/21/20 06/22/20 Range/Units 18:47 21:33 07:29 WBC 12.9 H (3.8-10.6) k/uL RBC 4.03 L (4.30-5.90) m/uL Hgb 12.5 L (13.0-17.5) gm/dL Hct 37.8 L (39.0-53.0) % Neutrophils # 11.0 H (1.3-7.7) k/uL Lymphocytes # 0.8 L (1.0-4.8) k/uL APTT (22.0-30.0) sec D-Dimer (<0.60) mg/L FEU Sodium (137-145) mmol/L Carbon Dioxide (22-30) mmol/L Glucose (74-99) mg/dL Plasma Lactic Acid Idris 3.2 H* (0.7-2.0) mmol/L Urine Protein Trace H (Negative) 06/22/20 Range/Units 07:29 WBC (3.8-10.6) k/uL RBC (4.30-5.90) m/uL Hgb (13.0-17.5) gm/dL Hct (39.0-53.0) % Neutrophils # (1.3-7.7) k/uL Lymphocytes # (1.0-4.8) k/uL APTT (22.0-30.0) sec D-Dimer (<0.60) mg/L FEU Sodium 132 L (137-145) mmol/L Carbon Dioxide 20 L (22-30) mmol/L Glucose 141 H (74-99) mg/dL Plasma Lactic Acid Idris (0.7-2.0) mmol/L Urine Protein (Negative) Assessment and Plan Assessment: Final Diagnoses: Acute hypoxic respiratory failure secondary to bilateral pneumonia, recently hospitalized for acute Covid 19 pneumonitis 06/01/2020 through 06/06/2020. PE Generalized weakness, secondary to the above, discharged to subacute rehab on 06/06/2020 and patient did not complete rehab -only stayed for a few days, Degenerative joint disease History of Bilateral nephrolithiasis, large exophytic cyst of left kidney anthony suring 7 cm. History of Bladder stones History of Enlarged prostate History of Hepatomegaly with possible hepatic steatosis Diabetes mellitus II Hypertension CAD, history of GA with cardiac stents in 2017. Plan: Continue on current medication regime ,monitoring and symptomatic treatment. Albuterol inhaler, vitamin supplements vitamin C, vitamin D3 and zinc, colchicine and antibiotics ordered. Pulmonary consulted. Rediscussed subacute rehab. PT OT. Social work consult. The impression and plan of care has been dictated as directed. : I performed a history and examination of this patient, discussed the same with the dictator. I agree with the dictator's note ,documented as a scribe. Any additional findings or plans will be noted.
[2020-06-22 18:00] LABS: Glucose,Whole Blood 150 mg/dL (75-99)
[2020-06-22 22:40] LABS: Glucose,Whole Blood 130 mg/dL (75-99)
[2020-06-23] MEDS: COLCHICINE 0.6 MG EACH PO SCH ×3 (03:05→21:48)
[2020-06-23] MEDS: PIPERACILLIN-TAZOBACTAM 3.375 GM in SODIUM CHLORIDE 0.9% 100 ML IVPB SCH ×3 (03:15→15:51)
[2020-06-23] MEDS: ACETAMINOPHEN TAB 325 MG TAB PO PRN ×2 (03:31→16:54)
[2020-06-23] MEDS: ALBUTEROL HFA INHALER INHALATION SCH ×4 (04:48→21:28)
[2020-06-23 08:59] LABS: Glucose,Whole Blood 144 mg/dL (75-99)
[2020-06-23 10:42] LABS: Glucose,Whole Blood 189 mg/dL (75-99)
[2020-06-23] MEDS: PANTOPRAZOLE 40 MG/10 ML VIAL IVP SCH (11:03)
[2020-06-23] MEDS: ENOXAPARIN 40 MG/0.4 ML SYRINGE SQ SCH (11:03)
[2020-06-23] MEDS: CHOLECALCIFEROL 25 MCG (1000 IU) TABLET PO SCH (11:05)
[2020-06-23] MEDS: lisinopriL 20 MG TAB PO SCH (11:05)
[2020-06-23] MEDS: amLODIPine 10 MG TAB PO SCH (11:06)
[2020-06-23] MEDS: MULTIVITAMINS, THERA 1 EACH TAB PO SCH (11:06)
[2020-06-23] MEDS: ZINC SULFATE 220 MG CAP PO SCH (11:06)
[2020-06-23] MEDS: ASPIRIN 81 MG PO SCH (11:06)
[2020-06-23] MEDS: ASCORBIC ACID 500 MG TAB PO SCH (11:06)
[2020-06-23] MEDS: SODIUM CHLORIDE 0.9% 1,000 ML IV SCH ×4 (11:07→21:47)
[2020-06-23] MEDS: INSULIN ASPART (NovoLOG) 100 UNIT/ML VIAL SQ SCH ×4 (11:08→21:47)
[2020-06-23 11:31] LABS: Basophils # (A) 0.03 X 10*3/uL (0.00-0.10); Basophils % (A) 0.2 %; Eosinophils # (A) 0.09 X 10*3/uL (0.04-0.35); Eosinophils % (A) 0.7 %; HCT 38.2 % (39.6-50.0); HGB 12.1 g/dL (13.0-17.0); Lymphocytes # (A) 1.48 X 10*3/uL (0.90-5.00); Lymphocytes % (A) 11.1 %; MCH 30.3 pg (27.0-32.0); MCHC 31.7 g/dL (32.0-37.0); MCV 95.7 fL (80.0-97.0); Mean Platelet Volume 10.3 fL (9.5-12.2); Monocytes # (A) 0.92 X 10*3/uL (0.20-1.00); Monocytes % (A) 6.9 %; Neutrophils # (A) 10.82 X 10*3/uL (1.80-7.70); Neutrophils % (A) 80.7 %; Platelet Count 199 X 10*3/uL (140-440); RBC 3.99 X 10*6/uL (4.40-5.60); RDW 13.2 % (11.5-14.5); WBC 13.39 X 10*3/uL (4.50-10.00)
[2020-06-23 11:49] LABS: African American GFR (CKD) 82.6 (60.0-200.0); Anion Gap 9.3 mmol/L (4.00-12.00); Calcium 8.5 mg/dL (8.7-10.3); Carbon Dioxide 22.7 mmol/L (21.6-31.8); Non-African American GFR(CKD) 71.3 (60.0-200.0); Potassium 4.7 mmol/L (3.5-5.5)
--- NOTE | 2020-06-23 11:59 | P.PN ---
Subjective Progress Note Date: 06/23/20 This is a pleasant 79-year-old gentleman with history of diabetes mellitus, hypertension, CAD, DC, cardiac stents 2, gout, muscle skeletal disorder and multiple other medical issues presented to the ER with complaints of Increased weakness, falls, shortness of breath,occasional nonproductive cough and multiple other medical issues. Patient was recently hospitalized for acute Covid 19 pneumonitis 06/01/2020 through 06/06/2020, and discharged to subacute rehab.,where he refused to stay after 2-3 days and proceeded home. He now presents with similar presentation. Coronavirus not detected. D-dimer 3.95, CTA reported no evidence of PE .Denies chest pain, palpitations. EKG reporting sinus tachycardia T-max 99.4, WBC 12.9. Hemoglobin 12.5, platelets 175, sodium 132, potassium 4.7, BUN 11, creatinine 0.76. Lactic acid 3.2 on admission, received gentle IV fluid hydration currently down to 1.6. Chest x-ray reporting increasing bilateral pneumonia compared to prior exam. UA negative. Currently requiring 5 L nasal cannula O2 to maintain O2 sats in the 90s. 06/23/2020 continues on Zosyn, vitamin supplements, Lovenox, albuterol inhaler ,oxygen requirements worsened, requiring 6 L nasal cannula to maintain O2 sats in the 90s. T-max 99.2, WBC 13.39. Hemoglobin 12.1, platelets 199. Denies chest pain, palpitations. Objective - Vital Signs Vital signs: Vital Signs Temp 98.9 F 06/23/20 08:22 Pulse 94 06/23/20 08:22 Resp 18 06/23/20 08:22 BP 119/67 06/23/20 08:22 Pulse Ox 98 06/23/20 08:22 - Exam PHYSICAL EXAM: VITAL SIGNS: As above GENERAL: Alert and oriented 3, Sitting up in bed, no acute distress HEENT: Conjunctivae normal. eyes normal. NECK: No JVD. No thyroid enlargement. No LNs CARDIOVASCULAR: S1, S2 regular. Systolic murmur RESPIRATION: Breath sounds diminished in the bases. Bilateral rhonchi and crackles. ABDOMEN: Obese,Soft,distended, nontender. No guarding. no masses palpable. Positive Bowel sounds heard. LEGS: No edema. no swelling NERVOUS SYSTEM: Cranial N 2-12 grossly normal. Moves all 4 limbs. No gross focal deficits. Skin: Warm and dry, no rash - Labs CBC & Chem 7: 06/23/20 07:31 06/22/20 07:29 Labs: Abnormal Lab Results - Last 24 Hours (Table) 06/22/20 06/22/20 06/22/20 Range/Units 07:29 12:26 17:58 WBC (4.50-10.00) X 10*3/uL RBC (4.40-5.60) X 10*6/uL Hgb (13.0-17.0) g/dL Hct (39.6-50.0) % MCHC (32.0-37.0) g/dL Immature Gran # (0.00-0.04) X 10*3/uL Neutrophils # (1.80-7.70) X 10*3/uL POC Glucose (mg/dL) 159 H 150 H (75-99) mg/dL Procalcitonin 0.19 H (0.02-0.09) ng/mL 06/22/20 06/23/20 06/23/20 Range/Units 22:37 07:31 08:58 WBC 13.39 H (4.50-10.00) X 10*3/uL RBC 3.99 L (4.40-5.60) X 10*6/uL Hgb 12.1 L (13.0-17.0) g/dL Hct 38.2 L (39.6-50.0) % MCHC 31.7 L (32.0-37.0) g/dL Immature Gran # 0.05 H (0.00-0.04) X 10*3/uL Neutrophils # 10.82 H (1.80-7.70) X 10*3/uL POC Glucose (mg/dL) 130 H 144 H (75-99) mg/dL Procalcitonin (0.02-0.09) ng/mL 06/23/20 Range/Units 10:37 WBC (4.50-10.00) X 10*3/uL RBC (4.40-5.60) X 10*6/uL Hgb (13.0-17.0) g/dL Hct (39.6-50.0) % MCHC (32.0-37.0) g/dL Immature Gran # (0.00-0.04) X 10*3/uL Neutrophils # (1.80-7.70) X 10*3/uL POC Glucose (mg/dL) 189 H (75-99) mg/dL Procalcitonin (0.02-0.09) ng/mL Assessment and Plan Assessment: Final Diagnoses: Acute hypoxic respiratory failure secondary to bilateral pneumonia, recently hospitalized for acute Covid 19 pneumonitis 06/01/2020 through 06/06/2020. PE ruled out Generalized weakness, secondary to the above, discharged to subacute rehab on 06/06/2020 and patient did not complete rehab -only stayed for a few days, Degenerative joint disease History of Bilateral nephrolithiasis, large exophytic cyst of left kidney measuring 7 cm. History of Bladder stones History of Enlarged prostate History of Hepatomegaly with possible hepatic steatosis Diabetes mellitus II Hypertension CAD, history of DC with cardiac stents in 2016. Plan: Continue on current medication regime ,monitoring and symptomatic treatme nt. Continue on Albuterol inhaler, vitamin supplements vitamin C, vitamin D3 and zinc, colchicine and antibiotics. Pulmonary recommendations noted and appreciated. Continue recommending subacute rehab at discharge. The impression and plan of care has been dictated as directed. : I performed a history and examination of this patient, discussed the same with the dictator. I agree with the dictator's note ,documented as a scribe. Any additional findings or plans will be noted.
[2020-06-23 12:23] LABS: Glucose,Whole Blood 159 mg/dL (75-99)
--- NOTE | 2020-06-23 13:21 | P.PN ---
Subjective Progress Note Date: 06/23/20 Principal diagnosis: Shortness of breath, cough, chest congestion. This is a 79-year-old male, who was seen in the emergency room, on June 21. The patient came in with complaints of weakness, and shortness of breath, and just not feeling well. He was in the hospital a couple weeks back, and seen in consultation by us right around June 01. At that time he was diagnosed as having COVID 19 pneumonia. The patient was apparently discharged on June 06 to rehabilitation. The patient apparently was home about a week or so prior to his most recent admission, and just has not been feeling well. He apparently fell because of weakness. He reports worsening shortness of breath. He does have a cough. Denies any phlegm production. No fever or chills. In the emergency department, he was getting saline at 130 mL an hour, and nasal cannula oxygen at 5 L. His most recent test here in the emergency room was negative. The patient has a history of diabetes mellitus, hypertension, myocardial infarction, BPH, and recent pneumonia secondary to coronavirus. His white count is 12.9, hemoglobin 12.5, hematocrit 37.8, platelet count 175,000. PT INR were normal. PTT was 32. D-dimer was 3.95. Sodium 132, potassium 4.7, chlorides 103, CO2 20, anion gap 9, BUN 11, creatinine 0.76. His urine testing was negative. His chest x-ray showed bilateral infiltrates, more right-sided than left-sided. Progress note dated 06/23/2020. 79-year-old male, who was seen in the emergency department on June 21. He came in complaining of shortness of breath, weakness, and just feeling not his usual self. He was in the hospital a couple weeks back, and see her in consultation by our team on June 01. At that time, he was diagnosed as having COVID 19 19 pneumonia. He was discharged to rehab on June 06. He was home about a week or so before he decided that he needed to come in to be evaluated. I saw him yesterday in the emergency department. Currently, is on 6 L nasal cannula. He was on 5 L yesterday. In addition, he is getting saline at 100 mL an hour. White count is 13.39, hemoglobin 12.1, hematocrit 38.2, and platelet, 199,000. Sodium 136, potassium 4.7, chlorides 104, CO2 23, anion gap 9, BUN 13, creatinine 1.0. The patient does have a history of diabetes mellitus, hypertension, myocardial infarction, BPH, and recent COVID 19 pneumonia. Objective - Vital Signs Vital signs: Vital Signs Temp 98.9 F 06/23/20 08:22 Pulse 94 06/23/20 08:22 Resp 18 06/23/20 08:22 BP 119/67 06/23/20 08:22 Pulse Ox 98 06/23/20 08:22 - Exam No acute distress, oriented 3. Patient currently on 6 L nasal cannula. Saturations are 98%. HEENT examination is grossly unremarkable. Mucous membranes are moist. No oral lesions. Neck supple. Full range of motion. No adenopathy thyromegaly or neck vein distention. Cardiovascular examination reveals regular rhythm rate. S1-S2 normal. No S3 or S4. No discernible murmur noted. Heart sounds are distant. Heart rate 94 bpm. Lungs reveal coarse rhonchi, and basilar crackles. Breath sounds are equal. He does not take deep breaths. There are no wheezes. Abdomen soft bowel sounds are heard. No masses or tenderness. Extremities are intact. No cyanosis clubbing or edema. Skin is without rash or lesion. Neurologic examination is brief but nonfocal. - Labs CBC & Chem 7: 06/23/20 07:31 06/23/20 07:31 Labs: Abnormal Lab Results - Last 24 Hours (Table) 06/22/20 06/22/20 06/22/20 Range/Units 07:29 17:58 22:37 WBC (4.50-10.00) X 10*3/uL RBC (4.40-5.60) X 10*6/uL Hgb (13.0-17.0) g/dL Hct (39.6-50.0) % MCHC (32.0-37.0) g/dL Immature Gran # (0.00-0.04) X 10*3/uL Neutrophils # (1.80-7.70) X 10*3/uL Glucose (70-110) mg/dL POC Glucose (mg/dL) 150 H 130 H (75-99) mg/dL Calcium (8.7-10.3) mg/dL Procalcitonin 0.19 H (0.02-0.09) ng/mL 06/23/20 06/23/20 06/23/20 Range/Units 07:31 07:31 08:58 WBC 13.39 H (4.50-10.00) X 10*3/uL RBC 3.99 L (4.40-5.60) X 10*6/uL Hgb 12.1 L (13.0-17.0) g/dL Hct 38.2 L (39.6-50.0) % MCHC 31.7 L (32.0-37.0) g/dL Immature Gran # 0.05 H (0.00-0.04) X 10*3/uL Neutrophils # 10.82 H (1.80-7.70) X 10*3/uL Glucose 174 H (70-110) mg/dL POC Glucose (mg/dL) 144 H (75-99) mg/dL Calcium 8.5 L (8.7-10.3) mg/dL Procalcitonin (0.02-0.09) ng/mL 06/23/20 06/23/20 Range/Units 10:37 12:20 WBC (4.50-10.00) X 10*3/uL RBC (4.40-5.60) X 10*6/uL Hgb (13.0-17.0) g/dL Hct (39.6-50.0) % MCHC (32.0-37.0) g/dL Immature Gran # (0.00-0.04) X 10*3/uL Neutrophils # (1.80-7.70) X 10*3/uL Glucose (70-110) mg/dL POC Glucose (mg/dL) 189 H 159 H (75-99) mg/dL Calcium (8.7-10.3) mg/dL Procalcitonin (0.02-0.09) ng/mL Assessment and Plan Assessment: Acute hypoxemic respiratory failure with bilateral right greater than left infiltrates, either related to persistent/recurrent COVID 19 pneumonitis, or superimposed bacterial pneumonia. Recent admission between May 31 and June 06, for COVID 19 pneumonitis. No evidence of pulmonary embolism on CT angiogram. History of diabetes mellitus. History of hypertension. History of myocardial infarction. History of BPH. History of gout. History of CAD with previous stent placement. Plan: Plan dated 06/22/2020. The patient should get vitamin C, vitamin D3, and zinc. These may be protective. In addition, an albuterol inhaler would not be unreasonable. A pro-calcitonin level should be done. If the level is low, then standard antibiotics are probably contraindicated. In the meantime, we'll place him on an antibiotic empirically until a pro-calcitonin level is back. Probably no benefit for Decadron at this time. A d-dimer should be done if not already done. Additional recommendations and suggestions are forthcoming. Prognosis is guarded. Plan dated 06/23/2020. Currently, the patient's oxygen requirements have gone up a bit from 5 L to 6 L. He remains on saline at 100 mL an hour. Patient's medications are reviewed. He is on appropriate medications clearing albuterol, vitamin C, vitamin D3, zinc, and Lovenox. His pro-calcitonin level was in that [place] zone. The patient remains on Zosyn. I probably will keep him on Zosyn for a few days more. No additional recommendations are made. The patient will be watched closely. Prognosis is guarded. The patient does look chronically ill. Time with Patient: Less than 30
[2020-06-23 18:06] LABS: Glucose,Whole Blood 122 mg/dL (75-99)
[2020-06-23 20:27] LABS: Glucose,Whole Blood 155 mg/dL (75-99)
[2020-06-23] MEDS: metFORMIN 500 MG TAB PO SCH (21:48)
[2020-06-24] MEDS: ALBUTEROL HFA INHALER INHALATION SCH ×5 (01:13→20:00)
[2020-06-24] MEDS: ACETAMINOPHEN TAB 325 MG TAB PO PRN ×2 (02:54→09:50)
[2020-06-24] MEDS: PIPERACILLIN-TAZOBACTAM 3.375 GM in SODIUM CHLORIDE 0.9% 100 ML IVPB SCH ×4 (02:55→23:55)
[2020-06-24] MEDS: SODIUM CHLORIDE 0.9% 1,000 ML IV SCH ×2 (06:29→12:56)
[2020-06-24 07:01] LABS: Glucose,Whole Blood 121 mg/dL (75-99)
[2020-06-24] MEDS: INSULIN ASPART (NovoLOG) 100 UNIT/ML VIAL SQ SCH ×4 (07:15→21:25)
[2020-06-24] MEDS: amLODIPine 10 MG TAB PO SCH (07:39)
[2020-06-24] MEDS: metFORMIN 500 MG TAB PO SCH ×2 (07:39→20:03)
[2020-06-24] MEDS: PANTOPRAZOLE 40 MG/10 ML VIAL IVP SCH (07:39)
[2020-06-24] MEDS: ZINC SULFATE 220 MG CAP PO SCH (07:39)
[2020-06-24] MEDS: MULTIVITAMINS, THERA 1 EACH TAB PO SCH (07:39)
[2020-06-24] MEDS: lisinopriL 20 MG TAB PO SCH (07:39)
[2020-06-24] MEDS: ASPIRIN 81 MG PO SCH (07:40)
[2020-06-24] MEDS: ENOXAPARIN 40 MG/0.4 ML SYRINGE SQ SCH (07:40)
[2020-06-24] MEDS: ASCORBIC ACID 500 MG TAB PO SCH (07:40)
[2020-06-24] MEDS: COLCHICINE 0.6 MG EACH PO SCH ×2 (07:40→20:03)
[2020-06-24] MEDS: CHOLECALCIFEROL 25 MCG (1000 IU) TABLET PO SCH (07:40)
[2020-06-24 11:37] LABS: Glucose,Whole Blood 173 mg/dL (75-99)
[2020-06-24] MEDS: methylPREDNISolone SOD SUCCI 125 MG/2 ML VIAL IV SCH ×3 (12:52→23:55)
--- NOTE | 2020-06-24 15:28 | P.PN ---
Subjective Progress Note Date: 06/24/20 Principal diagnosis: Recurrent cover 19 pneumonitis versus superimposed bacterial pneumonia This is a 79-year-old male, who was seen in the emergency room, on June 21. The patient came in with complaints of weakness, and shortness of breath, and just not feeling well. He was in the hospital a couple weeks back, and seen in consultation by us right around June 01. At that time he was diagnosed as having COVID 19 pneumonia. The patient was apparently discharged on June 06 to rehabilitation. The patient apparently was home about a week or so prior to his most recent admission, and just has not been feeling well. He apparently fell because of weakness. He reports worsening shortness of breath. He does have a cough. Denies any phlegm production. No fever or chills. In the emergency department, he was getting saline at 130 mL an hour, and nasal cannula oxygen at 5 L. His most recent test here in the emergency room was negative. The patient has a history of diabetes mellitus, hypertension, myocardial infarction, BPH, and recent pneumonia secondary to coronavirus. His white count is 12.9, hemoglobin 12.5, hematocrit 37.8, platelet count 175,000. PT INR were normal. PTT was 32. D-dimer was 3.95. Sodium 132, potassium 4.7, chlorides 103, CO2 20, anion gap 9, BUN 11, creatinine 0.76. His urine testing was negative. His chest x-ray showed bilateral infiltrates, more right-sided than left-sided. Progress note dated 06/23/2020. 79-year-old male, who was seen in the emergency department on June 21. He came in complaining of shortness of breath, weakness, and just feeling not his usual self. He was in the hospital a couple weeks back, and see her in consultation by our team on June 01. At that time, he was diagnosed as having COVID 19 19 pneumonia. He was discharged to rehab on June 06. He was home about a week or so before he decided that he needed to come in to be evaluated. I saw him yesterday in the emergency department. Currently, is on 6 L nasal cannula. He was on 5 L yesterday. In addition, he is getting saline at 100 mL an hour. White count is 13.39, hemoglobin 12.1, hematocrit 38.2, and platelet, 199,000. Sodium 136, potassium 4.7, chlorides 104, CO2 23, anion gap 9, BUN 13, creatinine 1.0. The patient does have a history of diabetes mellitus, hypertension, myocardial infarction, BPH, and recent COVID 19 pneumonia. The patient is seen today 06/24/2020 in follow-up on the regular medical floor. He is currently resting in bed. He is still quite dyspneic with minimal exertion. He is now on 12 L high flow nasal cannula. CAT scan and ruled out pulmonary embolism. Chest x-ray shows bilateral patchy densities more so on the right. He remains on Zosyn, bronchodilators, Lovenox. 0.9 normal saline at 130 ML's per hour. Objective - Vital Signs Vital signs: Vital Signs Temp 97.9 F 06/24/20 14:00 Pulse 99 06/24/20 14:00 Resp 18 06/24/20 14:00 BP 117/63 06/24/20 14:00 Pulse Ox 90 L 06/24/20 14:00 Intake & Output 06/23/20 06/24/20 06/24/20 18:59 06:59 18:59 Intake Total 1010 Balance 1010 Weight 82.554 kg Intake: Intake, IV Titration 1010 Amount Piperacillin-Tazobactam 3 100 .375 gm In Sodium Chloride 0.9% 100 ml @ 25 mls/hr IVPB Q8HR [facility] Rx# :[id number] Sodium Chloride 0.9% 1, 910 000 ml @ 130 mls/hr IV . [id number] [facility] Rx#:[id number] Other: Voiding Method Bedside Commode Bedside Commode Urinal Urinal Diaper Diaper - Exam GENERAL EXAM: Alert, frail, 79-year-old gentleman, on 12 L high flow nasal cannula, comfortable in no apparent distress. HEAD: Normocephalic. EYES: Normal reaction of pupils, equal size. NOSE: Clear with pink turbinates. THROAT: No erythema or exudates. NECK: No masses, no JVD. CHEST: No chest wall deformity. LUNGS: Equal air entry with bibasilar crackles right greater than left. CVS: S1 and S2 normal with no audible murmur, regular rhythm. ABDOMEN: No hepatosplenomegaly, normal bowel sounds, no guarding or rigidity. SPINE: No scoliosis or deformity SKIN: No rashes CENTRAL NERVOUS SYSTEM: No focal deficits, tone is normal in all 4 extremities. EXTREMITIES: There is no peripheral edema. No clubbing, no cyanosis. Peripheral pulses are intact. - Labs CBC & Chem 7: 06/23/20 07:31 06/23/20 07:31 Labs: Abnormal Lab Results - Last 24 Hours (Table) 06/23/20 06/23/20 06/24/20 Range/Units 17:59 20:26 06:59 POC Glucose (mg/dL) 122 H 155 H 121 H (75-99) mg/dL 06/24/20 Range/Units 11:36 POC Glucose (mg/dL) 173 H (75-99) mg/dL Assessment and Plan Assessment: 1 Acute hypoxemic respiratory failure with bilateral right greater than left infiltrates, suspect persistent/recurrent cold pneumonitis versus superimposed bacterial pneumonia 2 Recent admission between May 31 and 2020 for CoVID 19 pneumonitis 3 Diabetes mellitus. 4 Hypertension 5 Coronary artery disease with previous stent placement 6 BPH 7 Gout Plan: The patient was seen and evaluated by Dr. Mcclendon Oxygen requirements keep going up, currently on 12 L high flow nasal cannula Add IV Solu-Medrol Continue Zosyn, bronchodilators, Lovenox Repeat chest x-ray in the a.m. Add incentive spirometry We will continue to follow make further recommendations based on his clinical status I, the cosigning physician, performed a history & physical examination of the patient. Lungs sounds with bilateral crackles right greater than left. Maintaining good O2 saturations in the 90s on 12 L high flow nasal cannula. I discussed the assessment and plan of care with my nurse practitioner, Angelina parks. I attest to the above note as dictated by her.
--- NOTE | 2020-06-24 15:59 | P.PN ---
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 Still quite dyspneic, currently on 12 L high flow nasal cannula CT ruled out PE chest x-ray demonstrates bilateral patchy densities right greater than the left. Currently on Zosyn bronchodilators Lovenox Objective - Vital Signs Vital signs: Vital Signs Temp 97.9 F 06/24/20 14:00 Pulse 99 06/24/20 14:00 Resp 18 06/24/20 14:00 BP 117/63 06/24/20 14:00 Pulse Ox 90 L 06/24/20 14:00 Intake & Output 06/23/20 06/24/20 06/24/20 18:59 06:59 18:59 Intake Total 1010 Balance 1010 Weight 82.554 kg Intake: Intake, IV Titration 1010 Amount Piperacillin-Tazobactam 3 100 .375 gm In Sodium Chloride 0.9% 100 ml @ 25 mls/hr IVPB Q8HR [facility] Rx# :[id number] Sodium Chloride 0.9% 1, 910 000 ml @ 130 mls/hr IV . Q7H42M [facility] Rx#:[id number] Other: Voiding Method Bedside Commode Bedside Commode Urinal Urinal Diaper Diaper - Exam General: [Patient awake, alert and oriented times 3. Patient in mild respiratory distress with exertion HEENT: [PERRL. EOMI. No pharyngeal erythema or exudate.] Neck: [No adenopathy.] Cardiac: [Heart regular in rate and rhythm. No S3. No S4. No clicks, rubs. No murmur.] Lungs: [Clear to auscultation bilaterally.] Abdomen: [No mass. No organomegaly. Bowel sounds presnt and normoactive in all 4 quadrants.] Extremes: [No edema no cyanosis no claudication normal pulses] : Normal male genitalia Musculoskeletal: [No joint erythema, edema or tenderness.] Skin: [No rash.] Neurologic: [No lateralizing deficits. CN II - XII grossly intact.] Lymphatic: [No adenopathy.] - Labs CBC & Chem 7: 06/23/20 07:31 06/23/20 07:31 Labs: Abnormal Lab Results - Last 24 Hours (Table) 06/23/20 06/23/20 06/24/20 Range/Units 17:59 20:26 06:59 POC Glucose (mg/dL) 122 H 155 H 121 H (75-99) mg/dL 06/24/20 Range/Units 11:36 POC Glucose (mg/dL) 173 H (75-99) mg/dL Assessment and Plan (1) COVID-19 Current Visit: Yes Status: Acute Code(s): U07.1 - COVID-19 SNOMED Code(s): 832909723 (2) Dehydration Current Visit: Yes Status: Acute Code(s): E86.0 - DEHYDRATION SNOMED Code(s): 45159557 (3) Generalized weakness Current Visit: Yes Status: Acute Code(s): R53.1 - WEAKNESS SNOMED Code(s): 12817080 (4) Multiple falls Current Visit: Yes Status: Acute Code(s): R29.6 - REPEATED FALLS SNOMED Code(s): 128755811 (5) Abdominal pain Current Visit: No Status: Acute Code(s): R10.9 - UNSPECIFIED ABDOMINAL PAIN SNOMED Code(s): 60472980 (6) Chest pain Current Visit: No Status: Acute Code(s): R07.9 - CHEST PAIN, UNSPECIFIED SNOMED Code(s): 25503828 (7) Hypertension Current Visit: No Status: Acute Code(s): I10 - ESSENTIAL (PRIMARY) HYPERTENSION SNOMED Code(s): 30490910 Plan: IV Zosyn Bronchodilators Lovenox Colchisine Consider PT OT once patient gained strength Time with Patient: Greater than 30
[2020-06-24 16:28] LABS: Glucose,Whole Blood 199 mg/dL (75-99)
[2020-06-24 20:52] LABS: Glucose,Whole Blood 272 mg/dL (75-99)
[2020-06-25] MEDS: methylPREDNISolone SOD SUCCI 125 MG/2 ML VIAL IV SCH ×4 (05:15→23:54)
[2020-06-25 07:04] LABS: Glucose,Whole Blood 228 mg/dL (75-99)
[2020-06-25] MEDS: ASPIRIN 81 MG PO SCH (07:16)
[2020-06-25] MEDS: ASCORBIC ACID 500 MG TAB PO SCH (07:16)
[2020-06-25] MEDS: MULTIVITAMINS, THERA 1 EACH TAB PO SCH (07:16)
[2020-06-25] MEDS: metFORMIN 500 MG TAB PO SCH ×2 (07:16→20:29)
[2020-06-25] MEDS: lisinopriL 20 MG TAB PO SCH (07:16)
[2020-06-25] MEDS: CHOLECALCIFEROL 25 MCG (1000 IU) TABLET PO SCH (07:17)
[2020-06-25] MEDS: PIPERACILLIN-TAZOBACTAM 3.375 GM in SODIUM CHLORIDE 0.9% 100 ML IVPB SCH ×3 (07:17→23:55)
[2020-06-25] MEDS: amLODIPine 10 MG TAB PO SCH (07:17)
[2020-06-25] MEDS: INSULIN ASPART (NovoLOG) 100 UNIT/ML VIAL SQ SCH ×4 (07:17→21:58)
[2020-06-25] MEDS: COLCHICINE 0.6 MG EACH PO SCH ×2 (07:17→20:29)
[2020-06-25] MEDS: ENOXAPARIN 40 MG/0.4 ML SYRINGE SQ SCH (07:18)
[2020-06-25] MEDS: PANTOPRAZOLE 40 MG/10 ML VIAL IVP SCH (07:19)
[2020-06-25] MEDS: ZINC SULFATE 220 MG CAP PO SCH (07:41)
[2020-06-25] MEDS: ALBUTEROL HFA INHALER INHALATION SCH ×4 (08:22→19:27)
--- NOTE | 2020-06-25 09:20 | XR ---
EXAMINATION TYPE: XR chest 1V portable DATE OF EXAM: 06/25/2020 COMPARISON: 06/21/2020. HISTORY: Covid pneumonia, follow-up. TECHNIQUE: Single frontal view of the chest is obtained. FINDINGS: There is increased moderate patchy opacities in the left mid to lower lung. Otherwise pers istent diffuse right patchy opacities. Trace right pleural effusion. No pneumothorax seen. The cardi ac silhouette size is within normal limits. The osseous structures are intact. IMPRESSION: Bilateral opacities, increased on the left.
[2020-06-25 11:50] LABS: Basophils % (A) 0 %; Eosinophils % (A) 0 %; HCT 37.2 % (39.0-53.0); HGB 12.3 gm/dL (13.0-17.5); Lymphocytes # (A) 0.9 k/uL (1.0-4.8); Lymphocytes % (A) 6 %; MCH 30.9 pg (25.0-35.0); MCV 93.5 fL (80.0-100.0); Mean Platelet Volume 7.6; Monocytes # (A) 0.5 k/uL (0-1.0); Monocytes % (A) 3 %; Neutrophils # (A) 12.9 k/uL (1.3-7.7); Neutrophils % (A) 89 %; Platelet Count 301 k/uL (150-450); RBC 3.98 m/uL (4.30-5.90); RDW 12.9 % (11.5-15.5); WBC 14.5 k/uL (3.8-10.6)
[2020-06-25 11:54] LABS: Glucose,Whole Blood 206 mg/dL (75-99)
--- NOTE | 2020-06-25 12:52 | P.PN ---
Subjective Progress Note Date: 06/25/20 Principal diagnosis: Recurrent covid 19 pneumonitis versus superimposed bacterial pneumonia Patient is awake alert resting. Still quite dyspneic, currently on 12 L high flow nasal cannula CT ruled out PE chest x-ray demonstrates bilateral patchy densities right greater than the left. Currently on Zosyn bronchodilators Lovenox Objective - Vital Signs Vital signs: Vital Signs Temp 98.4 F 06/25/20 10:00 Pulse 96 06/25/20 10:00 Resp 32 H 06/25/20 10:00 BP 107/65 06/25/20 10:00 Pulse Ox 93 L 06/25/20 10:00 Intake & Output 06/24/20 06/25/20 06/25/20 18:59 06:59 18:59 Other: Voiding Method Bedside Commode Bedside Commode Bedside Commode Urinal Urinal Urinal Diaper Diaper Diaper # Voids 2 3 # Bowel Movements 1 - Labs CBC & Chem 7: 06/25/20 11:33 06/23/20 07:31 Labs: Abnormal Lab Results - Last 24 Hours (Table) 06/24/20 06/24/20 06/25/20 Range/Units 16:26 20:50 06:59 WBC (3.8-10.6) k/uL RBC (4.30-5.90) m/uL Hgb (13.0-17.5) gm/dL Hct (39.0-53.0) % Neutrophils # (1.3-7.7) k/uL Lymphocytes # (1.0-4.8) k/uL POC Glucose (mg/dL) 199 H 272 H 228 H (75-99) mg/dL 06/25/20 06/25/20 Range/Units 11:33 11:52 WBC 14.5 H (3.8-10.6) k/uL RBC 3.98 L (4.30-5.90) m/uL Hgb 12.3 L (13.0-17.5) gm/dL Hct 37.2 L (39.0-53.0) % Neutrophils # 12.9 H (1.3-7.7) k/uL Lymphocytes # 0.9 L (1.0-4.8) k/uL POC Glucose (mg/dL) 206 H (75-99) mg/dL Assessment and Plan (1) COVID-19 Current Visit: Yes Status: Acute Code(s): U07.1 - COVID-19 SNOMED Code(s): 292318735 (2) Dehydration Current Visit: Yes Status: Acute Code(s): E86.0 - DEHYDRATION SNOMED Code(s): 13072064 (3) Generalized weakness Current Visit: Yes Status: Acute Code(s): R53.1 - WEAKNESS SNOMED Code(s): 28965828 (4) Multiple falls Current Visit: Yes Status: Acute Code(s): R29.6 - REPEATED FALLS SNOMED Code(s): 655955271 (5) Abdominal pain Current Visit: No Status: Acute Code(s): R10.9 - UNSPECIFIED ABDOMINAL PAIN SNOMED Code(s): 16240772 (6) Chest pain Current Visit: No Status: Acute Code(s): R07.9 - CHEST PAIN, UNSPECIFIED SNOMED Code(s): 90820603 (7) Hypertension Current Visit: No Status: Acute Code(s): I10 - ESSENTIAL (PRIMARY) HYPERTENSION SNOMED Code(s): 58863422 Plan: IV Zosyn Bronchodilators Lovenox Colchisine Solu-Medrol iv And zinc, vitamin C vitamin D Repeat labs in the morning, Consider PT OT once patient gained strength Time with Patient: Greater than 30
[2020-06-25 13:11] LABS: African American GFR (CKD) >90 (>60 ml/min/1.73 sqM); Anion Gap 10 mmol/L; Blood Urea Nitrogen 22 mg/dL (9-20); Calcium 8.9 mg/dL (8.4-10.2); Carbon Dioxide 20 mmol/L (22-30); Chloride 108 mmol/L (98-107); Glucose 230 mg/dL (74-99); Non-African American GFR(CKD) 82 (>60 ml/min/1.73 sqM); Potassium 4.8 mmol/L (3.5-5.1); Sodium 138 mmol/L (137-145)
--- NOTE | 2020-06-25 15:39 | P.PN ---
Subjective Progress Note Date: 06/25/20 Principal diagnosis: Recurrent cover 19 pneumonitis versus superimposed bacterial pneumonia This is a 79-year-old male, who was seen in the emergency room, on June 21. The patient came in with complaints of weakness, and shortness of breath, and just not feeling well. He was in the hospital a couple weeks back, and seen in consultation by us right around June 01. At that time he was diagnosed as having COVID 19 pneumonia. The patient was apparently discharged on June 06 to rehabilitation. The patient apparently was home about a week or so prior to his most recent admission, and just has not been feeling well. He apparently fell because of weakness. He reports worsening shortness of breath. He does have a cough. Denies any phlegm production. No fever or chills. In the emergency department, he was getting saline at 130 mL an hour, and nasal cannula oxygen at 5 L. His most recent test here in the emergency room was negative. The patient has a history of diabetes mellitus, hypertension, myocardial infarction, BPH, and recent pneumonia secondary to coronavirus. His white count is 12.9, hemoglobin 12.5, hematocrit 37.8, platelet count 175,000. PT INR were normal. PTT was 32. D-dimer was 3.95. Sodium 132, potassium 4.7, chlorides 103, CO2 20, anion gap 9, BUN 11, creatinine 0.76. His urine testing was negative. His chest x-ray showed bilateral infiltrates, more right-sided than left-sided. Progress note dated 06/23/2020. 79-year-old male, who was seen in the emergency department on June 21. He came in complaining of shortness of breath, weakness, and just feeling not his usual self. He was in the hospital a couple weeks back, and see her in consultation by our team on June 01. At that time, he was diagnosed as having COVID 19 19 pneumonia. He was discharged to rehab on June 06. He was home about a week or so before he decided that he needed to come in to be evaluated. I saw him yesterday in the emergency department. Currently, is on 6 L nasal cannula. He was on 5 L yesterday. In addition, he is getting saline at 100 mL an hour. White count is 13.39, hemoglobin 12.1, hematocrit 38.2, and platelet, 199,000. Sodium 136, potassium 4.7, chlorides 104, CO2 23, anion gap 9, BUN 13, creatinine 1.0. The patient does have a history of diabetes mellitus, hypertension, myocardial infarction, BPH, and recent COVID 19 pneumonia. The patient is seen today 06/24/2020 in follow-up on the regular medical floor. He is currently resting in bed. He is still quite dyspneic with minimal exertion. He is now on 12 L high flow nasal cannula. CAT scan and ruled out pulmonary embolism. Chest x-ray shows bilateral patchy densities more so on the right. He remains on Zosyn, bronchodilators, Lovenox. 0.9 normal saline at 130 ML's per hour. The patient is seen today 06/25/2020 regular medical floor. He is currently resting in bed. He is quite weak and debilitated. Still quite short of breath with minimal activity. He is requiring 15 L high flow nasal cannula along with the 100% nonrebreather to maintain O2 saturations in the mid to upper 80s. He is quite rhonchorous. Loose nonproductive cough. White count 14.5. Hemoglobin 12.3. Lymphocytes 0.9. Sodium 1:30. Potassium 4.8. Creatinine 0.80. He hernando ins on IV Solu-Medrol, Lovenox, vitamin supplements. Antibiotics in the form of Zosyn. Chest x-ray continues to show bilateral opacities increasing on the left. Objective - Vital Signs Vital signs: Vital Signs Temp 97.4 F L 06/25/20 14:00 Pulse 64 06/25/20 14:00 Resp 28 H 06/25/20 14:00 BP 113/59 06/25/20 14:00 Pulse Ox 91 L 06/25/20 14:00 Intake & Output 06/24/20 06/25/20 06/25/20 18:59 06:59 18:59 Other: Voiding Method Bedside Commode Bedside Commode Bedside Commode Urinal Urinal Urinal Diaper Diaper Diaper # Voids 2 3 # Bowel Movements 1 - Exam GENERAL EXAM: Alert, frail, 79-year-old gentleman, on 15 L high flow nasal cannula along with 100% nonrebreather mask, comfortable in no apparent distress. HEAD: Normocephalic. EYES: Normal reaction of pupils, equal size. NOSE: Clear with pink turbinates. THROAT: No erythema or exudates. NECK: No masses, no JVD. CHEST: No chest wall deformity. LUNGS: Equal air entry with bibasilar crackles , few scattered rhonchi. CVS: S1 and S2 normal with no audible murmur, regular rhythm. ABDOMEN: No hepatosplenomegaly, normal bowel sounds, no guarding or rigidity. SPINE: No scoliosis or deformity SKIN: No rashes CENTRAL NERVOUS SYSTEM: No focal deficits, tone is normal in all 4 extremities. EXTREMITIES: There is no peripheral edema. No clubbing, no cyanosis. Peripheral pulses are intact. - Labs CBC & Chem 7: 06/25/20 11:33 06/25/20 11:33 Labs: Abnormal Lab Results - Last 24 Hours (Table) 06/24/20 06/24/20 06/25/20 Range/Units 16:26 20:50 06:59 WBC (3.8-10.6) k/uL RBC (4.30-5.90) m/uL Hgb (13.0-17.5) gm/dL Hct (39.0-53.0) % Neutrophils # (1.3-7.7) k/uL Lymphocytes # (1.0-4.8) k/uL Chloride (98-107) mmol/L Carbon Dioxide (22-30) mmol/L BUN (9-20) mg/dL Glucose (74-99) mg/dL POC Glucose (mg/dL) 199 H 272 H 228 H (75-99) mg/dL 06/25/20 06/25/20 06/25/20 Range/Units 11:33 11:33 11:52 WBC 14.5 H (3.8-10.6) k/uL RBC 3.98 L (4.30-5.90) m/uL Hgb 12.3 L (13.0-17.5) gm/dL Hct 37.2 L (39.0-53.0) % Neutrophils # 12.9 H (1.3-7.7) k/uL Lymphocytes # 0.9 L (1.0-4.8) k/uL Chloride 108 H (98-107) mmol/L Carbon Dioxide 20 L (22-30) mmol/L BUN 22 H (9-20) mg/dL Glucose 230 H (74-99) mg/dL POC Glucose (mg/dL) 206 H (75-99) mg/dL Assessment and Plan Assessment: 1 Acute hypoxemic respiratory failure with bilateral right greater than left infiltrates, suspect persistent/recurrent CoVID pneumonitis versus superimposed bacterial pneumonia 2 Recent admission between May 31 and 2020 for CoVID 19 pneumonitis 3 Diabetes mellitus. 4 Hypertension 5 Coronary artery disease with previous stent placement 6 BPH 7 Gout Plan: The patient was seen and evaluated by Dr. Mcclendon Chest x-ray and labs reviewed Currently on 15 L high flow nasal cannula along with 100% nonrebreather mask Continue IV Solu-Medrol Continue Zosyn, bronchodilators, Lovenox Encourage increased use of the incentive spirometry Prognosis is guarded We will continue to follow make further recommendations based on his clinical st atus I, the cosigning physician, performed a history & physical examination of the patient. Lungs sounds with bilateral crackles scattered rhonchi. Maintaining good O2 saturations in the 90s on 15 L high flow nasal cannula along with 100% nonrebreather mask. I discussed the assessment and plan of care with my nurse practitioner, Angelina Rocha. I attest to the above note as dictated by her.
[2020-06-25 16:49] LABS: Glucose,Whole Blood 261 mg/dL (75-99)
[2020-06-25] MEDS: ACETAMINOPHEN TAB 325 MG TAB PO PRN (18:18)
[2020-06-25 20:38] LABS: Glucose,Whole Blood 281 mg/dL (75-99)
[2020-06-26] MEDS: methylPREDNISolone SOD SUCCI 125 MG/2 ML VIAL IV SCH ×4 (05:49→23:30)
[2020-06-26 06:57] LABS: Glucose,Whole Blood 233 mg/dL (75-99)
[2020-06-26] MEDS: ALBUTEROL HFA INHALER INHALATION SCH ×4 (08:35→20:02)
[2020-06-26] MEDS: ENOXAPARIN 40 MG/0.4 ML SYRINGE SQ SCH (08:41)
[2020-06-26] MEDS: PANTOPRAZOLE 40 MG/10 ML VIAL IVP SCH (08:41)
[2020-06-26] MEDS: amLODIPine 10 MG TAB PO SCH (08:42)
[2020-06-26] MEDS: ASPIRIN 81 MG PO SCH (08:42)
[2020-06-26] MEDS: CHOLECALCIFEROL 25 MCG (1000 IU) TABLET PO SCH (08:42)
[2020-06-26] MEDS: lisinopriL 20 MG TAB PO SCH (08:42)
[2020-06-26] MEDS: INSULIN ASPART (NovoLOG) 100 UNIT/ML VIAL SQ SCH ×5 (08:42→20:42)
[2020-06-26] MEDS: metFORMIN 500 MG TAB PO SCH ×2 (08:42→21:31)
[2020-06-26] MEDS: COLCHICINE 0.6 MG EACH PO SCH ×2 (08:42→21:31)
[2020-06-26] MEDS: MULTIVITAMINS, THERA 1 EACH TAB PO SCH (08:42)
[2020-06-26] MEDS: ASCORBIC ACID 500 MG TAB PO SCH (08:42)
[2020-06-26] MEDS: ZINC SULFATE 220 MG CAP PO SCH (08:43)
[2020-06-26] MEDS: PIPERACILLIN-TAZOBACTAM 3.375 GM in SODIUM CHLORIDE 0.9% 100 ML IVPB SCH ×3 (10:06→23:30)
[2020-06-26 11:22] LABS: Glucose,Whole Blood 230 mg/dL (75-99)
[2020-06-26 12:04] LABS: African American GFR (CKD) 98.5 (60.0-200.0); Albumin 3.2 g/dL (3.80-4.90); Albumin/Globulin Ratio 1.23 (1.60-3.17); Anion Gap 9.5 mmol/L (4.00-12.00); BUN/Creat Ratio 33.75 Ratio (12.00-20.00); Calcium 8.4 mg/dL (8.7-10.3); Carbon Dioxide 22.5 mmol/L (21.6-31.8); Globulin 2.6 g/dL (1.6-3.3); Potassium 4.4 mmol/L (3.5-5.5); Total Bilirubin 0.4 mg/dL (0.3-1.2); Total Protein 5.8 g/dL (6.2-8.2)
--- NOTE | 2020-06-26 14:57 | P.PN ---
Subjective Progress Note Date: 06/26/20 This is a pleasant 79-year-old gentleman with history of diabetes mellitus, hypertension, CAD, AL, cardiac stents 2, gout, muscle skeletal disorder and multiple other medical issues presented to the ER with complaints of Increased weakness, falls, shortness of breath,occasional nonproductive cough and multiple other medical issues. Patient was recently hospitalized for acute Covid 19 pneumonitis 06/01/2020 through 06/06/2020, and discharged to subacute rehab.,where he refused to stay after 2-3 days and proceeded home. He now presents with similar presentation. Coronavirus not detected. D-dimer 3.95, CTA reported no evidence of PE .Denies chest pain, palpitations. EKG reporting sinus tachycardia T-max 99.4, WBC 12.9. Hemoglobin 12.5, platelets 175, sodium 132, potassium 4.7, BUN 11, creatinine 0.76. Lactic acid 3.2 on admission, received gentle IV fluid hydration currently down to 1.6. Chest x-ray reporting increasing bilateral pneumonia compared to prior exam. UA negative. Currently requiring 5 L nasal cannula O2 to maintain O2 sats in the 90s. 06/23/2020 continues on Zosyn, vitamin supplements, Lovenox, albuterol inhaler ,oxygen requirements worsened, requiring 6 L nasal cannula to maintain O2 sats in the 90s. T-max 99.2, WBC 13.39. Hemoglobin 12.1, platelets 199. Denies chest pain, palpitations. 06/26/20 maintained on nebulized bronchodilators, Lovenox, Zosyn, IV steroids ,15 L high flow nasal cannula along with 100% nonrebreather mask, maintaining O2 sats in the high 80s to low 90s. Loose nonproductive cough. Blood sugars uncontrolled, ranging up to the high 200s. Afebrile. BUN 22, creatinine 0.88. Objective - Vital Signs Vital signs: Vital Signs Temp 98.2 F 06/26/20 13:26 Pulse 95 06/26/20 13:26 Resp 22 06/26/20 13:26 BP 129/74 06/26/20 13:26 Pulse Ox 88 L 06/26/20 13:26 Intake & Output 06/25/20 06/26/20 06/26/20 18:59 06:59 18:59 Other: Voiding Method Bedside Commode Bedside Commode External Catheter Urinal Urinal Diaper Diaper # Voids 2 3 - Exam PHYSICAL EXAM: VITAL SIGNS: As above GENERAL: Frail ,Alert and oriented 3, on both high flow nasal cannula and nonrebreather HEENT: Conjunctivae normal. eyes normal. NECK: No JVD. No thyroid enlargement. No LNs CARDIOVASCULAR: S1, S2 regular. Systolic murmur RESPIRATION: Breath sounds diminished in the bases. Scattered rhonchi and bibasilar crackles. ABDOMEN: Obese,Soft,distended, nontender. No guarding. no masses palpable. Positive Bowel sounds heard. LEGS: No edema. no swelling NERVOUS SYSTEM: Cranial N 2-12 grossly normal. Moves all 4 limbs. No gross focal deficits. Skin: Warm and dry, no rash - Labs CBC & Chem 7: 06/25/20 11:33 06/26/20 07:13 Labs: Abnormal Lab Results - Last 24 Hours (Table) 06/25/20 06/25/20 06/26/20 Range/Units 16:47 20:36 06:51 Chloride (96-109) mmol/L BUN/Creatinine Ratio (12.00-20.00) Ratio Glucose (70-110) mg/dL POC Glucose (mg/dL) 261 H 281 H 233 H (75-99) mg/dL Calcium (8.7-10.3) mg/dL Total Protein (6.2-8.2) g/dL Albumin (3.80-4.90) g/dL Albumin/Globulin Ratio (1.60-3.17) g/dL 06/26/20 06/26/20 Range/Units 07:13 11:20 Chloride 112 H (96-109) mmol/L BUN/Creatinine Ratio 33.75 H (12.00-20.00) Ratio Glucose 226 H (70-110) mg/dL POC Glucose (mg/dL) 230 H (75-99) mg/dL Calcium 8.4 L (8.7-10.3) mg/dL Total Protein 5.8 L (6.2-8.2) g/dL Albumin 3.20 L (3.80-4.90) g/dL Albumin/Globulin Ratio 1.23 L (1.60-3.17) g/dL Assessment and Plan Assessment: Final Diagnoses: Acute hypoxic respiratory failure secondary to bilateral pneumonia, suspect persistent or recurrent covid- 19 pneumonitis, possible superimposed bacterial pneumonia. recently hospitalized for acute Covid 19 pneumonitis 06/01/2020 through 06/06/2020. PE ruled out Generalized weakness, secondary to the above, discharged to subacute rehab on 06/06/2020 and patient did not complete rehab -only stayed for a few days, Degenerative joint disease History of Bilateral nephrolithiasis, large exophytic cyst of left kidney measuring 7 cm. History of Bladder stones History of Enlarged prostate History of Hepatomegaly with possible hepatic steatosis Diabetes mellitus II Hypertension CAD, history of AL with cardiac stents in 2017. Plan: Continue on current medication regime ,monitoring and symptomatic treatment. Continue Zosyn, bronchodilators,vitamin supplements vitamin C, porfirio min D3 and zinc, colchicine. PT/OT. Recommending subacute rehab at discharge. The impression and plan of care has been dictated as directed. : I performed a history and examination of this patient, discussed the same with the dictator. I agree with the dictator's note ,documented as a scribe. Any additional findings or plans will be noted.
[2020-06-26 16:58] LABS: Glucose,Whole Blood 175 mg/dL (75-99)
--- NOTE | 2020-06-26 19:24 | P.PN ---
Subjective Progress Note Date: 06/26/20 Principal diagnosis: Recurrent COVID 19 This is a 79-year-old male, who was seen in the emergency room, on June 21. The patient came in with complaints of weakness, and shortness of breath, and just not feeling well. He was in the hospital a couple weeks back, and seen in consultation by us right around June 01. At that time he was diagnosed as having COVID 19 pneumonia. The patient was apparently discharged on June 06 to rehabilitation. The patient apparently was home about a week or so prior to his most recent admission, and just has not been feeling well. He apparently fell because of weakness. He reports worsening shortness of breath. He does have a cough. Denies any phlegm production. No fever or chills. In the emergency department, he was getting saline at 130 mL an hour, and nasal cannula oxygen at 5 L. His most recent test here in the emergency room was negative. The patient has a history of diabetes mellitus, hypertension, myocardial infar ction, BPH, and recent pneumonia secondary to coronavirus. His white count is 12.9, hemoglobin 12.5, hematocrit 37.8, platelet count 175,000. PT INR were normal. PTT was 32. D-dimer was 3.95. Sodium 132, potassium 4.7, chlorides 103, CO2 20, anion gap 9, BUN 11, creatinine 0.76. His urine testing was negative. His chest x-ray showed bilateral infiltrates, more right-sided than left-sided. Progress note dated 06/23/2020. 79-year-old male, who was seen in the emergency department on June 21. He came in complaining of shortness of breath, weakness, and just feeling not his usual self. He was in the hospital a couple weeks back, and see her in consultation by our team on June 01. At that time, he was diagnosed as having COVID 19 19 pneumonia. He was discharged to rehab on June 06. He was home about a week or so before he decided that he needed to come in to be evaluated. I saw him yesterday in the emergency department. Currently, is on 6 L nasal cannula. He was on 5 L yesterday. In addition, he is getting saline at 100 mL an hour. White count is 13.39, hemoglobin 12.1, hematocrit 38.2, and platelet, 199,000. Sodium 136, potassium 4.7, chlorides 104, CO2 23, anion gap 9, BUN 13, creatinine 1.0. The patient does have a history of diabetes mellitus, hypertension, myocardial infarction, BPH, and recent COVID 19 pneumonia. The patient is seen today 06/24/2020 in follow-up on the regular medical floor. He is currently resting in bed. He is still quite dyspneic with minimal exertion. He is now on 12 L high flow nasal cannula. CAT scan and ruled out pulmonary embolism. Chest x-ray shows bilateral patchy densities more so on the right. He remains on Zosyn, bronchodilators, Lovenox. 0.9 normal saline at 130 ML's per hour. The patient is seen today 06/25/2020 regular medical floor. He is currently resting in bed. He is quite weak and debilitated. Still quite short of breath with minimal activity. He is requiring 15 L high flow nasal cannula along with the 100% nonrebreather to maintain O2 saturations in the mid to upper 80s. He is quite rhonchorous. Loose nonproductive cough. White count 14.5. Hemoglobin 12.3. Lymphocytes 0.9. Sodium 1:30. Potassium 4.8. Creatinine 0.80. He remains on IV Solu-Medrol, Lovenox, vitamin supplements. Antibiotics in the form of Zosyn. Chest x-ray continues to show bilateral opacities increasing on the left. On 06/26/2020 patient seen in follow-up. Patient is currently on 15 L high flow and his pulse ox is ranging between 80-93%, clinically he states he feels better, he looks comfortable, no worsening cough or dyspnea, no altered mentation, no fever or chills, hemodynamically stable, does become more short of breath with exertion, lst chest x-ray was yesterday on 06/25/2020 showing bilate ral opacities with slight increase on the left. Today's labs have been reviewed, electrolytes and renal profile are unremarkable, LFTs were within normal limits, pro-calcitonin level was negative at 0.19 on 06/22/2020. Patient remains on vitamin COPD and wheezing, remains on high-dose steroids with Solu- Medrol 60 mg every 6 hours, prophylactic Lovenox 40 mg daily, and Zosyn Objective - Vital Signs Vital signs: Vital Signs Temp 98.0 F 06/26/20 17:50 Pulse 99 06/26/20 17:50 Resp 24 06/26/20 17:50 BP 131/78 06/26/20 17:50 Pulse Ox 93 L 06/26/20 17:50 Intake & Output 06/26/20 06/26/20 06/27/20 06:59 18:59 06:59 Other: Voiding Method Bedside Commode External Catheter Urinal Diaper # Voids 3 400 # Bowel Movements 1 - Exam GENERAL EXAM: Alert, very pleasant 79-year-old white female, on 15 L of oxygen the pulse ox 88% comfortable in no apparent distress. HEAD: Normocephalic/atraumatic. EYES: Normal reaction of pupils, equal size. Conjunctiva pink, sclera white. NOSE: Clear with pink turbinates. THROAT: No erythema or exudates. NECK: No masses, no JVD, no thyroid enlargement, no adenopathy. CHEST: No chest wall deformity. Symmetrical expansion. LUNGS: Equal air entry with no crackles, wheeze, rhonchi or dullness. CVS: Regular rate and rhythm, normal S1 and S2, no gallops, no murmurs, no rubs ABDOMEN: Soft, nontender. No hepatosplenomegaly, normal bowel sounds, no guarding or rigidity. EXTREMITIES: No clubbing, no edema, no cyanosis, 2+ pulses and upper and lower extremities. MUSCULOSKELETAL: Muscle strength and tone normal. SPINE: No scoliosis or deformity SKIN: No rashes CENTRAL NERVOUS SYSTEM: Alert and oriented -3. No focal deficits, tone is normal in all 4 extremities. PSYCHIATRIC: Alert and oriented -3. Appropriate affect. Intact judgment and insight. - Labs CBC & Chem 7: 06/25/20 11:33 06/26/20 07:13 Labs: Abnormal Lab Results - Last 24 Hours (Table) 06/25/20 06/26/20 06/26/20 Range/Units 20:36 06:51 07:13 Chloride 112 H (96-109) mmol/L BUN/Creatinine Ratio 33.75 H (12.00-20.00) Ratio Glucose 226 H (70-110) mg/dL POC Glucose (mg/dL) 281 H 233 H (75-99) mg/dL Calcium 8.4 L (8.7-10.3) mg/dL Total Protein 5.8 L (6.2-8.2) g/dL Albumin 3.20 L (3.80-4.90) g/dL Albumin/Globulin Ratio 1.23 L (1.60-3.17) g/dL 06/26/20 06/26/20 Range/Units 11:20 16:53 Chloride (96-109) mmol/L BUN/Creatinine Ratio (12.00-20.00) Ratio Glucose (70-110) mg/dL POC Glucose (mg/dL) 230 H 175 H (75-99) mg/dL Calcium (8.7-10.3) mg/dL Total Protein (6.2-8.2) g/dL Albumin (3.80-4.90) g/dL Albumin/Globulin Ratio (1.60-3.17) g/dL Assessment and Plan Plan: assessment: #1. Acute hypoxemic respiratory failure with bilateral right greater than left infiltrates, related to recent history of COVID 19 pneumonia, patient had a positive COVID 19 test on 05/31/2020, and again on 06/01/2020. This admission he tested negative on 06/21/2020 #2. Recent admission for COVID 19 pneumonitis and patient was outside the window for Remdesivir #3. Frequent falls with recent history of rhabdomyolysis #4. Type 2 diabetes mellitus #5. Benign essential hypertension #6. History of enlarged prostate/benign prostatic hypertrophy #7. History of coronary artery disease and previous myocardial infarction, previous stenting #8. History of DJD #9. No CT evidence of pulmonary embolism Plan: Continue current dose IV steroids, prophylactic anticoagulation, wean FiO2, continue vitamins. Follow-up d-dimer tomorrow, to follow-up chest x-ray tomorrow, increase activity as tolerated, we'll continue to follow I performed a history & physical examination of the patient and discussed their management with my nurse practitioner, Brenda Zuniga. I reviewed the nurse practitioner's note and agree with the documented findings and plan of care. Lung sounds are positive for diminished breath sounds. The findings and the impression was discussed with the patient. I attest to the documentation by the nurse practitioner. Time with Patient: Less than 30
[2020-06-26 20:35] LABS: Glucose,Whole Blood 151 mg/dL (75-99)
[2020-06-27] MEDS: ACETAMINOPHEN TAB 325 MG TAB PO PRN (01:42)
[2020-06-27] MEDS: methylPREDNISolone SOD SUCCI 125 MG/2 ML VIAL IV SCH ×4 (05:29→23:09)
[2020-06-27 06:45] LABS: Glucose,Whole Blood 194 mg/dL (75-99)
[2020-06-27] MEDS: ENOXAPARIN 40 MG/0.4 ML SYRINGE SQ SCH (07:59)
[2020-06-27] MEDS: PANTOPRAZOLE 40 MG/10 ML VIAL IVP SCH (07:59)
[2020-06-27] MEDS: ASCORBIC ACID 500 MG TAB PO SCH (08:00)
[2020-06-27] MEDS: ZINC SULFATE 220 MG CAP PO SCH (08:00)
[2020-06-27] MEDS: lisinopriL 20 MG TAB PO SCH (08:00)
[2020-06-27] MEDS: amLODIPine 10 MG TAB PO SCH (08:00)
[2020-06-27] MEDS: CHOLECALCIFEROL 25 MCG (1000 IU) TABLET PO SCH (08:00)
[2020-06-27] MEDS: INSULIN ASPART (NovoLOG) 100 UNIT/ML VIAL SQ SCH ×6 (08:00→21:05)
[2020-06-27] MEDS: metFORMIN 500 MG TAB PO SCH ×2 (08:00→21:08)
[2020-06-27] MEDS: ASPIRIN 81 MG PO SCH (08:00)
[2020-06-27] MEDS: MULTIVITAMINS, THERA 1 EACH TAB PO SCH (08:00)
[2020-06-27] MEDS: COLCHICINE 0.6 MG EACH PO SCH ×2 (08:00→21:08)
[2020-06-27] MEDS: ALBUTEROL HFA INHALER INHALATION SCH ×4 (09:56→19:16)
[2020-06-27] MEDS: PIPERACILLIN-TAZOBACTAM 3.375 GM in SODIUM CHLORIDE 0.9% 100 ML IVPB SCH ×3 (10:33→23:09)
[2020-06-27 11:42] LABS: Glucose,Whole Blood 148 mg/dL (75-99)
--- NOTE | 2020-06-27 12:15 | XR ---
EXAMINATION TYPE: XR chest 1V portable DATE OF EXAM: 06/27/2020 COMPARISON: 06/25/2020 INDICATION: Covid TECHNIQUE: Single frontal view of the chest is obtained. FINDINGS: The heart size is normal. The pulmonary vasculature is normal. Diffuse patchy infiltrates are present bilaterally. Findings are worsening over the interval. Small left pleural effusion may be developing. Subpulmonic effusion is not excluded on the right IMPRESSION: 1. Worsening bilateral lung infiltrates. Correlate for a typical pneumonia.
[2020-06-27 14:20] LABS: African American GFR (CKD) 98.5 (60.0-200.0); Anion Gap 13.8 mmol/L (4.00-12.00); BUN/Creat Ratio 32.5 Ratio (12.00-20.00); Calcium 8.7 mg/dL (8.7-10.3); Carbon Dioxide 22.2 mmol/L (21.6-31.8); Potassium 4.4 mmol/L (3.5-5.5)
--- NOTE | 2020-06-27 14:36 | P.PN ---
Subjective Progress Note Date: 06/27/20 Principal diagnosis: Acute hypoxic respiratory failure secondary to covid 19 pneumonia. This is a 79-year-old male, who was seen in the emergency room, on June 21. The patient came in with complaints of weakness, and shortness of breath, and just not feeling well. He was in the hospital a couple weeks back, and seen in consultation by us right around June 01. At that time he was diagnosed as having COVID 19 pneumonia. The patient was apparently discharged on June 06 to rehabilitation. The patient apparently was home about a week or so prior to his most recent admission, and just has not been feeling well. He apparently fell because of weakness. He reports worsening shortness of breath. He does have a cough. Denies any phlegm production. No fever or chills. In the emergency department, he was getting saline at 130 mL an hour, and nasal cannula oxygen at 5 L. His most recent test here in the emergency room was negative. The patient has a history of diabetes mellitus, hypertension, myocardial infarction, BPH, and recent pneumonia secondary to coronavirus. His white count is 12.9, hemoglobin 12.5, hematocrit 37.8, platelet count 175,000. PT INR were normal. PTT was 32. D-dimer was 3.95. Sodium 132, potassium 4.7, chlorides 103, CO2 20, anion gap 9, BUN 11, creatinine 0.76. His urine testing was negative. His chest x-ray showed bilateral infiltrates, more right-sided than left-sided. Progress note dated 06/23/2020. 79-year-old male, who was seen in the emergency department on June 21. He came in complaining of shortness of breath, weakness, and just feeling not his usual self. He was in the hospital a couple weeks back, and see her in consultation by our team on June 01. At that time, he was diagnosed as having COVID 19 19 pneumonia. He was discharged to rehab on June 06. He was home about a week or so before he decided that he needed to come in to be evaluated. I saw him yesterday in the emergency department. Currently, is on 6 L nasal cannula. He was on 5 L yesterday. In addition, he is getting saline at 100 mL an hour. White count is 13.39, hemoglobin 12.1, hematocrit 38.2, and platelet, 199,000. Sodium 136, potassium 4.7, chlorides 104, CO2 23, anion gap 9, BUN 13, creatinine 1.0. The patient does have a history of diabetes mellitus, hypertension, myocardial infarction, BPH, and recent COVID 19 pneumonia. The patient is seen today 06/24/2020 in follow-up on the regular medical floor. He is currently resting in bed. He is still quite dyspneic with minimal exertion. He is now on 12 L high flow nasal cannula. CAT scan and ruled out pulmonary embolism. Chest x-ray shows bilateral patchy densities more so on the right. He remains on Zosyn, bronchodilators, Lovenox. 0.9 normal saline at 130 ML's per hour. The patient is seen today 06/25/2020 regular medical floor. He is currently resting in bed. He is quite weak and debilitated. Still quite short of breath with minimal activity. He is requiring 15 L high flow nasal cannula along with the 100% nonrebreather to maintain O2 saturations in the mid to upper 80s. He is quite rhonchorous. Loose nonproductive cough. White count 14.5. Hemoglobin 12.3. Lymphocytes 0.9. Sodium 1:30. Potassium 4.8. Creatinine 0.80. He remains on IV Solu-Medrol, Lovenox, vitamin supplements. Antibiotics in the form of Zosyn. Chest x-ray continues to show bilateral opacities increasing on the left. On 06/26/2020 patient seen in follow-up. Patient is currently on 15 L high flow and his pulse ox is ranging between 80-93%, clinically he states he feels better, he looks comfortable, no worsening cough or dyspnea, no altered mentation, no fever or chills, hemodynamically stable, does become more short of breath with exertion, lst chest x-ray was yesterday on 06/25/2020 showing bilateral opacities with slight increase on the left. Today's labs have been reviewed, electrolytes and renal profile are unremarkable, LFTs were within norm al limits, pro-calcitonin level was negative at 0.19 on 06/22/2020. Patient remains on vitamin COPD and wheezing, remains on high-dose steroids with Solu- Medrol 60 mg every 6 hours, prophylactic Lovenox 40 mg daily, and Zosyn Patient was reevaluated today on 06/27/2020, patient continues to do poorly, still requiring BiPAP, did not do well on a nonrebreather mask, he is on 100% FiO2, continues to have shortness of breath, intermittent cough, no fever no chills, no hemoptysis. is at bedside, and she was updated on his condition, I also discussed the CODE STATUS with the , and she felt strongly about DO NOT RESUSCITATE CODE STATUS. She would like him to be DO NOT RESUSCITATE. I exp lained to her that his condition may worsen considering that he is marginal at best, and she definitely would not want them to be on any life-support machinery. Labs today showed d-dimer of 4.13. Electrolytes are normal renal profile is normal his LDH is 433 and C-reactive protein is 10. Chest x-ray is showing worsening of his bilateral pulmonary infiltrates. Objective - Vital Signs Vital signs: Vital Signs Temp 98.2 F 06/27/20 10:00 Pulse 108 H 06/27/20 10:00 Resp 25 H 06/27/20 10:00 BP 115/72 06/27/20 10:00 Pulse Ox 96 06/27/20 13:06 Intake & Output 06/26/20 06/27/20 06/27/20 18:59 06:59 18:59 Output Total 600 Balance -600 Output: Urine 600 Other: Voiding Method External Catheter External Catheter # Voids 400 # Bowel Movements 1 - Exam GENERAL EXAM: Alert, very pleasant 79-year-old white female, on BiPAP. Did not do well on a nonrebreather mask, O2 saturation was in the 80s. HEAD: Normocephalic/atraumatic. EENT: PERRLA, EOMI, nonicteric, no neck masses, no JVD, no stridor. CHEST: No chest wall deformity. Symmetrical expansion. LUNGS: Equal air entry with crackles noted at the bases. And rhonchi noted. CVS: Regular rate and rhythm, normal S1 and S2, no gallops, no murmurs, no rubs ABDOMEN: Soft, nontender. No hepatosplenomegaly, normal bowel sounds, no guarding or rigidity. EXTREMITIES: No clubbing, no edema, no cyanosis, 2+ pulses and upper and lower extremities. MUSCULOSKELETAL: Muscle strength and tone normal. SKIN: No rashes CENTRAL NERVOUS SYSTEM: Awake, slightly confused, PSYCHIATRIC: Normal mood affect, and confused mental status. - Labs CBC & Chem 7: 06/25/20 11:33 06/27/20 07:20 Labs: Abnormal Lab Results - Last 24 Hours (Table) 06/26/20 06/26/20 06/26/20 Range/Units 07:13 16:53 20:34 D-Dimer (<0.60) mg/L FEU Anion Gap (4.00-12.00) mmol/L BUN/Creatinine Ratio (12.00-20.00) Ratio Glucose (70-110) mg/dL POC Glucose (mg/dL) 175 H 151 H (75-99) mg/dL Lactate Dehydrogenase (120-246) U/L C-Reactive Protein (0.0-0.8) mg/dL Procalcitonin 0.31 H (0.02-0.09) ng/mL 06/27/20 06/27/20 06/27/20 Range/Units 06:44 07:20 07:20 D-Dimer 4.13 H (<0.60) mg/L FEU Anion Gap 13.80 H (4.00-12.00) mmol/L BUN/Creatinine Ratio 32.50 H (12.00-20.00) Ratio Glucose 213 H (70-110) mg/dL POC Glucose (mg/dL) 194 H (75-99) mg/dL Lactate Dehydrogenase 433 H (120-246) U/L C-Reactive Protein 10.0 H (0.0-0.8) mg/dL Procalcitonin (0.02-0.09) ng/mL 06/27/20 Range/Units 11:40 D-Dimer (<0.60) mg/L FEU Anion Gap (4.00-12.00) mmol/L BUN/Creatinine Ratio (12.00-20.00) Ratio Glucose (70-110) mg/dL POC Glucose (mg/dL) 148 H (75-99) mg/dL Lactate Dehydrogenase (120-246) U/L C-Reactive Protein (0.0-0.8) mg/dL Procalcitonin (0.02-0.09) ng/mL Assessment and Plan Assessment: Impression: Acute hypoxic respiratory failure secondary to acute covid 19 pneumonia. Patient was outside the window for REM. Frequent falls with history of rhabdomyolysis. Type 2 diabetes. Benign essential hypertension. Degenerative joint disease. History of coronary artery disease and previous AK as well as previous stenting. Recommendation: Continue BiPAP and titrate accordingly. Continue steroids. Continue prophylactic anticoagulation. Chest x-ray was reviewed and clearly shows worsening. Prognosis is extremely poor and guarded. Discussed his status with the at bedside, and patient is DO NOT RESUSCITATE. Patient is on Zosyn hence will not qualify for TOCI Could consider convalescent plasma. We'll continue to follow. Time with Patient: Less than 30
[2020-06-27 14:47] VITALS: BMI 26.1
[2020-06-27] MEDS ORDERED: INSULIN DETEMIR (LEVEMIR) 100 UNIT/ML SYR SQ SCH (14:47)
[2020-06-27 16:38] LABS: Glucose,Whole Blood 175 mg/dL (75-99)
[2020-06-27] MEDS: INSULIN DETEMIR (LEVEMIR) 100 UNIT/ML SYR SQ SCH (17:08)
--- NOTE | 2020-06-27 17:31 | ECHOF ---
Referral Reason:LV fx MEASUREMENTS -------- HEIGHT: 177.8 cm WEIGHT: 82.6 kg BP: 115/72 IVSd: 1.7 cm (0.6 - 1.1) LVIDd: 3.3 cm (3.9 - 5.3) LVPWd: 1.5 cm (0.6 - 1.1) EDV(Teich): 43 ml IVSs: 1.9 cm LVIDs: 2.0 cm LVPWs: 1.8 cm %IVS Thck: 11 % ESV(Teich): 12 ml EF(Teich): 71 % %FS: 40 % SV(Teich): 31 ml RVIDd: 4.3 cm (< 3.3) LALs A4C: 5.6 cm LAAs A4C: 14.2 cm LAESV A-L A4C: 31 ml LAESV MOD A4C: 29 ml LALs A2C: 5.7 cm LAAs A2C: 16.5 cm LAESV A-L A2C: 40 ml LAESV MOD A2C: 38 ml LAESV(A-L): 35 ml LAESV Index (A-L): 17.66 ml/m Ao Diam: 3.4 cm (2.0 - 3.7) AV Cusp: 1.8 cm (1.5 - 2.6) MV E Dontrell: 0.55 m/s MV DecT: 170 ms MV Dec Austin: 3.2 m/s MV A D[place]rell: 0.88 m/s MV E/A Ratio: 0.63 MV PHT: 49 ms LVOT Vmax: 1.00 m/s LVOT maxP.00 mmHg AV Vmax: 1.54 m/s AV maxP.46 mmHg TR Vmax: 3.18 m/s TR maxP.48 mmHg RAP: 5.00 mmHg RVSP: 45.48 mmHg FINDINGS -------- Sinus rhythm. This was a technically adequate study. The left ventricular size is normal. There is moderate concentric left ventricular hypertrophy. O verall left ventricular systolic function is normal with, an EF between 55 - 60 %. The right ventricle is moderately enlarged. Normal LA size by volume 22+/-6 ml/m2. The right atrial size is normal. Interatrial and interventricular septum intact. There is no evidence of aortic regurgitation. There is no evidence of aortic stenosis. [id number] mitral regurgitation is present. Moderate tricuspid regurgitation present. There is moderate pulmonary hypertension. The right komal tricular systolic pressure, as measured by Doppler, is 45.48mmHg. There is no pulmonic regurgitation present. The aortic root size is normal. IVC Not well visulized. There is no pericardial effusion. CONCLUSIONS -------- 1. The left ventricular size is normal. 2. There is moderate concentric left ventricular hypertrophy. 3. Overall left ventricular systolic function is normal with, an EF between 55 - 60 %. 4. The right ventricle is moderately enlarged. 5. [id number] mitral regurgitation is present. 6. Moderate tricuspid regurgitation present. 7. There is moderate pulmonary hypertension. 8. The right ventricular systolic pressure, as measured by Doppler, is 45.48mmHg. PRINCIPAL SCIENTIST: Seema Cunningham KIRAN
[2020-06-27 20:53] LABS: Glucose,Whole Blood 126 mg/dL (75-99)
[2020-06-27] MEDS: QUEtiapine 50 MG TAB PO SCH (21:08)
[2020-06-28] MEDS: methylPREDNISolone SOD SUCCI 125 MG/2 ML VIAL IV SCH ×4 (04:58→23:02)
[2020-06-28 06:57] LABS: Glucose,Whole Blood 130 mg/dL (75-99)
[2020-06-28] MEDS: INSULIN ASPART (NovoLOG) 100 UNIT/ML VIAL SQ SCH ×4 (06:58→21:35)
[2020-06-28] MEDS: PIPERACILLIN-TAZOBACTAM 3.375 GM in SODIUM CHLORIDE 0.9% 100 ML IVPB SCH ×3 (07:20→23:02)
[2020-06-28] MEDS: INSULIN DETEMIR (LEVEMIR) 100 UNIT/ML SYR SQ SCH (07:22)
[2020-06-28] MEDS: ALBUTEROL HFA INHALER INHALATION SCH ×4 (08:03→20:05)
[2020-06-28] MEDS: MULTIVITAMINS, THERA 1 EACH TAB PO SCH (11:13)
[2020-06-28] MEDS: ASCORBIC ACID 500 MG TAB PO SCH (11:13)
[2020-06-28] MEDS: lisinopriL 20 MG TAB PO SCH (11:14)
[2020-06-28] MEDS: amLODIPine 10 MG TAB PO SCH (11:14)
[2020-06-28] MEDS: ZINC SULFATE 220 MG CAP PO SCH (11:15)
[2020-06-28] MEDS: PANTOPRAZOLE 40 MG/10 ML VIAL IVP SCH (11:15)
[2020-06-28] MEDS: metFORMIN 500 MG TAB PO SCH ×2 (11:15→21:34)
[2020-06-28] MEDS: CHOLECALCIFEROL 25 MCG (1000 IU) TABLET PO SCH (11:15)
[2020-06-28] MEDS: COLCHICINE 0.6 MG EACH PO SCH ×2 (11:15→21:35)
[2020-06-28] MEDS: ENOXAPARIN 40 MG/0.4 ML SYRINGE SQ SCH (11:15)
[2020-06-28] MEDS: ASPIRIN 81 MG PO SCH (11:15)
[2020-06-28 11:28] LABS: Glucose,Whole Blood 144 mg/dL (75-99)
--- NOTE | 2020-06-28 11:36 | P.PN ---
Subjective Progress Note Date: 06/28/20 Principal diagnosis: Acute hypoxic respiratory failure secondary to covid 19 pneumonia. This is a 79-year-old male, who was seen in the emergency room, on June 21. The patient came in with complaints of weakness, and shortness of breath, and just not feeling well. He was in the hospital a couple weeks back, and seen in consultation by us right around June 01. At that time he was diagnosed as having COVID 19 pneumonia. The patient was apparently discharged on June 06 to rehabilitation. The patient apparently was home about a week or so prior to his most recent admission, and just has not been feeling well. He apparently fell because of weakness. He reports worsening shortness of breath. He does have a cough. Denies any phlegm production. No fever or chills. In the emergency department, he was getting saline at 130 mL an hour, and nasal cannula oxygen at 5 L. His most recent test here in the emergency room was negative. The patient has a history of diabetes mellitus, hypertension, myocardial infarction, BPH, and recent pneumonia secondary to coronavirus. His white count is 12.9, hemoglobin 12.5, hematocrit 37.8, platelet count 175,000. PT INR were normal. PTT was 32. D-dimer was 3.95. Sodium 132, potassium 4.7, chlorides 103, CO2 20, anion gap 9, BUN 11, creatinine 0.76. His urine testing was negative. His chest x-ray showed bilateral infiltrates, more right-sided than left-sided. Progress note dated 06/23/2020. 79-year-old male, who was seen in the emergency department on June 21. He came in complaining of shortness of breath, weakness, and just feeling not his usual self. He was in the hospital a couple weeks back, and see her in consultation by our team on June 01. At that time, he was diagnosed as having COVID 19 19 pneumonia. He was discharged to rehab on June 06. He was home about a week or so before he decided that he needed to come in to be evaluated. I saw him yesterday in the emergency department. Currently, is on 6 L nasal cannula. He was on 5 L yesterday. In addition, he is getting saline at 100 mL an hour. White count is 13.39, hemoglobin 12.1, hematocrit 38.2, and platelet, 199,000. Sodium 136, potassium 4.7, chlorides 104, CO2 23, anion gap 9, BUN 13, creatinine 1.0. The patient does have a history of diabetes mellitus, hypertension, myocardial infarction, BPH, and recent COVID 19 pneumonia. The patient is seen today 06/24/2020 in follow-up on the regular medical floor. He is currently resting in bed. He is still quite dyspneic with minimal exertion. He is now on 12 L high flow nasal cannula. CAT scan and ruled out pulmonary embolism. Chest x-ray shows bilateral patchy densities more so on the right. He remains on Zosyn, bronchodilators, Lovenox. 0.9 normal saline at 130 ML's per hour. The patient is seen today 06/25/2020 regular medical floor. He is currently resting in bed. He is quite weak and debilitated. Still quite short of breath with minimal activity. He is requiring 15 L high flow nasal cannula along with the 100% nonrebreather to maintain O2 saturations in the mid to upper 80s. He is quite rhonchorous. Loose nonproductive cough. White count 14.5. Hemoglobin 12.3. Lymphocytes 0.9. Sodium 1:30. Potassium 4.8. Creatinine 0.80. He remains on IV Solu-Medrol, Lovenox, vitamin supplements. Antibiotics in the form of Zosyn. Chest x-ray continues to show bilateral opacities increasing on the left. On 06/26/2020 patient seen in follow-up. Patient is currently on 15 L high flow and his pulse ox is ranging between 80-93%, clinically he states he feels better, he looks comfortable, no worsening cough or dyspnea, no altered mentation, no fever or chills, hemodynamically stable, does become more short of breath with exertion, lst chest x-ray was yesterday on 06/25/2020 showing bilateral opacities with slight increase on the left. Today's labs have been reviewed, electrolytes and renal profile are unremarkable, LFTs were within norm al limits, pro-calcitonin level was negative at 0.19 on 06/22/2020. Patient remains on vitamin COPD and wheezing, remains on high-dose steroids with Solu- Medrol 60 mg every 6 hours, prophylactic Lovenox 40 mg daily, and Zosyn Patient was reevaluated today on 06/27/2020, patient continues to do poorly, still requiring BiPAP, did not do well on a nonrebreather mask, he is on 100% FiO2, continues to have shortness of breath, intermittent cough, no fever no chills, no hemoptysis. is at bedside, and she was updated on his condition, I also discussed the CODE STATUS with the , and she felt strongly about DO NOT RESUSCITATE CODE STATUS. She would like him to be DO NOT RESUSCITATE. I exp lained to her that his condition may worsen considering that he is marginal at best, and she definitely would not want them to be on any life-support machinery. Labs today showed d-dimer of 4.13. Electrolytes are normal renal profile is normal his LDH is 433 and C-reactive protein is 10. Chest x-ray is showing worsening of his bilateral pulmonary infiltrates. Reevaluated today on 06/28/2020, patient remains on BiPAP, not doing quite well, noted to be short of breath even on BiPAP. Patient is on 80% FiO2. IPAP of 14 and EPAP of 5. He is afebrile. Last LDH was 433 and C-reactive protein was 10. Objective - Vital Signs Vital signs: Vital Signs Temp 98.2 F 06/28/20 09:10 Pulse 99 06/28/20 09:10 Resp 18 06/28/20 09:10 BP 147/78 06/28/20 09:10 Pulse Ox 94 L 06/28/20 09:10 Intake & Output 06/27/20 06/28/20 06/28/20 18:59 06:59 18:59 Output Total 500 Balance -500 Weight 82.554 kg Output: Urine 500 Other: Voiding Method External Catheter External Catheter - Exam GENERAL EXAM: Alert, very pleasant 79-year-old white female, on BiPAP. In mild distress. HEAD: Normocephalic/atraumatic. EENT: PERRLA, EOMI, nonicteric, no neck masses, no JVD, no stridor. CHEST: No chest wall deformity. Symmetrical expansion. LUNGS: Equal air entry with crackles noted at the bases. And rhonchi noted. CVS: Regular rate and rhythm, normal S1 and S2, no gallops, no murmurs, no rubs ABDOMEN: Soft, nontender. No hepatosplenomegaly, normal bowel sounds, no guarding or rigidity. EXTREMITIES: No clubbing, no edema, no cyanosis, 2+ pulses and upper and lower extremities. MUSCULOSKELETAL: Muscle strength and tone normal. SKIN: No rashes CENTRAL NERVOUS SYSTEM: Awake, slightly confused, PSYCHIATRIC: Normal mood affect, and confused mental status. - Labs CBC & Chem 7: 06/25/20 11:33 06/27/20 07:20 Labs: Abnormal Lab Results - Last 24 Hours (Table) 06/27/20 06/27/20 06/27/20 Range/Units 07:20 11:40 16:35 Anion Gap 13.80 H (4.00-12.00) mmol/L BUN/Creatinine Ratio 32.50 H (12.00-20.00) Ratio Glucose 213 H (70-110) mg/dL POC Glucose (mg/dL) 148 H 175 H (75-99) mg/dL Lactate Dehydrogenase 433 H (120-246) U/L C-Reactive Protein 10.0 H (0.0-0.8) mg/dL 06/27/20 06/28/20 06/28/20 Range/Units 20:48 06:56 11:26 Anion Gap (4.00-12.00) mmol/L BUN/Creatinine Ratio (12.00-20.00) Ratio Glucose (70-110) mg/dL POC Glucose (mg/dL) 126 H 130 H 144 H (75-99) mg/dL Lactate Dehydrogenase (120-246) U/L C-Reactive Protein (0.0-0.8) mg/dL Assessment and Plan Assessment: Impression: Acute hypoxic respiratory failure secondary to acute covid 19 pneumonia. Patient was outside the window for REM. Frequent falls with history of rhabdomyolysis. Type 2 diabetes. Benign essential hypertension. Degenerative joint disease. History of coronary artery disease and previous [place] as well as previous stenting. Recommendation: Continue BiPAP and titrate accordingly. Continue steroids. Continue prophylactic anticoagulation. Last chest x-ray showed worsening of his pneumonia. Prognosis is extremely poor and guarded. Patient is on Zosyn hence will not qualify for TOCI On my last evaluation, I discussed his status with his , and patient is not to go on mechanical ventilation according to her. We'll continue to follow. Time with Patient: Less than 30
--- NOTE | 2020-06-28 14:47 | P.PN ---
Subjective Progress Note Date: 06/27/20 This is a pleasant 79-year-old gentleman with history of diabetes mellitus, hypertension, CAD, [place], cardiac stents 2, gout, muscle skeletal disorder and multiple other medical issues presented to the ER with complaints of Increased weakness, falls, shortness of breath,occasional nonproductive cough and multiple other medical issues. Patient was recently hospitalized for acute Covid 19 pneumonitis 06/01/2020 through 06/06/2020, and discharged to subacute rehab.,where he refused to stay after 2-3 days and proceeded home. He now presents with similar presentation. Coronavirus not detected. D-dimer 3.95, CTA reported no evidence of PE .Denies chest pain, palpitations. EKG reporting sinus tachycardia T-max 99.4, WBC 12.9. Hemoglobin 12.5, platelets 175, sodium 132, potassium 4.7, BUN 11, creatinine 0.76. Lactic acid 3.2 on admission, received gentle IV fluid hydration currently down to 1.6. Chest x-ray reporting increasing bilateral pneumonia compared to prior exam. UA negative. Currently requiring 5 L nasal cannula O2 to maintain O2 sats in the 90s. 06/23/2020 continues on Zosyn, vitamin supplements, Lovenox, albuterol inhaler ,oxygen requirements worsened, requiring 6 L nasal cannula to maintain O2 sats in the 90s. T-max 99.2, WBC 13.39. Hemoglobin 12.1, platelets 199. Denies chest pain, palpitations. 06/26/20 maintained on nebulized bronchodilators, Lovenox, Zosyn, IV steroids ,15 L high flow nasal cannula along with 100% nonrebreather mask, maintaining O2 sats in the high 80s to low 90s. Loose nonproductive cough. Blood sugars uncontrolled, ranging up to the high 200s. Afebrile. BUN 22, creatinine 0.88. 06/27/2020 respiratory distress declined and 15 L of nonrebreather, desatted down to 80%. Developed atrial fibrillation with fast rate in the 100s. Placed on 100% BiPAP, O2 sats improved to 96%, less anxiety and converted back to sinus rhythm. Chest x-ray reporting worsening bilateral lung infiltrates. Afebrile. Staff reports significant agitation at night. CODE STATUS discussed with , CODE STATUS changed to no code as does not want patient to be intubated. Objective - Vital Signs Vital signs: Vital Signs Temp 98.2 F 06/27/20 10:00 Pulse 108 H 06/27/20 10:00 Resp 25 H 06/27/20 10:00 BP 115/72 06/27/20 10:00 Pulse Ox 96 06/27/20 13:06 Intake & Output 06/26/20 06/27/20 06/27/20 18:59 06:59 18:59 Output Total 600 Balance -600 Output: Urine 600 Other: Voiding Method External Catheter External Catheter # Voids 400 # Bowel Movements 1 - Exam PHYSICAL EXAM: VITAL SIGNS: As above GENERAL: Frail ,Alert , confused, on bipap HEENT: Conjunctivae normal. eyes normal. NECK: No JVD. No thyroid enlargement. No LNs CARDIOVASCULAR: S1, S2 regular. Systolic murmur RESPIRATION: Breath sounds diminished in the bases. Scattered rhonchi and bibasilar crackles. ABDOMEN: Obese,Soft,distended, nontender. No guarding. no masses palpable. Positive Bowel sounds heard. LEGS: No edema. no swelling NERVOUS SYSTEM: Cranial N 2-12 grossly normal, confused. Moves all extremities Skin: Warm and dry, no rash - Labs CBC & Chem 7: 06/25/20 11:33 06/27/20 07:20 Labs: Abnormal Lab Results - Last 24 Hours (Table) 06/26/20 06/26/20 06/26/20 Range/Units 07:13 16:53 20:34 D-Dimer (<0.60) mg/L FEU POC Glucose (mg/dL) 175 H 151 H (75-99) mg/dL Procalcitonin 0.31 H (0.02-0.09) ng/mL 06/27/20 06/27/20 06/27/20 Range/Units 06:44 07:20 11:40 D-Dimer 4.13 H (<0.60) mg/L FEU POC Glucose (mg/dL) 194 H 148 H (75-99) mg/dL Procalcitonin (0.02-0.09) ng/mL Assessment and Plan Assessment: Final Diagnoses: Acute hypoxic respiratory failure secondary to bilateral pneumonia, suspect persistent or recurrent covid- 19 pneumonitis, possible superimposed bacterial pneumonia. recently hospitalized for acute Covid 19 pneumonitis 06/01/2020 through 06/06/2020. BiPAP dependent. PE ruled out Possible paroxysmal atrial fibrillation, hypoxia induced, EKG pending Generalized weakness, secondary to the above, discharged to subacute rehab on 06/06/2020 and patient did not complete rehab -only stayed for a few days, Degenerative joint disease History of Bilateral nephrolithiasis, large exophytic cyst of left kidney measuring 7 cm. History of Bladder stones History of Enlarged prostate History of Hepatomegaly with possible hepatic steatosis Diabetes mellitus II Hypertension CAD, history of [place] with cardiac stents in 2017. Plan: Continue on current medication regime ,monitoring and symptomatic treatm ent. Echo, EKG ordered. Maintain antibiotics , steroids. BiPAP titration as per pulmonary. Prognosis guarded given multiple complex medical issues. ALLERGIES BiPAP titration as per pulmonary Maintain supportive care. The impression and plan of care has been dictated as directed. : I performed a history and examination of this patient, discussed the same with the dictator. I agree with the dictator's note ,documented as a scribe. Any additional findings or plans will be noted.
--- NOTE | 2020-06-28 14:59 | P.PN ---
Subjective Progress Note Date: 06/28/20 This is a pleasant 79-year-old gentleman with history of diabetes mellitus, hypertension, CAD, [place], cardiac stents 2, gout, muscle skeletal disorder and multiple other medical issues presented to the ER with complaints of Increased weakness, falls, shortness of breath,occasional nonproductive cough and multiple other medical issues. Patient was recently hospitalized for acute Covid 19 pneumonitis 06/01/2020 through 06/06/2020, and discharged to subacute rehab.,where he refused to stay after 2-3 days and proceeded home. He now presents with similar presentation. Coronavirus not detected. D-dimer 3.95, CTA reported no evidence of PE .Denies chest pain, palpitations. EKG reporting sinus tachycardia T-max 99.4, WBC 12.9. Hemoglobin 12.5, platelets 175, sodium 132, potassium 4.7, BUN 11, creatinine 0.76. Lactic acid 3.2 on admission, received gentle IV fluid hydration currently down to 1.6. Chest x-ray reporting increasing bilateral pneumonia compared to prior exam. UA negative. Currently requiring 5 L nasal cannula O2 to maintain O2 sats in the 90s. 06/23/2020 continues on Zosyn, vitamin supplements, Lovenox, albuterol inhaler ,oxygen requirements worsened, requiring 6 L nasal cannula to maintain O2 sats in the 90s. T-max 99.2, WBC 13.39. Hemoglobin 12.1, platelets 199. Denies chest pain, palpitations. 06/26/20 maintained on nebulized bronchodilators, Lovenox, Zosyn, IV steroids ,15 L high flow nasal cannula along with 100% nonrebreather mask, maintaining O2 sats in the high 80s to low 90s. Loose nonproductive cough. Blood sugars uncontrolled, ranging up to the high 200s. Afebrile. BUN 22, creatinine 0.88. 06/27/2020 respiratory distress declined and 15 L of nonrebreather, desatted down to 80%. Developed atrial fibrillation with fast rate in the 100s. Placed on 100% BiPAP, O2 sats improved to 96%, less anxiety and converted back to sinus rhythm. Chest x-ray reporting worsening bilateral lung infiltrates. Afebrile. Staff reports significant agitation at night. CODE STATUS discussed with , CODE STATUS changed to no code as does not want patient to be intubated. 06/28/2020 maintained on 80% BiPAP, unable to titrate further. Short of breath. Afebrile. Son at bedside stating he does not want his father struggling wearing a mask. Discussed comfort care/hospice. Son will be discussing with his mother. Objective - Vital Signs Vital signs: Vital Signs Temp 98.2 F 06/28/20 09:10 Pulse 99 06/28/20 09:10 Resp 18 06/28/20 09:10 BP 147/78 06/28/20 09:10 Pulse Ox 94 L 06/28/20 09:10 Intake & Output 06/27/20 06/28/20 06/28/20 18:59 06:59 18:59 Output Total 500 Balance -500 Weight 82.554 kg Output: Urine 500 Other: Voiding Method External Catheter External Catheter - Exam PHYSICAL EXAM: VITAL SIGNS: As above GENERAL: Frail ,Alert , confused, on bipap, respiratory effort increased HEENT: Conjunctivae normal. eyes normal. CARDIOVASCULAR: S1, S2 regular. Systolic murmur RESPIRATION: Breath sounds diminished in the bases. Scattered rhonchi and bibasilar crackles. ABDOMEN: Obese,Soft,distended, nontender. No guarding. no masses palpable. Positive Bowel sounds heard. LEGS: No edema. no swelling NERVOUS SYSTEM: Cranial N 2-12 grossly normal, confused. Moves all extremities. Skin: Warm and dry, no rash - Labs CBC & Chem 7: 06/25/20 11:33 06/27/20 07:20 Labs: Abnormal Lab Results - Last 24 Hours (Table) 06/27/20 06/27/20 06/28/20 Range/Units 16:35 20:48 06:56 POC Glucose (mg/dL) 175 H 126 H 130 H (75-99) mg/dL 06/28/20 Range/Units 11:26 POC Glucose (mg/dL) 144 H (75-99) mg/dL Assessment and Plan Assessment: Final Diagnoses: Acute hypoxic respiratory failure secondary to bilateral pneumonia, suspect persistent or recurrent covid- 19 pneumonitis, possible superimposed bacterial pneumonia. recently hospitalized for acute Covid 19 pneumonitis 06/01/2020 through 06/06/2020. BiPAP dependent. PE ruled out Generalized weakness, secondary to the above, discharged to subacute rehab on 06/06/2020 and patient did not complete rehab -only stayed for a few days, Degenerative joint disease History of Bilateral nephrolithiasis, large exophytic cyst of left kidney measuring 7 cm. History of Bladder stones History of Enlarged prostate History of Hepatomegaly with possible hepatic steatosis Diabetes mellitus II Hypertension CAD, history of [place] with cardiac stents in 2017. Plan: Continue on current medication regime ,monitoring and symptomatic treatment. Son at bedside discussing comfort care .consult to hospice initiated for informational meeting .maintain supportive care . Prognosis guarded given multiple complex medical issues. The impression and plan of care has been dictated as directed. : I performed a history and examination of this patient, discussed the same with the dictator. I agree with the dictator's note ,documented as a scribe. Any additional findings or plans will be noted.
--- NOTE | 2020-06-28 16:02 | CDI ---
Documentation Clarification Form Date: 06/28/2020 03:45:36 PM From: Morena Mcgrath CCS, CCDS Admit Date: 06/21/2020 10:02:00 PM Patient Name: Martha German Visit Number: [id number] Discharge Date: ATTENTION: The Clinical Documentation Specialists (CDI) and [facility] Coding Staff appreciate your assistance in clarifying documentation. Please respond to the clarification below the line at the bottom and electronically sign. The CDI & [facility] Coding staff will review the response and follow-up if needed. Please note: Queries are made part of the Legal Health Record. If you have any questions, please contact the author of this message via ITS. Dr. Emilie Mcclendon: Respiratory distress is documented in the 06/24, & 06/28 Attending Progress Note: " Patient in mild respiratory distress with exertion." Per the 06/27 & 06/28 Pulmonary Progress Notes: Confused mental status. Per the 06/28 Pulmonary Progress Note: "In mild distress." Additional clarification regarding the etiology of respiratory distress is requested. History/Risk Factors per the 06/22 History Physical History: DM II, Hypertension, CAD & [place] status post stents, Gout. Clinical Indicators: Presented to the ED on 06/21 via EMS with weakness. 79-year-old male presents emergency Department with generalized weakness. Patient was seen 2 weeks ago for similar complaints. He was diagnosed with COVID and discharged to rehab. Patient states he stayed there 3 days before leaving stating that he hated it there. Patient reports that he has been home for approximately one week. He has not been doing any better at home. Reports to increased weakness. He did have a fall today and has worsening SOB. 06/21 VS: T 99.4, P 130, R 20 (SOB), BP 105/62, PO 91 2Lnc, BMI: 26.1 06/21 LAB: WBC 11.8, Neut 10.2, Lymph 0.6, APTT 32.0, D Dimer 3.95, Na 136, Glucose 178, Lactic Acid 3.2. 06/21 COVID negative. No blood gases. 06/21 CXR: There is increasing bilateral pneumonia compared to old exam. No heart failure seen. 06/21 CT Chest: Bilateral airspace pneumonia worse on right side. Treatment 06/21: IV Fluid 500 mls @ 999 mls/hr q31M, IV Rocephin 1,000 mg x1, IV Azithromycin 250 mls @ 250 mls/hr x1, IV Fluid 1,000 mls @ 130 mls/hr q7H, O2 3Lnc. Full Code. 06/22: INH Ventolin, Vit D3, po Orazinc, Vit C, IV Zosyn 100 mls @ 25 mls/hr q8H, O2 4-5Lnc 06/23: Lovenox sq, IV Solumedrol. O2 6Lnc. 06/27: No Code status. 06/28: Family discussing Hospice/Comfort Care. Please clarify the if the following is present: [ ] Acute Respiratory Distress [ ] Other, please specify [ ] Unable to determine (Template Last Revised: May 2020) MTDD
--- NOTE | 2020-06-28 16:08 | CDI ---
Documentation Clarification Form Date: 06/28/2020 04:03:00 PM From: Morena Mcgrath CCS, CCDS Admit Date: 06/21/2020 10:02:00 PM Patient Name: Martha German Visit Number: [id number] Discharge Date: ATTENTION: The Clinical Documentation Specialists (CDI) and [facility] Coding Staff appreciate your assistance in clarifying documentation. Please respond to the clarification below the line at the bottom and electronically sign. The CDI & [facility] Coding staff will review the response and follow-up if needed. Please note: Queries are made part of the Legal Health Record. If you have any questions, please contact the author of this message via ITS. Dr. Tristan Oconnor: The patient is admitted with recurrence of COVID-19 Pneumonia & Acute Hypoxic Respiratory Failure. Per the 06/27 Attending Progress Note: the patient is confused, (on BiPAP). Per the 06/27 Pulmonary Progress Note: the patient has confused mental status. Clarification of the patient's documented confusion is requested. History/Risk Factors per the 06/22 History Physical History: DM II, Hypertension, CAD & [place] status post stents, Gout. Clinical Indicators: Presented to the ED on 06/21 via EMS with weakness. 79-year-old male presents emergency Department with generalized weakness. Patient was seen 2 weeks ago for similar complaints. He was diagnosed with COVID and discharged to rehab. Patient states he stayed there 3 days before leaving stating that he hated it there. Patient reports that he has been home for approximately one week. He has not been doing any better at home. Reports to increased weakness. He did have a fall today and has worsening SOB. 06/21 VS: T 99.4, P 130, R 20 (SOB), BP 105/62, PO 91 2Lnc, BMI: 26.1 06/21 LAB: WBC 11.8, Neut 10.2, Lymph 0.6, APTT 32.0, D Dimer 3.95, Na 136, Glucose 178, Lactic Acid 3.2. 06/21 COVID negative. No blood gases. 06/21 CXR: There is increasing bilateral pneumonia compared to old exam. No heart failure seen. 06/21 CT Chest: Bilateral airspace pneumonia worse on right side. Treatment 06/21: IV Fluid 500 mls @ 999 mls/hr q31M, IV Rocephin 1,000 mg x1, IV Azithromycin 250 mls @ 250 mls/hr x1, IV Fluid 1,000 mls @ 130 mls/hr q7H, O2 3Lnc. Full Code. 06/22: INH Ventolin, Vit D3, po Orazinc, Vit C, IV Zosyn 100 mls @ 25 mls/hr q8H, O2 4-5Lnc 06/23: Lovenox sq, IV Solumedrol. O2 6Lnc. 06/27: No Code status. 06/28: Family discussing Hospice/Comfort Care. Please clarify the following if known: [ ] Metabolic Encephalopathy [ ] Septic Encephalopathy [ ] Other, please specify [ ] Unable to determine (Template Last Revised: May 2020) MTDD
--- NOTE | 2020-06-28 16:15 | CDI ---
Documentation Clarification Form Date: 06/28/2020 04:09:01 PM From: Morena Mcgrath CCS, CCDS Admit Date: 06/21/2020 10:02:00 PM Patient Name: Martha German Visit Number: [id number] Discharge Date: ATTENTION: The Clinical Documentation Specialists (CDI) and [facility] Coding Staff appreciate your assistance in clarifying documentation. Please respond to the clarification below the line at the bottom and electronically sign. The CDI & [facility] Coding staff will review the response and follow-up if needed. Please note: Queries are made part of the Legal Health Record. If you have any questions, please contact the author of this message via ITS. Dr. Tristan Oconnor: The patient is admitted with recurrence of COVID-19 Pneumonia & Acute Hypoxic Respiratory Failure. Per the 06/27 Attending Progress Note: the patient is confused, (on BiPAP). Per the 06/27 Pulmonary Progress Note: the patient has confused mental status. Further clarification is requested regarding the severity of the patient's overall condition. History/Risk Factors per the 06/22 History Physical History: DM II, Hypertension, CAD & [place] status post stents, Gout. Clinical Indicators: Presented to the ED on 06/21 via EMS with weakness. 79-year-old male presents emergency Department with generalized weakness. Patient was seen 2 weeks ago for similar complaints. He was diagnosed with COVID and discharged to rehab. Patient states he stayed there 3 days before leaving stating that he hated it there. Patient reports that he has been home for approximately one week. He has not been doing any better at home. Reports to increased weakness. He did have a fall today and has worsening SOB. 06/21 VS: T 99.4, P 130, R 20 (SOB), BP 105/62, PO 91 2Lnc, BMI: 26.1 06/21 LAB: WBC 11.8, Neut 10.2, Lymph 0.6, APTT 32.0, D Dimer 3.95, Na 136, Glucose 178, Lactic Acid 3.2. 06/21 COVID negative. 06/24 VS: T 102.5, P 103, R 18 - 36 (SOB, labored, accessory use, talks in phrases, Shallow, Tachypnea), BP 106/61, PO 92 high flow 7L O2. 06/25 LAB: WBC 14.5, Neut 12.9, Lymph 0.9 No blood gases. 06/21 CXR: There is increasing bilateral pneumonia compared to old exam. No heart failure seen. 06/21 CT Chest: Bilateral airspace pneumonia worse on right side. 06/27 CXR: Worsening bilateral lung infiltrates. Correlate for typical pneumonia. Treatment 06/21: IV Fluid 500 mls @ 999 mls/hr q31M, IV Rocephin 1,000 mg x1, IV Azithromycin 250 mls @ 250 mls/hr x1, IV Fluid 1,000 mls @ 130 mls/hr q7H, O2 3Lnc. Full Code. 06/22: INH Ventolin, Vit D3, po Orazinc, Vit C, IV Zosyn 100 mls @ 25 mls/hr q8H, O2 4-5Lnc 06/23: Lovenox sq, IV Solumedrol. O2 6Lnc. 06/27: No Code status. 06/28: Family discussing Hospice/Comfort Care. In your professional opinion, please clarify if these findings signify one of the following conditions: [ ] Sepsis POA [ ] Sepsis, Not POA [ ] Severe Sepsis with organ failure [ ] Other, please specify [ ] Unable to determine (Template Last Reviewed: April 2020) ___This individual was status post Covid pneumonia approximately 5 weeks prior to this admission, this patient's Covid screen on admission was negative, he is a known diabetic with slightly elevated blood sugars, who was placed on steroids which drove his white count up, he was initially placed in rehab to assist recovery with physical therapy and occupational therapy, and his of a similar age to him was Covid positive at home and unable to care for him the first admission, he lasted in rehab 3 days before his family members picked him up and brought him home, he received no physical therapy no occupational therapy, this individual basically languished in his bed and when he attempted to get up to use the bathroom or rock around he was falling his returned into the hospital for this reason the pulmonary medicines he had been on for quite some time, and the antibiotics were placed because this chest x-ray demonstrated an early pneumonic process which could've been either post Covid pneumonitis or a pneumonia. It's really unable to determine whether he was having a pneumonia or post Covid pneumonitis patient was covered for everything MTDD
[2020-06-28 16:26] LABS: Glucose,Whole Blood 196 mg/dL (75-99)
[2020-06-28 21:18] LABS: Glucose,Whole Blood 199 mg/dL (75-99)
[2020-06-28] MEDS: QUEtiapine 50 MG TAB PO SCH (21:35)
[2020-06-29] MEDS: methylPREDNISolone SOD SUCCI 125 MG/2 ML VIAL IV SCH ×3 (06:00→17:47)
[2020-06-29 07:06] LABS: Glucose,Whole Blood 189 mg/dL (75-99)
[2020-06-29] MEDS: ALBUTEROL HFA INHALER INHALATION SCH ×4 (07:25→19:40)
[2020-06-29] MEDS: PIPERACILLIN-TAZOBACTAM 3.375 GM in SODIUM CHLORIDE 0.9% 100 ML IVPB SCH (07:34)
[2020-06-29] MEDS: INSULIN ASPART (NovoLOG) 100 UNIT/ML VIAL SQ SCH ×2 (07:35→12:50)
[2020-06-29] MEDS: PANTOPRAZOLE 40 MG/10 ML VIAL IVP SCH (07:35)
[2020-06-29] MEDS: INSULIN DETEMIR (LEVEMIR) 100 UNIT/ML SYR SQ SCH (07:35)
[2020-06-29] MEDS: ENOXAPARIN 40 MG/0.4 ML SYRINGE SQ SCH (07:35)
[2020-06-29] MEDS: CHOLECALCIFEROL 25 MCG (1000 IU) TABLET PO SCH (07:36)
[2020-06-29] MEDS: COLCHICINE 0.6 MG EACH PO SCH (07:36)
[2020-06-29] MEDS: lisinopriL 20 MG TAB PO SCH (07:36)
[2020-06-29] MEDS: ZINC SULFATE 220 MG CAP PO SCH (07:36)
[2020-06-29] MEDS: MULTIVITAMINS, THERA 1 EACH TAB PO SCH (07:36)
[2020-06-29] MEDS: ASCORBIC ACID 500 MG TAB PO SCH (07:36)
[2020-06-29] MEDS: metFORMIN 500 MG TAB PO SCH (07:36)
[2020-06-29] MEDS: ASPIRIN 81 MG PO SCH (07:37)
[2020-06-29] MEDS: amLODIPine 10 MG TAB PO SCH (07:37)
[2020-06-29 11:34] LABS: Glucose,Whole Blood 144 mg/dL (75-99)
--- NOTE | 2020-06-29 12:03 | P.PN ---
Subjective Progress Note Date: 06/29/20 Principal diagnosis: Acute hypoxic respiratory failure secondary to covid 19 pneumonia. This is a 79-year-old male, who was seen in the emergency room, on June 21. The patient came in with complaints of weakness, and shortness of breath, and just not feeling well. He was in the hospital a couple weeks back, and seen in consultation by us right around June 01. At that time he was diagnosed as having COVID 19 pneumonia. The patient was apparently discharged on June 06 to rehabilitation. The patient apparently was home about a week or so prior to his most recent admission, and just has not been feeling well. He apparently fell because of weakness. He reports worsening shortness of breath. He does have a cough. Denies any phlegm production. No fever or chills. In the emergency department, he was getting saline at 130 mL an hour, and nasal cannula oxygen at 5 L. His most recent test here in the emergency room was negative. The patient has a history of diabetes mellitus, hypertension, myocardial infarction, BPH, and recent pneumonia secondary to coronavirus. His white count is 12.9, hemoglobin 12.5, hematocrit 37.8, platelet count 175,000. PT INR were normal. PTT was 32. D-dimer was 3.95. Sodium 132, potassium 4.7, chlorides 103, CO2 20, anion gap 9, BUN 11, creatinine 0.76. His urine testing was negative. His chest x-ray showed bilateral infiltrates, more right-sided than left-sided. Progress note dated 06/23/2020. 79-year-old male, who was seen in the emergency department on June 21. He came in complaining of shortness of breath, weakness, and just feeling not his usual self. He was in the hospital a couple weeks back, and see her in consultation by our team on June 01. At that time, he was diagnosed as having COVID 19 19 pneumonia. He was discharged to rehab on June 06. He was home about a week or so before he decided that he needed to come in to be evaluated. I saw him yesterday in the emergency department. Currently, is on 6 L nasal cannula. He was on 5 L yesterday. In addition, he is getting saline at 100 mL an hour. White count is 13.39, hemoglobin 12.1, hematocrit 38.2, and platelet, 199,000. Sodium 136, potassium 4.7, chlorides 104, CO2 23, anion gap 9, BUN 13, creatinine 1.0. The patient does have a history of diabetes mellitus, hypertension, myocardial infarction, BPH, and recent COVID 19 pneumonia. The patient is seen today 06/24/2020 in follow-up on the regular medical floor. He is currently resting in bed. He is still quite dyspneic with minimal exertion. He is now on 12 L high flow nasal cannula. CAT scan and ruled out pulmonary embolism. Chest x-ray shows bilateral patchy densities more so on the right. He remains on Zosyn, bronchodilators, Lovenox. 0.9 normal saline at 130 ML's per hour. The patient is seen today 06/25/2020 regular medical floor. He is currently resting in bed. He is quite weak and debilitated. Still quite short of breath with minimal activity. He is requiring 15 L high flow nasal cannula along with the 100% nonrebreather to maintain O2 saturations in the mid to upper 80s. He is quite rhonchorous. Loose nonproductive cough. White count 14.5. Hemoglobin 12.3. Lymphocytes 0.9. Sodium 1:30. Potassium 4.8. Creatinine 0.80. He remains on IV Solu-Medrol, Lovenox, vitamin supplements. Antibiotics in the form of Zosyn. Chest x-ray continues to show bilateral opacities increasing on the left. On 06/26/2020 patient seen in follow-up. Patient is currently on 15 L high flow and his pulse ox is ranging between 80-93%, clinically he states he feels better, he looks comfortable, no worsening cough or dyspnea, no altered mentation, no fever or chills, hemodynamically stable, does become more short of breath with exertion, lst chest x-ray was yesterday on 06/25/2020 showing bilateral opacities with slight increase on the left. Today's labs have been reviewed, electrolytes and renal profile are unremarkable, LFTs were within norm al limits, pro-calcitonin level was negative at 0.19 on 06/22/2020. Patient remains on vitamin COPD and wheezing, remains on high-dose steroids with Solu- Medrol 60 mg every 6 hours, prophylactic Lovenox 40 mg daily, and Zosyn Patient was reevaluated today on 06/27/2020, patient continues to do poorly, still requiring BiPAP, did not do well on a nonrebreather mask, he is on 100% FiO2, continues to have shortness of breath, intermittent cough, no fever no chills, no hemoptysis. is at bedside, and she was updated on his condition, I also discussed the CODE STATUS with the , and she felt strongly about DO NOT RESUSCITATE CODE STATUS. She would like him to be DO NOT RESUSCITATE. I exp lained to her that his condition may worsen considering that he is marginal at best, and she definitely would not want them to be on any life-support machinery. Labs today showed d-dimer of 4.13. Electrolytes are normal renal profile is normal his LDH is 433 and C-reactive protein is 10. Chest x-ray is showing worsening of his bilateral pulmonary infiltrates. Reevaluated today on 06/28/2020, patient remains on BiPAP, not doing quite well, noted to be short of breath even on BiPAP. Patient is on 80% FiO2. IPAP of 14 and EPAP of 5. He is afebrile. Last LDH was 433 and C-reactive protein was 10. Reevaluated today on 06/29/2020, patient remains on BiPAP, /, FiO2 is 70%. Seems to be more comfortable today, not in as much distress as he was yesterday. No blood tests were ordered today, his last LDH 2 days ago was 433 and his C- reactive protein was 10 patient admits that he is less short of breath and is feeling a bit better today compared to yesterday. Objective - Vital Signs Vital signs: Vital Signs Temp 97.8 F 06/29/20 09:36 Pulse 86 06/29/20 09:36 Resp 22 06/29/20 09:36 BP 129/76 06/29/20 09:36 Pulse Ox 97 06/29/20 09:36 Intake & Output 06/28/20 06/29/20 06/29/20 18:59 06:59 18:59 Output Total 800 600 Balance -800 -600 Output: Urine 800 600 Other: Voiding Method External Catheter External Catheter # Bowel Movements 1 1 - Exam GENERAL EXAM: Alert, very pleasant 79-year-old white female, on BiPAP. Not in d istress today seems to be more comfortable HEAD: Normocephalic/atraumatic. EENT: PERRLA, EOMI, nonicteric, no neck masses, no JVD, no stridor. CHEST: No chest wall deformity. Symmetrical expansion. LUNGS: Equal air entry with crackles noted at the bases. And rhonchi noted. CVS: Regular rate and rhythm, normal S1 and S2, no gallops, no murmurs, no rubs ABDOMEN: Soft, nontender. No hepatosplenomegaly, normal bowel sounds, no guarding or rigidity. EXTREMITIES: No clubbing, no edema, no cyanosis, 2+ pulses and upper and lower extremities. MUSCULOSKELETAL: Muscle strength and tone normal. SKIN: No rashes CENTRAL NERVOUS SYSTEM: Awake, slightly confused, PSYCHIATRIC: Normal mood affect, and confused mental status. - Labs CBC & Chem 7: 06/25/20 11:33 06/27/20 07:20 Labs: Abnormal Lab Results - Last 24 Hours (Table) 06/28/20 06/28/20 06/29/20 Range/Units 16:24 21:17 07:04 POC Glucose (mg/dL) 196 H 199 H 189 H (75-99) mg/dL 06/29/20 Range/Units 11:31 POC Glucose (mg/dL) 144 H (75-99) mg/dL Assessment and Plan Assessment: Impression: Acute respiratory distress secondary to Acute hypoxic respiratory failure secondary to acute covid 19 pneumonia. Patient was outside the window for REM. Improving. Frequent falls with history of rhabdomyolysis. Type 2 diabetes. Benign essential hypertension. Degenerative joint disease. History of coronary artery disease and previous MS as well as previous stenting. Recommendation: Continue BiPAP and titrate accordingly. Continue steroids. Continue prophylactic anticoagulation. Last chest x-ray showed worsening of his pneumonia. Prognosis is extremely poor and guarded. Patient is on Zosyn hence will not qualify for TOCI Prognosis remains poor and guarded We'll continue to follow. Time with Patient: Less than 30
[2020-06-29] MEDS ORDERED: MORPHINE SULFATE 4 MG/ML SYRINGE IVP ONE (14:14)
[2020-06-29] MEDS ORDERED: ONDANSETRON 4 MG/2 ML VIAL IVP PRN (14:14)
[2020-06-29] MEDS ORDERED: ATROPINE OPHTH SOLN 1% 5ML BTL SUBLINGUAL PRN (14:14)
[2020-06-29] MEDS ORDERED: ACETAMINOPHEN SUPPOSITORY 650 MG SUPP RECTAL PRN (14:14)
[2020-06-29] MEDS: MORPHINE SULFATE (100 MG/2 ML) 100 MG in SODIUM CHLORIDE 0.9% 100 ML IV SCH (15:08)
[2020-06-29] MEDS: SODIUM CHLORIDE 0.9% 1,000 ML IV SCH (15:09)
[2020-06-30] MEDS: methylPREDNISolone SOD SUCCI 125 MG/2 ML VIAL IV SCH ×4 (00:40→17:35)
[2020-06-30] MEDS: LORazepam 2 MG/ML INJ IV PRN ×3 (00:40→19:27)
[2020-06-30] MEDS: ALBUTEROL HFA INHALER INHALATION SCH ×3 (08:07→15:45)
[2020-06-30] MEDS: ENOXAPARIN 40 MG/0.4 ML SYRINGE SQ SCH (08:58)
--- NOTE | 2020-06-30 10:40 | P.PN ---
Subjective Progress Note Date: 06/30/20 Principal diagnosis: Acute hypoxic respiratory failure secondary to covid 19 pneumonia. This is a 79-year-old male, who was seen in the emergency room, on June 21. The patient came in with complaints of weakness, and shortness of breath, and just not feeling well. He was in the hospital a couple weeks back, and seen in consultation by us right around June 01. At that time he was diagnosed as having COVID 19 pneumonia. The patient was apparently discharged on June 06 to rehabilitation. The patient apparently was home about a week or so prior to his most recent admission, and just has not been feeling well. He apparently fell because of weakness. He reports worsening shortness of breath. He does have a cough. Denies any phlegm production. No fever or chills. In the emergency department, he was getting saline at 130 mL an hour, and nasal cannula oxygen at 5 L. His most recent test here in the emergency room was negative. The patient has a history of diabetes mellitus, hypertension, myocardial infarction, BPH, and recent pneumonia secondary to coronavirus. His white count is 12.9, hemoglobin 12.5, hematocrit 37.8, platelet count 175,000. PT INR were normal. PTT was 32. D-dimer was 3.95. Sodium 132, potassium 4.7, chlorides 103, CO2 20, anion gap 9, BUN 11, creatinine 0.76. His urine testing was negative. His chest x-ray showed bilateral infiltrates, more right-sided than left-sided. Progress note dated 06/23/2020. 79-year-old male, who was seen in the emergency department on June 21. He came in complaining of shortness of breath, weakness, and just feeling not his usual self. He was in the hospital a couple weeks back, and see her in consultation by our team on June 01. At that time, he was diagnosed as having COVID 19 19 pneumonia. He was discharged to rehab on June 06. He was home about a week or so before he decided that he needed to come in to be evaluated. I saw him yesterday in the emergency department. Currently, is on 6 L nasal cannula. He was on 5 L yesterday. In addition, he is getting saline at 100 mL an hour. White count is 13.39, hemoglobin 12.1, hematocrit 38.2, and platelet, 199,000. Sodium 136, potassium 4.7, chlorides 104, CO2 23, anion gap 9, BUN 13, creatinine 1.0. The patient does have a history of diabetes mellitus, hypertension, myocardial infarction, BPH, and recent COVID 19 pneumonia. The patient is seen today 06/24/2020 in follow-up on the regular medical floor. He is currently resting in bed. He is still quite dyspneic with minimal exertion. He is now on 12 L high flow nasal cannula. CAT scan and ruled out pulmonary embolism. Chest x-ray shows bilateral patchy densities more so on the right. He remains on Zosyn, bronchodilators, Lovenox. 0.9 normal saline at 130 ML's per hour. The patient is seen today 06/25/2020 regular medical floor. He is currently resting in bed. He is quite weak and debilitated. Still quite short of breath with minimal activity. He is requiring 15 L high flow nasal cannula along with the 100% nonrebreather to maintain O2 saturations in the mid to upper 80s. He is quite rhonchorous. Loose nonproductive cough. White count 14.5. Hemoglobin 12.3. Lymphocytes 0.9. Sodium 1:30. Potassium 4.8. Creatinine 0.80. He remains on IV Solu-Medrol, Lovenox, vitamin supplements. Antibiotics in the form of Zosyn. Chest x-ray continues to show bilateral opacities increasing on the left. On 06/26/2020 patient seen in follow-up. Patient is currently on 15 L high flow and his pulse ox is ranging between 80-93%, clinically he states he feels better, he looks comfortable, no worsening cough or dyspnea, no altered mentation, no fever or chills, hemodynamically stable, does become more short of breath with exertion, lst chest x-ray was yesterday on 06/25/2020 showing bilateral opacities with slight increase on the left. Today's labs have been reviewed, electrolytes and renal profile are unremarkable, LFTs were within norm al limits, pro-calcitonin level was negative at 0.19 on 06/22/2020. Patient remains on vitamin COPD and wheezing, remains on high-dose steroids with Solu- Medrol 60 mg every 6 hours, prophylactic Lovenox 40 mg daily, and Zosyn Patient was reevaluated today on 06/27/2020, patient continues to do poorly, still requiring BiPAP, did not do well on a nonrebreather mask, he is on 100% FiO2, continues to have shortness of breath, intermittent cough, no fever no chills, no hemoptysis. is at bedside, and she was updated on his condition, I also discussed the CODE STATUS with the , and she felt strongly about DO NOT RESUSCITATE CODE STATUS. She would like him to be DO NOT RESUSCITATE. I exp lained to her that his condition may worsen considering that he is marginal at best, and she definitely would not want them to be on any life-support machinery. Labs today showed d-dimer of 4.13. Electrolytes are normal renal profile is normal his LDH is 433 and C-reactive protein is 10. Chest x-ray is showing worsening of his bilateral pulmonary infiltrates. Reevaluated today on 06/28/2020, patient remains on BiPAP, not doing quite well, noted to be short of breath even on BiPAP. Patient is on 80% FiO2. IPAP of 14 and EPAP of 5. He is afebrile. Last LDH was 433 and C-reactive protein was 10. Reevaluated today on 06/29/2020, patient remains on BiPAP, 04/09, FiO2 is 70%. Seems to be more comfortable today, not in as much distress as he was yesterday. No blood tests were ordered today, his last LDH 2 days ago was 433 and his C- reactive protein was 10 patient admits that he is less short of breath and is feeling a bit better today compared to yesterday. Patient was reevaluated today on 06/30/2020, remains on BiPAP, but he is also in the meantime on comfort care measures, and hospice was consulted on this patient, presently on morphine drip. Patient is on 70% FiO2, BiPAP, and his O2 sats is 91%, and seems to be quite comfortable while on morphine drip. Objective - Vital Signs Vital signs: Vital Signs Temp 97.5 F L 06/30/20 05:35 Pulse 109 H 06/30/20 05:35 Resp 28 H 06/30/20 05:35 BP 144/83 06/30/20 05:35 Pulse Ox 91 L 06/30/20 05:35 Intake & Output 06/29/20 06/30/2006/30/21 18:59 06:59 18:59 Intake Total 412.597 10.047 Balance 412.597 10.047 Intake: Intake, IV Titration 12.597 10.047 Amount Morphine Sulfate (100 mg/ 12.597 10.047 2 ml) 100 mg In Sodium Chloride 0.9% 100 ml @ 1 MG/HR 1.02 mls/hr IV . Q24H NICOLASA Rx#:[id number] Oral 400 Other: # Voids 2 2 # Bowel Movements 1 1 - Exam GENERAL EXAM: Alert, very pleasant 79-year-old white female, on BiPAP. On m orphine drip. HEAD: Normocephalic/atraumatic. On BiPAP EENT: PERRLA, EOMI, nonicteric, no neck masses, no JVD, no stridor. CHEST: No chest wall deformity. Symmetrical expansion. LUNGS: Equal air entry with crackles noted at the bases. CVS: Regular rate and rhythm, normal S1 and S2, no gallops, no murmurs, no rubs ABDOMEN: Soft, nontender. No hepatosplenomegaly, normal bowel sounds, no guardi ng or rigidity. EXTREMITIES: No clubbing, no edema, no cyanosis, 2+ pulses and upper and lower extremities. SKIN: No rashes CENTRAL NERVOUS SYSTEM: Sedated, on morphine drip. I did not wake of the pa tient. PSYCHIATRIC: Not assessed - Labs CBC & Chem 7: 06/25/20 11:33 06/27/20 07:20 Labs: Abnormal Lab Results - Last 24 Hours (Table) 06/29/20 Range/Units 11:31 POC Glucose (mg/dL) 144 H (75-99) mg/dL Assessment and Plan Assessment: Impression: Acute respiratory distress secondary to Acute hypoxic respiratory failure secondary to acute covid 19 pneumonia. Frequent falls with history of rhabdomyolysis. Type 2 diabetes. Benign essential hypertension. Degenerative joint disease. History of coronary artery disease and previous [place] as well as previous stenting. Recommendation: Fully agree with comfort care measures. Continue BiPAP and titrate accordingly. Mostly for comfort. Remains on Lovenox. Prognosis is extremely poor and guarded. We will sign off and see on when necessary basis. Time with Patient: Less than 30
--- NOTE | 2020-06-30 13:24 | P.PN ---
Subjective Progress Note Date: 06/29/20 This is a pleasant 79-year-old gentleman with history of diabetes mellitus, hypertension, CAD, [place], cardiac stents 2, gout, muscle skeletal disorder and multiple other medical issues presented to the ER with complaints of Increased weakness, falls, shortness of breath,occasional nonproductive cough and multiple other medical issues. Patient was recently hospitalized for acute Covid 19 pneumonitis 06/01/2020 through 06/06/2020, and discharged to subacute rehab.,where he refused to stay after 2-3 days and proceeded home. He now presents with similar presentation. Coronavirus not detected. D-dimer 3.95, CTA reported no evidence of PE .Denies chest pain, palpitations. EKG reporting sinus tachycardia T-max 99.4, WBC 12.9. Hemoglobin 12.5, platelets 175, sodium 132, potassium 4.7, BUN 11, creatinine 0.76. Lactic acid 3.2 on admission, received gentle IV fluid hydration currently down to 1.6. Chest x-ray reporting increasing bilateral pneumonia compared to prior exam. UA negative. Currently requiring 5 L nasal cannula O2 to maintain O2 sats in the 90s. 06/23/2020 continues on Zosyn, vitamin supplements, Lovenox, albuterol inhaler ,oxygen requirements worsened, requiring 6 L nasal cannula to maintain O2 sats in the 90s. T-max 99.2, WBC 13.39. Hemoglobin 12.1, platelets 199. Denies chest pain, palpitations. 06/26/20 maintained on nebulized bronchodilators, Lovenox, Zosyn, IV steroids ,15 L high flow nasal cannula along with 100% nonrebreather mask, maintaining O2 sats in the high 80s to low 90s. Loose nonproductive cough. Blood sugars uncontrolled, ranging up to the high 200s. Afebrile. BUN 22, creatinine 0.88. 06/27/2020 respiratory distress declined and 15 L of nonrebreather, desatted down to 80%. Developed atrial fibrillation with fast rate in the 100s. Placed on 100% BiPAP, O2 sats improved to 96%, less anxiety and converted back to sinus rhythm. Chest x-ray reporting worsening bilateral lung infiltrates. Afebrile. Staff reports significant agitation at night. CODE STATUS discussed with , CODE STATUS changed to no code as does not want patient to be intubated. 06/28/2020 maintained on 80% BiPAP, unable to titrate further. Short of breath. Afebrile. Son at bedside stating he does not want his father struggling wearing a mask. Discussed comfort care/hospice. Son will be discussing with his mother. 06/29/20 remains BiPAP dependent. Prognosis guarded . and son present, requesting patient be changed to comfort care. Discussed morphine drip will be titrated to patient's comfort. Declined hospice. Objective - Vital Signs Vital signs: Vital Signs Temp 98.8 F 06/29/20 14:31 Pulse 86 06/29/20 14:31 Resp 20 06/29/20 14:31 BP 125/76 06/29/20 14:31 Pulse Ox 98 06/29/20 14:31 Intake & Output 06/28/20 06/29/20 06/29/20 18:59 06:59 18:59 Output Total 800 600 Balance -800 -600 Output: Urine 800 600 Other: Voiding Method External Catheter External Catheter # Bowel Movements 1 1 - Exam PHYSICAL EXAM: VITAL SIGNS: As above GENERAL: Frail ,Alert, confused, on bipap. HEENT: Conjunctivae normal. eyes normal. CARDIOVASCULAR: S1, S2 regular. Systolic murmur RESPIRATION: Breath sounds diminished in the bases. bibasilar crackles. ABDOMEN: Obese,Soft,distended, nontender. No guarding. no masses palpable. Positive Bowel sounds heard. LEGS: No edema. no swelling NERVOUS SYSTEM: Cranial N 2-12 grossly normal, confused. Moves all extremities. Skin: Warm and dry, no rash - Labs CBC & Chem 7: 06/25/20 11:33 06/27/20 07:20 Labs: Abnormal Lab Results - Last 24 Hours (Table) 06/28/20 06/29/20 06/29/20 Range/Units 21:17 07:04 11:31 POC Glucose (mg/dL) 199 H 189 H 144 H (75-99) mg/dL Assessment and Plan Assessment: Final Diagnoses: Acute hypoxic respiratory failure secondary to bilateral pneumonia, suspect persistent or recurrent covid- 19 pneumonitis, possible superimposed bacterial pneumonia. recently hospitalized for acute Covid 19 pneumonitis 06/01/2020 through 06/06/2020. BiPAP dependent. PE ruled out Generalized weakness, secondary to the above, discharged to subacute rehab on 06/06/2020 and patient did not complete rehab -only stayed for a few days, Degenerative joint disease History of Bilateral nephrolithiasis, large exophytic cyst of left kidney measuring 7 cm. History of Bladder stones History of Enlarged prostate History of Hepatomegaly with possible hepatic steatosis Diabetes mellitus II Hypertension CAD, history of [place] with cardiac stents in 2017. Plan: Continue on current medication regime ,monitoring and symptomatic treatment. Family requesting comfort care with hospice be initiated now. Discussed morphine drip with titration to comfort. Family in agreement with. The impression and plan of care has been dictated as directed. : I performed a history and examination of this patient, discussed the same with the dictator. I agree with the dictator's note ,documented as a scribe. Any additional findings or plans will be noted.
--- NOTE | 2020-06-30 13:39 | P.PN ---
Subjective Progress Note Date: 06/30/20 This is a pleasant 79-year-old gentleman with history of diabetes mellitus, hypertension, CAD, [place], cardiac stents 2, gout, muscle skeletal disorder and multiple other medical issues presented to the ER with complaints of Increased weakness, falls, shortness of breath,occasional nonproductive cough and multiple other medical issues. Patient was recently hospitalized for acute Covid 19 pneumonitis 06/01/2020 through 06/06/2020, and discharged to subacute rehab.,where he refused to stay after 2-3 days and proceeded home. He now presents with similar presentation. Coronavirus not detected. D-dimer 3.95, CTA reported no evidence of PE .Denies chest pain, palpitations. EKG reporting sinus tachycardia T-max 99.4, WBC 12.9. Hemoglobin 12.5, platelets 175, sodium 132, potassium 4.7, BUN 11, creatinine 0.76. Lactic acid 3.2 on admission, received gentle IV fluid hydration currently down to 1.6. Chest x-ray reporting increasing bilateral pneumonia compared to prior exam. UA negative. Currently requiring 5 L nasal cannula O2 to maintain O2 sats in the 90s. 06/23/2020 continues on Zosyn, vitamin supplements, Lovenox, albuterol inhaler ,oxygen requirements worsened, requiring 6 L nasal cannula to maintain O2 sats in the 90s. T-max 99.2, WBC 13.39. Hemoglobin 12.1, platelets 199. Denies chest pain, palpitations. 06/26/20 maintained on nebulized bronchodilators, Lovenox, Zosyn, IV steroids ,15 L high flow nasal cannula along with 100% nonrebreather mask, maintaining O2 sats in the high 80s to low 90s. Loose nonproductive cough. Blood sugars uncontrolled, ranging up to the high 200s. Afebrile. BUN 22, creatinine 0.88. 06/27/2020 respiratory distress declined and 15 L of nonrebreather, desatted down to 80%. Developed atrial fibrillation with fast rate in the 100s. Placed on 100% BiPAP, O2 sats improved to 96%, less anxiety and converted back to sinus rhythm. Chest x-ray reporting worsening bilateral lung infiltrates. Afebrile. Staff reports significant agitation at night. CODE STATUS discussed with , CODE STATUS changed to no code as does not want patient to be intubated. 06/28/2020 maintained on 80% BiPAP, unable to titrate further. Short of breath. Afebrile. Son at bedside stating he does not want his father struggling wearing a mask. Discussed comfort care/hospice. Son will be discussing with his mother. 06/29/20 remains BiPAP dependent. Prognosis guarded . and son present, requesting patient be changed to comfort care. Discussed morphine drip will be titrated to patient's comfort. Declined hospice. 06/30/2020 maintained on morphine drip/comfort care and on 15 L high flow nasal cannula. Staff reported would not let morphine drip be increased last night. Patient currently tachycardic, tachypneic on 1.5 mg of morphine. Staff advised to increase morphine drip, reassess and continue titrating to comfort. No family at bedside at this time. Objective - Vital Signs Vital signs: Vital Signs Temp 97.5 F L 06/30/20 05:35 Pulse 101 H 06/30/20 11:46 Resp 28 H 06/30/20 05:35 BP 144/83 06/30/20 05:35 Pulse Ox 91 L 06/30/20 11:46 Intake & Output 06/29/20 06/30/20 06/30/20 18:59 06:59 18:59 Intake Total 412.597 10.047 Balance 412.597 10.047 Intake: Intake, IV Titration 12.597 10.047 Amount Morphine Sulfate (100 mg/ 12.597 10.047 2 ml) 100 mg In Sodium Chloride 0.9% 100 ml @ 1 MG/HR 1.02 mls/hr IV . Q24H [facility] Rx#:[id number] Oral 400 Other: # Voids 2 2 # Bowel Movements 1 1 - Exam PHYSICAL EXAM: VITAL SIGNS: As above GENERAL: Frail ,Alert, confused, on high flow nasal cannula, morphine drip CARDIOVASCULAR: S1, S2 regular. Systolic murmur, tachycardic RESPIRATION: Breath sounds diminished in the bases. Tachypneic, bibasilar crackles. ABDOMEN: Obese,Soft,distended, nontender. No guarding. Positive Bowel sounds heard. - Labs CBC & Chem 7: 06/25/20 11:33 06/27/20 07:20 Assessment and Plan Assessment: Final Diagnoses: Acute hypoxic respiratory failure secondary to bilateral pneumonia, suspect persistent or recurrent covid- 19 pneumonitis, possible superimposed bacterial pneumonia. recently hospitalized for acute Covid 19 pneumonitis 06/01/2020 through 06/06/2020. BiPAP dependent. PE ruled out Generalized weakness, secondary to the above, discharged to subacute rehab on 06/06/2020 and patient did not complete rehab -only stayed for a few days, Degenerative joint disease History of Bilateral nephrolithiasis, large exophytic cyst of left kidney measuring 7 cm. History of Bladder stones History of Enlarged prostate History of Hepatomegaly with possible hepatic steatosis Diabetes mellitus II Hypertension CAD, history of [place] with cardiac stents in 2017. Plan: Continue on current medication regime ,monitoring and symptomatic treatment. Continue on morphine drip/comfort care. Continue titrating to comfort. Continue educating/supporting family. No family at bedside currently. The impression and plan of care has been dictated as directed. : I performed a history and examination of this patient, discussed the same with the dictator. I agree with the dictator's note ,documented as a scribe. Any additional findings or plans will be noted.
[2020-06-30] MEDS: SODIUM CHLORIDE 0.9% 1,000 ML IV SCH (15:23)
[2020-06-30] MEDS: MORPHINE SULFATE (100 MG/2 ML) 100 MG in SODIUM CHLORIDE 0.9% 100 ML IV SCH (15:25)
[2020-07-01] MEDS: LORazepam 2 MG/ML INJ IV PRN ×2 (01:05→08:23)
[2020-07-01] MEDS: methylPREDNISolone SOD SUCCI 125 MG/2 ML VIAL IV SCH ×4 (04:37→17:16)
[2020-07-01] MEDS: MORPHINE SULFATE (100 MG/2 ML) 100 MG in SODIUM CHLORIDE 0.9% 100 ML IV SCH (06:23)
--- NOTE | 2020-07-01 10:54 | P.PN ---
Subjective Progress Note Date: 07/01/20 Principal diagnosis: Acute hypoxia with respiratory failure secondary to Covid 19 pneumonia 07/01/2020 patient on 15 L high flow, he is presently on a morphine drip with when necessary Ativan for agitation. He appears quite comfortable at this time and is nonresponsive but was without labored respirations. Family is not at bedside at this time but is scheduled to be up shortly the visit with patient. Objective - Vital Signs Vital signs: Vital Signs Temp 97.6 F 06/30/20 14:14 Pulse 86 06/30/20 16:17 Resp 22 06/30/20 20:00 BP 138/83 06/30/20 14:14 Pulse Ox 95 06/30/20 16:17 Intake & Output 06/30/20 07/01/20 07/01/20 18:59 06:59 18:59 Intake Total 26.418 317.600 17 Balance 26.418 317.600 17 Intake: Intake, IV Titration 26.418 287.600 17 Amount Morphine Sulfate (100 mg/ 26.418 47.600 17 2 ml) 100 mg In Sodium Chloride 0.9% 100 ml @ 1 MG/HR 1.02 mls/hr IV . Q24H [facility] Rx#:[id number] Sodium Chloride 0.9% 1, 240 000 ml @ 20 mls/hr IV . Q24H [facility] Rx#:[id number] Oral 30 Other: Voiding Method Diaper Diaper Incontinent Incontinent # Voids 3 1 - Exam GENERAL: Nonresponsive on 15 L high flow, and is on morphine drip. Respiratory: Tachypneic, lung sounds are clear to auscultation Neuro: Sedated, on morphine drip. Patient unresponsive to verbal and tactile stimuli - Labs CBC & Chem 7: 06/25/20 11:33 06/27/20 07:20 Assessment and Plan (1) Acute respiratory distress Current Visit: Yes Status: Acute Code(s): R06.03 - ACUTE RESPIRATORY DISTRESS SNOMED Code(s): 033548062 (2) COVID-19 Current Visit: Yes Status: Acute Code(s): U07.1 - COVID-19 SNOMED Code(s): 758756583 (3) Dehydration Current Visit: Yes Status: Acute Code(s): E86.0 - DEHYDRATION SNOMED Code(s): 68807907 (4) Generalized weakness Current Visit: Yes Status: Acute Code(s): R53.1 - WEAKNESS SNOMED Code(s): 45928281 (5) Multiple falls Current Visit: Yes Status: Acute Code(s): R29.6 - REPEATED FALLS SNOMED Code(s): 109033015 Plan: #1 continue current medication regimen and comfort care measures #2 continue with oxygen as needed for comfort for patient #3 will reevaluate tomorrow Time with Patient: Greater than 30
[2020-07-01] MEDS ORDERED: LORazepam 2 MG/ML INJ IV PRN (10:57)
[2020-07-01 11:38] VITALS: BP 139/75; PULSE 118; RESP 24; TEMP 98.6
[2020-07-01] MEDS: SODIUM CHLORIDE 0.9% 1,000 ML IV SCH (17:14)
--- NOTE | 2020-07-03 08:04 | CDI ---
Documentation Clarification Form Date: 06/28/2020 04:03:00 PM From: Morena Mcgrath CCS, CCDS Admit Date: 06/21/2020 10:02:00 PM Patient Name: Martha German Visit Number: [id number] Discharge Date: 07/01/2020 02:00:00 PM ATTENTION: The Clinical Documentation Specialists (CDI) and [facility] Coding Staff appreciate your assistance in clarifying documentation. Please respond to the clarification below the line at the bottom and electronically sign. The CDI & [facility] Coding staff will review the response and follow-up if needed. Please note: Queries are made part of the Legal Health Record. If you have any questions, please contact the author of this message via ITS. Dr. Tristan Oconnor: The patient is admitted with recurrence of COVID-19 Pneumonia & Acute Hypoxic Respiratory Failure. Per the 06/27 Attending Progress Note: the patient is confused, (on BiPAP). Per the 06/27 Pulmonary Progress Note: the patient has confused mental status. Clarification of the patient's documented confusion is requested. History/Risk Factors per the 06/22 History Physical History: DM II, Hypertension, CAD & [place] status post stents, Gout. Clinical Indicators: Presented to the ED on 06/21 via EMS with weakness. 79-year-old male presents emergency Department with generalized weakness. Patient was seen 2 weeks ago for similar complaints. He was diagnosed with COVID and discharged to rehab. Patient states he stayed there 3 days before leaving stating that he hated it there. Patient reports that he has been home for approximately one week. He has not been doing any better at home. Reports to increased weakness. He did have a fall today and has worsening SOB. 06/21 VS: T 99.4, P 130, R 20 (SOB), BP 105/62, PO 91 2Lnc, BMI: 26.1 06/21 LAB: WBC 11.8, Neut 10.2, Lymph 0.6, APTT 32.0, D Dimer 3.95, Na 136, Glucose 178, Lactic Acid 3.2. 06/21 COVID negative. No blood gases. 06/21 CXR: There is increasing bilateral pneumonia compared to old exam. No heart failure seen. 06/21 CT Chest: Bilateral airspace pneumonia worse on right side. Treatment 06/21: IV Fluid 500 mls @ 999 mls/hr q31M, IV Rocephin 1,000 mg x1, IV Azithromycin 250 mls @ 250 mls/hr x1, IV Fluid 1,000 mls @ 130 mls/hr q7H, O2 3Lnc. Full Code. 06/22: INH Ventolin, Vit D3, po Orazinc, Vit C, IV Zosyn 100 mls @ 25 mls/hr q8H, O2 4-5Lnc 06/23: Lovenox sq, IV Solumedrol. O2 6Lnc. 06/27: No Code status. 06/28: Family discussing Hospice/Comfort Care. Please clarify the following if known: [ ] Metabolic Encephalopathy [ ] Septic Encephalopathy [ ] Other, please specify [ ] Unable to determine (Template Last Revised: May 2020) MTDD
--- NOTE | 2020-07-06 09:24 | CDI ---
Documentation Clarification Form Date: 07/06/2020 09:10:51 AM From: Morena Mcgrath CCS, CCDS Admit Date: 06/21/2020 10:02:00 PM Patient Name: Martha German Visit Number: [id number] Discharge Date: 07/01/2020 02:00:00 PM ATTENTION: The Clinical Documentation Specialists (CDI) and [facility] Coding Staff appreciate your assistance in clarifying documentation. Please respond to the clarification below the line at the bottom and electronically sign. The CDI & [facility] Coding staff will review the response and follow-up if needed. Please note: Queries are made part of the Legal Health Record. If you have any questions, please contact the author of this message via ITS. Dr. Tristan Oconnor: Per the 06/22 H/P: Patient was recently hospitalized for acute COVID-19 pneumonitis 06/01/2020 through 06/06/2020 and discharged to subacute rehab where he refused to stay after 2-3 days and proceeded home. He now presents with similar presentation. Coronavirus not detected. Per the 06/22 Pulmonary Consult: Acute hypoxemic respiratory failure with bilateral right greater than left infiltrates, either related to persistent/recurrent COVID 19 pneumonitis or superimposed bacterial pneumonia. History/risk factors per the 07/02 H/P: Diabetes Mellitus, Hypertension, CAD, [place] with Stents. Clinical Indicators per the 06/21 ED Note: 79 yo male. Presented to the ED via EMS w/weakness. Seen/admit 2 wks ago w/similar, diagnosis w/COVID, discharged to rehab, stayed 3 days & then went home. Increased weakness, fall today, worsening SOB.. Admit with COVID 19, Gen weakness, Dehydration, Multiple Falls & Bacterial Pneumonia 06/21 VS: T 99.4, P 130, R 20 (SOB), BP 105/62, PO 91 2Lnc LAB 06/21: WBC 11.8, Neut 10.2, Lymph 0.6, APTT 32.0, D Dimer 3.95, Na 136, Glucose 178, Lactic Acid 3.2 - 1.6. 06/21 COVID test Negative Scanned 06/01 [facility] COVID test scanned to record: Positive. RAD: 06/21 CXR: Increasing bilateral pneumonia compared to old exam. No heart failure seen. 06/21 CT Chest: No evidence of PE, Bilateral airspace pneumonia > right. Treatment 06/21: Telemetry, Dysphagia diet, Daily CBC, IV fluid bolus, IV Rocephin, IV Azithromycin, IV fluid rate 130 q7H, INH Ventolin q4H prn, it D3, Orazinc, Vit C, IV Zosyn, Lovenox sq Respiratory Treatment: 06/21 - 06/23: 3 - 7Lnc. 06/23 - 06/27: High Flow 7 - 15L intermittent with nrb 06/27 - 06/30: 100% BiPAP 06/30: High Flow 15L Please clarify the COVID-19 status: [ ] False negative, treating for COVID-19 infection [ ] COVID-19 ruled out this admission [ ] Other, please specify (Template Last Revised: May 2020) MTDD
--- NOTE | 2020-07-06 09:35 | CDI ---
Documentation Clarification Form Date: 07/06/2020 09:25:13 AM From: Morena McgrathNICHOL lambret, CCDS Admit Date: 06/21/2020 10:02:00 PM Patient Name: Martha German Visit Number: [id number] Discharge Date: 07/01/2020 02:00:00 PM ATTENTION: The Clinical Documentation Specialists (CDI) and [facility] Coding Staff appreciate your assistance in clarifying documentation. Please respond to the clarification below the line at the bottom and electronically sign. The CDI & [facility] Coding staff will review the response and follow-up if needed. Please note: Queries are made part of the Legal Health Record. If you have any questions, please contact the author of this message via ITS. Dr. Tristan Oconnor: Per the patient's Past Medical History in the 07/02, history of Diabetes Mellitus on oral Hypoglycemic medication: Metformin. The patient's Glucose levels were elevated throughout this admission. Please clarify any associated Diabetic conditions. History/risk factors per the 07/02 H/P: Diabetes Mellitus, Hypertension, CAD, [place] with Stents. Clinical Indicators per the 06/21 ED Note: 79 yo male. Presented to the ED via EMS w/weakness. Seen/admit 2 weeks ago w/similar, diagnosis w/COVID, discharged to rehab, stayed 3 days & then went home. Increased weakness, fall today, worsening SOB.. Admit with COVID 19, Gen weakness, Dehydration, Multiple Falls & Bacterial Pneumonia 06/21 VS: T 99.4, P 130, R 20 (SOB), BP 105/62, PO 91 2Lnc Glucose: 06/21: 178, 06/22: 141, 06/23: 174, 06/25: 230, 06/26: 226, 06/27: 213 LAB 06/21: WBC 11.8, Neut 10.2, Lymph 0.6, APTT 32.0, D Dimer 3.95, Na 136, Lactic Acid 3.2 - 1.6. 06/21 COVID test Negative Scanned 06/01 [facility] COVID test scanned to record: Positive. RAD: 06/21 CXR: Increasing bilateral pneumonia compared to old exam. No heart failure seen. 06/21 CT Chest: No evidence of PE, Bilateral airspace pneumonia > right. Treatment: 06/22 Insulin sq sliding scale, Metformin 1,000 mg BID, Glucose Monitoring Telemetry, Dysphagia diet, Daily CBC, IV fluid bolus, IV Rocephin, IV Azithromycin, IV fluid rate 130 q7H, INH Ventolin q4H prn, it D3, Orazinc, Vit C, IV Zosyn, Lovenox sq, IV Solumedrol ordered, not given. Respiratory Treatment: 06/21 - 06/23: 3 - 7Lnc. 06/23 - 06/27: High Flow 7 - 15L intermittent with nrb 06/27 - 06/30: 100% BiPAP 06/30: High Flow 15L Please clarify if you also treated the patient for any associated conditions related to Diabetes Mellitus: [ ] Diabetes Type 2 [ ] With Hyperglycemia [ ] Hyperglycemia due to medications, please specify: [ ] Hyperglycemia related to other condition(s), please specify: [ ] Other, please specify [ ] Unable to Determine (Template Last Revised: May 2020) MTDD
--- NOTE | 2020-07-27 13:17 | P.DS ---
Providers Date of admission: 06/21/20 22:02 Expected date of discharge: 07/01/20 Attending physician: Tristan Oconnor Consults: 06/21/20 21:38 Consult Physician Stat Consulting Provider: Emilie Mcclendon Consult Reason/Comments: covid pneumonia Do you want consulting provider notified?: Yes Primary care physician: Oleksandr Rivera - Discharge Diagnosis(es) (1) COVID-19 Status: Acute (2) Dehydration Status: Acute (3) Generalized weakness Status: Acute (4) Multiple falls Status: Acute (5) Abdominal pain Status: Acute (6) Chest pain Status: Acute (7) Hypertension Status: Acute Hospital Course: Patient was made comfort care the day earlier was on the morphine drip Patient at 1538 on 07/01/2020 Patient Condition at Discharge: Serious Plan - Discharge Summary New Discharge Prescriptions: No Action metFORMIN HCL [Glucophage] 1,000 mg PO BID Aspirin EC [Ecotrin Low Dose] 81 mg PO DAILY Multivitamins, Thera [Multivitamin (formulary)] 1 tab PO DAILY amLODIPine BESYLATE/BENAZEPRIL [amLODIPine BESYLATE/BENAZEPRIL 10-40 MG] 1 cap PO DAILY Discharge Medication List metFORMIN HCL [Glucophage] 1,000 mg PO BID 05/04/17 [History] Aspirin EC [Ecotrin Low Dose] 81 mg PO DAILY 06/15/17 [History] Multivitamins, Thera [Multivitamin (formulary)] 1 tab PO DAILY 06/21/20 [History] amLODIPine BESYLATE/BENAZEPRIL [amLODIPine BESYLATE/BENAZEPRIL 10-40 MG] 1 cap PO DAILY 06/21/20 [History] Follow up Appointment(s)/Referral(s): [facility] [place], [NON-STAFF] - Oleksandr Rivera MD [Primary Care Provider] - 1-2 days
== END 2020-07-01 14:00 | disposition expired | DRG 871 ==
LOC: EC 17:45 → 4SSUR 22:02 → 1SOBS 06-23 09:01 → 4SSUR 06-23 20:20
PROVIDERS: ADMIT Family Medicine; ATTEND Family Medicine
PROC: 5A09457 Assistance with Respiratory Ventilation, 24-96 Consecutive Hours, Continuous Positive Airway Pressure (ICD-10-PCS; principal; 2020-06-27)
DX: A41.89 Other specified sepsis (principal); J12.82 Pneumonia due to coronavirus disease 2019; J15.9 Unspecified bacterial pneumonia; J96.01 Acute respiratory failure with hypoxia; G93.41 Metabolic encephalopathy; B94.8 Sequelae of other specified infectious and parasitic diseases; E11.9 Type 2 diabetes mellitus without complications; I25.2 Old myocardial infarction; Z20.822 Contact with and (suspected) exposure to COVID-19; Z79.82 Long term (current) use of aspirin; Z79.84 Long term (current) use of oral hypoglycemic drugs; I48.0 Paroxysmal atrial fibrillation; Z51.5 Encounter for palliative care; Z66 Do not resuscitate; I10 Essential (primary) hypertension; Z82.49 Family history of ischemic heart disease and other diseases of the circulatory system; Z80.1 Family history of malignant neoplasm of trachea, bronchus and lung; E86.0 Dehydration; R29.6 Repeated falls; M10.9 Gout, unspecified; N28.1 Cyst of kidney, acquired; Z87.442 Personal history of urinary calculi; I25.10 Atherosclerotic heart disease of native coronary artery without angina pectoris; Z95.5 Presence of coronary angioplasty implant and graft; N40.0 Benign prostatic hyperplasia without lower urinary tract symptoms; Z87.01 Personal history of pneumonia (recurrent); R10.9 Unspecified abdominal pain; M19.90 Unspecified osteoarthritis, unspecified site; R45.1 Restlessness and agitation; Z96.652 Presence of left artificial knee joint; W18.30XA Fall on same level, unspecified, initial encounter; Y92.019 Unspecified place in single-family (private) house as the place of occurrence of the external cause; Z90.49 Acquired absence of other specified parts of digestive tract; Z88.8 Allergy status to other drugs, medicaments and biological substances; Z81.8 Family history of other mental and behavioral disorders
CPT/HCPCS: 36415; 71045; 71275; 80048; 80053; 81003; 82550; 83605; 83615; 83735; 83880; 84145; 84443; 84484; 85025; 85379; 85610; 85730; 86140; 87635; 93005; 93306; 94640; 94660; 94760; 96360; 99285